=== PATIENT | male | born 1935 | race Caucasian/White ===

== ENCOUNTER 2018-09-30 05:20 | Inpatient (IN) ==
[2018-09-30] MEDS ORDERED: Ipratropium/Albuterol Neb 3 ML IH ONE (05:44)
[2018-09-30] MEDS ORDERED: Levofloxacin 750 MG/150 ML 750 MG/150 ML BAG IVPB ONE (05:44)
[2018-09-30] MEDS ORDERED: Acetaminophen 325 MG TABLET PO ONE (05:50)
--- NOTE | 2018-09-30 05:58 | Emergency Department Note ---
Disposition Clinical Impression: Respiratory distress Community acquired pneumonia Qualifiers: Laterality: right Lung location: unspecified part of lung Qualified Code(s): J18.9 - Pneumonia, unspecified organism Disposition: Admitted As Inpatient Referrals: Mario Early MD [Primary Care Provider] - Forms: ED Satisfaction Letter Time of Disposition: 07:09 SOB HPI - General Chief Complaint: ED Shortness of Breath/Dyspnea Stated Complaint: sob Time Seen by Provider: 09/30/18 05:25 Source: patient, EMS Mode of arrival: EMS Limitations: no limitations Nursing Notes Reviewed: Yes Vital Signs Reviewed: Yes - History of Present Illness pt sts got up to use BR just [employer] and had sudden SOB, could hardly make it marito k to bed. Often, shaking, could not breathe at all. Patient states Thursday he became ill. Decreased appetite. Reports Thursday he started coughing up brown and bright red blood. Did not know he had a fever. Former smoker. Denies chest pain or palpitations. Had some abdominal pain related to the cough. He reports no history of CHF. He is not on home oxygen. He states that he discovered a few days ago that he had "a whole bunch of meds" that he had not been taking. EMS vitals pulse ox 80-89% and tachycardic in a fib w/ freq PVC's Pt Subjective Complaint: shortness of breath, cough Onset (ago): day(s) Context: recent illness, medication noncompliance Severity: severe Consistency/Duration: constant Improves with: oxygen, rest, bronchodilators, upright position Worsens with: exertion, coughing Known history of: diabetes Associated symptoms: Reports: cough, wheezing, sputum production, orthopnea, palpitations, hemoptysis, nausea/vomiting, abdominal pain (from coughing). Denies: chest pain, pain with inspiration, lower extremity pain, polyuria, polydipsia, parasthesias, diaphoresis, syncope Treatment prior to arrival: oxygen, bronchodilator, other (solumedrol) Cough present: Yes Cough Description: Voluntary, Productive, Moist, Weak Cough Frequency: Intermittent Sputum production: Yes Sputum Amount: Moderate Sputum Color: Rust, Brown, Mason Red Blood - Related Data Home Medications Medication Instructions Recorded Confirmed Clopidogrel [Plavix] 75 mg PO DAILY 02/19/18 09/30/18 Furosemide [Lasix] 20 mg PO DAILY 02/19/18 09/30/18 Labetalol [Trandate] 300 mg PO BID 02/19/18 09/30/18 Levothyroxine [Synthroid] [place] [address]/19/18 09/30/18 Lisinopril-HCTZ 20-12.5 [Prinzide 1 each PO DAILY 02/19/18 09/30/18 20-12.5] Metformin HCl [Metformin HCl ER] 500 mg PO BID 02/19/18 09/30/18 Omeprazole 20 mg PO DAILY 02/19/18 09/30/18 Simvastatin [Zocor] 20 mg PO HS 02/19/18 09/30/18 amLODIPine [Norvasc] 5 mg PO DAILY 02/19/18 09/30/18 Allergies Allergy/AdvReac Type Severity Reaction Status Date / Time Sulfa (Sulfonamide Allergy See Verified 09/30/18 05:30 Antibiotics) Comments All systems ED: reviewed and negative except as stated. Review of Systems: As Per HPI Past Medical History - Past Medical History Medical history: Reports: CVA, diabetes, GERD, hyperlipidemia, hypertension, thyroid disease Psychiatric history: Reports: no psych history - Social History Smoking Status: Former smoker Smokeless Tobacco Status: No Alcohol use: Reports: none Drug use: Reports: none Physical Exam Constitutional: Patient is oriented to person, place, and time. Skin color is pale Appears well hydrated, body habitus elderly and frail. Appears ill. Head: Normocephalic and atraumatic. External ear exam normal Nose: Nose normal. Mouth/Throat: Uvula is midline, oropharynx is clear and moist and mucous membranes are normal. Eyes: Conjunctivae nl, extraocular motions and lids are normal. Pupils are equal, round, and reactive to light. Neck: Normal range of motion and phonation normal. Neck supple. Cardiovascular: Normal rate, irregularly irregular rhythm, normal heart sounds. Pulmonary/Chest: Presents in Respiratory distress. Respiratory Effort increased and breath sounds diminished. Coarse rhonchi bilateral bases worse on the right than the left. Wheezing on the right. With minimal exertion of sitting up and lying back down he becomes winded and tachypnea with some intercostal retractions briefly. He is coughing up frankly bloody/rust colored sputum. the effort of cough exhausts him Abdominal: Soft. Normal appearance and bowel sounds are normal. Obese. No tenderness, no masses, no guarding, no rebound Musculoskeletal: Good distal pulses. Soft compartments. Brisk cap refill. Extremities: Normal range of motion.Intact peripheral pulses. Weakness bilaterally. Slightly worse on the left than the right. 3+ bilateral lower extremity Edema. Extremity skin color pale no calf tenderness or palpable cords. Neurological: GCS 15. Patient is alert . Slight left hemiparesis. Generally debilitated with poor muscle tone and difficulty cooperating with any strength testing Skin: Skin is warm, dry and intact. color is pale cap. refill is quick Psychiatric: Patient has normal mood and affect. Patient speech is normal and behavior is normal. Thought content normal. - General Limitations: no limitations General appearance: alert, in distress Course - Reevaluation(s) Reevaluation #1: I discussed the large pneumonia with the patient and his family. They are aware he is at high risk for decompensation w/ this illness. He and his son indicates that he has a DNR. I confirmed with the patient that he does not want resuscitation, mechanical ventilation, CPR. He would prefer to stay here and be admitted at [facility] if possible . 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 His pneumonia is large and he is respiratory distress. I elected to trial a course of BiPAP to assist w/ his breathing and administered a IV fluid bolus due to fever, pneumonia, and possibility of sepsis although he is not tachycardic or hypotensive. he hAS risk for CHf AND significant depen edema, so 30cc/kg bolus is contraindicated. Time: 06:31 Reevaluation #3: disc case w/ dr Early who agrees to accept pt for admission. discussed antibiotic choice Time: 07:07 Vital Signs Temperature 101.8 F H 09/30/18 05:20 Pulse Rate 80 09/30/18 05:20 Respiratory Rate 28 09/30/18 05:20 Blood Pressure 131/113 09/30/18 05:20 O2 Sat by Pulse Oximetry 94 09/30/18 05:20 Temperature 101.8 F H 09/30/18 05:20 Pulse Rate 77 09/30/18 06:24 Respiratory Rate 28 09/30/18 06:24 Blood Pressure 150/77 09/30/18 06:24 O2 Sat by Pulse Oximetry 95 09/30/18 06:24 Oxygen Delivery Oxygen Delivery Nasal Cannula Shortness of Breath/Dyspnea - MDM Narrative Medical decision making narrative: Differential diagnosis includes pneumonia, CHF, exacerbation COPD. - Medical Records Medical records reviewed: Yes I reviewed the patient's medical records. Review of records reveals the patient had a stroke with some mild left hemiparesis in January. His medication list at that time looks very similar to his current medication list. Investigation of all available ECGs reveals non-with atrial fib. However his son states that he has had a history of atrial fibrillation. . - Lab Data Lab results reviewed: Yes I reviewed the patient's lab results. Result diagrams: 09/30/18 06:00 09/30/18 06:00 Lab Results 09/30/18 09/30/18 09/30/18 Range/Units 06:00 06:00 06:00 WBC 13.1 H (4.3-11.1) K/mcL RBC 3.62 L (4.19-5.50) M/mcL Hgb 10.9 L (12.9-16.9) g/dL Hct 32.5 L (37.5-50.1) % MCV 89.8 (83.0-100.0) fL MCH 30.1 (28.0-33.3) pg MCHC 33.5 (31.6-35.5) g/dL RDW 13.6 (11.5-14.5) % Plt Count 295 (140-400) K/mcL MPV 10.2 (9.4-12.4) fL Immature Gran % 0.4 (0-4) % Seg Neutrophils % 82.3 % Lymphocytes % 7.6 % Monocytes % 7.0 % Eosinophils % 2.3 % Basophils % 0.4 % Neutrophils # 10.8 H (1.6-8.9) K/mcL Lymphocytes # 1.0 (0.6-4.6) K/mcL Monocytes # 0.9 (0.0-1.3) K/mcL Eosinophils # 0.3 (0.0-0.6) K/mcL Basophils # 0.1 (0.0-0.2) K/mcL D-Dimer 598 H (0-500) ng/mLFEU VBG pH (7.32-7.42) pH Units VBG pCO2 (41-51) mmHg VBG pO2 (25-50) mmHg VBG HCO3 (21-27) mEq/L Sodium 135 L (136-145) mEq/L Potassium 3.5 (3.5-5.1) mEq/L Chloride 103 (98-107) mEq/L Carbon Dioxide 23 (23-29) mEq/L BUN 24 H (8-23) mg/dL Creatinine 1.41 H (0.70-1.30) mg/dL Est GFR ( Amer) 58 L (> 60) Est GFR (Non-Af Amer) 48 L (> 60) BUN/Creatinine Ratio 17 (6-26) Glucose 200 H (70-105) mg/dL Calculated Osmolality 290 (280-300) Lactic Acid (0.5-2.2) mmol/L Calcium 8.7 (8.6-10.3) mg/dL Total Bilirubin 0.8 (0.3-1.0) mg/dL Direct Bilirubin 0.3 H (0.0-0.2) mg/dL Indirect Bilirubin 0.5 (0.0-1.2) mg/dL AST 21 (13-39) Units/L ALT 44 (7-52) Units/L Alkaline Phosphatase 53 (34-104) Units/L Troponin I < 0.03 (< 0.04) ng/mL Serum Total Protein 6.0 L (6.4-8.9) g/dL Albumin 3.5 (3.5-5.7) g/dL Globulin 2.5 (2.4-3.5) g/dL Albumin/Globulin Ratio 1.4 (1.1-2.2) 09/30/18 09/30/18 Range/Units 06:00 06:12 WBC (4.3-11.1) K/mcL RBC (4.19-5.50) M/mcL Hgb (12.9-16.9) g/dL Hct (37.5-50.1) % MCV (83.0-100.0) fL MCH (28.0-33.3) pg MCHC (31.6-35.5) g/dL RDW (11.5-14.5) % Plt Count (140-400) K/mcL MPV (9.4-12.4) fL Immature Gran % (0-4) % Seg Neutrophils % % Lymphocytes % % Monocytes % % Eosinophils % % Basophils % % Neutrophils # (1.6-8.9) K/mcL Lymphocytes # (0.6-4.6) K/mcL Monocytes # (0.0-1.3) K/mcL Eosinophils # (0.0-0.6) K/mcL Basophils # (0.0-0.2) K/mcL D-Dimer (0-500) ng/mLFEU VBG pH 7.55 H (7.32-7.42) pH Units VBG pCO2 17 L (41-51) mmHg VBG pO2 70 H (25-50) mmHg VBG HCO3 15 L (21-27) mEq/L Sodium (136-145) mEq/L Potassium (3.5-5.1) mEq/L Chloride (98-107) mEq/L Carbon Dioxide (23-29) mEq/L BUN (8-23) mg/dL Creatinine (0.70-1.30) mg/dL Est GFR ( Amer) (> 60) Est GFR (Non-Af Amer) (> 60) BUN/Creatinine Ratio (6-26) Glucose (70-105) mg/dL Calculated Osmolality (280-300) Lactic Acid 1.2 (0.5-2.2) mmol/L Calcium (8.6-10.3) mg/dL Total Bilirubin (0.3-1.0) mg/dL Direct Bilirubin (0.0-0.2) mg/dL Indirect Bilirubin (0.0-1.2) mg/dL AST (13-39) Units/L ALT (7-52) Units/L Alkaline Phosphatase (34-104) Units/L Troponin I (< 0.04) ng/mL Serum Total Protein (6.4-8.9) g/dL Albumin (3.5-5.7) g/dL Globulin (2.4-3.5) g/dL Albumin/Globulin Ratio (1.1-2.2) - Radiology Data Radiology results reviewed: Yes I reviewed the patient's radiology results. my interpretation port CXR: Large right sided pneumonia Rad: XR/XR chest 1V portable IMPRESSION: Multifocal bilateral airspace disease could represent pneumonia, atelectasis, and/or hemorrhage. Pulmonary edema is also suspected. D/ / Nikolay Tinoco MD / Nikolay Tinoco MD - EKG Data EKG attestation: Yes I reviewed and interpreted this EKG. EKG results narrative: ECG from EMS reveals 2 PVCs and atrial fib with controlled rate of 78. No evidence of acute ischemic changes. ECG done in the emergency department reveals atrial fib with rate of 77 and [address] depression laterally. No ST elevation or acute ischemia. [id number] Critical Care Time Critical Care Time: Yes Attestation: Critical care provided for this patient of which 35 minutes were spent on critical care including at patient bedside, record review, evaluation of results, conversation with consultants and decision making and 0 minutes for procedures There was imminent failure of an organ system which required critical intervention to prevent clinically significant progression of life-threatening deterioration of the patient's condition to the point of disability or
[2018-09-30 06:08] LABS: Basophils # 0.1 K/mcL (0.0-0.2); Basophils % 0.4 %; Eosinophils # 0.3 K/mcL (0.0-0.6); Eosinophils % 2.3 %; Hematocrit 32.5 % (37.5-50.1); Hemoglobin 10.9 g/dL (12.9-16.9); Immature Granulocytes % 0.4 % (0-4); Lymphocytes % 7.6 %; Mean Corpuscular HGB Conc 33.5 g/dL (31.6-35.5); Mean Corpuscular Hemoglobin 30.1 pg (28.0-33.3); Mean Corpuscular Volume 89.8 fL (83.0-100.0); Mean Platelet Volume 10.2 fL (9.4-12.4); Monocytes # 0.9 K/mcL (0.0-1.3); Neutrophils # 10.8 K/mcL (1.6-8.9); Platelet Count 295 K/mcL (140-400); Red Blood Count 3.62 M/mcL (4.19-5.50); Red Cell Distribution Width 13.6 % (11.5-14.5); Segmented Neutrophils % 82.3 %
[2018-09-30 06:15] LABS: VBG HCO3 15 mEq/L (21-27); VBG PCO2 17 mmHg (41-51); VBG PH 7.55 pH Units (7.32-7.42); VBG PO2 70 mmHg (25-50)
[2018-09-30] MEDS ORDERED: 0.9 % Sodium Chloride 250 ML IVC ONE ×2 (06:20→12:30)
[2018-09-30 06:23] LABS: Alanine Aminotransferase 44 Units/L (7-52); Albumin 3.5 g/dL (3.5-5.7); Albumin/Globulin Ratio 1.4 (1.1-2.2); Alkaline Phosphatase 53 Units/L (34-104); Aspartate Amino Transferase 21 Units/L (13-39); BUN/Creatinine Ratio 17 (6-26); Bilirubin,Direct 0.3 mg/dL (0.0-0.2); Bilirubin,Indirect 0.5 mg/dL (0.0-1.2); Bilirubin,Total 0.8 mg/dL (0.3-1.0); Blood Urea Nitrogen 24 mg/dL (8-23); Calcium 8.7 mg/dL (8.6-10.3); Carbon Dioxide 23 mEq/L (23-29); Chloride 103 mEq/L (98-107); Globulin 2.5 g/dL (2.4-3.5); Glucose 200 mg/dL (70-105); Osmolality,Calculated 290 (280-300); Potassium 3.5 mEq/L (3.5-5.1); Sodium 135 mEq/L (136-145); eGFR For Non-African Americans 48 (> 60)
[2018-09-30 06:27] LABS: Troponin I < 0.03 ng/mL (< 0.04)
[2018-09-30 06:28] LABS: INR 1.2; Prothrombin Time 13.4 Seconds (9.4-12.1)
[2018-09-30 06:30] LABS: Activated Partial Thrombo Time 34.7 Seconds (26.0-36.0)
[2018-09-30] MEDS ORDERED: 0.9 % Sodium Chloride 500 ML IVC ONE ×2 (06:35→12:30)
[2018-09-30 07:02] LABS: Bilirubin,Urine Negative (Negative); Blood,Urine Negative (Negative); Clarity,Urine Clear (Clear); Color,Urine Yellow (Yellow); Glucose,Urine (UA) Normal (Normal); Ketones,Urine Negative (Negative); Leukocyte Esterase,Urine Negative (Negative); Nitrite,Urine Negative (Negative); PH,Urine 5.5 pH Units (5.0-8.0); Protein,Urine Negative (Neg-Trace); Specific Gravity,Urine 1.025 (1.010-1.025); Urobilinogen,Urine Normal (Normal)
[2018-09-30] MEDS ORDERED: D5% in Water 1,000 ML IVC PRN (12:30)
[2018-09-30] MEDS ORDERED: Dextrose Gel 15 GM/37.5 ML TUBE PO PRN ×2 (12:30)
[2018-09-30] MEDS ORDERED: Naloxone 0.4 MG/ML INJ IVP PRN (12:30)
[2018-09-30] MEDS ORDERED: *HR* Dextrose 50 % in Water (Syg) 50 ML SYRINGE IVP PRN (12:30)
[2018-09-30] MEDS: Furosemide 20 MG TABLET PO SCH (14:06)
[2018-09-30] MEDS: Lisinopril-HCTZ 20-12.5mg TABLET PO SCH (14:06)
[2018-09-30] MEDS: amLODIPine 5 MG TABLET PO SCH (14:06)
[2018-09-30] MEDS: *HR* Metformin 500 MG TABLET PO SCH ×2 (14:06→21:45)
[2018-09-30] MEDS: 0.9 % Sodium Chloride 1,000 ML IVC SCH ×2 (14:06→19:03)
[2018-09-30] MEDS: Ipratropium/Albuterol Neb 3 ML IH SCH ×5 (14:22→22:03)
--- NOTE | 2018-09-30 15:28 | Electrocardiograph Report ---
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
[2018-09-30 20:19] LABS: Estimated Average Glucose 183 mg/dl
--- NOTE | 2018-09-30 23:13 | Internal Med History&Physical ---
Date of Encounter: 10/01/18 Time of Encounter: 19:30 Assessment and Plan (1) Community acquired pneumonia Current visit: Yes Status: Acute 82-year-old gentleman with known history of hypertension, diabetes and previous CVA and chronic kidney disease is admitted with extensive right-sided pneumonia, fever, hemoptysis and leukocytosis consistent with community acquired pneumonia, likely streptococcal. He is placed on Levaquin in the emergency room and will continue the same. He has had hypoxia and improved with oxygen per nasal cannula at 3 L. In the emergency room he was temporarily on BiPAP. The ER physician confirmed with him that he is not to have intubation, CPR or defibrillation. He states he is feeling better having had respiratory treatment and oxygen and rest and antibiotics. We will continue with the Levaquin. Blood cultures have been done. Qualifiers: Laterality: right Lung location: lower lobe of lung Qualified Code(s): J18.1 - Lobar pneumonia, unspecified organism (2) Respiratory distress Current visit: Yes Status: Acute In the squad as well as in the ER he was showing hypoxia and temporally was on BiPAP. He is now on oxygen by nasal cannula at 3 L and is comfortable at rest. He easily desaturates when I sat him forward to listen to his lungs. He is resting comfortably without respiratory distress now. Continue the oxygen. He is not to have intubation. (3) New onset atrial fibrillation Current visit: Yes Status: Acute It appears that he has new onset atrial fibrillation. I have not noted him to have atrial fibrillation in the past. Likely is related to his acute infection. He is having no angina. Initial troponin was negative. Follow-up ordered. Appears to be rate controlled. His morning dose of beta honorio/labetalol was held because his pulse was slow. We will restart labetalol at a lower dose/100 mg twice a day for rate control. At the present time he is hemodynamically stable. Conservative measure with use of beta honorio, oxygen and treat pneumonia. Intervention for the atrial fibrillation will be discussed with patient if it does not resolve spontaneously. We will hold off on anticoagulation at the present time. With his age and fall risk he is not a good candidate for full anticoagulation. We will continue clopidogrel that he uses for history of previous CVA. (4) Hypertension Current visit: Yes Status: Acute Long-term history of hypertension and takes numerous medications. Currently under control. Beta honorio restarted as above. Continue to monitor. Qualifiers: Hypertension type: essential hypertension Qualified Code(s): I10 - Essential (primary) hypertension (5) Diabetes mellitus Current visit: Yes Status: Chronic Chronic history of diabetes. Latest like hemoglobin is 7.9%. Sugar was elevated to 200 earlier today. We will continue with his current metformin dosing and monitor his blood sugars. Qualifiers: Diabetes mellitus type: type 2 Diabetes mellitus [facility] insulin use: without intermission coordinator use Diabetes mellitus complication status: with h yperglycemia Qualified Code(s): E11.65 - Type 2 diabetes mellitus with hy perglycemia (6) Chronic kidney disease (CKD), stage III (moderate) Current visit: Yes Status: Chronic Chronic history of chronic kidney disease generally at stage III. We will continue to monitor. (7) Personal history of cerebrovascular accident with current residual effects Current visit: Yes Status: Chronic History of previous CVA and mild left a plegia. He is able to ambulate at home without any assistance. He will be at risk for fall in the hospital because of his previous CVA and his pneumonia and hypoxia. Will monitor the situation closely. (8) DVT prophylaxis Current visit: Yes Status: Acute He will likely be in bed a lot at this time. We will prophylax for DVT with L ovenox. Internal Medicine - H&P: HPI Chief complaint: I got short of breath and could not do anything Admitted From: Emergency Dept Plans for Post Hospital Care: Home History of present illness: Mr. Christensen is a 82 year old male with known history of diabetes, hypertension, chronic kidney disease and previous CVA with left-sided weakness is admitted via the emergency room with sudden onset of shortness of breath. Patient states that he was doing well until Thursday "I just did not want to do anything" "I sat around the house" and just did not feel well. Last night he went to bed at about 11 PM. At 3:00 in the morning he woke up "could not get my breath". "I could not do anything. I had to call the life squad. They gave him a breathing treatment which was helpful and started him on oxygen. He was then brought to the emergency room. There he was found to be hypoxic with saturations in the 80s, fever of 101.8, tachypnea and dyspneic. His chest x-ray showed right-sided pneumonia in a rather extensive infiltrate. He had leukocytosis as well as alkalosis. At home he said he did not have any fever that he was aware of, he has been coughing the past couple of days and he got to be blood tinged. He denies any cardiac type chest pain, no GI symptoms or urinary problems. He has had no recent travel. He has a previous smoker who quit 25 or 30 years ago after smoking a pack of cigarettes per day for many years. He denies any chronic cough, weight loss, night sweats or unusual exposures. She states that several hours after admission that he is feeling much better. His oxygen has been helpful. He really has not been able to urinate though sinc e he was catheterized for urine sample in the ER. He denies any chest pains or palpitations or irregular heartbeat sensation. He states he feels much better but still quite ill. Past Med Surg Social Fam HX - Past Medical History Medical history: CVA (With minimal left-sided weakness), diabetes, GERD, hyperlipidemia, hypertension, renal disease (Chronic kidney disease stage III), thyroid disease Psychiatric history: no psych history - Past Surgical History Additional surgical history: left shoulder replacement,left ankle fracture/orif, status post TUNA/prostate - Social History Smoking Status: Former smoker (He quit 25-30 years ago) Smokeless Tobacco Status: No Alcohol use: none Drug use: none Occupational status: retired Current living situation: Home - Independent Activity Level: Independent ambulation Recent Out of Country Travel Within the Last 8 Weeks: No Exposure or Possible Exposure to Illness During Travel: No - Family History Mother Living Status: Cause of : Brain tumor Father Living Status: Cause of : Stroke Internal Medicine - H&P: Meds Clopidogrel [Plavix] 75 mg PO DAILY 02/19/18 [History] Furosemide [Lasix] 20 mg PO DAILY 02/19/18 [History] Labetalol [Trandate] 300 mg PO BID 02/19/18 [History] Levothyroxine [Synthroid] 75 mcg PO 0630 02/19/18 [History] Lisinopril-HCTZ 20-12.5 [Prinzide 20-12.5] 1 each PO DAILY 02/19/18 [History] Metformin HCl [Metformin HCl ER] 500 mg PO BID 02/19/18 [History] Omeprazole 20 mg PO DAILY 02/19/18 [History] Simvastatin [Zocor] 20 mg PO HS 02/19/18 [History] amLODIPine [Norvasc] 5 mg PO DAILY 02/19/18 [History] Allergy/AdvReac Type Severity Reaction Status Date / Time Sulfa (Sulfonamide Allergy See Verified 09/30/18 05:30 Antibiotics) Comments - Constitutional Constitutional: as per HPI, fatigue, lethargy, malaise, no chills, no excessive sweating, no fever(s), no falls, no night sweats, no weight loss - EENT Eyes: no change in vision Ears: no ear discharge, no ear pain Nose, mouth and throat: no dry mouth, no neck mass, no sinus pressure, no sore throat - Cardiovascular Cardiovascular ROS IM: dyspnea, dyspnea on exertion, no chest pain, no edema, no irregular heart rhythm, no lightheadedness, no orthopnea, no palpitations, no syncope - Respiratory Respiratory: cough (With blood-tinged sputum.), dyspnea, hemoptysis, dyspnea on exertion (As in history of present illness), wheezing, chest congestion, change in phlegm color, no pain with cough - Gastrointestinal Gastrointestinal: no change in bowel habits, no change in stool character, no constipation, no diarrhea, no melena, no vomiting - Genitourinary Genitourinary ROS male: no dysuria, no flank pain, no urinary incontinence Additional comments: He has not urinated since they did a straight cath in the ER. He feels like he can urinate, but was unable to do so in the urinal. - Musculoskeletal Musculoskeletal ROS IM: back pain (Complained of back pain when I leaned him forward to listen to his lungs.), muscle weakness (He has mild left-sided weakness from his previous CVA without acute changes) - Integumentary Integumentary IM: no new lesions, no rash - Neurological Neurological ROS: focal weakness (Mild weakness on the left side compared to the right since his CVA years ago.), no confusion, no loss of vision, no vertigo - Psychiatric Psychiatric: no depression, no visual hallucinations - Constitutional Vitals: Temp Pulse Resp BP Pulse Ox 98.2 F 88 14 157/66 94 09/30/18 18:39 09/30/18 21:41 09/30/18 21:41 09/30/18 18:39 09/30/18 18:39 General appearance: Present: mild distress, A&O X 3, answers questions appropriately Exam: He is lying in bed at 45 degree angle. He is a bit slower than baseline. When I sat him forward to listen to his lungs he had back pain complaints and his saturations dropped to the 70s. He had quick recovery to the 90s when lying quietly - Head Head exam: Present: atraumatic, normal inspection - ENT ENT exam: Present: normal oropharynx - Neck Neck exam general surgery: Absent: lymphadenopathy, tenderness, thyromegaly - Respiratory Additional comments: Decreased breath sounds in the bases, rhonchi and crackles in the right middle lower lung field and slight crackles in the left base. When I sat him up and became dyspneic and saturation dropped to the 70s. - Cardiovascular Cardiovascular exam: Present: irregular rhythm, +S1, +S2, systolic murmur (1 to 2/6 systolic murmur at the left sternal border) - GI/Abdominal GI/Abdominal exam: Present: soft, no peritoneal signs. Absent: guarding, mass, rebound, rigid, tenderness Additional comments: Firmness and distention over the bladder. Surprisingly not tender though. - Extremities Exam Extremities exam: Absent: calf tenderness, cyanotic, pedal edema, tenderness - Neurological Exam Neurological exam: Present: alert, oriented X3 Additional comments: I did not do full neurological examination. He has a chronic history of mild left weakness from previous CVA - Psychiatric Psychiatric exam: Present: normal affect, normal mood Internal Med - H&P Results - Labs CBC & Chem 7: 10/01/18 04:11 10/01/18 04:11 Labs: Short CBC 09/30/18 Range/Units 06:00 WBC 13.1 H (4.3-11.1) K/mcL Hgb 10.9 L (12.9-16.9) g/dL Hct 32.5 L (37.5-50.1) % Plt Count 295 (140-400) K/mcL Neutrophils # 10.8 H (1.6-8.9) K/mcL BMP 09/30/18 06:00 Sodium 135 L Potassium 3.5 Chloride 103 Carbon Dioxide 23 BUN 24 H Creatinine 1.41 H Glucose 200 H Calcium 8.7 Cardiac Enzymes 09/30/18 Range/Units 06:00 Troponin I < 0.03 (< 0.04) ng/mL Liver Function 09/30/18 Range/Units 06:00 Total Bilirubin 0.8 (0.3-1.0) mg/dL Direct Bilirubin 0.3 H (0.0-0.2) mg/dL AST 21 (13-39) Units/L ALT 44 (7-52) Units/L Alkaline Phosphatase 53 (34-104) Units/L Albumin 3.5 (3.5-5.7) g/dL Urine 09/30/18 Range/Units 06:44 Urine Color Yellow (Yellow) Urine Clarity Clear (Clear) Urine pH 5.5 (5.0-8.0) pH Units Ur Specific [place] 1.025 (1.010-1.025) Urine Protein Negative (Neg-Trace) mg/dL Urine Glucose (UA) Normal (Normal) mg/dL Elevated white blood cell count, mild anemia, mild hyponatremia, creatinine at baseline of chronic kidney disease. Troponin negative. EKG shows atrial fibrillation with controlled rhythm. No obvious acute ischemic changes - ABG Interpretation ABG results: 09/30/18 06:12 VBG pH 7.55 H VBG pCO2 17 L VBG pO2 70 H VBG HCO3 15 L - EKG Data EKG comments: 09/30/18 23:24 EKG was reviewed by me. Atrial fibrillation with rate control. No obvious acute ischemic changes - Impressions ITS Impressions Chest X-Ray 09/30/18 05:44 IMPRESSION: Multifocal bilateral airspace disease could represent pneumonia, atelectasis, and/or hemorrhage. Pulmonary edema is also suspected. D/ / Nikolay Tinoco MD / Nikolay Tinoco MD Interpreting Provider: Nikolay Tinoco MD - Diagnostic Studies Chest x-ray Additional comments: Examination shows extensive right mid to lower lobe infiltrate.
[2018-10-01 04:27] LABS: Basophils % 0.1 %; Eosinophils % 0.1 %; Hemoglobin 10.1 g/dL (12.9-16.9); Immature Granulocytes % 0.5 % (0-4); Lymphocytes # 0.8 K/mcL (0.6-4.6); Mean Corpuscular HGB Conc 33.7 g/dL (31.6-35.5); Mean Corpuscular Hemoglobin 30.1 pg (28.0-33.3); Mean Corpuscular Volume 89.6 fL (83.0-100.0); Mean Platelet Volume 10.2 fL (9.4-12.4); Monocytes # 1.3 K/mcL (0.0-1.3); Monocytes % 8.2 %; Neutrophils # 13.4 K/mcL (1.6-8.9); Platelet Count 310 K/mcL (140-400); Red Blood Count 3.35 M/mcL (4.19-5.50); Red Cell Distribution Width 13.8 % (11.5-14.5); Segmented Neutrophils % 86.1 %
[2018-10-01 04:43] LABS: BUN/Creatinine Ratio 21 (6-26); Blood Urea Nitrogen 34 mg/dL (8-23); Calcium 8.5 mg/dL (8.6-10.3); Carbon Dioxide 23 mEq/L (23-29); Chloride 105 mEq/L (98-107); Glucose 210 mg/dL (70-105); Osmolality,Calculated 300 (280-300); Potassium 3.9 mEq/L (3.5-5.1); Sodium 138 mEq/L (136-145); eGFR For Non-African Americans 41 (> 60)
[2018-10-01 04:45] LABS: Troponin I < 0.03 ng/mL (< 0.04)
[2018-10-01] MEDS: Ipratropium/Albuterol Neb 3 ML IH SCH ×5 (05:09→23:25)
[2018-10-01] MEDS: *HR* Enoxaparin 30 MG/0.3 ML SYRINGE SQ SCH (06:47)
[2018-10-01] MEDS ORDERED: Ipratropium/Albuterol Neb 3 ML IH PRN (07:55)
--- NOTE | 2018-10-01 07:55 | Internal Med Progress Note ---
Date of Encounter: 10/01/18 Time of Encounter: 07:52 - Assessment and plan (1) Community acquired pneumonia Current Visit: Yes Status: Acute Assessment and plan: Patient shows improvement from his pneumonia with less cough, sputum is no longer bloodied, no fever now, he feels improved and breathing better. Saturations are in the 90s with oxygen per nasal cannula. White blood cell count slightly higher today at 15,000. Continue with the Levaquin. Qualifiers: Laterality: right Lung location: lower lobe of lung Qualified Code(s): J18.1 - Lobar pneumonia, unspecified organism (2) Respiratory distress Current Visit: Yes Status: Acute Assessment and plan: Patient respiratory distress when he was in the ER. He was on BiPAP temporarily. Now tolerating nasal cannula at 3 L and good saturations. No dyspnea. His saturations do drop when I sit him forward and he has decreased respirations. Resting comfortably. (3) New onset atrial fibrillation Current Visit: Yes Status: Acute Assessment and plan: New-onset atrial fibrillation which is rate controlled. Serial troponins are negative. No angina. No CHF. Not a great patient for full anticoagulation. Likely agent fibrillation because of his pneumonia compromise. We will continue the monitor. He is DNR CC A to have no intubation, CPR or defibrillation. (4) Hypertension Current Visit: Yes Status: Acute Assessment and plan: Blood pressure is under good control. Continue current medicine. Qualifiers: Hypertension type: essential hypertension Qualified Code(s): I10 - Essential (primary) hypertension (5) Diabetes mellitus Current Visit: Yes Status: Chronic Assessment and plan: Sugars are minimally increased. Overall his glycohemoglobin is under reasonable control at his age at 8% Continue to follow. Qualifiers: Diabetes mellitus type: type 2 Diabetes mellitus [facility] insulin use: without nursing home use Diabetes mellitus complication status: with hyperglycemia Qualified Code(s): E11.65 - Type 2 diabetes mellitus with hyperglycemia (6) Chronic kidney disease (CKD), stage III (moderate) Current Visit: Yes Status: Chronic Assessment and plan: Stage III chronic kidney disease, creatinine a bit worse at 1.6. He is r eceiving IV fluids. We will continue to monitor. (7) Personal history of cerebrovascular accident with current residual effects Current Visit: Yes Status: Chronic (8) DVT prophylaxis Current Visit: Yes Status: Acute - Subjective Interval history: Patient states that he feels better. He is coughing less. No blood in the sputum now. He denies any cardiac type chest pain or palpitations or tachycardia. He states he ate well last night and hungry for breakfast this morning. He has no abdominal pain. He was able to urinate at least a small amount last evening. At home he has a heating pad he uses on his low back and hip area, but otherwise he has no complaints of pain in lower extremities particularly at the calves. - Constitutional Vitals: Temp Pulse Resp BP Pulse Ox 97.9 F 76 16 150/67 95 10/01/18 04:00 10/01/18 04:00 10/01/18 04:00 10/01/18 04:00 10/01/18 06:22 General appearance: Present: mild distress, A&O X 3, answers questions appropriately - Respiratory Additional comments: Diminished breath sounds throughout, and expiratory wheezes heard in all lung [place] today. Crackles in the right mid and lower lung field. No respiratory distress at rest. No orthopnea. - Cardiovascular Cardiovascular exam: Present: irregular rhythm, +S1, +S2. Absent: systolic murmur - GI/Abdominal GI/Abdominal exam: Present: soft. Absent: tenderness - Extremities Exam Extremities exam: Present: mottling. Absent: calf tenderness, pedal edema, tenderness Internal Medicine: Result - Labs CBC & Chem 7: 10/01/18 04:11 10/01/18 04:11 Labs: Short CBC 10/01/18 Range/Units 04:11 WBC 15.5 H (4.3-11.1) K/mcL Hgb 10.1 L (12.9-16.9) g/dL Hct 30.0 L (37.5-50.1) % Plt Count 310 (140-400) K/mcL Neutrophils # 13.4 H (1.6-8.9) K/mcL BMP labs have been reviewed. Whte blood cell count is slightly more elevated. Hemoglobin relatively stable. Renal function slightly worsened but near baseline. Repeat troponin negative. 10/01/18 04:11 Sodium 138 Potassium 3.9 Chloride 105 Carbon Dioxide 23 BUN 34 H Creatinine 1.62 H Glucose 210 H Calcium 8.5 L Cardiac Enzymes 10/01/18 Range/Units 04:11 Troponin I < 0.03 (< 0.04) ng/mL - ABG Interpretation ABG results: PT/INR, D-dimer PT 13.4 Seconds (9.4-12.1) H 09/30/18 06:00 D-Dimer 598 ng/mLFEU (0-500) H 09/30/18 06:00 Consult Discharge Plan - Plan Referrals: Mario Early MD [Primary Care Provider] -
[2018-10-01] MEDS: *HR* Metformin 500 MG TABLET PO SCH (10:08)
[2018-10-01] MEDS: amLODIPine 5 MG TABLET PO SCH (10:08)
[2018-10-01] MEDS: Furosemide 20 MG TABLET PO SCH (10:08)
[2018-10-01] MEDS: Lisinopril-HCTZ 20-12.5mg TABLET PO SCH (10:08)
[2018-10-01] MEDS: 0.9 % Sodium Chloride 1,000 ML IVC SCH (13:40)
[2018-10-01] MEDS ORDERED: Furosemide 40 MG/4 ML VIAL IVP ONE (15:37)
--- NOTE | 2018-10-01 17:41 | Event Note ---
Date of Encounter: 10/01/18 Time of Encounter: 17:41 Today patient had an episode where he became acutely short of breath, mireles colored, obvious respiratory congestion and drop in his saturations. Likely he had flash congestive heart failure. He was placed on BiPAP temporarily, Magdaleno catheter placed, Lasix 40 mg was given. Chest x-ray shows bilateral infiltrates in addition to his right-sided pneumonia. On reevaluation, he is now much improved. He is on 9 L high flow nasal cannula and able to take a few bites of food as he was hungry. He denies a cardiac type chest pain. He states his breathing is much better. Current vitals: blood pressure 147/80, pulse 86-100, saturation 94-95% temperature 97.8. He is much appreciative of the team that worked with him this afternoon and has thanked them individually for doing so. . I again confirmed his CODE STATUS. He is DNR CCA. No intubation, no CPR, no defibrillation. I also spoke with his son who is aware of this and agrees and states his father has signed papers as such. I told both of them that we would do everything up to the point of a code. IV medications, cardiac monitoring, BiPAP etc. will be used if warranted.
[2018-10-01] MEDS ORDERED: Dextrose Gel 15 GM/37.5 ML TUBE PO PRN ×2 (18:26)
[2018-10-01] MEDS ORDERED: D5% in Water 1,000 ML IVC PRN (18:26)
[2018-10-01] MEDS ORDERED: *HR* Dextrose 50 % in Water (Syg) 50 ML SYRINGE IVP PRN (18:26)
[2018-10-01] MEDS ORDERED: Melatonin 3 MG TABLET PO PRN (19:35)
[2018-10-01] MEDS ORDERED: cefTRIAXone 1,000 MG in 0.9 % Sodium Chloride Mini Bag 100 ML IVPB SCH (20:00)
[2018-10-01] MEDS: cefTRIAXone 1,000 MG in 0.9 % Sodium Chloride Mini Bag 100 ML IVPB SCH (20:05)
[2018-10-01 21:03] LABS: Magnesium 1.8 mg/dL (1.6-2.6); Potassium 3.6 mEq/L (3.5-5.1)
[2018-10-01] MEDS: Furosemide 40 MG/4 ML VIAL IVP SCH (23:24)
[2018-10-02] MEDS: Furosemide 40 MG/4 ML VIAL IVP SCH ×3 (05:17→17:03)
[2018-10-02] MEDS: Ipratropium/Albuterol Neb 3 ML IH SCH ×3 (05:17→17:04)
[2018-10-02] MEDS ORDERED: Levofloxacin 500 MG/100 ML 500 MG/100 ML BAG IVPB SCH (06:00)
[2018-10-02 06:07] LABS: Basophils % 0.2 %; Eosinophils # 0.1 K/mcL (0.0-0.6); Eosinophils % 0.6 %; Hematocrit 31.4 % (37.5-50.1); Hemoglobin 10.6 g/dL (12.9-16.9); Immature Granulocytes % 0.5 % (0-4); Lymphocytes # 1.2 K/mcL (0.6-4.6); Lymphocytes % 9.2 %; Mean Corpuscular HGB Conc 33.8 g/dL (31.6-35.5); Mean Corpuscular Hemoglobin 30.5 pg (28.0-33.3); Mean Corpuscular Volume 90.2 fL (83.0-100.0); Mean Platelet Volume 10.3 fL (9.4-12.4); Monocytes # 1.3 K/mcL (0.0-1.3); Monocytes % 9.9 %; Neutrophils # 10.5 K/mcL (1.6-8.9); Platelet Count 332 K/mcL (140-400); Red Blood Count 3.48 M/mcL (4.19-5.50); Segmented Neutrophils % 79.6 %
[2018-10-02] MEDS: *HR* Enoxaparin 30 MG/0.3 ML SYRINGE SQ SCH (06:09)
[2018-10-02 06:12] LABS: Calcium 8.7 mg/dL (8.6-10.3); Potassium 3.3 mEq/L (3.5-5.1)
[2018-10-02] MEDS: amLODIPine 5 MG TABLET PO SCH (09:06)
[2018-10-02] MEDS: Lisinopril-HCTZ 20-12.5mg TABLET PO SCH (09:07)
[2018-10-02] MEDS: Furosemide 20 MG TABLET PO SCH (09:07)
[2018-10-02] MEDS: Insulin LISPRO 300 UNITS/3 ML VIAL SQ SCH ×3 (09:09→16:41)
--- NOTE | 2018-10-02 11:00 | Internal Med Progress Note ---
Date of Encounter: 10/02/18 Time of Encounter: 11:00 - Subjective Interval history: - Assessment and plan (1) Community acquired pneumonia Current Visit: Yes Status: Acute Assessment and plan: Patient remains with cough - states feels somewhat better today, no more hemopysis. no fever now. Tolerated BiPap. Saturations have improved with oxygen per nasal cannula. WBC was 15,000. Tmax was 99. Continue with the Levaquin IV q 48h. Add cephalosporin Qualifiers: Laterality: right Lung location: lower lobe of lung Qualified Code(s): J18.1 - Lobar pneumonia, unspecified organism (2) Respiratory distress Current Visit: Yes Status: Acute Assessment and plan: BiPap. Had some improvment with pneumonia treatment, then had flash volume overload. Placed back on BiPap. His saturations do drop with exertion, not able to eat. Placed on IV lasix will need monitor electolytes and renal function. (3) New onset atrial fibrillation Current Visit: Yes Status: Acute Assessment and plan: New-onset atrial fibrillation which is rate controlled. 70s Had no CP. Serial troponins are negative. pt not candidate for full anticoagulation. added ASA. . We will continue the monitor. He is DNR CC A to have no intubation, CPR or defibrillation. (4) Hypertension Current Visit: Yes Status: Acute Assessment and plan: Blood pressure is under good control. Continue current medicine. Qualifiers: Hypertension type: essential hypertension Qualified Code(s): I10 - Essential (primary) hypertension (5) Diabetes mellitus Current Visit: Yes Status: Chronic Assessment and plan: Sugars are minimally increased. Insulin adjusted. Overall his glycohemoglobin is under reasonable control at his age at 8% Continue to follow. 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 He is receiving IV lasix along with po. Will need close monitoring of renal function and potassium. We will continue to monitor. (7) Personal history of cerebrovascular accident with current residual effects Current Visit: Yes Status: Chronic (8) DVT prophylaxis Current Visit: Yes Status: Acute - Subjective Interval history: Pt is somewhat anxious today over his breathing. He reports he would like to feel better . exam General appearance: Present: thin WM mild distress, A&O X 3 - Respiratory Additional comments: crackles bilateral with scattered ronchi occasional - Cardiovascular Cardiovascular exam: Present: irregular rhythm, +S1, +S2. no murmer but difficult to ausculate - GI/Abdominal GI/Abdominal exam: Present: full BS present slight distended soft. Absent: tenderness - Extremities Exam Extremities exam: Present: mottling. Absent: calf tenderness, pedal edema, tenderness - Constitutional Vitals: Temp Pulse Resp BP Pulse Ox 97.9 F 80 18 152/77 98 10/02/18 08:00 10/02/18 08:00 10/02/18 08:00 10/02/18 08:00 10/02/18 08:00 General appearance: Present: mild distress, A&O X 3, answers questions appropriately Internal Medicine: Result - Labs CBC & Chem 7: 10/03/18 04:35 10/03/18 04:35 Labs: Short CBC 10/02/18 Range/Units 05:45 WBC 13.2 H (4.3-11.1) K/mcL Hgb 10.6 L (12.9-16.9) g/dL Hct 31.4 L (37.5-50.1) % Plt Count 332 (140-400) K/mcL Neutrophils # 10.5 H (1.6-8.9) K/mcL BMP 10/01/18 10/02/18 20:12 05:45 Sodium 137 Potassium 3.6 3.3 L Chloride 98 Carbon Dioxide 27 BUN 38 H Creatinine 1.63 H Glucose 204 H Calcium 8.7 - ABG Interpretation ABG results: PT/INR, D-dimer PT 13.4 Seconds (9.4-12.1) H 09/30/18 06:00 D-Dimer 598 ng/mLFEU (0-500) H 09/30/18 06:00 - Impressions Impressions Chest X-Ray 10/01/18 15:20 IMPRESSION: Significant increased patchy bilateral airspace disease and consolidation. Multifocal pneumonia and pulmonary edema both considered in this case. D/ / Estevan Portillo MD / Estevan Portillo MD Interpreting Provider: Estevan Portillo MD Consult Discharge Plan - Plan Referrals: Mario Early MD [Primary Care Provider] -
[2018-10-02] MEDS: Ascorbic Acid 500 MG TABLET PO SCH ×2 (11:29→20:06)
[2018-10-02] MEDS: Nystatin SUSP 5 ML UD.LIQ PO SCH ×3 (12:00→20:07)
[2018-10-02] MEDS: cefTRIAXone 1,000 MG in 0.9 % Sodium Chloride Mini Bag 100 ML IVPB SCH (20:01)
[2018-10-03] MEDS: Furosemide 40 MG/4 ML VIAL IVP SCH ×3 (00:04→12:05)
[2018-10-03] MEDS: Ipratropium/Albuterol Neb 3 ML IH SCH ×5 (00:04→23:09)
[2018-10-03 04:52] LABS: Hematocrit 31.3 % (37.5-50.1); Hemoglobin 10.6 g/dL (12.9-16.9); Mean Corpuscular HGB Conc 33.9 g/dL (31.6-35.5); Mean Corpuscular Hemoglobin 30.6 pg (28.0-33.3); Mean Corpuscular Volume 90.5 fL (83.0-100.0); Mean Platelet Volume 10.6 fL (9.4-12.4); Platelet Count 293 K/mcL (140-400); Red Blood Count 3.46 M/mcL (4.19-5.50); Red Cell Distribution Width 13.7 % (11.5-14.5)
[2018-10-03 05:08] LABS: Calcium 8.5 mg/dL (8.6-10.3); Potassium 3.1 mEq/L (3.5-5.1)
[2018-10-03] MEDS: *HR* Enoxaparin 40 MG/0.4 ML SYRINGE SQ SCH (05:38)
[2018-10-03] MEDS: Levofloxacin 750 MG/150 ML 750 MG/150 ML BAG IVPB SCH (08:24)
[2018-10-03] MEDS: amLODIPine 5 MG TABLET PO SCH (08:25)
[2018-10-03] MEDS: Nystatin SUSP 5 ML UD.LIQ PO SCH ×4 (08:25→20:21)
[2018-10-03] MEDS: Ascorbic Acid 500 MG TABLET PO SCH ×2 (08:25→20:27)
[2018-10-03] MEDS: Furosemide 20 MG TABLET PO SCH ×2 (08:25→17:30)
[2018-10-03] MEDS: Insulin LISPRO 300 UNITS/3 ML VIAL SQ SCH ×3 (08:26→17:29)
[2018-10-03] MEDS: Lisinopril-HCTZ 20-12.5mg TABLET PO SCH (08:26)
--- NOTE | 2018-10-03 14:16 | Internal Med Progress Note ---
Date of Encounter: 10/03/18 Time of Encounter: 14:30 - Subjective Interval history: - Assessment and plan (1) Community acquired pneumonia Current Visit: Yes Status: Acute Assessment and plan: Patient states feels improved with cough today, no more hemopysis. no fever now. lung exam much improved. Tolerated BiPap. Saturations have improved with oxygen per nasal cannula. WBC was 15,000. will repeat cbc. no chills. Continue with the Levaquin IV q 48h. Added cephalosporin Qualifiers: Laterality: right Lung location: lower lobe of lung Qualified Code(s): J18.1 - Lobar pneumonia, unspecified organism (2) Respiratory distress Current Visit: Yes Status: Acute Assessment and plan: BiPap. Had some improvment with pneumonia treatment, then had flash volume overload two days ago improved now.. Placed back on BiPap. Placed on IV lasix will need monitor electolytes and renal function. K has been low. Replacing 40 tid for now. Will recheck will DC IV lasix and do Po 20 mg bid (3) New onset atrial fibrillation Current Visit: Yes Status: Acute Assessment and plan: New-onset atrial fibrillation which is rate controlled. 70s Had no CP. Serial troponins are negative. pt not candidate for full anticoagulation. added ASA. . We will continue the monitor. He is DNR CC A to have no i ntubation, CPR or defibrillation. (4) Hypertension Current Visit: Yes Status: Acute Assessment and plan: Blood pressure is under good control. Continue current medicine. Qualifiers: Hypertension type: essential hypertension Qualified Code(s): I10 - Essential (primary) hypertension (5) Diabetes mellitus Current Visit: Yes Status: Chronic Assessment and plan: Sugars are minimally increased. Insulin adjusted. Overall his glycohemoglobin is under reasonable control at his age at 8% Continue to follow. Qualifiers: Diabetes mellitus type: type 2 Diabetes mellitus penitentiary insulin use: without penitentiary use Diabetes mellitus complication status: with hyperglycem ia Qualified Code(s): E11.65 - Type 2 diabetes mellitus with hyperglycemia (6) Chronic kidney disease (CKD), stage III (moderate) Current Visit: Yes Status: Chronic Assessment and plan: Stage III chronic kidney disease, creatinine stable bun elevated . He is receiving IV lasix along with po. will change to po tomorrow Will need close monitoring of renal function and potassium. We will continue to monitor. (7) Personal history of cerebrovascular accident with current residual effects Current Visit: Yes Status: Chronic (8) DVT prophylaxis Current Visit: Yes Status: Acute - Subjective Interval history: Pt is improved today and more talkative calm He says he would like to have a big BM he did have small bm exam General appearance: Present: thin WM mild distress, A&O X 3 - Respiratory Additional comments: clear mainly bilateral - Cardiovascular Cardiovascular exam: Present: irregular rhythm, +S1, +S2. no murmer but difficult to ausculate - GI/Abdominal GI/Abdominal exam: Present: full BS present slight distended soft. Absent: tenderness - Extremities Exam Extremities exam: Present: mottling. Absent: calf tenderness, pedal edema, tenderness - Constitutional Vitals: Temp Pulse Resp BP Pulse Ox 98.2 F 77 16 175/60 93 10/03/18 08:00 10/03/18 08:00 10/03/18 08:00 10/03/18 08:00 10/03/18 08:00 General appearance: Present: mild distress, A&O X 3, answers questions appropriately Internal Medicine: Result - Labs CBC & Chem 7: 10/03/18 04:35 10/03/18 04:35 Labs: Short CBC 10/03/18 Range/Units 04:35 WBC 10.7 (4.3-11.1) K/mcL Hgb 10.6 L (12.9-16.9) g/dL Hct 31.3 L (37.5-50.1) % Plt Count 293 (140-400) K/mcL BMP 10/03/18 04:35 Sodium 138 Potassium 3.1 L Chloride 96 L Carbon Dioxide 31 H BUN 40 H Creatinine 1.67 H Glucose 189 H Calcium 8.5 L - ABG Interpretation ABG results: PT/INR, D-dimer PT 13.4 Seconds (9.4-12.1) H 09/30/18 06:00 D-Dimer 598 ng/mLFEU (0-500) H 09/30/18 06:00 Consult Discharge Plan - Plan Referrals: Mario Early MD [Primary Care Provider] -
[2018-10-03] MEDS: cefTRIAXone 1,000 MG in 0.9 % Sodium Chloride Mini Bag 100 ML IVPB SCH (20:21)
[2018-10-04] MEDS: *HR* Enoxaparin 40 MG/0.4 ML SYRINGE SQ SCH (05:45)
[2018-10-04] MEDS: Ipratropium/Albuterol Neb 3 ML IH SCH ×4 (05:46→21:08)
[2018-10-04 06:00] LABS: Basophils % 0.2 %; Eosinophils # 0.5 K/mcL (0.0-0.6); Eosinophils % 4.4 %; Hematocrit 32.3 % (37.5-50.1); Hemoglobin 10.8 g/dL (12.9-16.9); Immature Granulocytes % 0.8 % (0-4); Lymphocytes # 1.3 K/mcL (0.6-4.6); Lymphocytes % 11.6 %; Mean Corpuscular HGB Conc 33.4 g/dL (31.6-35.5); Mean Corpuscular Hemoglobin 30.2 pg (28.0-33.3); Mean Corpuscular Volume 90.2 fL (83.0-100.0); Mean Platelet Volume 10.1 fL (9.4-12.4); Monocytes # 1.1 K/mcL (0.0-1.3); Neutrophils # 7.9 K/mcL (1.6-8.9); Platelet Count 330 K/mcL (140-400); Red Blood Count 3.58 M/mcL (4.19-5.50); Red Cell Distribution Width 13.4 % (11.5-14.5)
[2018-10-04 06:33] LABS: Calcium 8.7 mg/dL (8.6-10.3); Potassium 3.9 mEq/L (3.5-5.1)
--- NOTE | 2018-10-04 07:11 | Internal Med Progress Note ---
Date of Encounter: 10/04/18 Time of Encounter: 07:06 - Assessment and plan (1) Acute congestive heart failure Current Visit: Yes Status: Acute Assessment and plan: His acute congestive heart failure/flash heart failure that occurred on Thursday is now clinically resolved. He has been switched from IV Lasix to oral. His potassium is being replaced. Creatinine bumped up a bit at 1.7, but he does have a history of chronic kidney disease. Follow-up chest x-ray today after he has been upright in a chair for breakfast. Echocardiogram has been ordered to check his EF. He continues with rate controlled atrial fibrillation. Qualifiers: Heart failure type: unspecified Qualified Code(s): I50.9 - Heart failure, unspecified (2) Community acquired pneumonia Current Visit: Yes Status: Acute Assessment and plan: Clinically he is improving from his pneumonia with normal white blood cell count, afebrile since admission, and his respiratory symptoms are cleared. We will get a follow-up chest x-ray today. Continue his Levaquin, Rocephin was added Thursday when he decompensated. Qualifiers: Laterality: right Lung location: lower lobe of lung Qualified Code(s): J18.1 - Lobar pneumonia, unspecified organism (3) Respiratory distress Current Visit: Yes Status: Resolved Assessment and plan: His respiratory status has improved with treatment of his CHF. He continues to need BiPAP at night when his sats dropped to the 80s. He thinks he is breathing well. No dyspnea or tachypnea. Continue with oxygen as well as use of BiPAP when necessary. (4) New onset atrial fibrillation Current Visit: Yes Status: Acute Assessment and plan: He has had atrial fibrillation since admission with his pneumonia. It is rate controlled, asymptomatic with occasional PVCs. Echocardiogram has been ordered to check his anatomy/EF. He is not a great candidate for long-term anticoagulation and he previously had hemoptysis with his pneumonia. Anticipating return to normal sinus rhythm once his acute pneumonia and CHF episode as quieted (5) Hypertension Current Visit: Yes Status: Acute Assessment and plan: Long-standing hypertension. Under good control. Surprisingly did not have any hypotension during his acute CHF and diuresis. Qualifiers: Hypertension type: essential hypertension Qualified Code(s): I10 - Essential (primary) hypertension (6) Diabetes mellitus Current Visit: Yes Status: Chronic Assessment and plan: His metformin was held because of his increased creatinine. He is on sliding scale insulin currently. Continue to follow. 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 He has been switched from IV Lasix to oral Lasix. We will continue to watch the creatinine. (8) Personal history of cerebrovascular accident with current residual effects Current Visit: Yes Status: Chronic (9) DVT prophylaxis Current Visit: Yes Status: Acute - Subjective Interval history: Patient states that he feels much better. He is sleeping well. He denies any respiratory or cardiac symptoms. No palpitations. No GI symptoms except he thinks his bowels are getting loose. No lower extremity pain or edema. He states he is not getting short of breath getting to the bedside commode. He states his appetite is good. - Constitutional Vitals: Temp Pulse Resp BP Pulse Ox 97.5 F L 83 16 124/65 94 10/04/18 05:23 10/04/18 05:23 10/04/18 05:23 10/04/18 05:23 10/04/18 05:23 General appearance: Present: A&O X 3, no acute distress, answers questions appropriately Exam: Overall he looks much better than when I saw him Thursday evening. He is resting comfortably at 30 degrees elevation of the head of his bed. No dyspnea. He is using high flow oxygen per nasal cannula. - Neck Additional comments: No JVD. - Respiratory Additional comments: His lungs are essentially clear except for rare crackles at the bases. No respiratory distress. No orthopnea. Saturations staying in the 90s with oxygen per high flow nasal cannula. - Cardiovascular Cardiovascular exam: Present: irregular rhythm, +S1, +S2. Absent: systolic murmur Additional comments: Monitor shows atrial fibrillation with rate controlled in the 80s. Occasional unifocal PVC. - Extremities Exam Extremities exam: Absent: calf tenderness, pedal edema, tenderness Internal Medicine: Result - Labs CBC & Chem 7: 10/04/18 05:30 10/04/18 05:30 Labs: Short CBC 10/04/18 Range/Units 05:30 WBC 10.9 (4.3-11.1) K/mcL Hgb 10.8 L (12.9-16.9) g/dL Hct 32.3 L (37.5-50.1) % Plt Count 330 (140-400) K/mcL Neutrophils # 7.9 (1.6-8.9) K/mcL BMP 10/04/18 05:30 Sodium 138 Potassium 3.9 Chloride 98 Carbon Dioxide 31 H BUN 40 H Creatinine 1.72 H Glucose 185 H Calcium 8.7 White blood cell count is now normal. Hemoglobin stable at 10.8. Creatinine up slightly at 1.7, but not far from his baseline. Potassium is now normal at 3.9. - ABG Interpretation ABG results: PT/INR, D-dimer PT 13.4 Seconds (9.4-12.1) H 09/30/18 06:00 D-Dimer 598 ng/mLFEU (0-500) H 09/30/18 06:00 Consult Discharge Plan - Plan Referrals: Mario Early MD [Primary Care Provider] -
[2018-10-04] MEDS: Ascorbic Acid 500 MG TABLET PO SCH ×2 (07:56→21:07)
[2018-10-04] MEDS: Furosemide 20 MG TABLET PO SCH ×2 (07:56→18:20)
[2018-10-04] MEDS: Lisinopril-HCTZ 20-12.5mg TABLET PO SCH (07:57)
[2018-10-04] MEDS: amLODIPine 5 MG TABLET PO SCH (07:57)
[2018-10-04] MEDS: Nystatin SUSP 5 ML UD.LIQ PO SCH ×4 (07:58→21:05)
[2018-10-04] MEDS: Insulin LISPRO 300 UNITS/3 ML VIAL SQ SCH ×3 (08:00→18:24)
--- NOTE | 2018-10-04 19:18 | Event Note ---
Date of Encounter: 10/04/18 Time of Encounter: 19:15 I reevaluated patient this evening. He states that he has had a good day. He has been up 2 to 3 hours in a chair. He ate well lunch, was not hungry for supper. Denies any cardiac or respiratory symptoms. He has been off the BiPAP all day. Chest x-ray shows improvement but not clearing obviously. Echocardiogram surprise that showed 70% ejection fraction and good ventricular function. No aortic valvular disease. Continued improvement. Urine output down to about 2000 mL so far today having been switched from IV to by mouth Lasix. We will continue current plan. Plan to remove Magdaleno in the morning if he is strong enough to be up to the bedside commode.
[2018-10-04] MEDS: cefTRIAXone 1,000 MG in 0.9 % Sodium Chloride Mini Bag 100 ML IVPB SCH (21:06)
[2018-10-05] MEDS: *HR* Enoxaparin 40 MG/0.4 ML SYRINGE SQ SCH (05:46)
[2018-10-05] MEDS: Ipratropium/Albuterol Neb 3 ML IH SCH ×4 (05:46→23:35)
[2018-10-05 06:11] LABS: Calcium 8.5 mg/dL (8.6-10.3); Potassium 4.1 mEq/L (3.5-5.1)
[2018-10-05] MEDS: Insulin LISPRO 300 UNITS/3 ML VIAL SQ SCH ×3 (08:52→17:52)
[2018-10-05] MEDS: Lisinopril-HCTZ 20-12.5mg TABLET PO SCH (08:55)
[2018-10-05] MEDS: Ascorbic Acid 500 MG TABLET PO SCH ×2 (08:55→23:35)
[2018-10-05] MEDS: amLODIPine 5 MG TABLET PO SCH (08:55)
[2018-10-05] MEDS: Furosemide 20 MG TABLET PO SCH ×2 (08:55→17:52)
[2018-10-05] MEDS: Nystatin SUSP 5 ML UD.LIQ PO SCH ×4 (08:56→23:34)
[2018-10-05] MEDS ORDERED: levoFLOXacin 750 MG TABLET PO SCH (11:30)
[2018-10-05] MEDS: Levofloxacin 750 MG/150 ML 750 MG/150 ML BAG IVPB SCH (12:40)
--- NOTE | 2018-10-05 12:51 | Internal Med Progress Note ---
Date of Encounter: 10/05/18 Time of Encounter: 12:44 - Assessment and plan (1) Community acquired pneumonia Current Visit: Yes Status: Acute Assessment and plan: continue Levaquin. improving. Qualifiers: Laterality: right Lung location: lower lobe of lung Qualified Code(s): J18.1 - Lobar pneumonia, unspecified organism (2) New onset atrial fibrillation Current Visit: Yes Status: Acute Assessment and plan: rate and rythm controlled. continue telemetry and beta honorio. (3) Hypertension Current Visit: Yes Status: Acute Assessment and plan: controlled with current meds. monitor BP. Qualifiers: Hypertension type: essential hypertension Qualified Code(s): I10 - Essential (primary) hypertension (4) Chronic kidney disease (CKD), stage III (moderate) Current Visit: Yes Status: Chronic Assessment and plan: stable. monitor labs. avoid nephrotoxic agents. - Time Spent With Patient less than 15 minutes - Subjective Interval history: States he is feeling much better today. States he slept well through the night. Maintaining appetite and hydration. Has been up for breakfast and lunch today. Tolerating sitting up and chair without difficulty. Denies shortness of breath, chest pain, fever, chills, nausea vomiting or diarrhea. Maintaining O2 sats greater than 96% at 5 L per nasal cannula. Was on BiPAP through the night. States bowels are moving as normal. - Constitutional Vitals: Temp Pulse Resp BP Pulse Ox 99.2 F 83 18 134/57 96 10/05/18 07:00 10/05/18 07:00 10/05/18 10:53 10/05/18 07:00 10/05/18 10:53 General appearance: Present: cooperative, A&O X 3, pleasant, no acute distress, answers questions appropriately - Head Head exam: Present: atraumatic, normocephalic - Eye Eye exam: Present: PERRL, conjuntiva pink, sclera anicteric Pupils: Present: PERRL - Neck Neck exam general surgery: Present: supple, trachea midline. Absent: lymphadenopathy - Respiratory Respiratory exam: Present: CTAB. Absent: accessory muscle use, rales, rhonchi, wheezes - Cardiovascular Cardiovascular exam: Present: RRR, +S1, +S2. Absent: diastolic murmur, gallop, rubs, systolic murmur - GI/Abdominal GI/Abdominal exam: Present: normal bowel sounds, soft, no peritoneal signs. Absent: distended, tenderness - Extremities Exam Extremities exam: Present: warm, radial pulses palpable and symmetrical. Absent: calf tenderness, cyanotic, pedal edema - Neurological Exam Neurological exam: Present: CN II-XII intact, oriented X3, no focal deficits. Absent: pronater drift, facial droop, speech deficit - Skin Skin exam: Present: dry, intact Internal Medicine: Result - Labs CBC & Chem 7: 10/04/18 05:30 10/05/18 05:25 Labs: BMP 10/05/18 05:25 Sodium 136 Potassium 4.1 Chloride 100 Carbon Dioxide 30 H BUN 40 H Creatinine 1.62 H Glucose 178 H Calcium 8.5 L - ABG Interpretation ABG results: PT/INR, D-dimer PT 13.4 Seconds (9.4-12.1) H 09/30/18 06:00 D-Dimer 598 ng/mLFEU (0-500) H 09/30/18 06:00 - Impressions Impressions Echocardiogram 10/04/18 07:30 Impressions: LVEF 70-75%, hyperdynamic LV. Normal LV chamber size and wall thickness. Indeterminate diastolic function. Mildly dilated left atrium. Normal right ventricular structure and function. Mild to moderate mitral regurgitation. Mild tricuspid regurgitation. No pulmonary hypertension. Left Ventricular Wall Motion: Rest Echo Findings The apex, apical inferior, mid inferior, basal inferior, apical anterior, mid anterior, basal anterior, apical septal, mid inferior septal, basal inferior septal, apical lateral, mid anterior lateral, basal anterior lateral, mid anterior septal, mid inferior lateral, basal anterior septal and basal inferior lateral cruz were hyperkinetic. Findings: Study Quality * Technically sub-optimal due to poor echocardiographic windows. ECG Findings * Atrial fibrillation. Left Ventricle * LVEF 70-75%, hyperdynamic LV. * Normal LV chamber size and wall thickness. * Indeterminate diastolic function. * Definity echo contrast was not used. Right Ventricle * Normal right ventricular structure and function. Left Atrium * Mildly dilated left atrium. Right Atrium * Normal right atrial size. Interatrial Septum * Interatrial septum not well evaluated. * No evidence of PFO by color Doppler. Aortic Valve * Trileaflet aortic valve. * No aortic stenosis. * No aortic regurgitation. Mitral Valve * Normal mitral valve structure. * No mitral stenosis. * Mild to moderate mitral regurgitation. Tricuspid Valve * Normal tricuspid valve structure. * No tricuspid stenosis. * Mild tricuspid regurgitation. * Estimated RVSP is 25 mmHg. * Estimated RA pressure is 8 mmHg. * No pulmonary hypertension. Pulmonic Valve * Pulmonic valve is not well visualized. * No pulmonic stenosis. * No pulmonic regurgitation. Aorta * Normally sized aortic root. Pericardium * The pericardium appears normal. IVC * Normal IVC dimensions and inspiratory collapse. Consult Discharge Plan - Plan Referrals: Mario Early MD [Primary Care Provider] -
--- NOTE | 2018-10-05 17:18 | Electrocardiograph Report ---
[place] [address] Test Date: 2018-10-03 Pat Name: Xavier Christensen Department: 2001 Room: 111 Gender: M Chemistry Intern: : 1935 Requested By: Rupa Ramirez Order Number: [id number] Reading MD: Cyn Carter Measurements Intervals [place] Rate: 86 P: [place]: 0 QRS: 38 QRSD: 96 T: 11 QT: 386 QTc: 429 Interpretive Statements ATRIAL FIBRILLATION WITH ABERRANT CONDUCTION OR VENTRICULAR PREMATURE COMPLEXES MINIMAL ST DEPRESSION [0.025+ mV ST DEPRESSION] Electronically Signed On 10-05-2018 17:16:21 EST by Cyn Carter
[2018-10-05] MEDS: cefTRIAXone 1,000 MG in 0.9 % Sodium Chloride Mini Bag 100 ML IVPB SCH (23:35)
[2018-10-06] MEDS: *HR* Enoxaparin 40 MG/0.4 ML SYRINGE SQ SCH (06:18)
[2018-10-06] MEDS: Ipratropium/Albuterol Neb 3 ML IH SCH ×2 (06:18→11:16)
[2018-10-06 08:02] LABS: Calcium 8.5 mg/dL (8.6-10.3); Potassium 4.5 mEq/L (3.5-5.1)
[2018-10-06] MEDS: Insulin LISPRO 300 UNITS/3 ML VIAL SQ SCH ×2 (08:52→13:20)
[2018-10-06] MEDS: amLODIPine 5 MG TABLET PO SCH (08:53)
[2018-10-06] MEDS: Lisinopril-HCTZ 20-12.5mg TABLET PO SCH (08:53)
[2018-10-06] MEDS: Furosemide 20 MG TABLET PO SCH (08:53)
[2018-10-06] MEDS: Ascorbic Acid 500 MG TABLET PO SCH (08:53)
[2018-10-06] MEDS: Nystatin SUSP 5 ML UD.LIQ PO SCH ×2 (08:54→14:17)
--- NOTE | 2018-10-06 10:40 | Discharge Summary ---
- NOTES TO OUTPATIENT PROVIDER Notes to Outpatient Provider: Patient will be transferred to a swing bed for ongoing medical management but also PT and OT and resume his ADLs. Date of Encounter: 10/06/18 Time of Encounter: 10:37 - Discharge Diagnosis (1) Acute congestive heart failure Priority: Primary Status: Acute Comments: Patient went into flash congestive heart failure while hospitalized being treated for pneumonia. He was treated with diuresis, high flow oxygen and BiPAP. He did not have an acute IN. He did have atrial fibrillation on admission to the hospital. This is of recent onset. Echocardiogram shows 60- 75% ejection fraction and relatively good wall motion. He is having no angina. It fibrillation is rate controlled. He is now on oral Lasix twice a day recuperating well enough to transfer him into a swing bed because of deconditioning and need for PT and OT. Qualifiers: Heart failure type: unspecified Qualified Code(s): I50.9 - Heart failure, unspecified (2) Community acquired pneumonia Priority: Secondary Status: Acute Comments: Patient was admitted with community-acquired pneumonia. Cultures are negative. He did have blood-tinged sputum and impressive infiltrate suggestive of Strep tococcus pneumonia. He has been afebrile since admission. He has required oxygen during this hospital stay. Chest x-ray showing improvement. White blood cell count is normalizing. We will continue current medical regimen as he is being transferred into a swing bed. He was started on Levaquin and Rocephin was added when he was more compromised with his congestive heart failure. Qualifiers: Laterality: right Lung location: lower lobe of lung Qualified Code(s): J18.1 - Lobar pneumonia, unspecified organism (3) Respiratory distress Priority: Secondary Status: Resolved (4) New onset atrial fibrillation Priority: Secondary Status: Acute Comments: New-onset atrial fibrillation, at least first diagnosed on admission with his pneumonia. No angina noted. It is rate controlled. Echocardiogram reviewed as above. He did have an episode of flash congestive heart failure now improved. Not a great candidate for anticoagulation. We will continue to monitor. (5) Hypertension Priority: Secondary Status: Acute Qualifiers: Hypertension type: essential hypertension Qualified Code(s): I10 - Essential (primary) hypertension (6) Diabetes mellitus Priority: Secondary Status: Chronic Comments: Patient sugars have been fairly controlled as an outpatient with metformin. However with his acute kidney injury during this hospitalization the metformin was held. Currently on sliding scale insulin. Qualifiers: Diabetes mellitus type: type 2 Diabetes mellitus mcc insulin use: without mcc use Diabetes mellitus complication status: with hyperglycemia Qualified Code(s): E11.65 - Type 2 diabetes mellitus with hyperglycemia (7) Chronic kidney disease (CKD), stage III (moderate) Priority: Secondary Status: Chronic Comments: Chronic kidney disease with acute kidney injury during this hospitalization with his CHF and diuresis. Renal function now improving. Metformin continued to be held. (8) Personal history of cerebrovascular accident with current residual effects Priority: Secondary Status: Chronic Comments: Previous CVA with minimal left a plegia. He will have PT and OT to regain his ADLs prior to going home. (9) DVT prophylaxis Priority: Secondary Status: Acute Hospital course: Mr. Christensen is a 83 year old malewas admitted with community-acquired pneumonia. He was cultured and they are negative so far. He was started on Levaquin. Subsequent he went into flash congestive heart failure and treated appropriately. He is now improved. Medically he is stabilizing. See the diagnoses above. He will be transferred to a swing bed today for ongoing care home care, continued IV antibiotics and PT and OT to help resume his ADLs for plan for discharge home. - Time Spent with Patient Total time spent providing and/or coordinating discharge services: - Discharge Medications Home Medications: Clopidogrel [Plavix] 75 mg PO DAILY 02/19/18 [History] Levothyroxine [Synthroid] 75 mcg PO 0630 02/19/18 [History] Lisinopril-HCTZ 20-12.5 [Prinzide 20-12.5] 1 each PO DAILY 02/19/18 [History] Omeprazole 20 mg PO DAILY 02/19/18 [History] Simvastatin [Zocor] 20 mg PO HS 02/19/18 [History] amLODIPine [Norvasc] 5 mg PO DAILY 02/19/18 [History] Ascorbic Acid [Vitamin C] 250 mg PO BID tablet 10/06/18 [Rx] Dextrose 50 % in Water (Syg) [Dextrose 50% (Syg)] 25 ml IVP AD PRN syringe 10/06/18 [Rx] Dextrose Gel [Gluctose] 15 gm PO ONCE PRN tube 10/06/18 [Rx] Dextrose Gel [Gluctose] 30 gm PO ONCE PRN tube 10/06/18 [Rx] Enoxaparin [Lovenox] 40 mg SQ 0600 syringe 10/06/18 [Rx] Furosemide [Lasix] 20 mg PO BIDDIURETIC tablet 10/06/18 [Rx] Glucagon, Human Recombinant [Glucagen] 1 mg IM ONCE PRN vial 10/06/18 [Rx] Insulin LISPRO [HumaLOG] 0 units SQ TIDAC vial 10/06/18 [Rx] Ipratropium/Albuterol Neb [Duoneb] 3 ml IH [id number] PRN inhsol 10/06/18 [Rx] Ipratropium/Albuterol Neb [Duoneb] 3 ml IH QIDR inhsol 10/06/18 [Rx] Labetalol [Trandate] 100 mg PO BID tablet 10/06/18 [Rx] Melatonin 3 mg PO HS PRN tablet 10/06/18 [Rx] Polyethylene Glycol 3350 [MiraLAX] 17 gm PO DAILY powd.pack 10/06/18 [Rx] Potassium Chloride 40 meq PO TIDWM tab.er.prt 10/06/18 [Rx] cefTRIAXone [Rocephin] 1,000 mg IVPB Q24H vial 10/06/18 [Rx] levoFLOXacin [Levaquin] 750 mg PO Q48H tablet 10/06/18 [Rx] Allergies/Adverse Reactions: Allergy/AdvReac Type Severity Reaction Status Date / Time Sulfa (Sulfonamide Allergy See Verified 09/30/18 05:30 Antibiotics) Comments Date of admission: 09/30/18 14:09 Primary care physician: Mario Early MD Discharging clinician: Mario Early Anticipated date of discharge: 10/06/18 - Constitutional Vitals: Temp Pulse Resp BP Pulse Ox 97.6 F 85 14 138/58 97 10/06/18 09:50 10/06/18 09:50 10/06/18 09:50 10/06/18 09:50 10/06/18 09:50 General appearance: Present: cooperative, A&O X 3, pleasant, no acute distress, answers questions appropriately - Respiratory Respiratory exam: Present: decreased breath sounds, CTAB - Cardiovascular Cardiovascular exam: Present: irregular rhythm, +S1, +S2 - GI/Abdominal GI/Abdominal exam: Present: soft. Absent: tenderness - Extremities Exam Extremities exam: Absent: calf tenderness, pedal edema, tenderness - Patient Status Disposition: Transfer Hospital Swing Bed - Discharge Instructions Follow Up With: Mario Early MD [Primary Care Provider] - - Diet and Activity Activity: as per physical therapy Diet: diabetic diet, low salt diet
[2018-10-06 13:18] VITALS: BP 121/66
== END 2018-10-06 16:26 | disposition other institution (70) | DRG 291 ==
LOC: EMEROOGRE 05:20 → INPGRE 07:31 → INTOOBSV 07:31 → INPGRE 08:30
PROVIDERS: ADMIT Family Medicine; ATTEND Family Medicine

== ENCOUNTER 2018-10-06 14:42 | Inpatient (IN) ==
[2018-10-06] MEDS ORDERED: Dextrose Gel 15 GM/37.5 ML TUBE PO PRN ×2 (18:55)
[2018-10-06] MEDS ORDERED: Ipratropium/Albuterol Neb 3 ML IH PRN (18:55)
[2018-10-06] MEDS ORDERED: *HR* Dextrose 50 % in Water (Syg) 50 ML SYRINGE IVP PRN (18:55)
[2018-10-06] MEDS ORDERED: CefTRIAXone 1,000 MG VIAL IVPB SCH (19:00)
[2018-10-06] MEDS: Insulin LISPRO 300 UNITS/3 ML VIAL SQ SCH (21:15)
[2018-10-06] MEDS: cefTRIAXone 1,000 MG in Water for inj. (sterile) 20 ML 10 ML IVP SCH (21:15)
[2018-10-06] MEDS: Ascorbic Acid 500 MG TABLET PO SCH (21:15)
[2018-10-06] MEDS: Ipratropium/Albuterol Neb 3 ML IH SCH (23:00)
[2018-10-07 05:53] LABS: Calcium 8.6 mg/dL (8.6-10.3); Potassium 4.6 mEq/L (3.5-5.1)
[2018-10-07] MEDS: Ipratropium/Albuterol Neb 3 ML IH SCH ×4 (06:22→21:43)
[2018-10-07] MEDS: *HR* Enoxaparin 40 MG/0.4 ML SYRINGE SQ SCH (06:22)
[2018-10-07] MEDS: Insulin LISPRO 300 UNITS/3 ML VIAL SQ SCH ×4 (08:01→21:49)
[2018-10-07] MEDS: Furosemide 20 MG TABLET PO SCH ×2 (09:50→17:06)
[2018-10-07] MEDS: Lisinopril-HCTZ 20-12.5mg TABLET PO SCH (09:50)
[2018-10-07] MEDS: Ascorbic Acid 500 MG TABLET PO SCH ×2 (09:51→21:43)
[2018-10-07] MEDS: amLODIPine 5 MG TABLET PO SCH (09:51)
--- NOTE | 2018-10-07 11:24 | Internal Med Progress Note ---
Date of Encounter: 10/07/18 Time of Encounter: 11:24 - Assessment and plan (1) Physical deconditioning Current Visit: Yes Status: Acute Assessment and plan: Patient is now in a swing bed for ongoing skilled medical care as well as PT and OT to resume his ADLs with plans to go home. He is being evaluated today. He is tolerating therapy so far. (2) Community acquired pneumonia Current Visit: Yes Status: Acute Assessment and plan: Patient was admitted initially to acute bed with right sided pneumonia and blood-tinged sputum and hypoxia. He is now much improved. White blood cell count is normalizing. He has had no fever. He still has some sputum which is brown tinged. Less oxygen requirements. Continue with the Levaquin and Rocephin. Advance activity as tolerated. Qualifiers: Laterality: right Lung location: lower lobe of lung Qualified Code(s): J18.1 - Lobar pneumonia, unspecified organism (3) New onset atrial fibrillation Current Visit: No Status: Acute Assessment and plan: New-onset atrial fibrillation with the acute pneumonia. No angina noted. His congestive heart failure signs or resolving. He is rate controlled. Does not have full anticoagulation. (4) Hypertension Current Visit: Yes Status: Acute Assessment and plan: Long-standing history of hypertension. Vitals are stable. Continue current medication. Qualifiers: Hypertension type: essential hypertension Qualified Code(s): I10 - Essential (primary) hypertension (5) Diabetes mellitus Current Visit: Yes Status: Chronic Assessment and plan: Patient has a chronic history of diabetes. He was on metformin until he had acute kidney injury with the diuresis and the pneumonia and metformin was held. Currently he is on sliding scale insulin. We will plan to resume oral medication when things are more stable. Qualifiers: Diabetes mellitus type: type 2 Diabetes mellitus roasterman insulin use: without roasterman use Diabetes mellitus complication status: with hyperglycemia Qualified Code(s): E11.65 - Type 2 diabetes mellitus with hyperglycemia (6) Chronic kidney disease (CKD), stage III (moderate) Current Visit: Yes Status: Chronic Assessment and plan: History chronic kidney disease, recent acute kidney injury with his CHF and diuresis. Now creatinine is much improved and at baseline or better. We will continue to follow. Incidentally, metformin was held due to acute kidney injury. 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 No recurren ce or exacerbation noted at the present time. He will be having PT and OT and be sure he is back on his feet and independent to be discharged to home (8) DVT prophylaxis Current Visit: Yes Status: Acute Assessment and plan: Current receiving Lovenox for DVT prophylaxis. - Subjective Interval history: Patient states that he feels like he is doing better. He just had evaluation from PT and OT for his swing bed status. He feels a bit tired. He denies any respiratory symptoms. He denies any chest pain or palpitations. He did cough a lot last night and apparently had some brown tinged sputum again. He really does not complain of very much. Nursing staff reports that his saturations drop to the mid 80s when he is transferring to the bedside commode but quickly pops back up to the 90s. He has not required BiPAP for the past couple of days. Saturations are in the 90s typically with his nasal cannula at 3 L by high flow. He did not eat well at breakfast. He states he is encouraged that he will be getting physical therapy so he can go home. - Constitutional Vitals: Temp Pulse Resp BP Pulse Ox 98.1 F 84 16 158/63 95 10/07/18 08:00 10/07/18 09:15 10/07/18 09:15 10/07/18 09:15 10/07/18 09:15 General appearance: Present: A&O X 3, pleasant, no acute distress, answers questions appropriately - Respiratory Additional comments: Diminished breath sounds throughout but no localization of crackles or rales. No respiratory distress. No orthopnea. No air hunger. - Cardiovascular Cardiovascular exam: Present: irregular rhythm, +S1, +S2 - GI/Abdominal Additional comments: Abdomen is obese and slightly distended but soft and nontender. No localizing masses. No guarding or rebound rigidity. - Extremities Exam Extremities exam: Absent: calf tenderness, pedal edema, tenderness - Neurological Exam Neurological exam: Present: alert, CN II-XII intact, no focal deficits Internal Medicine: Result - Labs CBC & Chem 7: 10/07/18 05:25 Labs: BMP 10/07/18 05:25 Sodium 134 L Potassium 4.6 Chloride 100 Carbon Dioxide 25 BUN 33 H Creatinine 1.41 H Glucose 157 H Calcium 8.6 Labs are showing improvement. Creatinine is at 1.41 which is at baseline or better. Much improved from over the weekend. Sodium slightly low. - VTE Documentation of Mechanical Device: Graduated compression elastic hosiery Consult Discharge Plan - Plan Referrals: Mario Early MD [Primary Care Provider] -
[2018-10-07] MEDS: levoFLOXacin 750 MG TABLET PO SCH (17:06)
--- NOTE | 2018-10-07 17:47 | Event Note ---
Date of Encounter: 10/07/18 Time of Encounter: 17:45 I reevaluated the patient this evening. He has had a good day. He is sitting up at the edge of the bed eating his supper. He denies a cardiac type chest pain. He denies any dyspnea. He is at 3 L per nasal cannula and saturations are in the mid 90s. He apparently did well with therapy. Lungs sounds but clear. No respiratory distress. Heart shows almost regular rhythm, controlled rate. No murmur. Ankle show no edema. Abdomen is nontender. Tonight we will offer Robitussin as he had a lot of coughing last night. Labs reviewed showed iron deficiency and will start iron supplement. Not a candidate right now for upper and lower endoscopies.
[2018-10-07] MEDS: cefTRIAXone 1,000 MG in Water for inj. (sterile) 20 ML 10 ML IVP SCH (20:26)
[2018-10-07] MEDS: Melatonin 3 MG TABLET PO PRN (21:56)
[2018-10-08 04:48] LABS: Basophils # 0.1 K/mcL (0.0-0.2); Basophils % 0.5 %; Eosinophils # 0.9 K/mcL (0.0-0.6); Eosinophils % 7.5 %; Hematocrit 28.9 % (37.5-50.1); Hemoglobin 9.8 g/dL (12.9-16.9); Immature Granulocytes % 0.9 % (0-4); Lymphocytes # 1.3 K/mcL (0.6-4.6); Lymphocytes % 11.2 %; Mean Corpuscular HGB Conc 33.9 g/dL (31.6-35.5); Mean Corpuscular Hemoglobin 30.2 pg (28.0-33.3); Mean Corpuscular Volume 88.9 fL (83.0-100.0); Mean Platelet Volume 9.5 fL (9.4-12.4); Monocytes % 8.9 %; Neutrophils # 8.1 K/mcL (1.6-8.9); Platelet Count 372 K/mcL (140-400); Red Blood Count 3.25 M/mcL (4.19-5.50); Red Cell Distribution Width 13.3 % (11.5-14.5)
[2018-10-08 05:03] LABS: Calcium 8.2 mg/dL (8.6-10.3); Potassium 4.5 mEq/L (3.5-5.1)
[2018-10-08] MEDS: Ipratropium/Albuterol Neb 3 ML IH SCH ×4 (05:25→22:16)
[2018-10-08] MEDS: *HR* Enoxaparin 40 MG/0.4 ML SYRINGE SQ SCH (05:25)
--- NOTE | 2018-10-08 07:06 | Internal Med Progress Note ---
Date of Encounter: 10/08/18 Time of Encounter: 07:01 - Assessment and plan (1) Physical deconditioning Current Visit: Yes Status: Acute Assessment and plan: He will continue his physical therapy and occupational therapy for decon ditioning as he is recuperating from pneumonia and congestive heart failure. He seems to be doing well and vital stable. Still requiring oxygen. Continue swing bed plan. (2) Acute congestive heart failure Current Visit: Yes Status: Acute Assessment and plan: Patient had acute congestive heart failure / flash pulmonary edema one week ago. That now seems to be resolved. Echocardiogram showed 70-75% ejection fraction. Atrial fibrillation is rate controlled. He is having no new respiratory sympto ms. He still requires oxygen at 3 L per nasal cannula. Seems to be doing well with the oral Lasix twice a day, KEKE inhibitor, beta honorio. Qualifiers: Heart failure type: unspecified Qualified Code(s): I50.9 - Heart failure, unspecified (3) Community acquired pneumonia Current Visit: Yes Status: Acute Assessment and plan: Clinically and symptomatically improving from his pneumonia. He has had 8 days of IV antibiotics. Follow-up chest x-ray planned for today after breakfast. Still requiring oxygen, but tapering downward. Not requiring BiPAP. Qualifiers: Laterality: right Lung location: lower lobe of lung Qualified Code(s): J18.1 - Lobar pneumonia, unspecified organism (4) New onset atrial fibrillation Current Visit: Yes Status: Acute Assessment and plan: Apparent new onset atrial fibrillation noted during this admission with his pneumonia and congestive heart failure. He is rate controlled. No anticoagulation planned. He is having no angina or congestive heart failure symptoms currently. (5) Hypertension Current Visit: Yes Status: Acute Assessment and plan: Blood pressure is under adequate control. Qualifiers: Hypertension type: essential hypertension Qualified Code(s): I10 - Essential (primary) hypertension (6) Diabetes mellitus Current Visit: Yes Status: Chronic Assessment and plan: Her sugars are under reasonable control. His metformin that he used as an outpatient was held as he had acute kidney injury with decreased GFR. Now his renal function has improved, GFR staying over 45 and his low-dose metformin will be restarted. His last 2 glycohemoglobin readings have been 7.9% and 8.0% Qualifiers: Diabetes mellitus type: type 2 Diabetes mellitus long-term insulin use: without long-term use Diabetes mellitus complication status: with hyperglycemia Qualified Code(s): E11.65 - Type 2 diabetes mellitus with hyperglycemia (7) Chronic kidney disease (CKD), stage III (moderate) Current Visit: Yes Status: Chronic Assessment and plan: His current renal function is better than his outpatient baseline. (8) Personal history of cerebrovascular accident with current residual effects Current Visit: Yes Status: Chronic Assessment and plan: History of mild left-sided weakness and slight speech impediment. No acute changes for this. He is doing PT and OT to help resume his ADLs for independence at home. (9) DVT prophylaxis Current Visit: Yes Status: Acute - Subjective Interval history: Patient states that he feels good. He denies any cardiac chest pain, palpi tation, irregular heartbeat sensation. He denies any respiratory problems. He did not require BiPAP the past 2 nights. 2 nights ago he had dark or blood tinged sputum but that is now gone. He said he rested well through the night. He denies any abdominal pain, previously he had groin pain when coughing. He feels like he is advancing with his therapies. He is still requiring oxygen at 3 L per high flow nasal cannula. No new symptoms and he is in good spirits. - Constitutional Vitals: Temp Pulse Resp BP Pulse Ox 97.9 F 80 14 145/66 96 10/08/18 04:00 10/08/18 04:00 10/08/18 04:00 10/08/18 04:00 10/08/18 04:00 General appearance: Present: A&O X 3, pleasant, no acute distress, answers questions appropriately - Respiratory Respiratory exam: Present: decreased breath sounds (Rare crackles in the right base.). Absent: respiratory distress - Cardiovascular Cardiovascular exam: Present: irregular rhythm, +S1, +S2. Absent: +S3, +S4, systolic murmur - GI/Abdominal GI/Abdominal exam: Present: soft. Absent: tenderness - Extremities Exam Extremities exam: Absent: calf tenderness, pedal edema, tenderness (He is wearing his elastic stockings.) Internal Medicine: Result - Labs CBC & Chem 7: 10/08/18 04:35 10/08/18 04:35 Labs: Short CBC 10/08/18 Range/Units 04:35 WBC 11.4 H (4.3-11.1) K/mcL Hgb 9.8 L (12.9-16.9) g/dL Hct 28.9 L (37.5-50.1) % Plt Count 372 (140-400) K/mcL Neutrophils # 8.1 (1.6-8.9) K/mcL BMP 10/08/18 04:35 Sodium 136 Potassium 4.5 Chloride 101 Carbon Dioxide 26 BUN 29 H Creatinine 1.38 H Glucose 156 H Calcium 8.2 L Hemoglobin is slightly down, but within 1 g of his baseline admission. Creatinine is better than his outpatient baseline. - Diagnostic Studies Chest x-ray Additional comments: Chest x-ray is pending for today after breakfast - VTE Documentation of Mechanical Device: Graduated compression elastic hosiery Consult Discharge Plan - Plan Referrals: Mario Early MD [Primary Care Provider] -
[2018-10-08] MEDS: Insulin LISPRO 300 UNITS/3 ML VIAL SQ SCH ×4 (08:15→20:59)
[2018-10-08] MEDS: amLODIPine 5 MG TABLET PO SCH (08:16)
[2018-10-08] MEDS: *HR* Metformin 500 MG TABLET PO SCH ×2 (08:17→16:35)
[2018-10-08] MEDS: Lisinopril-HCTZ 20-12.5mg TABLET PO SCH (08:17)
[2018-10-08] MEDS: Furosemide 20 MG TABLET PO SCH ×2 (08:17→16:35)
[2018-10-08] MEDS: Ascorbic Acid 500 MG TABLET PO SCH ×2 (08:17→20:59)
[2018-10-08] MEDS: cefTRIAXone 1,000 MG in Water for inj. (sterile) 20 ML 10 ML IVP SCH (20:59)
[2018-10-08] MEDS: Melatonin 3 MG TABLET PO PRN (22:16)
[2018-10-09] MEDS: Ipratropium/Albuterol Neb 3 ML IH SCH ×4 (05:23→23:30)
[2018-10-09] MEDS: *HR* Enoxaparin 40 MG/0.4 ML SYRINGE SQ SCH (05:24)
[2018-10-09] MEDS: Insulin LISPRO 300 UNITS/3 ML VIAL SQ SCH ×4 (08:17→21:04)
[2018-10-09] MEDS: Lisinopril-HCTZ 20-12.5mg TABLET PO SCH (08:20)
[2018-10-09] MEDS: *HR* Metformin 500 MG TABLET PO SCH ×2 (08:20→17:53)
[2018-10-09] MEDS: amLODIPine 5 MG TABLET PO SCH (08:20)
[2018-10-09] MEDS: Furosemide 20 MG TABLET PO SCH ×2 (08:20→17:53)
[2018-10-09] MEDS: Ascorbic Acid 500 MG TABLET PO SCH ×2 (08:20→21:04)
--- NOTE | 2018-10-09 11:30 | Internal Med Progress Note ---
Date of Encounter: 10/09/18 Time of Encounter: 11:28 - Assessment and plan (1) Community acquired pneumonia Current Visit: Yes Status: Acute Assessment and plan: He is getting oral Levaquin and Rocephin for this. Blood cultures were negative. He has been afebrile. He was on BiPAP but he has not been on that at night. For the past few nights He did require 6 L of oxygen yesterday. But is back down to 3 L nasal cannula. Qualifiers: Laterality: right Lung location: lower lobe of lung Qualified Code(s): J18.1 - Lobar pneumonia, unspecified organism (2) New onset atrial fibrillation Current Visit: Yes Status: Acute Assessment and plan: He is currently rate controlled he he is on labetalol. He is currently in A. fib on telemetry. He gets Plavix. (3) Hypertension Current Visit: Yes Status: Acute Assessment and plan: Blood pressure has been normal to high and lisinopril Lasix and labetalol. We will continue to watch Qualifiers: Hypertension type: essential hypertension Qualified Code(s): I10 - Essential (primary) hypertension (4) Diabetes mellitus Current Visit: Yes Status: Chronic Assessment and plan: He is getting metformin he gets Accu-Cheks in occasional sliding scale. Qualifiers: Diabetes mellitus type: type 2 Diabetes mellitus fdc insulin use: without termite inspector use Diabetes mellitus complication status: with hyperglycemia Qualified Code(s): E11.65 - Type 2 diabetes mellitus with hyperglycemia (5) Chronic kidney disease (CKD), stage III (moderate) Current Visit: Yes Status: Chronic Assessment and plan: This has improved. The baseline (6) Personal history of cerebrovascular accident with current residual effects Current Visit: Yes Status: Chronic Assessment and plan: He is on Plavix. He is getting PT OT for his deconditioning. (7) DVT prophylaxis Current Visit: Yes Status: Acute (8) Acute congestive heart failure Current Visit: No Status: Acute Assessment and plan: He is currently on KEKE inhibitor labetalol and Lasix. He is stable. Qualifiers: Heart failure type: unspecified Qualified Code(s): I50.9 - Heart failure, unspecified (9) Physical deconditioning Current Visit: Yes Status: Acute Assessment and plan: Will continue PT and OT. We will strengthen him so that he will be safe to go home. - Subjective Interval history: He states he is doing well today but he is tired he does get short of breath but that is a lot better. He does cough. He denies chest pain palpitations he denies dizziness he has no bowel complaints he has no bladder complaints. He does not have any pain. He is doing therapy and participating well. He is very pleasant - Constitutional Vitals: Temp Pulse Resp BP Pulse Ox 97.0 F L 81 18 147/76 94 10/09/18 08:00 10/09/18 08:00 10/09/18 08:00 10/09/18 08:00 10/09/18 04:00 General appearance: Present: A&O X 3, pleasant, no acute distress, answers questions appropriately - Head Head exam: Present: atraumatic, normocephalic - Neck Neck exam general surgery: Present: supple, trachea midline. Absent: lymphadenopathy - Respiratory Respiratory exam: Present: rhonchi (biLateral bases) - Cardiovascular Cardiovascular exam: Present: irregular rhythm - GI/Abdominal GI/Abdominal exam: Present: normal bowel sounds, soft, no peritoneal signs. Absent: distended, guarding, tenderness - Extremities Exam Extremities exam: Present: normal capillary refill. Absent: pedal edema (KAUSHAL hose in place) - Skin Skin exam: Present: dry, warm. Absent: rash Internal Medicine: Result - Labs CBC & Chem 7: 10/08/18 04:35 10/08/18 04:35 - Impressions Impressions Chest X-Ray 10/08/18 17:34 IMPRESSION: Partial clearing of right greater than left airspace disease consistent with mildly improved edema and/or pneumonia. D/ / Mauricio Chin MD / Mauricio Chin MD Interpreting Provider: Mauricio Chin MD - VTE Documentation of Mechanical Device: Graduated compression elastic hosiery Consult Discharge Plan - Plan Referrals: Mario Early MD [Primary Care Provider] -
[2018-10-09] MEDS: levoFLOXacin 750 MG TABLET PO SCH (13:37)
[2018-10-09] MEDS: cefTRIAXone 1,000 MG in Water for inj. (sterile) 20 ML 10 ML IVP SCH (21:05)
[2018-10-09] MEDS: Melatonin 3 MG TABLET PO PRN (21:05)
[2018-10-10] MEDS: *HR* Enoxaparin 40 MG/0.4 ML SYRINGE SQ SCH (05:34)
[2018-10-10] MEDS: Ipratropium/Albuterol Neb 3 ML IH SCH ×3 (05:35→17:47)
[2018-10-10] MEDS: amLODIPine 5 MG TABLET PO SCH (09:23)
[2018-10-10] MEDS: *HR* Metformin 500 MG TABLET PO SCH ×2 (09:23→17:47)
[2018-10-10] MEDS: Furosemide 20 MG TABLET PO SCH ×2 (09:23→17:47)
[2018-10-10] MEDS: Lisinopril-HCTZ 20-12.5mg TABLET PO SCH (09:23)
[2018-10-10] MEDS: Ascorbic Acid 500 MG TABLET PO SCH ×2 (09:23→21:27)
[2018-10-10] MEDS: Insulin LISPRO 300 UNITS/3 ML VIAL SQ SCH ×4 (09:24→21:27)
--- NOTE | 2018-10-10 13:21 | Internal Med Progress Note ---
Date of Encounter: 10/10/18 Time of Encounter: 13:19 - Assessment and plan (1) Community acquired pneumonia Current Visit: Yes Status: Acute Assessment and plan: He is getting oral Levaquin and Rocephin for this. Blood cultures were negative. He has been afebrile. He was on BiPAP in the past but he has not been on that at night. But is back down to 3 L nasal cannula. Qualifiers: Laterality: right Lung location: lower lobe of lung Qualified Code(s): J18.1 - Lobar pneumonia, unspecified organism (2) New onset atrial fibrillation Current Visit: Yes Status: Acute Assessment and plan: He is currently rate controlled he he is on labetalol. He is currently in A. fib on telemetry. He gets Plavix. (3) Hypertension Current Visit: Yes Status: Acute Assessment and plan: Blood pressure has been normal to high and lisinopril Lasix and labetalol. it is getting a little higher. if gets higher will need to increase meds. Qualifiers: Hypertension type: essential hypertension Qualified Code(s): I10 - Essential (primary) hypertension (4) Diabetes mellitus Current Visit: Yes Status: Chronic Assessment and plan: He is getting metformin he gets Accu-Cheks in occasional sliding scale. Qualifiers: Diabetes mellitus type: type 2 Diabetes mellitus group home insulin use: without keno terminal operator use Diabetes mellitus complication status: with hyperglycemia Qualified Code(s): E11.65 - Type 2 diabetes mellitus with hyperglycemia (5) Chronic kidney disease (CKD), stage III (moderate) Current Visit: Yes Status: Chronic Assessment and plan: This has improved. The baseline (6) Personal history of cerebrovascular accident with current residual effects Current Visit: Yes Status: Chronic Assessment and plan: He is on Plavix. He is getting PT OT for his deconditioning. (7) DVT prophylaxis Current Visit: Yes Status: Acute (8) Acute congestive heart failure Current Visit: No Status: Acute Assessment and plan: He is currently on KEKE inhibitor labetalol and Lasix. He is stable.no further symptoms Qualifiers: Heart failure type: unspecified Qualified Code(s): I50.9 - Heart failure, unspecified (9) Physical deconditioning Current Visit: Yes Status: Acute Assessment and plan: Will continue PT and OT. We will strengthen him so that he will be safe to go home. - Subjective Interval history: He did have an episode of nausea this morning no emesis. It was after he took his potassium he thinks it that is responsible for it that afternoon dose of that was held. He denies belly pain. He denies chest pain palpitations dizziness. He is short of breath but it is improved. He does have a cough. The cough was keeping him up at night. Tessalon Perles were added. - Constitutional Vitals: Temp Pulse Resp BP Pulse Ox 97.8 F 78 18 150/79 99 10/10/18 12:00 10/10/18 12:00 10/10/18 12:00 10/10/18 08:00 10/10/18 04:00 General appearance: Present: A&O X 3, pleasant, no acute distress, answers questions appropriately - Head Head exam: Present: atraumatic, normocephalic - Neck Neck exam general surgery: Present: supple, trachea midline. Absent: lymphadenopathy - Respiratory Respiratory exam: Present: CTAB - Cardiovascular Cardiovascular exam: Present: irregular rhythm - GI/Abdominal GI/Abdominal exam: Present: normal bowel sounds, soft, no peritoneal signs. Absent: distended, guarding, tenderness - Extremities Exam Extremities exam: Present: normal capillary refill (KAUSHAL hose in place). Absent: pedal edema - Skin Skin exam: Present: dry, warm Internal Medicine: Result - Labs CBC & Chem 7: 10/08/18 04:35 10/08/18 04:35 - VTE Documentation of Mechanical Device: Graduated compression elastic hosiery Consult Discharge Plan - Plan Referrals: Mario Early MD [Primary Care Provider] -
[2018-10-10] MEDS: Melatonin 3 MG TABLET PO PRN (21:27)
[2018-10-10] MEDS: Benzonatate 100 MG CAPSULE PO PRN (21:28)
[2018-10-10] MEDS: cefTRIAXone 1,000 MG in Water for inj. (sterile) 20 ML 10 ML IVP SCH (21:28)
[2018-10-11] MEDS: Ipratropium/Albuterol Neb 3 ML IH SCH ×5 (00:01→23:57)
[2018-10-11 05:36] LABS: Basophils # 0.1 K/mcL (0.0-0.2); Basophils % 0.7 %; Eosinophils # 0.7 K/mcL (0.0-0.6); Hematocrit 30.2 % (37.5-50.1); Hemoglobin 9.9 g/dL (12.9-16.9); Immature Granulocytes % 0.8 % (0-4); Lymphocytes # 1.2 K/mcL (0.6-4.6); Lymphocytes % 11.1 %; Mean Corpuscular HGB Conc 32.8 g/dL (31.6-35.5); Mean Corpuscular Hemoglobin 29.4 pg (28.0-33.3); Mean Corpuscular Volume 89.6 fL (83.0-100.0); Mean Platelet Volume 9.3 fL (9.4-12.4); Monocytes # 0.9 K/mcL (0.0-1.3); Monocytes % 8.4 %; Neutrophils # 7.6 K/mcL (1.6-8.9); Platelet Count 407 K/mcL (140-400); Red Blood Count 3.37 M/mcL (4.19-5.50); Red Cell Distribution Width 13.5 % (11.5-14.5)
[2018-10-11 05:52] LABS: BUN/Creatinine Ratio 20 (6-26); Blood Urea Nitrogen 28 mg/dL (8-23); Calcium 8.3 mg/dL (8.6-10.3); Carbon Dioxide 28 mEq/L (23-29); Chloride 103 mEq/L (98-107); Glucose 139 mg/dL (70-105); Osmolality,Calculated 292 (280-300); Sodium 137 mEq/L (136-145); eGFR For Non-African Americans 50 (> 60)
[2018-10-11] MEDS: *HR* Enoxaparin 40 MG/0.4 ML SYRINGE SQ SCH (06:28)
[2018-10-11] MEDS: Lisinopril-HCTZ 20-12.5mg TABLET PO SCH (09:27)
[2018-10-11] MEDS: Ascorbic Acid 500 MG TABLET PO SCH ×2 (09:28→20:50)
[2018-10-11] MEDS: Furosemide 20 MG TABLET PO SCH ×2 (09:28→17:43)
[2018-10-11] MEDS: amLODIPine 5 MG TABLET PO SCH (09:30)
[2018-10-11] MEDS: *HR* Metformin 500 MG TABLET PO SCH ×2 (09:30→17:43)
[2018-10-11] MEDS: Insulin LISPRO 300 UNITS/3 ML VIAL SQ SCH ×4 (09:30→20:52)
[2018-10-11] MEDS: levoFLOXacin 750 MG TABLET PO SCH (13:19)
--- NOTE | 2018-10-11 14:13 | Internal Med Progress Note ---
Date of Encounter: 10/11/18 Time of Encounter: 14:12 - Assessment and plan (1) Physical deconditioning Current Visit: Yes Status: Acute Assessment and plan: Patient is getting stronger. In swing bed for PT and OT. He is stable cardiac- freeman without angina recurring CHF. Advancing his activity. (2) Acute congestive heart failure Current Visit: Yes Status: Acute Assessment and plan: No acute congestive heart failure. Still on Lasix twice a day orally. Qualifiers: Heart failure type: unspecified Qualified Code(s): I50.9 - Heart failure, unspecified (3) Community acquired pneumonia Current Visit: Yes Status: Acute Assessment and plan: Pneumonia is clinically and symptomatically improving. Chest x-ray markedly improved on my read. No fever. Stopping antibiotics. Qualifiers: Laterality: right Lung location: lower lobe of lung Qualified Code(s): J18.1 - Lobar pneumonia, unspecified organism (4) New onset atrial fibrillation Current Visit: Yes Status: Acute Assessment and plan: No angina or current CHF. No history of palpitations. Rate controlled. We plan to discontinue the monito r (5) Hypertension Current Visit: Yes Status: Acute Assessment and plan: Under good control. Continue same medication. Qualifiers: Hypertension type: essential hypertension Qualified Code(s): I10 - Essential (primary) hypertension (6) Diabetes mellitus Current Visit: Yes Status: Chronic Assessment and plan: Sugars are under good control with metformin twice a day. Qualifiers: Diabetes mellitus type: type 2 Diabetes mellitus military source operations specialist insulin use: without military source operations specialist use Diabetes mellitus complication status: with hyperglycemia Qualified Code(s): E11.65 - Type 2 diabetes mellitus with hyperglycemia (7) Chronic kidney disease (CKD), stage III (moderate) Current Visit: Yes Status: Chronic Assessment and plan: Renal disease is stable, creatinine actually better than his baseline as outpatient (8) Personal history of cerebrovascular accident with current residual effects Current Visit: Yes Status: Chronic (9) DVT prophylaxis Current Visit: Yes Status: Acute - Subjective Interval history: Patient states that he is feeling much better. He slept better last night and he has slept in a while. Denies any cardiac or respiratory symptoms. Cough is minimal and no sputum production. Advancing with his therapies. - Constitutional Vitals: Temp Pulse Resp BP Pulse Ox 97.3 F L 68 19 126/79 95 10/11/18 11:00 10/11/18 11:00 10/11/18 11:41 10/11/18 11:00 10/11/18 11:41 General appearance: Present: A&O X 3, pleasant, no acute distress, answers questions appropriately - Respiratory Respiratory exam: Present: decreased breath sounds, CTAB - Cardiovascular Cardiovascular exam: Present: irregular rhythm, +S1, +S2. Absent: systolic murmur - GI/Abdominal GI/Abdominal exam: Present: soft. Absent: tenderness - Extremities Exam Extremities exam: Absent: calf tenderness, pedal edema, tenderness Additional comments: Has elastic stockings in place Internal Medicine: Result - Labs CBC & Chem 7: 10/11/18 05:20 10/12/18 05:30 Labs: Short CBC 10/11/18 Range/Units 05:20 WBC 10.6 (4.3-11.1) K/mcL Hgb 9.9 L (12.9-16.9) g/dL Hct 30.2 L (37.5-50.1) % Plt Count 407 H (140-400) K/mcL Neutrophils # 7.6 (1.6-8.9) K/mcL BMP 10/11/18 05:20 Sodium 137 Potassium 4.0 Chloride 103 Carbon Dioxide 28 BUN 28 H Creatinine 1.37 H Glucose 139 H Calcium 8.3 L Labs reviewed - VTE Documentation of Mechanical Device: Graduated compression elastic hosiery Consult Discharge Plan - Plan Referrals: Mario Early MD [Primary Care Provider] -
[2018-10-11] MEDS: Benzonatate 100 MG CAPSULE PO PRN (15:29)
[2018-10-11] MEDS: Melatonin 3 MG TABLET PO PRN (20:50)
[2018-10-12] MEDS: Ipratropium/Albuterol Neb 3 ML IH SCH ×4 (04:59→22:17)
[2018-10-12] MEDS: *HR* Enoxaparin 40 MG/0.4 ML SYRINGE SQ SCH (04:59)
[2018-10-12] MEDS: Insulin LISPRO 300 UNITS/3 ML VIAL SQ SCH ×3 (07:31→17:46)
[2018-10-12] MEDS: Furosemide 20 MG TABLET PO SCH ×2 (08:26→17:51)
[2018-10-12] MEDS: Lisinopril-HCTZ 20-12.5mg TABLET PO SCH (08:26)
[2018-10-12] MEDS: *HR* Metformin 500 MG TABLET PO SCH ×2 (08:26→18:17)
[2018-10-12] MEDS: amLODIPine 5 MG TABLET PO SCH (08:27)
[2018-10-12] MEDS: Ascorbic Acid 500 MG TABLET PO SCH ×2 (08:27→19:28)
[2018-10-12] MEDS ORDERED: Ondansetron ODT 4 MG TAB.RAPDIS SL PRN (15:52)
--- NOTE | 2018-10-12 17:24 | Internal Med Progress Note ---
Date of Encounter: 10/12/18 Time of Encounter: 17:22 - Assessment and plan (1) Physical deconditioning Current Visit: Yes Status: Acute Assessment and plan: He is getting stronger. Has been more with PT and OT. Continue the same. Plan will be to advance back to baseline so he can be home and independent. (2) Acute congestive heart failure Current Visit: Yes Status: Acute Assessment and plan: No acute congestive heart failure noted. We will back down his Lasix to once daily as his weight has dropped several pounds again. Chest x-ray markedly improved. No angina. Qualifiers: Heart failure type: unspecified Qualified Code(s): I50.9 - Heart failure, unspecified (3) Community acquired pneumonia Current Visit: Yes Status: Acute Assessment and plan: Chest x-ray markedly improved. He has had at least 10 days of antibiotics and they were discontinued. No clinical symptoms of pneumonia now. No sputum production. Qualifiers: Laterality: right Lung location: lower lobe of lung Qualified Code(s): J18.1 - Lobar pneumonia, unspecified organism (4) New onset atrial fibrillation Current Visit: Yes Status: Acute Assessment and plan: No angina or acute congestive heart failure. Rate controlled. Tolerating therapies well. Not a great candidate for anticoagulation (5) Hypertension Current Visit: Yes Status: Acute Assessment and plan: Blood pressure under good control. Qualifiers: Hypertension type: essential hypertension Qualified Code(s): I10 - Essential (primary) hypertension (6) Diabetes mellitus Current Visit: Yes Status: Chronic Assessment and plan: Sugars are under good control with metformin. We can discontinue his Accu-C heks. Qualifiers: Diabetes mellitus type: type 2 Diabetes mellitus lobsterman insulin use: without lobsterman use Diabetes mellitus complication status: with hyperglycemia Qualified Code(s): E11.65 - Type 2 diabetes mellitus with hyperglycemia (7) Chronic kidney disease (CKD), stage III (moderate) Current Visit: Yes Status: Chronic Assessment and plan: Chronic kidney disease with acute kidney injury, now improved. Recheck tomorrow. (8) Personal history of cerebrovascular accident with current residual effects Current Visit: Yes Status: Chronic (9) DVT prophylaxis Current Visit: Yes Status: Acute - Subjective Interval history: Patient states that he is doing well. He is doing well in therapy. Getting up and down to his chair and ambulating in his room without difficulty. Ambulating to and from therapy and keeps his oxygenation in the 90s. Oxygen changed from high flow to 2-3 L nasal cannula. Only rare cough. No chest pain or palpitations. - Constitutional Vitals: Temp Pulse Resp BP Pulse Ox 97.8 F 77 19 116/63 94 10/12/18 11:00 10/12/18 11:00 10/12/18 11:16 10/12/18 11:00 10/12/18 14:00 General appearance: Present: A&O X 3, pleasant, no acute distress, answers questions appropriately - Respiratory Respiratory exam: Present: decreased breath sounds Additional comments: Only rare crackles at the bases. No orthopnea. No dyspnea. - Cardiovascular Cardiovascular exam: Present: irregular rhythm, +S1, +S2 - GI/Abdominal GI/Abdominal exam: Present: soft. Absent: tenderness - Extremities Exam Extremities exam: Absent: calf tenderness, tenderness Additional comments: He is wearing his elastic stockings. Internal Medicine: Result - Labs CBC & Chem 7: 10/11/18 05:20 10/12/18 05:30 Labs: BMP 10/12/18 05:30 Potassium 3.9 Potassium 3.9. - Diagnostic Studies Chest x-ray Status: image reviewed by me (I looked at the chest x-ray from Thursday, the report does not sound very impressive, but he has marked improvement in the lung bradford) - VTE Documentation of Mechanical Device: Graduated compression elastic hosiery Consult Discharge Plan - Plan Referrals: Mario Early MD [Primary Care Provider] -
[2018-10-12] MEDS: Melatonin 3 MG TABLET PO PRN (22:17)
[2018-10-13] MEDS: *HR* Enoxaparin 40 MG/0.4 ML SYRINGE SQ SCH (05:35)
[2018-10-13] MEDS: Ipratropium/Albuterol Neb 3 ML IH SCH (05:36)
[2018-10-13 05:59] LABS: Basophils # 0.1 K/mcL (0.0-0.2); Basophils % 0.7 %; Eosinophils # 0.5 K/mcL (0.0-0.6); Eosinophils % 4.9 %; Hematocrit 31.2 % (37.5-50.1); Hemoglobin 10.5 g/dL (12.9-16.9); Immature Granulocytes % 0.8 % (0-4); Lymphocytes # 1.6 K/mcL (0.6-4.6); Lymphocytes % 15.3 %; Mean Corpuscular HGB Conc 33.7 g/dL (31.6-35.5); Mean Corpuscular Hemoglobin 30.1 pg (28.0-33.3); Mean Corpuscular Volume 89.4 fL (83.0-100.0); Mean Platelet Volume 9.4 fL (9.4-12.4); Monocytes # 0.8 K/mcL (0.0-1.3); Neutrophils # 7.2 K/mcL (1.6-8.9); Platelet Count 423 K/mcL (140-400); Red Blood Count 3.49 M/mcL (4.19-5.50); Red Cell Distribution Width 13.4 % (11.5-14.5); Segmented Neutrophils % 70.3 %
[2018-10-13 06:13] LABS: Calcium 8.4 mg/dL (8.6-10.3)
[2018-10-13] MEDS: Lisinopril-HCTZ 20-12.5mg TABLET PO SCH (08:39)
[2018-10-13] MEDS: Ascorbic Acid 500 MG TABLET PO SCH ×2 (08:39→20:35)
[2018-10-13] MEDS: amLODIPine 5 MG TABLET PO SCH (08:39)
[2018-10-13] MEDS: *HR* Metformin 500 MG TABLET PO SCH ×2 (08:39→17:32)
[2018-10-13] MEDS: Furosemide 20 MG TABLET PO SCH (08:40)
--- NOTE | 2018-10-13 09:33 | Internal Med Progress Note ---
Date of Encounter: 10/13/18 Time of Encounter: 09:29 - Assessment and plan (1) Physical deconditioning Current Visit: Yes Status: Acute Assessment and plan: He continues with PT and OT and showing improvement. Tolerating therapies with less oxygen requirement. Standby assistance continued. (2) Acute congestive heart failure Current Visit: Yes Status: Acute Assessment and plan: Clinically his lungs are clear. He is having no signs or symptoms of acute congestive heart failure. We have lowered his Lasix and will follow. Qualifiers: Heart failure type: unspecified Qualified Code(s): I50.9 - Heart failure, unspecified (3) Community acquired pneumonia Current Visit: Yes Status: Acute Assessment and plan: His lungs are clear. No fever. Respiratory status continues to improve and less oxygen supplementation needed. Qualifiers: Laterality: right Lung location: lower lobe of lung Qualified Code(s): J18.1 - Lobar pneumonia, unspecified organism (4) New onset atrial fibrillation Current Visit: Yes Status: Acute Assessment and plan: Rate controlled. No angina or CHF. (5) Hypertension Current Visit: Yes Status: Acute Assessment and plan: Elevated blood pressure intermittently. We will follow. Qualifiers: Hypertension type: essential hypertension Qualified Code(s): I10 - Essential (primary) hypertension (6) Diabetes mellitus Current Visit: Yes Status: Chronic Assessment and plan: Sugars have been under good control with metformin. We can back off on finger sticks unless he is symptomatic. Qualifiers: Diabetes mellitus type: type 2 Diabetes mellitus manager long term care insulin use: without manager long term care use Diabetes mellitus complication status: with hyper glycemia Qualified Code(s): E11.65 - Type 2 diabetes mellitus with hyperg lycemia (7) Chronic kidney disease (CKD), stage III (moderate) Current Visit: Yes Status: Chronic Assessment and plan: Creatinine 1.43, this is at his baseline. We will continue to follow. (8) Personal history of cerebrovascular accident with current residual effects Current Visit: Yes Status: Chronic (9) DVT prophylaxis Current Visit: Yes Status: Acute - Subjective Interval history: Patient thinks that he continues to improve. He denies any cardiac chest pain or palpitations. No shortness of breath. He does not think he needs to continue the respiratory treatments as often. He ate well today. His nausea is gone. He is participating in therapies and saturations are staying in the 90s with only 1 L per nasal cannula. He still requires only standby assistance with activities. Nurses report that he had stool sample sent for C. difficile testing he currently in isolation precautions until that has returned - Constitutional Vitals: Temp Pulse Resp BP Pulse Ox 97.9 F 84 14 177/71 94 10/13/18 06:00 10/13/18 06:00 10/13/18 06:00 10/13/18 06:00 10/13/18 06:00 General appearance: Present: A&O X 3, pleasant, no acute distress, answers questions appropriately Exam: He is sitting up in a chair as he has been at the sink brushing his teeth - Respiratory Respiratory exam: Present: decreased breath sounds, CTAB - Cardiovascular Cardiovascular exam: Present: irregular rhythm, +S1, +S2 (Still slightly irregular rhythm but controlled rate) - GI/Abdominal GI/Abdominal exam: Present: soft. Absent: tenderness - Extremities Exam Extremities exam: Absent: calf tenderness, pedal edema Internal Medicine: Result - Labs CBC & Chem 7: 10/13/18 05:30 10/13/18 05:30 Labs: Short CBC 10/13/18 Range/Units 05:30 WBC 10.3 (4.3-11.1) K/mcL Hgb 10.5 L (12.9-16.9) g/dL Hct 31.2 L (37.5-50.1) % Plt Count 423 H (140-400) K/mcL Neutrophils # 7.2 (1.6-8.9) K/mcL BMP 10/13/18 05:30 Sodium 135 L Potassium 4.0 Chloride 100 Carbon Dioxide 28 BUN 26 H Creatinine 1.43 H Glucose 118 H Calcium 8.4 L Labs have been reviewed. Hemoglobin better. Potassium normal 4.0. Creatinine at his chronic baseline - VTE Documentation of Mechanical Device: Graduated compression elastic hosiery Consult Discharge Plan - Plan Referrals: Mario Early MD [Primary Care Provider] -
[2018-10-13] MEDS: Melatonin 3 MG TABLET PO PRN (20:35)
[2018-10-14] MEDS: *HR* Enoxaparin 40 MG/0.4 ML SYRINGE SQ SCH (05:36)
[2018-10-14] MEDS: Ascorbic Acid 500 MG TABLET PO SCH ×2 (09:14→21:05)
[2018-10-14] MEDS: Furosemide 20 MG TABLET PO SCH (09:15)
[2018-10-14] MEDS: amLODIPine 5 MG TABLET PO SCH (09:15)
[2018-10-14] MEDS: *HR* Metformin 500 MG TABLET PO SCH ×2 (09:15→17:21)
[2018-10-14] MEDS: Lisinopril-HCTZ 20-12.5mg TABLET PO SCH (09:15)
--- NOTE | 2018-10-14 13:35 | Internal Med Progress Note ---
Date of Encounter: 10/14/18 Time of Encounter: 13:35 - Assessment and plan (1) Physical deconditioning Current Visit: Yes Status: Acute Assessment and plan: He progresses with his therapies except for the setback today of vomiting once. Continue with PT and OT. Still planning for discharge to home tomorrow if he is medically stable. He will have home oxygen and a walker. (2) Acute congestive heart failure Current Visit: Yes Status: Acute Assessment and plan: Currently not having signs of congestive heart failure or angina. Still has rate controlled atrial fibrillation. No new respiratory symptoms. Qualifiers: Heart failure type: unspecified Qualified Code(s): I50.9 - Heart failure, unspecified (3) Community acquired pneumonia Current Visit: Yes Status: Acute Assessment and plan: He appears to be recuperate from his pneumonia. Lung bradford are clear. No respiratory distress. He has finished his antibiotics and doing well. Qualifiers: Laterality: right Lung location: lower lobe of lung Qualified Code(s): J18.1 - Lobar pneumonia, unspecified organism (4) New onset atrial fibrillation Current Visit: Yes Status: Acute Assessment and plan: No angina or CHF. He is rate controlled. No current symptomatology with this. Not a great candidate for full anticoagulation (5) Hypertension Current Visit: Yes Status: Acute Assessment and plan: Blood pressure is under good control. Qualifiers: Hypertension type: essential hypertension Qualified Code(s): I10 - Essential (primary) hypertension (6) Diabetes mellitus Current Visit: Yes Status: Chronic Assessment and plan: Sugars are under adequate control. Qualifiers: Diabetes mellitus type: type 2 Diabetes mellitus residential insulin use: without social services manager use Diabetes mellitus complication status: with hyperglycemia Qualified Code(s): E11.65 - Type 2 diabetes mellitus with hyperglycemia (7) Chronic kidney disease (CKD), stage III (moderate) Current Visit: Yes Status: Chronic Assessment and plan: Chronic kidney disease and his last creatinine is at baseline. (8) Personal history of cerebrovascular accident with current residual effects Current Visit: Yes Status: Chronic (9) Vomiting Current Visit: Yes Status: Acute Assessment and plan: Patient had one episode of vomiting late this morning. He appears to have had full recovery. He required Zofran once. Examination now is normal. No other red flags or related symptoms. We will resume his usual activities and see how he does. Qualifiers: Vomiting type: unspecified Vomiting Intractability: non-intractable Nausea presence: with nausea Qualified Code(s): R11.2 - Nausea with vomiting, unspecified (10) Hypoxia Current Visit: Yes Status: Acute Assessment and plan: During this hospitalization patient is developed hypoxia. Likely was due to his pneumonia as well as congestive heart failure. We have now tapered his oxygen down to 1 or 2 L per nasal cannula. Despite diuresis with Lasix, treating his pneumonia, and having had breathing treatments he still requires oxygen and will plan for concentrator and portable oxygen in the home as he is now qualified for that. (11) DVT prophylaxis Current Visit: Yes Status: Acute - Subjective Interval history: Patient states that he is feeling okay now. Late this morning he had an episode while in therapy where he suddenly became nauseated and vomited. He did not feel well afterwards and skipped his lunch. He was given Zofran. He denies any dyspnea, chest pain, abdominal pain. He states he feels fine now. He thinks it is one of his medications that he took this morning that made him ill. Currently he denies any dyspnea, chest pain, abdominal pain or further vomiting. He still looks forward to going home tomorrow. Nurses report that he still oxygen dependent. Therapy reports that he still should use his walker, he reports he has one at home from his previous CVA as well. - Constitutional Vitals: Temp Pulse Resp BP Pulse Ox 97.7 F 73 16 126/63 96 10/14/18 09:01 10/14/18 09:01 10/14/18 09:01 10/14/18 09:01 10/14/18 09:01 General appearance: Present: A&O X 3, pleasant, no acute distress, answers questions appropriately - Respiratory Respiratory exam: Present: decreased breath sounds, CTAB. Absent: respiratory distress - Cardiovascular Cardiovascular exam: Present: irregular rhythm, +S1, +S2. Absent: systolic murmur - GI/Abdominal GI/Abdominal exam: Present: normal bowel sounds, soft, no peritoneal signs. Absent: distended, firm, guarding, hepatomegaly, tenderness - Extremities Exam Extremities exam: Absent: calf tenderness, pedal edema, tenderness Internal Medicine: Result - Labs CBC & Chem 7: 10/13/18 05:30 10/13/18 05:30 - VTE Documentation of Mechanical Device: Graduated compression elastic hosiery Consult Discharge Plan - Plan Referrals: Mario Early MD [Primary Care Provider] -
[2018-10-14] MEDS: Melatonin 3 MG TABLET PO PRN (21:05)
--- NOTE | 2018-10-14 22:37 | Discharge Summary ---
- NOTES TO OUTPATIENT PROVIDER Notes to Outpatient Provider: #1. Home health to be arranged. #2. Dr. Early will make a house call in a few days Date of Encounter: 10/15/18 Time of Encounter: 07:56 - Discharge Diagnosis (1) Physical deconditioning Priority: Primary Status: Acute Comments: Patient was initially admitted to the hospital with pneumonia. In the first 48 hours he developed acute flash congestive heart failure. He has finished intravenous Levaquin and Rocephin. He was transferred to a swing bed because of deconditioning, hypoxia and need to regain his ADLs prior to going home. Therapies feel that it is safe for him to go home with oxygen, his walker and home health. He is able to maintain ADLs appropriately. I will make a house call to see how he is doing in a few days. (2) Acute congestive heart failure Priority: Secondary Status: Acute Comments: During his acute hospitalization for pneumonia he developed acute congestive heart failure. He was treated with diuretics and oxygen. Echocardiogram showed normal ejection fraction. His Lasix was tapered. His atrial fibrillation has been rate controlled. Currently he has no signs of congestive heart failure, angina, dyspnea. His discharge medications include a diuretic, KEKE inhibitor, Plavix and a beta honorio Qualifiers: Heart failure type: unspecified Qualified Code(s): I50.9 - Heart failure, unspecified (3) Community acquired pneumonia Priority: Secondary Status: Acute Comments: His initial admission was 2 in acute bed with acute community-acquired pneumonia. After finishing a course of intravenous Levaquin he was in a Bed for deconditioning. His latest chest x-ray showed marked improvement and his lung bradford are clear Qualifiers: Laterality: right Lung location: lower lobe of lung Qualified Code(s): J18.1 - Lobar pneumonia, unspecified organism (4) New onset atrial fibrillation Priority: Secondary Status: Acute Comments: During his hospitalization upon admission it was noted that he was in atrial fibrillation. It is rate controlled. Echocardiogram showed preserved ejection fraction. He has had no angina. He did have congestive heart failure. His beta honorio was decreased to 100 mg twice a day. He did well on the monitor. He has not a great candidate for full anticoagulation (5) Hypertension Priority: Secondary Status: Acute Comments: Long-standing history of hypertension. He did well during hospitalization. No further adjustment of medications needed. Qualifiers: Hypertension type: essential hypertension Qualified Code(s): I10 - Essential (primary) hypertension (6) Diabetes mellitus Priority: Secondary Status: Chronic Comments: Sugars have been under good control with metformin. When he had acute kidney injury and congestive heart failure we held his metformin and he was on sliding scale insulin. Since then he is back on metformin at 500 mg twice a day and sugars are well controlled hospital despite having a glycohemoglobin of 8.0% We will continue following as an outpatient.. Qualifiers: Diabetes mellitus type: type 2 Diabetes mellitus long term care social worker insulin use: without long term care social worker use Diabetes mellitus complication status: with hyperglycemia Qualified Code(s): E11.65 - Type 2 diabetes mellitus with hyperglycemia (7) Chronic kidney disease (CKD), stage III (moderate) Priority: Secondary Status: Chronic Comments: Long-standing history of chronic kidney disease. During his hospital stay he had acute kidney injury particular with the use of diuretics for his acute congestive heart failure. Now his creatinine is back to baseline. (8) Personal history of cerebrovascular accident with current residual effects Priority: Secondary Status: Chronic Comments: He has a history of a previous CVA and left-sided weakness which is minimal. No recurrence of symptoms. He continues with Plavix. (9) Vomiting Priority: Secondary Status: Acute Comments: He had an episode of vomiting today prior to discharge. No obvious etiology. He made full recovery. Resumed therapies. Resumed his ADLs and eating. Did not require further intervention unless this recurs. Qualifiers: Vomiting type: unspecified Vomiting Intractability: non-intractable Nausea presence: with nausea Qualified Code(s): R11.2 - Nausea with vomiting, unspecified (10) Hypoxia Priority: Secondary Status: Acute Comments: Patient developed hypoxia during this hospital stay. Likely it was due to his pneumonia and then Acute congestive heart failure. At one time he was actually on BiPAP during the acute stay. In rehabilitation he has been tapered down to 1-3 L per nasal cannula and not requiring any BiPAP. We will continue at home as he still has mild hypoxia despite his treatment of congestive heart failure and pneumonia Hospital course: Mr. Christensen is a 83 year old male was first admitted to an acute bed with pneumonia and then had acute congestive heart failure. He then made partial recovery but he needed to stay in a rehabilitation bed for deconditioning. He received PT and OT and recreational therapy. He is now safe to return to home with home oxygen, his walker and home health. On day of discharge he had no chest pain, palpitations, respiratory symptoms, cough, GI or problems. Please see the diagnoses above Discharge discussed with: patient, family - Time Spent with Patient Total time spent providing and/or coordinating discharge services: - Discharge Medications Prescriptions: Atorvastatin Calcium [Lipitor] 80 mg PO HS #30 tab Ferrous Sulfate 325 mg PO DAILY@0800 #30 tablet Labetalol [Trandate] 100 mg PO BID #60 tablet Potassium Chloride 10 meq PO DAILY #30 tab.er.prt Home Medications: Clopidogrel [Plavix] 75 mg PO DAILY 02/19/18 [History] Lisinopril-HCTZ 20-12.5 [Prinzide 20-12.5] 1 each PO DAILY 02/19/18 [History] Omeprazole 20 mg PO DAILY 02/19/18 [History] amLODIPine [Norvasc] 5 mg PO DAILY 02/19/18 [History] Atorvastatin Calcium [Lipitor] 80 mg PO HS #30 tab 10/14/18 [Rx] Ferrous Sulfate 325 mg PO DAILY@0800 #30 tablet 10/14/18 [Rx] Furosemide [Lasix] 20 mg PO DAILY tablet 10/14/18 [Rx] Labetalol [Trandate] 100 mg PO BID #60 tablet 10/14/18 [Rx] Potassium Chloride 10 meq PO DAILY #30 tab.er.prt 10/14/18 [Rx] metFORMIN [Glucophage] 500 mg PO BIDWM tablet 10/14/18 [Rx] Allergies/Adverse Reactions: Allergy/AdvReac Type Severity Reaction Status Date / Time Sulfa (Sulfonamide Allergy See Verified 09/30/18 05:30 Antibiotics) Comments Date of admission: 10/06/18 16:34 Primary care physician: Mario Early MD Consults: 10/06/18 18:48 Consult to Occupational Therapy [CONS] Routine Comment: Evaluate, develop and implement POC Reason for Consult: deconditioning Does patient have active BEDREST order?: No Is patient medically & hemodynamically stable?: Yes Patient assessed for mobility or mobilized this visit?: No Consult to Physical Therapy [CONS] Routine Comment: Evaluate, develop and implement POC Reason for Consult: deconditioning Does patient have active BEDREST order?: No Is patient medically & hemodynamically stable?: Yes Patient assessed for mobility or mobilized this visit?: No Consult to Recreational Therapy [CONS] Routine Comment: Evaluate, develop and implement POC Consult to Personal Injury Law Specialist [CONS] Routine Reason for SW Consult: deconditioning Discharging clinician: Mario Early Anticipated date of discharge: 10/15/18 - Constitutional Vitals: Temp Pulse Resp BP Pulse Ox 97.6 F 79 17 108/45 97 10/14/18 18:46 10/14/18 18:46 10/14/18 18:46 10/14/18 18:46 10/14/18 18:46 General appearance: Present: A&O X 3, pleasant, no acute distress, answers questions appropriately - Respiratory Respiratory exam: Present: CTAB - Cardiovascular Cardiovascular exam: Present: irregular rhythm, +S1, +S2, systolic murmur (1/6 systolic murmur at the outlet) - GI/Abdominal GI/Abdominal exam: Present: normal bowel sounds, soft. Absent: tenderness - Extremities Exam Extremities exam: Absent: calf tenderness, mottling, tenderness - Patient Status Disposition: Home Health Service Condition: Good Functional capacity at discharge: uses cane/walker Overall status at discharge: patient is progressing back to baseline - Discharge Instructions Follow Up With: Mario Early MD [Primary Care Provider] - - Diet and Activity Activity: ambulate only with your walker, as per physical therapy Diet: diabetic diet, low salt diet - VTE Documentation of Mechanical Device: Graduated compression elastic hosiery
--- NOTE | 2018-10-14 23:05 | Physician Discharge Referral ---
Home Health/Hosp Referral Info Transfer to: Home Health Provider in Charge Post Discharge: PCP () - Diagnosis (1) Physical deconditioning Priority: Primary Status: Acute (2) Acute congestive heart failure Priority: Secondary Status: Acute (3) Community acquired pneumonia Priority: Secondary Status: Acute (4) New onset atrial fibrillation Priority: Secondary Status: Acute (5) Hypertension Priority: Secondary Status: Acute (6) Diabetes mellitus Priority: Secondary Status: Chronic (7) Chronic kidney disease (CKD), stage III (moderate) Priority: Secondary Status: Chronic (8) Personal history of cerebrovascular accident with current residual effects Status: Chronic (9) Vomiting Priority: Secondary Status: Acute (10) Hypoxia Priority: Secondary Status: Acute - Respiratory Orders Oxygen / L per min (1 to 3 L per nasal cannula when necessary) Smoking Cessation: Smoking cessation has been advised. For more information, call the [employer] Quit Line at 2-573-RPVX-NOW. - Diet/Nutrition Diet/Nutrition Orders: No Concentrated Sweets - Activity Activity Orders: Walker - Services Needed Following services are medically necessary services: Nursing, Physical Therapy - Transfer Medications Prescriptions: Atorvastatin Calcium [Lipitor] 80 mg PO HS #30 tab Ferrous Sulfate 325 mg PO DAILY@0800 #30 tablet Labetalol [Trandate] 100 mg PO BID #60 tablet Potassium Chloride 10 meq PO DAILY #30 tab.er.prt Home Medications: Clopidogrel [Plavix] 75 mg PO DAILY 02/19/18 [History] Lisinopril-HCTZ 20-12.5 [Prinzide 20-12.5] 1 each PO DAILY 02/19/18 [History] Omeprazole 20 mg PO DAILY 02/19/18 [History] amLODIPine [Norvasc] 5 mg PO DAILY 02/19/18 [History] Atorvastatin Calcium [Lipitor] 80 mg PO HS #30 tab 10/14/18 [Rx] Ferrous Sulfate 325 mg PO DAILY@0800 #30 tablet 10/14/18 [Rx] Furosemide [Lasix] 20 mg PO DAILY tablet 10/14/18 [Rx] Labetalol [Trandate] 100 mg PO BID #60 tablet 10/14/18 [Rx] Potassium Chloride 10 meq PO DAILY #30 tab.er.prt 10/14/18 [Rx] metFORMIN [Glucophage] 500 mg PO BIDWM tablet 12/20/18 [Rx] Allergies/Adverse Reactions: Allergy/AdvReac Type Severity Reaction Status Date / Time Sulfa (Sulfonamide Allergy See Verified 09/30/18 05:30 Antibiotics) Comments Certification: Further, I certify that my clinical findings support that this patient is homebound (i.e. absences from home require considerable and taxing effort and are for medical reasons or spiritism services or infrequently or short duration when for other reasons) because: Homebound Reason: Patient requires assistance of a person or device to safely leave home, Leaving home requires considerable and taxing effort due to condition, Severity of cardiac or pulmonary status limits activity tolerance Attestation: My signature below is to certify that this patient is under my care and that I, or nurse practitioner, or a physician's seed laboratory assistant working with me, has a [id number] encounter with this patient.
[2018-10-15] MEDS: *HR* Enoxaparin 40 MG/0.4 ML SYRINGE SQ SCH (05:04)
[2018-10-15 05:15] LABS: Calcium 8.1 mg/dL (8.6-10.3); Potassium 3.8 mEq/L (3.5-5.1)
[2018-10-15 07:23] VITALS: BP 115/57
[2018-10-15] MEDS: *HR* Metformin 500 MG TABLET PO SCH (08:50)
[2018-10-15] MEDS: amLODIPine 5 MG TABLET PO SCH (10:25)
[2018-10-15] MEDS: Lisinopril-HCTZ 20-12.5mg TABLET PO SCH (10:25)
[2018-10-15] MEDS: Furosemide 20 MG TABLET PO SCH (10:26)
[2018-10-15] MEDS: Ascorbic Acid 500 MG TABLET PO SCH (10:26)
== END 2018-10-15 14:10 | disposition home health service (06) | DRG 56 ==
LOC: INPGRE 16:34
PROVIDERS: ADMIT Family Medicine; ATTEND Family Medicine

== ENCOUNTER 2018-11-12 15:37 | Inpatient (IN) ==
[2018-11-12] MEDS ORDERED: Ipratropium/Albuterol Neb 3 ML IH ONE (15:54)
--- NOTE | 2018-11-12 15:56 | Emergency Department Note ---
Disposition Clinical Impression: Hypoxia Pneumonia Qualifiers: Pneumonia type: due to unspecified organism Laterality: bilateral Lung location: unspecified part of lung Qualified Code(s): J18.9 - Pneumonia, unspecified organism Disposition: Admitted As Inpatient Condition: Fair Referrals: Mario Early MD [Primary Care Provider] - Forms: ED Satisfaction Letter Time of Disposition: 16:56 SOB HPI - General Chief Complaint: ED Shortness of Breath/Dyspnea Stated Complaint: QASIM Time Seen by Provider: 11/12/18 15:42 Source: patient, EMS Limitations: no limitations Nursing Notes Reviewed: Yes Vital Signs Reviewed: Yes - History of Present Illness States recent pneumonia. Treated here with nebulizers. Not discharged home on them. Was being seen by visiting nurse and initiial Sat 87% at rest today when she got him up and oxygen saturation dropped to 81% and pt was dyspneic. denies CP or fever Patient states that when he was released from the hospital 2 weeks ago he was supposed to be on nebulizers but was never sent home with any Pt Subjective Complaint: shortness of breath, cough Onset (ago): day(s) (3) Context: recent illness (Hospitalized for pneumonia and discharged 12 days ago) Severity: moderate Consistency/Duration: gradually worsening Improves with: oxygen, rest, bronchodilators, upright position Worsens with: lying flat, exertion Known history of: COPD, asthma, congestive heart failure Associated symptoms: Reports: cough, wheezing, sputum production (Clear to yellow), orthopnea. Denies: chest pain, pain with inspiration, fever, lower extremity pain, polyuria, polydipsia, parasthesias, palpitations, hemoptysis, diaphoresis, nausea/vomiting, syncope, abdominal pain, sense of impending doom Treatment prior to arrival: oxygen, bronchodilator, other (Patient received 1 DuoNeb site a Medrol and oxygen via EMS) Cough present: Yes Cough Description: Voluntary, Non-Productive, Moist, Hacking, Strong, Rattling Cough Frequency: Intermittent Sputum production: Yes Sputum Amount: Scant Sputum Color: White - Related Data Home oxygen amount: 2 liters Home Medications Medication Instructions Recorded Confirmed Clopidogrel [Plavix] 75 mg PO DAILY 02/19/18 10/06/18 Lisinopril-HCTZ 20-12.5 [Prinzide 1 each PO DAILY 02/19/18 10/06/18 20-12.5] Omeprazole 20 mg PO DAILY 02/19/18 10/06/18 amLODIPine [Norvasc] 5 mg PO DAILY 02/19/18 10/06/18 Previous Rx's Medication Instructions Recorded Atorvastatin Calcium [Lipitor] 80 mg PO HS #30 tab 10/14/18 Ferrous Sulfate 325 mg PO DAILY@0800 #30 tablet 10/14/18 Furosemide [Lasix] 20 mg PO DAILY tablet 10/14/18 Labetalol [Trandate] 100 mg PO BID #60 tablet 10/14/18 Potassium Chloride 10 meq PO DAILY #30 tab.er.prt 10/14/18 metFORMIN [Glucophage] 500 mg PO BIDWM tablet 10/14/18 Allergies Allergy/AdvReac Type Severity Reaction Status Date / Time Sulfa (Sulfonamide Allergy See Verified 09/30/18 05:30 Antibiotics) Comments All systems ED: reviewed and negative except as stated. Review of Systems: As Per HPI Past Medical History - Past Medical History Medical history: Reports: CVA, diabetes, GERD, hyperlipidemia, hypertension, renal disease, thyroid disease Psychiatric history: Reports: no psych history - Social History Smoking Status: Former smoker Smokeless Tobacco Status: No Alcohol use: Reports: none Drug use: Reports: none Physical Exam Constitutional: Patient is oriented to person, place, and time. Skin color is pink. Appears well hydrated, body habitus normal . Patient is slightly tachypnea at rest but Non toxic appearing. Head: Normocephalic and atraumatic. External ear exam normal Nose: Nose normal. Mouth/Throat: Uvula is midline, oropharynx is clear and moist and mucous membranes are normal. Eyes: Conjunctivae nl, extraocular motions and lids are normal. Pupils are equal, round, and reactive to light. Neck: Normal range of motion and phonation normal. Neck supple. Cardiovascular: Normal rate, regular rhythm, normal heart sounds. Pulmonary/Chest: No Respiratory distress. Respiratory Effort increased, tachypnea, diminished breath sounds at the bases, rhonchi at the right base, end expiratory wheezing bilateral. No intercostal retraction. Abdominal: Soft. Normal appearance and bowel sounds are normal. no tenderness, no masses, no guarding, no rebound Musculoskeletal: Good distal pulses. Soft compartments. Brisk cap refill. Extremities: Normal range of motion.Intact peripheral pulses. 1+ Edema. Extremity skin color nl, no calf tenderness or palpable cords. Neurological: GCS 15 Patient is alert and oriented without evidence of obvious motor deficits Skin: Skin is warm, dry and intact. color is normal, cap refill is quick Psychiatric: Patient has normal mood and affect. Patient speech is normal and behavior is normal. Thought content normal. - General Limitations: no limitations General appearance: alert, in no apparent distress Course - Reevaluation(s) Reevaluation #1: Patient increasing with respiratory changes on chest x-ray. Appears to be CHF but BMP does not consistent with that. Cannot rule out significant pneumonia with this degree of infiltrate. But the patient does not appear septic or acutely toxic. Restful and actually is eating dinner at this point. His family reiterated DNR status. I discussed the case with Dr. Early his primary physician. We discussed the patient's presentation, testing results, recent hospitalization and antibiotic choice. He agrees with hospitalization and requests that I write initial orders and will see the patient later this evening but would like him inpatient. Patient and family agree with plan Time: 16:53 Vital Signs Temperature 98.5 F 11/12/18 15:38 Pulse Rate 71 11/12/18 15:38 Respiratory Rate 18 11/12/18 15:38 Blood Pressure 167/95 11/12/18 15:38 O2 Sat by Pulse Oximetry 95 11/12/18 15:38 Temperature 98.5 F 11/12/18 15:38 Pulse Rate 77 11/12/18 16:42 Respiratory Rate 20 11/12/18 16:42 Blood Pressure 168/92 11/12/18 16:42 O2 Sat by Pulse Oximetry 94 11/12/18 16:42 Oxygen Delivery Oxygen Delivery Nasal Cannula Shortness of Breath/Dyspnea - [facility] Narrative Medical decision making narrative: Patient is not pale or diaphoretic, however he did become quite tachypnea even w ith exertion of sitting in the bed to do the physical examination he dropped his saturation to 89% on 2 L. FiO2 was increased and patient was given breathing treatment as well as lab work accomplished. Guarding recurrent pneumonia or exacerbation COPD - Differential Diagnosis Likely: acute exacerbation of chronic obstructive airways disease, congestive heart failure - Medical Records Medical records reviewed: Yes I reviewed the patient's medical records. - Lab Data Lab results reviewed: Yes I reviewed the patient's lab results. Result diagrams: 11/12/18 16:08 11/12/18 16:08 Lab Results 11/12/18 11/12/18 11/12/18 Range/Units 16:08 16:08 16:08 WBC 8.2 (4.3-11.1) K/mcL RBC 4.04 L (4.19-5.50) M/mcL Hgb 11.7 L (12.9-16.9) g/dL Hct 36.4 L (37.5-50.1) % MCV 90.1 (83.0-100.0) fL MCH 29.0 (28.0-33.3) pg MCHC 32.1 (31.6-35.5) g/dL RDW 14.3 (11.5-14.5) % Plt Count 320 (140-400) K/mcL MPV 9.9 (9.4-12.4) fL Immature Gran % 0.2 (0-4) % Seg Neutrophils % 65.4 % Lymphocytes % 22.5 % Monocytes % 7.9 % Eosinophils % 3.3 % Basophils % 0.7 % Neutrophils # 5.3 (1.6-8.9) K/mcL Lymphocytes # 1.8 (0.6-4.6) K/mcL Monocytes # 0.7 (0.0-1.3) K/mcL Eosinophils # 0.3 (0.0-0.6) K/mcL Basophils # 0.1 (0.0-0.2) K/mcL PT 12.8 H (9.4-12.1) Seconds INR 1.1 APTT 37.0 H (26.0-36.0) Seconds VBG pH (7.32-7.42) pH Units VBG pCO2 (41-51) mmHg VBG pO2 (25-50) mmHg VBG HCO3 (21-27) mEq/L Sodium 139 (136-145) mEq/L Potassium 4.1 (3.5-5.1) mEq/L Chloride 101 (98-107) mEq/L Carbon Dioxide 30 H (23-29) mEq/L BUN 16 (8-23) mg/dL Creatinine 1.17 (0.70-1.30) mg/dL Est GFR ( Amer) > 60 (> 60) Est GFR (Non-Af Amer) 59 L (> 60) BUN/Creatinine Ratio 14 (6-26) Glucose 134 H (70-105) mg/dL Calculated Osmolality 291 (280-300) Lactic Acid (0.5-2.2) mmol/L Calcium 9.2 (8.6-10.3) mg/dL Total Bilirubin 0.6 (0.3-1.0) mg/dL Direct Bilirubin 0.2 (0.0-0.2) mg/dL Indirect Bilirubin 0.4 (0.0-1.2) mg/dL AST 14 (13-39) Units/L ALT 14 (7-52) Units/L Alkaline Phosphatase 53 (34-104) Units/L Troponin I 0.03 (< 0.04) ng/mL B-Natriuretic Peptide (Less than 100) pg/mL Serum Total Protein 6.3 L (6.4-8.9) g/dL Albumin 3.8 (3.5-5.7) g/dL Globulin 2.5 (2.4-3.5) g/dL Albumin/Globulin Ratio 1.5 (1.1-2.2) 11/12/18 11/12/18 11/12/18 Range/Units 16:08 16:08 16:17 WBC (4.3-11.1) K/mcL RBC (4.19-5.50) M/mcL Hgb (12.9-16.9) g/dL Hct (37.5-50.1) % MCV (83.0-100.0) fL MCH (28.0-33.3) pg MCHC (31.6-35.5) g/dL RDW (11.5-14.5) % Plt Count (140-400) K/mcL MPV (9.4-12.4) fL Immature Gran % (0-4) % Seg Neutrophils % % Lymphocytes % % Monocytes % % Eosinophils % % Basophils % % Neutrophils # (1.6-8.9) K/mcL Lymphocytes # (0.6-4.6) K/mcL Monocytes # (0.0-1.3) K/mcL Eosinophils # (0.0-0.6) K/mcL Basophils # (0.0-0.2) K/mcL PT (9.4-12.1) Seconds INR APTT (26.0-36.0) Seconds VBG pH 7.43 H (7.32-7.42) pH Units VBG pCO2 46 (41-51) mmHg VBG pO2 32 (25-50) mmHg VBG HCO3 31 H (21-27) mEq/L Sodium (136-145) mEq/L Potassium (3.5-5.1) mEq/L Chloride (98-107) mEq/L Carbon Dioxide (23-29) mEq/L BUN (8-23) mg/dL Creatinine (0.70-1.30) mg/dL Est GFR ( Amer) (> 60) Est GFR (Non-Af Amer) (> 60) BUN/Creatinine Ratio (6-26) Glucose (70-105) mg/dL Calculated Osmolality (280-300) Lactic Acid 1.1 (0.5-2.2) mmol/L Calcium (8.6-10.3) mg/dL Total Bilirubin (0.3-1.0) mg/dL Direct Bilirubin (0.0-0.2) mg/dL Indirect Bilirubin (0.0-1.2) mg/dL AST (13-39) Units/L ALT (7-52) Units/L Alkaline Phosphatase (34-104) Units/L Troponin I (< 0.04) ng/mL B-Natriuretic Peptide 375 H (Less than 100) pg/mL Serum Total Protein (6.4-8.9) g/dL Albumin (3.5-5.7) g/dL Globulin (2.4-3.5) g/dL Albumin/Globulin Ratio (1.1-2.2) - Radiology Data Radiology results reviewed: Yes I reviewed the patient's radiology results. Chest x-ray shows persistent versus recall pulmonary findings typical of congestive heart failure. Diffuse infection is a consideration. Calcific atherosclerotic aorta. Cardiomegaly Review by me. This appearance seems to be significantly worse than previous - EKG Data EKG attestation: Yes I reviewed and interpreted this EKG. EKG results narrative: ECG shows atrial fibrillation which is baseline for the patient, controlled rate 78, slightly wide QRS but same as previous and no evidence of acute ST-T wave changes. Slight right axis deviation.
[2018-11-12] MEDS ORDERED: Ipratropium/Albuterol Neb 3 ML ONE ×2 (15:57→18:23)
[2018-11-12 16:14] LABS: Basophils # 0.1 K/mcL (0.0-0.2); Basophils % 0.7 %; Eosinophils # 0.3 K/mcL (0.0-0.6); Eosinophils % 3.3 %; Hematocrit 36.4 % (37.5-50.1); Hemoglobin 11.7 g/dL (12.9-16.9); Immature Granulocytes % 0.2 % (0-4); Lymphocytes # 1.8 K/mcL (0.6-4.6); Lymphocytes % 22.5 %; Mean Corpuscular HGB Conc 32.1 g/dL (31.6-35.5); Mean Corpuscular Volume 90.1 fL (83.0-100.0); Mean Platelet Volume 9.9 fL (9.4-12.4); Monocytes # 0.7 K/mcL (0.0-1.3); Monocytes % 7.9 %; Neutrophils # 5.3 K/mcL (1.6-8.9); Platelet Count 320 K/mcL (140-400); Red Blood Count 4.04 M/mcL (4.19-5.50); Red Cell Distribution Width 14.3 % (11.5-14.5); Segmented Neutrophils % 65.4 %
[2018-11-12 16:20] LABS: VBG HCO3 31 mEq/L (21-27); VBG PCO2 46 mmHg (41-51); VBG PH 7.43 pH Units (7.32-7.42); VBG PO2 32 mmHg (25-50)
[2018-11-12 16:20] LABS: INR 1.1; Prothrombin Time 12.8 Seconds (9.4-12.1)
[2018-11-12 16:28] LABS: Alanine Aminotransferase 14 Units/L (7-52); Albumin 3.8 g/dL (3.5-5.7); Albumin/Globulin Ratio 1.5 (1.1-2.2); Alkaline Phosphatase 53 Units/L (34-104); Aspartate Amino Transferase 14 Units/L (13-39); BUN/Creatinine Ratio 14 (6-26); Bilirubin,Direct 0.2 mg/dL (0.0-0.2); Bilirubin,Indirect 0.4 mg/dL (0.0-1.2); Bilirubin,Total 0.6 mg/dL (0.3-1.0); Blood Urea Nitrogen 16 mg/dL (8-23); Calcium 9.2 mg/dL (8.6-10.3); Carbon Dioxide 30 mEq/L (23-29); Chloride 101 mEq/L (98-107); Globulin 2.5 g/dL (2.4-3.5); Glucose 134 mg/dL (70-105); Osmolality,Calculated 291 (280-300); Potassium 4.1 mEq/L (3.5-5.1); Sodium 139 mEq/L (136-145); Total Protein 6.3 g/dL (6.4-8.9); eGFR For Non-African Americans 59 (> 60)
[2018-11-12 16:31] LABS: Troponin I 0.03 ng/mL (< 0.04)
[2018-11-12] MEDS ORDERED: Levofloxacin 750 MG/150 ML 750 MG/150 ML BAG IVPB ONE (16:34)
[2018-11-12] MEDS ORDERED: Furosemide 40 MG/4 ML VIAL IVP ONE (16:34)
[2018-11-12] MEDS ORDERED: Naloxone 0.4 MG/ML INJ IVP PRN (18:23)
--- NOTE | 2018-11-12 20:33 | Internal Med History&Physical ---
Date of Encounter: 11/12/18 Time of Encounter: 19:57 Assessment and Plan (1) Pneumonia Current visit: Yes Status: Acute Patient is being readmitted for what appears to be pneumonia with cough, hypoxia, weakness, sputum production. Differential diagnosis would also include acute congestive heart failure. His BNP is only minimally elevated and he appea rs to be fairly euvolemic. ER physician started Levaquin. Since he was recently hospitalized and is at risk for pseudomonas infection I will add Zosyn. He is feeling better. He does not appear to be toxic. He is not hypotensive. Lactate was normal. He will continue with his oxygen as he is worn this since his previous hospitalization. I reconfirm his CODE STATUS is DNR CC arrest. No intubation CPR and no defibrillation Qualifiers: Pneumonia type: due to unspecified organism Laterality: bilateral Lung location: unspecified part of lung Qualified Code(s): J18.9 - Pneumonia, uns pecified organism (2) Hypoxia Current visit: Yes Status: Acute Patient was admitted with worsening hypoxia. Since his hospitalization he has used oxygen at 2 L but had good saturations. Today he had a drop in the saturations to the low 80s. Currently he is comfortable. He thinks aerosol treatments helpful and that will be given routinely. 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 He ambulate well with his walker at home. No new neurological changes noted. (4) Hypertension Current visit: No Status: Acute Long-standing history of essential hypertension. Currently blood pressure is controlled. At the house call in the past week his lisinopril hydrochlor othiazide was held because of cough thinking this may be a reaction to the KEKE inhibitor. We will monitor the blood pressure. Qualifiers: Hypertension type: essential hypertension Qualified Code(s): I10 - Essential (primary) hypertension (5) Diabetes mellitus Current visit: No Status: Chronic We will continue with his metformin for his diabetes. His renal function justin ears to be adequate at the present time. We will monitor his blood sugars. His last glycohemoglobin was 8.0%. Qualifiers: Diabetes mellitus type: type 2 Diabetes mellitus mcc insulin use: without termite control servicer use Diabetes mellitus complication status: with hyperglycemia Qualified Code(s): E11.65 - Type 2 diabetes mellitus with hyperglycemia (6) Chronic kidney disease (CKD), stage III (moderate) Current visit: Yes Status: Chronic He has chronically had mild renal insufficiency/chronic kidney disease. His cre atinine is staying fairly normal now and just minor abnormality of GFR. We will continue to watch. (7) DVT prophylaxis Current visit: Yes Status: Acute Since he will likely be at bedrest a lot of the time we will initiate Lovenox for DVT prophylaxis. Internal Medicine - H&P: HPI Chief complaint: I got so short of breath and was struggling to breathe Admitted From: Emergency Dept Plans for Post Hospital Care: Home History of present illness: Mr. Christensen is a 83 year old male with known history of recent pneumonia and hospitalization, history of acute congestive heart failure during that hospital stay, new onset atrial fibrillation during treatment for pneumonia, previous right hemispheric CVA with left hemiplegia was admitted from the emergency room with a history of sudden onset of shortness of breath and cough. Patient was hospitalized fairly recently at [facility] with pneumonia and new onset atrial fibrillation, he had flash congestive heart failure during that stay and then had physical therapy and occupational therapy prior to being discharged to home. He has been home about 3 weeks with continued cough but improving ADLs and independence. I made a house call 11/06/18 and he seemed to be doing well except for continued cough. His saturations are staying in the 90s at rest, on room air he would drop to 88% when ambulating but back to over 90 at rest. He continued on his oxygen at 2 L. He states that Thursday night he had sudden onset of shortness of breath and "was struggling to breathe". He has had thick but clear phlegm production.. He was evaluated by home health was found to have his oxygen saturations dropped to the low 80s. He denies any fevers or chills. He said his appetite has been good. His biggest complaint is that he has had coughing with associated trouble breathing. He was evaluated in the emergency room and was found to be hypoxic. His chest x-ray shows marked worsening from his last baseline chest x-ray prior to discharge from the hospital. Given the history in this findings he was admitted with pneumonia. Past Med Surg Social Fam HX - Past Medical History Medical history: atrial fibrillation (New-onset when hospitalized for pneumonia last month), CVA, diabetes, GERD, hyperlipidemia, hypertension, renal disease, thyroid disease Psychiatric history: no psych history - Past Surgical History Additional surgical history: left shoulder replacement,left ankle fracture/orif, status post TUNA/prostate - Social History Smoking Status: Former smoker Smokeless Tobacco Status: No Alcohol use: none Drug use: none Recent Out of Country Travel Within the Last 8 Weeks: No Exposure or Possible Exposure to Illness During Travel: No Additional social history: He lives alone in his home. He has been having home health visits. I made a house call last week. He has friends and neighbors to assist with delivering food and running errands for him as he has not been out of the house since his last hospitalization. - Family History Mother Living Status: Father Living Status: Internal Medicine - H&P: Meds Clopidogrel [Plavix] 75 mg PO DAILY 02/19/18 [History] Omeprazole 20 mg PO DAILY 02/19/18 [History] amLODIPine [Norvasc] 5 mg PO DAILY 02/19/18 [History] Atorvastatin Calcium [Lipitor] 80 mg PO HS #30 tab 10/14/18 [Rx] Ferrous Sulfate 325 mg PO DAILY@0800 #30 tablet 10/14/18 [Rx] Furosemide [Lasix] 20 mg PO DAILY tablet 10/14/18 [Rx] Labetalol [Trandate] 100 mg PO BID #60 tablet 10/14/18 [Rx] Potassium Chloride 10 meq PO DAILY #30 tab.er.prt 10/14/18 [Rx] metFORMIN [Glucophage] 500 mg PO BIDWM tablet 10/14/18 [Rx] Levothyroxine Sodium 100 mcg PO DAILY 11/12/18 [History] Allergy/AdvReac Type Severity Reaction Status Date / Time Sulfa (Sulfonamide Allergy See Verified 09/30/18 05:30 Antibiotics) Comments - Constitutional Constitutional: malaise, no anorexia, no chills, no fever(s), no falls - EENT Eyes: no change in vision, no loss of vision Ears: no ear discharge, no ear pain Nose, mouth and throat: no dry mouth, no sinus pressure, no sore throat - Cardiovascular Cardiovascular ROS IM: no chest pain, no edema, no irregular heart rhythm, no lightheadedness, no palpitations - Respiratory Respiratory: as per HPI, dyspnea, dyspnea on exertion, chest congestion, excessive phlegm production, no hemoptysis - Gastrointestinal Gastrointestinal: no abdominal pain, no constipation, no diarrhea, no nausea, no vomiting - Genitourinary Genitourinary ROS male: no difficulty urinating, no dysuria, no hematuria - Musculoskeletal Additional comments: Chronically has left sided weakness from previous CVA. He states this has been stable without acute change - Neurological Neurological ROS: no abnormal speech, no confusion, no loss of vision, no vertigo Additional comments: He has a history of left-sided weakness from previous CVA but it is mild and without acute change - Psychiatric Psychiatric: no confusion, no hallucinations, no suicidal ideation, no visual hallucinations - Constitutional Vitals: Temp Pulse Resp BP Pulse Ox 97.4 F L 87 18 173/81 96 11/12/18 18:30 11/12/18 18:30 11/12/18 18:30 11/12/18 18:30 11/12/18 18:30 General appearance: Present: cooperative, A&O X 3, no acute distress, answers questions appropriately - Head Head exam: Present: atraumatic - Eye Eye exam: Present: EOMI - ENT ENT exam: Present: mucous membranes moist, normal oropharynx, TM's normal bilaterally - Neck Neck exam general surgery: Absent: tenderness, nuchal rigidity, thyromegaly - Respiratory Additional comments: Decreased breath sounds posteriorly. Scattered crackles. Anteriorly almost fibrotic type crackles heard bilaterally. Left is worse than the right. No respiratory distress. No orthopnea - Cardiovascular Cardiovascular exam: Present: irregular rhythm, +S1, +S2. Absent: systolic murmur - GI/Abdominal GI/Abdominal exam: Present: soft, no peritoneal signs. Absent: mass, tenderness - Extremities Exam Additional comments: Trace ankle edema, nonpitting. Good peripheral pulses. Feet are warm and dry. No lesions present. - Neurological Exam Neurological exam: Present: alert, oriented X3 Additional comments: Slight weakness in the left upper lower extremity on muscle testing in bed. This is chronic for him from previous CVA. Internal Med - H&P Results - Labs CBC & Chem 7: 11/12/18 16:08 11/12/18 16:08 Labs: Short CBC 11/12/18 Range/Units 16:08 WBC 8.2 (4.3-11.1) K/mcL Hgb 11.7 L (12.9-16.9) g/dL Hct 36.4 L (37.5-50.1) % Plt Count 320 (140-400) K/mcL Neutrophils # 5.3 (1.6-8.9) K/mcL BMP 11/12/18 16:08 Sodium 139 Potassium 4.1 Chloride 101 Carbon Dioxide 30 H BUN 16 Creatinine 1.17 Glucose 134 H Calcium 9.2 Cardiac Enzymes 11/12/18 Range/Units 16:08 Troponin I 0.03 (< 0.04) ng/mL Liver Function 11/12/18 Range/Units 16:08 Total Bilirubin 0.6 (0.3-1.0) mg/dL Direct Bilirubin 0.2 (0.0-0.2) mg/dL AST 14 (13-39) Units/L ALT 14 (7-52) Units/L Alkaline Phosphatase 53 (34-104) Units/L Albumin 3.8 (3.5-5.7) g/dL Labs have been reviewed. White blood cell count surprisingly normal. Renal function is adequate. BNP only minimally elevated at 375. - ABG Interpretation ABG results: 11/12/18 16:17 VBG pH 7.43 H VBG pCO2 46 VBG pO2 32 VBG HCO3 31 H - EKG Data When compared to previous EKG: there is no significant change EKG comments: 11/12/18 20:49 Atrial fibrillation with controlled rate. No ischemic changes noted. Almost identical to his previous EKG from last hospitalization. - Impressions ITS Impressions Chest X-Ray 11/12/18 15:54 IMPRESSION: 1. Persistent versus recurrent pulmonary findings typical of congestive heart failure. Diffuse infection is a consideration. 2. Calcific atherosclerosis aorta. 3. Cardiomegaly. D/ / Santy Hector / Santy Hector Interpreting Provider: Santy Hector - Diagnostic Studies Chest x-ray Status: image reviewed by me (Chest x-ray shows cephalization of pulmonary vasculature. Infiltrate in the right upper lobe. Obliteration of the costophrenic angles and heart border. Chest film markedly worsened from previous hospital baseline film.)
[2018-11-12] MEDS ORDERED: D5% in Water 1,000 ML IVC PRN (21:32)
[2018-11-12] MEDS ORDERED: Dextrose Gel 15 GM/37.5 ML TUBE PO PRN ×2 (21:32)
[2018-11-12] MEDS ORDERED: *HR* Dextrose 50 % in Water (Syg) 50 ML SYRINGE IVP PRN (21:32)
[2018-11-12] MEDS: Insulin LISPRO 300 UNITS/3 ML VIAL SQ SCH ×2 (21:46→23:04)
[2018-11-12] MEDS: Piperacillin/Tazobactam 3.375 GM in 0.9 % Sodium Chloride Mini Bag 100 ML IVPB SCH (23:05)
[2018-11-12] MEDS: Ipratropium/Albuterol Neb 3 ML IH PRN (23:05)
[2018-11-13 05:26] LABS: Hematocrit 31.6 % (37.5-50.1); Hemoglobin 10.4 g/dL (12.9-16.9); Immature Granulocytes % 0.6 % (0-4); Lymphocytes # 0.5 K/mcL (0.6-4.6); Lymphocytes % 9.4 %; Mean Corpuscular HGB Conc 32.9 g/dL (31.6-35.5); Mean Corpuscular Hemoglobin 29.1 pg (28.0-33.3); Mean Corpuscular Volume 88.5 fL (83.0-100.0); Mean Platelet Volume 10.2 fL (9.4-12.4); Monocytes # 0.1 K/mcL (0.0-1.3); Monocytes % 1.9 %; Neutrophils # 4.7 K/mcL (1.6-8.9); Platelet Count 291 K/mcL (140-400); Red Blood Count 3.57 M/mcL (4.19-5.50); Red Cell Distribution Width 14.2 % (11.5-14.5); Segmented Neutrophils % 88.1 %
[2018-11-13 05:44] LABS: Calcium 8.8 mg/dL (8.6-10.3); Potassium 4.1 mEq/L (3.5-5.1)
[2018-11-13] MEDS: *HR* Enoxaparin 30 MG/0.3 ML SYRINGE SQ SCH (05:49)
[2018-11-13] MEDS: Insulin LISPRO 300 UNITS/3 ML VIAL SQ SCH ×4 (08:22→21:59)
[2018-11-13] MEDS: Piperacillin/Tazobactam 3.375 GM in 0.9 % Sodium Chloride Mini Bag 100 ML IVPB SCH ×2 (08:24→16:07)
[2018-11-13] MEDS: amLODIPine 5 MG TABLET PO SCH (08:32)
[2018-11-13] MEDS: Furosemide 20 MG TABLET PO SCH (08:32)
[2018-11-13] MEDS: *HR* Metformin 500 MG TABLET PO SCH ×2 (08:32→16:44)
[2018-11-13] MEDS ORDERED: Furosemide 20 MG/2 ML VIAL IVP ONE (09:00)
[2018-11-13] MEDS ORDERED: Levofloxacin 750 MG/150 ML 750 MG/150 ML BAG IVPB ONE (12:00)
--- NOTE | 2018-11-13 16:51 | Internal Med Progress Note ---
Date of Encounter: 11/14/18 Time of Encounter: 14:30 - Subjective Interval history: Assessment and Plan (1) Pneumonia Current visit: Yes Status: Acute Patient is being readmitted for what appears to be pneumonia with cough, hypoxia, weakness, sputum production. Differential diagnosis would also include acute congestive heart failure. Doing well on Zosyn. He is feeling better. . CODE STATUS is DNR CC arrest. No intubation CPR and no defibrillation He would like all medical management. Qualifiers: Pneumonia type: due to unspecified organism Laterality: bilateral Lung location: unspecified part of lung Qualified Code(s): J18.9 - Pneumonia, unspecified organism (2) Hypoxia COPD Current visit: Yes Status: Acute Patient was admitted with worsening hypoxia. Since his hospitalization he has used oxygen at 2 L but had good saturations. saturations to the low 80s. He Duoneb aerosol treatments helpful and he would like to get a nebulizer machine to use duonebs at home. 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 He ambulate well with his walker at home. No new neurological changes noted. No headache, continue Plavix (4) Hypertension Current visit: No Status: Acute Long-standing history of essential hypertension. Currently blood pressure is controlled. At the house call in the past week his lisinopril hydrochlorothiazide was held because of cough thinking this may be a reaction to the KEKE inhibitor. We will monitor the blood pressure. Qualifiers: Hypertension type: essential hypertension Qualified Code(s): I10 - Essential (primary) hypertension (5) Diabetes mellitus Current visit: No Status: Chronic will DC metformin for DM blood sugars have been stable but CRE slightly higher - this plus advanced age make metformin not ideal will add low dose (2.5) mg glipizide We will monitor his blood sugars. His last glycohemoglobin was 8.0%. Qualifiers: Diabetes mellitus type: type 2 Diabetes mellitus usp insulin use: without usp use Diabetes mellitus complication status: with hyperglycemia Qualified Code(s): E11.65 - Type 2 diabetes mellitus with hyperglycemia (6) Chronic kidney disease (CKD), stage III (moderate) Current visit: Yes Status: Chronic He has chronically had mild renal insufficiency/chronic kidney disease. His creatinine is staying fairly normal now and just minor abnormality of GFR. We will continue to watch. (7) Iron Deficiency Iron sat 4% in Sep 2018 Hb stable B2 mild low at 397 MCV 88 PT has been taking iron once daily since Pt reports not eating well some days at home - reports at times his neighbor brings him meals, other times says " I may just make a pot of beans and Ill eat on that for several days". Pt reports fatigue and reduced appetite, motivation. Discussed. Discussed looking into meals on wheels. Discussed balanced nutrition. He does not chew well. He is ok with taking ensure daily. Will start ensure here, encouraged pt to use at home. His prealbumen was low. will occult stools will add Multi Vit will recheck iron profile (8) Mild depression - apathy lack of interest, poor sleep, some sadness denies suicidal ideation Reports he feels down that he is ill over last few months says he remembers when his sister was ill and 'got the dwindles' and sat in bed did not eat he says he does not want to get to that point discussed R and B of medications pt would like to treat - will start low dose will start zoloft 50 mg day and trazodone 50 mg at hs Current visit: Yes Status: Acute Lovenox for DVT prophylaxis. INTERVAL HISTORY Mr. Christensen is a 83 year old male day #2 of hospital admission. He was evaluated in the emergency room and was found to be hypoxic. His chest x-ray shows marked worsening from his last baseline chest x-ray prior to d ischarge from the hospital. He states he has been fighting this off and on since August. Reports duoneb treatments very helpful. Not eating balanced diet at home. Mood is sad. EXAM General appearance: Present: elderly WM cooperative, A&O X 3, no acute distress, answers questions appropriately [facility] ENT exam: Present: missing many teeth mouth is dry mucous membranes moist, normal oropharynx, TM's normal bilaterally - Neck Neck exam general surgery: Absent: tenderness, nuchal rigidity, thyromegaly - Respiratory Additional comments: Decreased breath sounds posteriorly. Velcro crackles bilateral No respiratory distress. - Cardiovascular Cardiovascular exam: Present: irregular rhythm, +S1, +S2. Absent: systolic murmur - GI/Abdominal GI/Abdominal exam: Present: soft, no peritoneal signs. Absent: mass, tenderness - Extremities Exam Additional comments: 2 plus peripheral pulses. Feet are warm and dry. No lesions present. - Neurological Exam Neurological exam: Present: alert, oriented X3 Additional comments: Slight weakness in the left upper lower extremity on muscle testing in bed. - Constitutional Vitals: Temp Pulse Resp BP Pulse Ox 98.0 F 71 18 137/70 98 11/13/18 16:36 11/13/18 16:36 11/13/18 16:36 11/13/18 16:36 11/13/18 16:36 General appearance: Present: cooperative, A&O X 3, no acute distress, answers questions appropriately Internal Medicine: Result - Labs CBC & Chem 7: 11/13/18 05:10 11/13/18 05:10 Labs: Short CBC 11/13/18 Range/Units 05:10 WBC 5.3 (4.3-11.1) K/mcL Hgb 10.4 L (12.9-16.9) g/dL Hct 31.6 L (37.5-50.1) % Plt Count 291 (140-400) K/mcL Neutrophils # 4.7 (1.6-8.9) K/mcL BMP 11/13/18 05:10 Sodium 138 Potassium 4.1 Chloride 101 Carbon Dioxide 29 BUN 21 Creatinine 1.38 H Glucose 249 H Calcium 8.8 - ABG Interpretation ABG results: PT/INR, D-dimer PT 12.8 Seconds (9.4-12.1) H 11/12/18 16:08 - Impressions Impressions Chest X-Ray 11/13/18 10:00 IMPRESSION: Congestive heart failure. D/ / 11/13/2018 09:43:30 Zaid Lux MD / [facility] Interpreting Provider: Zaid Lux MD Consult Discharge Plan - Plan Referrals: Mario Early MD [Primary Care Provider] -
[2018-11-13] MEDS: traZODone 50 MG TABLET PO SCH (21:58)
[2018-11-13] MEDS: Ipratropium/Albuterol Neb 3 ML IH PRN (22:01)
[2018-11-14] MEDS: Piperacillin/Tazobactam 3.375 GM in 0.9 % Sodium Chloride Mini Bag 100 ML IVPB SCH ×4 (00:20→23:27)
[2018-11-14] MEDS: *HR* Enoxaparin 30 MG/0.3 ML SYRINGE SQ SCH (04:39)
[2018-11-14] MEDS: *HR* Metformin 500 MG TABLET PO SCH (08:34)
[2018-11-14] MEDS: amLODIPine 5 MG TABLET PO SCH (08:34)
[2018-11-14] MEDS: Furosemide 20 MG TABLET PO SCH (08:34)
[2018-11-14] MEDS: Levofloxacin 750 MG/150 ML 750 MG/150 ML BAG IVPB SCH (08:35)
[2018-11-14] MEDS: Insulin LISPRO 300 UNITS/3 ML VIAL SQ SCH ×4 (08:43→21:35)
[2018-11-14] MEDS: Multivit/Ca/Min/Fe/FA 1 TAB TABLET PO SCH (14:36)
--- NOTE | 2018-11-14 14:36 | Internal Med Progress Note ---
Date of Encounter: 11/14/18 Time of Encounter: 14:20 - Subjective Interval history: Assessment and Plan (1) Pneumonia Current visit: Yes Status: Acute Patient is being readmitted for what appears to be pneumonia with cough, hypoxia, weakness, sputum production. Differential diagnosis would also include acute congestive heart failure. continue on Zosyn. He is feeling better. . CODE STATUS is DNR CC arrest. No intubation CPR and no defibrillation He would like all medical management. Qualifiers: Pneumonia type: due to unspecified organism Laterality: bilateral Lung location: unspecified part of lung Qualified Code(s): J18.9 - Pneumonia, unspecified organism (2) Hypoxia COPD Current visit: Yes Status: Acute Patient was admitted with worsening hypoxia. Since his hospitalization he has used oxygen at 2 L but had good saturations. saturations to the low 80s. He Duoneb aerosol treatments helpful and he would like to get a nebulizer machine to use duonebs at home. 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 He ambulate well with his walker at home. No new neurological changes noted. No headache, continue Plavix (4) Hypertension Current visit: No Status: Acute Long-standing history of essential hypertension. Currently blood pressure is controlled. At the house call in the past week his lisinopril hydrochlorothiazide was held because of cough thinking this may be a reaction to the KEKE inhibitor. We will monitor the blood pressure. Will check chemistry Qualifiers: Hypertension type: essential hypertension Qualified Code(s): I10 - Essential (primary) hypertension (5) Diabetes mellitus Current visit: No Status: Chronic will DC metformin for DM blood sugars have been stable but CRE slightly higher - this plus advanced age make metformin not ideal will add low dose (2.5) mg glipizide We will monitor his blood sugars. His last glycohemoglobin was 8.0%. Qualifiers: Diabetes mellitus type: type 2 Diabetes mellitus parts counterman insulin use: without chcf use Diabetes mellitus complication status: with hyperglycemia Qualified Code(s): E11.65 - Type 2 diabetes mellitus with hyperglycemia (6) Chronic kidney disease (CKD), stage III (moderate) Current visit: Yes Status: Chronic He has chronically had mild renal insufficiency/chronic kidney disease. His creatinine is staying fairly normal now and just minor abnormality of GFR. We will continue to watch. (7) Iron Deficiency Iron sat 4% in Sep 2018 Hb stable B2 mild low at 397 MCV 88 PT has been taking iron once daily since Pt reports not eating well some days at home - reports at times his neighbor brings him meals, other times says " I may just make a pot of beans and Ill eat on that for several days". Pt reports fatigue and reduced appetite, motivation. Discussed. Discussed looking into meals on wheels. Discussed balanced nutrition. He does not chew well. He is ok with taking ensure daily. Will start ensure here, encouraged pt to use ensure at home. His prealbumen was low. will occult stools will add Multi Vit will recheck iron profile (8) Mild depression - apathy lack of interest, poor sleep, some sadness denies suicidal ideation Reports he feels down that he is ill over last few months says he remembers when his sister was ill and 'got the dwindles' and sat in bed did not eat he says he does not want to get to that point discussed R and B of medications pt would like to treat - will start low dose will start zoloft 50 mg day and trazodone 50 mg at hs Current visit: Yes Status: Acute Lovenox for DVT prophylaxis. INTERVAL HISTORY Mr. Christensen is a 83 year old male day #2 of hospital admission. He was evaluated in the emergency room and was found to be hypoxic. His chest x-ray shows marked worsening from his last baseline chest x-ray prior to discharge from the hospital. He states he has been fighting this off and on since August. Reports duoneb treatments very helpful. Wants to get nebulizer machine for home use. Not eating balanced diet at home. Mood is some better today no problems with medication EXAM General appearance: Present: elderly WM cooperative, A&O X 3, no acute distress, answers questions appropriately [facility] ENT exam: Present: missing many teeth mouth is dry mucous membranes moist, normal oropharynx, TM's normal bilaterally - Neck Neck exam general surgery: Absent: tenderness, nuchal rigidity, thyromegaly - Respiratory Additional comments: Decreased breath sounds posteriorly. Velcro crackles bilateral No respiratory distress. - Cardiovascular Cardiovascular exam: Present: irregular rhythm, +S1, +S2. Absent: systolic murmur - GI/Abdominal GI/Abdominal exam: Present: soft, no peritoneal signs. Absent: mass, tenderness - Extremities Exam Additional comments: 2 plus peripheral pulses. Feet are warm and dry. No lesions present. - Neurological Exam Neurological exam: Present: alert, oriented X3 Additional comments: Slight weakness in the left upper lower extremity on muscle testing in bed. - Constitutional Vitals: Temp Pulse Resp BP Pulse Ox 97.7 F 71 14 128/67 95 11/14/18 12:00 11/14/18 12:00 11/14/18 12:00 11/14/18 12:00 11/14/18 12:00 General appearance: Present: cooperative, A&O X 3, no acute distress, answers questions appropriately Internal Medicine: Result - Labs CBC & Chem 7: 11/13/18 05:10 11/13/18 05:10 - ABG Interpretation ABG results: PT/INR, D-dimer PT 12.8 Seconds (9.4-12.1) H 11/12/18 16:08 Consult Discharge Plan - Plan Referrals: Mario Early MD [Primary Care Provider] -
[2018-11-14] MEDS ORDERED: *HR* GlipiZIDE 5 MG TABLET PO ONE (15:00)
[2018-11-14] MEDS: traZODone 50 MG TABLET PO SCH (21:37)
[2018-11-15] MEDS: *HR* Enoxaparin 30 MG/0.3 ML SYRINGE SQ SCH (06:10)
[2018-11-15 06:33] LABS: Calcium 8.5 mg/dL (8.6-10.3); Potassium 3.8 mEq/L (3.5-5.1)
--- NOTE | 2018-11-15 07:12 | Internal Med Progress Note ---
Date of Encounter: 11/15/18 Time of Encounter: 07:32 - Assessment and plan (1) Pneumonia Current Visit: Yes Status: Acute Assessment and plan: Clinically and symptomatically improving from pneumonia. He feels better. Not needing respiratory treatments as well. No fever. We will try to increase his activity level. I would recommend continuing IV antibiotics because this is his second bout in a month and higher risk for pseudomonas now. Consideration for swing bed for extending the IV antibiotics and increase activity with PT and OT Qualifiers: Pneumonia type: due to unspecified organism Laterality: bilateral Lung location: unspecified part of lung Qualified Code(s): J18.9 - Pneumonia, unspecified organism (2) Hypoxia Current Visit: Yes Status: Acute Assessment and plan: Hypoxia apparently is resolved as long as he is wearing his oxygen at 2 L. 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 His metformin was held because of increasing creatinine. Dr. Ramirez has started him on low-dose glipizide. 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 I will encouraged increased by mouth fluids. His metformin has been held. Trying to avoid IV fluids because of his previous flash congestive heart failure when he was ill the last time (7) Iron deficiency anemia Current Visit: Yes Status: Chronic Assessment and plan: His stool was for occult blood and it was negative. Qualifiers: Iron deficiency anemia type: unspecified iron deficiency Qualified Code(s): D50.9 - Iron deficiency anemia, unspecified (8) Depression Current Visit: Yes Status: Acute Assessment and plan: As evaluated by Dr. Ramirez, she felt that he was depressed and antidepressant was started. We will continue to monitor. Qualifiers: Depression Type: dysthymia Qualified Code(s): F34.1 - Dysthymic disorder (9) DVT prophylaxis Current Visit: Yes Status: Acute - Subjective Interval history: Patient states that he feels much better. He is happy with the results. He states he is not needing breathing treatments as often. He denies any cardiac type chest pain or palpitations. His bowels and bladder are working well. He thinks his appetite is good. He has slept well the past 2 nights. Nurses report that patient is getting up to bedside commode and occasionally to the toilet. He has been sitting up at the bedside. - Constitutional Vitals: Temp Pulse Resp BP Pulse Ox 98.3 F 72 17 113/71 94 11/15/18 04:00 11/15/18 04:00 11/15/18 04:00 11/15/18 04:00 11/15/18 04:00 General appearance: Present: cooperative, A&O X 3, no acute distress, answers questions appropriately - Respiratory Additional comments: Velcro-type crackles in left upper lobe anteriorly. Slight crackles at bases posteriorly. No respiratory distress. No wheezing. - Cardiovascular Cardiovascular exam: Present: irregular rhythm, +S1, +S2 - GI/Abdominal GI/Abdominal exam: Present: soft. Absent: tenderness - Extremities Exam Extremities exam: Absent: calf tenderness, pedal edema, tenderness Internal Medicine: Result - Labs CBC & Chem 7: 11/13/18 05:10 11/15/18 05:35 Labs: BMP 11/15/18 05:35 Sodium 138 Potassium 3.8 Chloride 101 Carbon Dioxide 32 H BUN 25 H Creatinine 1.61 H Glucose 113 H Calcium 8.5 L Creatinine is now up to 1.6. Hemoccult stool was negative - ABG Interpretation ABG results: PT/INR, D-dimer PT 12.8 Seconds (9.4-12.1) H 11/12/18 16:08 Consult Discharge Plan - Plan Referrals: Mario Early MD [Primary Care Provider] -
[2018-11-15] MEDS: Piperacillin/Tazobactam 3.375 GM in 0.9 % Sodium Chloride Mini Bag 100 ML IVPB SCH ×2 (08:06→17:13)
[2018-11-15] MEDS: *HR* GlipiZIDE XL (24 HR) 2.5 MG TABLET PO SCH (08:20)
[2018-11-15] MEDS: Insulin LISPRO 300 UNITS/3 ML VIAL SQ SCH ×4 (08:21→21:58)
[2018-11-15] MEDS: amLODIPine 5 MG TABLET PO SCH (08:21)
[2018-11-15] MEDS: Furosemide 20 MG TABLET PO SCH (08:21)
[2018-11-15] MEDS: Multivit/Ca/Min/Fe/FA 1 TAB TABLET PO SCH (08:21)
--- NOTE | 2018-11-15 16:28 | Electrocardiograph Report ---
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
[2018-11-15] MEDS: Ipratropium/Albuterol Neb 3 ML IH PRN (17:13)
[2018-11-15] MEDS: traZODone 50 MG TABLET PO SCH (21:59)
[2018-11-16] MEDS: Piperacillin/Tazobactam 3.375 GM in 0.9 % Sodium Chloride Mini Bag 100 ML IVPB SCH ×3 (00:42→17:56)
[2018-11-16] MEDS: *HR* Enoxaparin 30 MG/0.3 ML SYRINGE SQ SCH (05:34)
[2018-11-16 05:53] LABS: Basophils # 0.1 K/mcL (0.0-0.2); Basophils % 0.6 %; Eosinophils # 0.5 K/mcL (0.0-0.6); Eosinophils % 5.8 %; Hematocrit 30.9 % (37.5-50.1); Immature Granulocytes % 0.4 % (0-4); Lymphocytes # 1.6 K/mcL (0.6-4.6); Lymphocytes % 20.2 %; Mean Corpuscular HGB Conc 32.4 g/dL (31.6-35.5); Mean Corpuscular Hemoglobin 29.3 pg (28.0-33.3); Mean Corpuscular Volume 90.6 fL (83.0-100.0); Mean Platelet Volume 9.7 fL (9.4-12.4); Monocytes # 0.7 K/mcL (0.0-1.3); Monocytes % 8.4 %; Platelet Count 261 K/mcL (140-400); Red Blood Count 3.41 M/mcL (4.19-5.50); Red Cell Distribution Width 14.5 % (11.5-14.5); Segmented Neutrophils % 64.6 %
[2018-11-16 06:08] LABS: Calcium 8.4 mg/dL (8.6-10.3); Potassium 3.7 mEq/L (3.5-5.1)
[2018-11-16] MEDS: *HR* GlipiZIDE XL (24 HR) 2.5 MG TABLET PO SCH (09:25)
[2018-11-16] MEDS: amLODIPine 5 MG TABLET PO SCH (09:25)
[2018-11-16] MEDS: Multivit/Ca/Min/Fe/FA 1 TAB TABLET PO SCH (09:26)
[2018-11-16] MEDS: Furosemide 20 MG TABLET PO SCH (09:26)
[2018-11-16] MEDS: Levofloxacin 750 MG/150 ML 750 MG/150 ML BAG IVPB SCH (09:27)
[2018-11-16] MEDS: Insulin LISPRO 300 UNITS/3 ML VIAL SQ SCH ×3 (09:44→17:56)
--- NOTE | 2018-11-16 10:07 | Internal Med Progress Note ---
Date of Encounter: 11/16/18 Time of Encounter: 10:07 - Assessment and plan (1) Pneumonia Status: Acute Assessment and plan: Pneumonia seems to be showing improvement clinically as well as subjectively. Because this is his second pneumonia and was recently hospitalized he is on Levaquin and Zosyn. Continue with double antibiotics. We will increase his activity level and see if he qualifies for swing or rehabilitation bed for therapies. Qualifiers: Pneumonia type: due to unspecified organism Laterality: bilateral Lung location: unspecified part of lung Qualified Code(s): J18.9 - Pneumonia, unspecified organism (2) Hypoxia Status: Acute Assessment and plan: Chronically using oxygen now. 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 (7) Iron deficiency anemia Status: Chronic Qualifiers: Iron deficiency anemia type: unspecified iron deficiency Qualified Code(s): D50.9 - Iron deficiency anemia, unspecified (8) Depression Status: Acute Assessment and plan: Seems to be doing well and adjusting. Qualifiers: Depression Type: dysthymia Qualified Code(s): F34.1 - Dysthymic disorder (9) DVT prophylaxis Status: Acute - Subjective Interval history: Feels that he continues to improve. He thinks he is markedly better. He is eating well. He denies a cardiac type chest pain or palpitations. Denies any significant sputum production. He has been using bedside commode and also sat up in a chair yesterday for about 3 hours. - Constitutional Vitals: Temp Pulse Resp BP Pulse Ox 98.3 F 68 14 142/67 95 11/16/18 07:24 11/16/18 08:07 11/16/18 08:07 11/16/18 08:07 11/16/18 08:07 General appearance: Present: cooperative, A&O X 3, no acute distress, answers questions appropriately - Respiratory Additional comments: Faint crackles heard in both bases. Overall lungs sound improved. No respiratory distress. - Cardiovascular Cardiovascular exam: Present: irregular rhythm, +S1, +S2 - GI/Abdominal GI/Abdominal exam: Present: soft. Absent: tenderness - Extremities Exam Extremities exam: Absent: calf tenderness, pedal edema, tenderness Internal Medicine: Result - Labs CBC & Chem 7: 11/16/18 05:30 11/16/18 05:30 Labs: Short CBC 11/16/18 Range/Units 05:30 WBC 7.7 (4.3-11.1) K/mcL Hgb 10.0 L (12.9-16.9) g/dL Hct 30.9 L (37.5-50.1) % Plt Count 261 (140-400) K/mcL Neutrophils # 5.0 (1.6-8.9) K/mcL BMP 11/16/18 05:30 Sodium 139 Potassium 3.7 Chloride 103 Carbon Dioxide 31 H BUN 20 Creatinine 1.49 H Glucose 117 H Calcium 8.4 L His creatinine is a bit better, down to 1.49 down from 1.6 to. White blood cell count is normal. - ABG Interpretation ABG results: PT/INR, D-dimer PT 12.8 Seconds (9.4-12.1) H 11/12/18 16:08 Consult Discharge Plan - Plan Referrals: Mario Early MD [Primary Care Provider] -
[2018-11-16 15:22] VITALS: BP 131/64
--- NOTE | 2018-11-18 22:01 | Discharge Summary ---
- NOTES TO OUTPATIENT PROVIDER Notes to Outpatient Provider: Patient was transferred from the acute bed with diagnosis of pneumonia to a swing bed with deconditioning to have therapies and ongoing IV Zosyn. Date of Encounter: 11/16/18 Time of Encounter: 22:06 - Discharge Diagnosis (1) Pneumonia Priority: Primary Status: Acute Comments: She was admitted to hospital as an onset of dyspnea severe weakness and cough and was found to have signs and symptoms of pneumonia. Since he was recently in hospital with pneumonia and he was placed not only on Levaquin but I also added Zosyn. He showed improvement clinically and symptomatically. However, he was quite deconditioned and needed ongoing IV Zosyn as well. He was then transferred into a swing bed. 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 Priority: Secondary Status: Acute (4) Hypertension Priority: Secondary Status: Chronic Qualifiers: Hypertension type: essential hypertension Qualified Code(s): I10 - Essential (primary) hypertension (5) Diabetes mellitus Priority: Secondary Status: Chronic Qualifiers: Diabetes mellitus type: type 2 Diabetes mellitus senior care insulin use: without senior care use Diabetes mellitus complication status: with hyperglycemia Qualified Code(s): E11.65 - Type 2 diabetes mellitus with hyperglycemia (6) Chronic kidney disease (CKD), stage III (moderate) Priority: Secondary Status: Chronic Comments: During this admission he had acute kidney injury in addition to his chronic kidney disease. Creatinine improved. (7) Iron deficiency anemia Priority: Secondary Status: Chronic Qualifiers: Iron deficiency anemia type: unspecified iron deficiency Qualified Code(s): D50.9 - Iron deficiency anemia, unspecified (8) Depression Priority: Secondary Status: Acute Comments: On weekend coverage Dr. Ramirez was rounding and felt the patient was depressed and also not sleeping well. She started him on Zoloft and trazodone. He thinks he is feeling better. Qualifiers: Depression Type: dysthymia Qualified Code(s): F34.1 - Dysthymic disorder (9) DVT prophylaxis Priority: Secondary Status: Inactive Hospital course: Mr. Christensen is a 83 year old male with recent history of hospitalization with pneumonia was readmitted with pneumonia, improved with Levaquin and Zosyn and was then transferred to a swing bed for ongoing IV antibiotics and to initiate therapies for deconditioning. Please see that record Discharge discussed with: other (Transferred to a swing bed in the same facility.) - Time Spent with Patient Total time spent providing and/or coordinating discharge services: - Discharge Medications Home Medications: Clopidogrel [Plavix] 75 mg PO DAILY 02/19/18 [History] Omeprazole 20 mg PO DAILY 02/19/18 [History] amLODIPine [Norvasc] 5 mg PO DAILY 02/19/18 [History] Atorvastatin Calcium [Lipitor] 80 mg PO HS #30 tab 10/14/18 [Rx] Ferrous Sulfate 325 mg PO DAILY@0800 #30 tablet 10/14/18 [Rx] Furosemide [Lasix] 20 mg PO DAILY tablet 10/14/18 [Rx] Labetalol [Trandate] 100 mg PO BID #60 tablet 10/14/18 [Rx] Potassium Chloride 10 meq PO DAILY #30 tab.er.prt 10/14/18 [Rx] metFORMIN [Glucophage] 500 mg PO BIDWM tablet 10/14/18 [Rx] Levothyroxine Sodium 100 mcg PO DAILY 11/12/18 [History] Allergies/Adverse Reactions: Allergy/AdvReac Type Severity Reaction Status Date / Time Sulfa (Sulfonamide Allergy See Verified 09/30/18 05:30 Antibiotics) Comments Date of admission: 11/12/18 18:23 Primary care physician: Mario Early MD Consults: 11/15/18 07:28 Consult to Able Bodied Seaman [CONS] Routine Reason for SW Consult: Please evaluate for swing bed for medical diagnoses/IV antibiotics continuation as well as PT and OT evaluation 11/16/18 07:26 OT [Consult to Occupational Therapy] [CONS] Routine Comment: Evaluate, develop and implement POC Reason for Consult: eval for Medical Swing Does patient have active BEDREST order?: No Is patient medically & hemodynamically stable?: Yes Patient assessed for mobility or mobilized this visit?: Yes 11/16/18 07:27 Consult to Physical Therapy [CONS] Routine Comment: Evaluate, develop and implement POC Reason for Consult: eval for Medical Swing bed Does patient have active BEDREST order?: No Is patient medically & hemodynamically stable?: Yes Patient assessed for mobility or mobilized this visit?: Yes Discharging clinician: Mario Early Anticipated date of discharge: 11/16/18 - Constitutional Vitals: Temp Pulse Resp BP Pulse Ox 97.2 F L 75 14 131/64 97 11/16/18 15:18 11/16/18 15:18 11/16/18 15:18 11/16/18 15:18 11/16/18 15:18 General appearance: Present: cooperative, A&O X 3, no acute distress, answers questions appropriately Exam: See the progress note for the same day for the physical examination - Patient Status Disposition: Transfer Inpatient Rehab Fac Condition: Fair - Discharge Instructions Follow Up With: Mario Early MD [Primary Care Provider] - - Diet and Activity Activity: ambulate only with your walker, as per physical therapy
== END 2018-11-16 18:59 | DRG 194 ==
LOC: EMEROOGRE 15:37 → INTOOBSV 17:21 → INPGRE 17:21
PROVIDERS: ADMIT Family Medicine; ATTEND Family Medicine

== ENCOUNTER 2018-11-16 17:21 | Inpatient (IN) ==
[2018-11-16] MEDS ORDERED: *HR* Dextrose 50 % in Water (Syg) 50 ML SYRINGE IVP PRN (18:51)
[2018-11-16] MEDS ORDERED: Dextrose Gel 15 GM/37.5 ML TUBE PO PRN ×2 (18:51)
[2018-11-16] MEDS ORDERED: D5% in Water 1,000 ML IVC PRN (18:51)
[2018-11-16] MEDS: Insulin LISPRO 300 UNITS/3 ML VIAL SQ SCH (21:38)
[2018-11-16] MEDS: traZODone 50 MG TABLET PO SCH (21:41)
[2018-11-16] MEDS: Ipratropium/Albuterol Neb 3 ML IH PRN (21:42)
[2018-11-16] MEDS: Piperacillin/Tazobactam 3.375 GM in 0.9 % Sodium Chloride Mini Bag 100 ML IVPB SCH (23:56)
[2018-11-17] MEDS: Ipratropium/Albuterol Neb 3 ML IH PRN (06:19)
[2018-11-17] MEDS: *HR* Enoxaparin 40 MG/0.4 ML SYRINGE SQ SCH (06:19)
[2018-11-17] MEDS: Insulin LISPRO 300 UNITS/3 ML VIAL SQ SCH ×4 (07:56→22:01)
[2018-11-17] MEDS: Multivit/Ca/Min/Fe/FA 1 TAB TABLET PO SCH (08:13)
[2018-11-17] MEDS: *HR* GlipiZIDE 5 MG TABLET PO SCH ×2 (08:14→17:00)
[2018-11-17] MEDS: amLODIPine 5 MG TABLET PO SCH (08:14)
[2018-11-17] MEDS: Furosemide 20 MG TABLET PO SCH (08:14)
[2018-11-17] MEDS: Piperacillin/Tazobactam 3.375 GM in 0.9 % Sodium Chloride Mini Bag 100 ML IVPB SCH ×3 (08:15→23:53)
--- NOTE | 2018-11-17 09:56 | Internal Med Progress Note ---
Date of Encounter: 11/17/18 Time of Encounter: 09:56 - Assessment and plan (1) Physical deconditioning Current Visit: Yes Status: Acute Assessment and plan: Patient is now in a swing bed for PT and OT to increase his ADLs so he can be return to home after his pneumonia has cleared. (2) Pneumonia Current Visit: Yes Status: Acute Assessment and plan: Continues with Zosyn intravenously and Levaquin orally for his pneumonia that may be hospital associated. No fever. He feels better. No dyspnea. Saturations are better. We will plan to increase his activity level. Follow-up x-ray to be done. Qualifiers: Pneumonia type: due to unspecified organism Laterality: bilateral Lung location: unspecified part of lung Qualified Code(s): J18.9 - Pneumonia, unspecified organism (3) Chronic kidney disease (CKD), stage III (moderate) Current Visit: Yes Status: Chronic Assessment and plan: Chronic kidney disease with acute injury. Follow-up lab work ordered. (4) Hypertension Current Visit: Yes Status: Chronic Assessment and plan: Blood pressure minimally elevated today. We will continue to follow. No change of medication for now. Qualifiers: Hypertension type: essential hypertension Qualified Code(s): I10 - Essential (primary) hypertension (5) Diabetes mellitus Current Visit: Yes Status: Chronic Assessment and plan: Continue following his blood sugars. They are under relatively good control. He is now using glipizide as his renal function had declined in metformin was held. Qualifiers: Diabetes mellitus type: type 2 Diabetes mellitus senior care insulin use: without senior care use Diabetes mellitus complication status: with hyperglycemia Qualified Code(s): E11.65 - Type 2 diabetes mellitus with hyperglycemia (6) Iron deficiency anemia Current Visit: Yes Status: Chronic Qualifiers: Iron deficiency anemia type: unspecified iron deficiency Qualified Code(s): D50.9 - Iron deficiency anemia, unspecified (7) Personal history of cerebrovascular accident with current residual effects Current Visit: Yes Status: Chronic (8) Depression Current Visit: Yes Status: Acute Assessment and plan: Dr. Ramirez added Zoloft and trazodone for depression as well as decreased sleep. Seems to be doing well with these. No side effects of been noted. We will continue for now. Qualifiers: Depression Type: dysthymia Qualified Code(s): F34.1 - Dysthymic disorder (9) DVT prophylaxis Current Visit: Yes Status: Acute Assessment and plan: Continue with Lovenox for DVT prophylaxis also has elastic stockings. - Subjective Interval history: Patient is now in a swing bed for ongoing IV antibiotics as well as evaluation for PT and OT to help regain his ADLs prior to going home. He denies any cardiac type chest pain or palpitations. He states his breathing is better. He states his cough is better. He is eating well. He has no abdominal pain. Denies any GI or symptoms. No extremity pain. He very much wants to start physical therapy to be stronger to go home. - Constitutional Vitals: Temp Pulse Resp BP Pulse Ox 97.5 F L 68 17 155/75 97 11/17/18 06:34 11/17/18 06:34 11/17/18 06:34 11/17/18 06:34 11/17/18 06:34 General appearance: Present: A&O X 3, no acute distress, answers questions appropriately - Respiratory Additional comments: Diminished breath sounds throughout. Few fine crackles in the bases. No respiratory distress. No cough. - Cardiovascular Cardiovascular exam: Present: irregular rhythm, +S1, +S2 - GI/Abdominal GI/Abdominal exam: Present: soft. Absent: tenderness - Extremities Exam Extremities exam: Absent: calf tenderness, pedal edema, tenderness Consult Discharge Plan - Plan Referrals: Mario Early MD [Primary Care Provider] -
[2018-11-17] MEDS: traZODone 50 MG TABLET PO SCH (22:01)
[2018-11-18] MEDS: *HR* Enoxaparin 40 MG/0.4 ML SYRINGE SQ SCH (05:53)
[2018-11-18 05:59] LABS: Basophils % 0.5 %; Eosinophils # 0.5 K/mcL (0.0-0.6); Eosinophils % 6.2 %; Hemoglobin 9.4 g/dL (12.9-16.9); Immature Granulocytes % 0.4 % (0-4); Lymphocytes # 1.4 K/mcL (0.6-4.6); Lymphocytes % 17.3 %; Mean Corpuscular HGB Conc 32.4 g/dL (31.6-35.5); Mean Corpuscular Hemoglobin 29.1 pg (28.0-33.3); Mean Corpuscular Volume 89.8 fL (83.0-100.0); Mean Platelet Volume 9.8 fL (9.4-12.4); Monocytes # 0.7 K/mcL (0.0-1.3); Monocytes % 8.6 %; Neutrophils # 5.4 K/mcL (1.6-8.9); Platelet Count 242 K/mcL (140-400); Red Blood Count 3.23 M/mcL (4.19-5.50); Red Cell Distribution Width 14.5 % (11.5-14.5)
[2018-11-18 06:24] LABS: BUN/Creatinine Ratio 13 (6-26); Blood Urea Nitrogen 17 mg/dL (8-23); Calcium 8.1 mg/dL (8.6-10.3); Carbon Dioxide 32 mEq/L (23-29); Chloride 103 mEq/L (98-107); Glucose 99 mg/dL (70-105); Osmolality,Calculated 290 (280-300); Potassium 3.5 mEq/L (3.5-5.1); Sodium 139 mEq/L (136-145); eGFR For Non-African Americans 51 (> 60)
[2018-11-18] MEDS: Insulin LISPRO 300 UNITS/3 ML VIAL SQ SCH ×3 (08:05→17:12)
[2018-11-18] MEDS: Ipratropium/Albuterol Neb 3 ML IH PRN ×2 (08:06→20:07)
[2018-11-18] MEDS: Piperacillin/Tazobactam 3.375 GM in 0.9 % Sodium Chloride Mini Bag 100 ML IVPB SCH ×2 (08:06→17:13)
[2018-11-18] MEDS: Furosemide 20 MG TABLET PO SCH (08:09)
[2018-11-18] MEDS: *HR* GlipiZIDE 5 MG TABLET PO SCH ×2 (08:10→17:13)
[2018-11-18] MEDS: Multivit/Ca/Min/Fe/FA 1 TAB TABLET PO SCH (08:10)
[2018-11-18] MEDS: amLODIPine 5 MG TABLET PO SCH (08:10)
[2018-11-18] MEDS ORDERED: levoFLOXacin 750 MG TABLET PO SCH (09:00)
--- NOTE | 2018-11-18 11:25 | Internal Med Progress Note ---
Date of Encounter: 11/18/18 Time of Encounter: 11:25 - Assessment and plan (1) Physical deconditioning Current Visit: Yes Status: Acute Assessment and plan: He still has physical conditioning, but he is showing improvement. Ambulating much better with his walker and oxygen assistance. Therapy states he is improving and plan discharge next Thursday. (2) Pneumonia Current Visit: Yes Status: Acute Assessment and plan: His pneumonia is clinically and symptomatically improving. Chest x-ray showed improvement. Oxygen requirements improved. He feels much better. Continuing intravenous Zosyn because of his hospital associated pneumonia. Qualifiers: Pneumonia type: due to unspecified organism Laterality: bilateral Lung location: unspecified part of lung Qualified Code(s): J18.9 - Pneumonia, unspecified organism (3) Chronic kidney disease (CKD), stage III (moderate) Current Visit: Yes Status: Chronic Assessment and plan: Acute kidney injury in face of chronic kidney disease shows improvement. (4) Hypertension Current Visit: Yes Status: Chronic Qualifiers: Hypertension type: essential hypertension Qualified Code(s): I10 - Essential (primary) hypertension (5) Diabetes mellitus Current Visit: Yes Status: Chronic Assessment and plan: Blood sugars are under reasonable control. 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 Continues with his antidepressant started by Dr. Ramirez. Qualifiers: Depression Type: dysthymia Qualified Code(s): F34.1 - Dysthymic disorder (9) DVT prophylaxis Current Visit: Yes Status: Acute - Subjective Interval history: Patient continues to feel better and stronger. His breathing he states has been much better. No fevers or chills. He seems to be enjoying his physical therapy. He walked from the physical therapy room back to his bedroom at the far end of the hospital without having to stop while using oxygen at 3 L and his walker. He is eating well. He denies any cardiac or respiratory symptoms now. - Constitutional Vitals: Temp Pulse Resp BP Pulse Ox 98.4 F 72 16 149/71 98 11/18/18 07:41 11/18/18 07:41 11/18/18 07:41 11/18/18 07:41 11/18/18 07:41 General appearance: Present: A&O X 3, no acute distress, answers questions appropriately Exam: I saw him ambulating with his walker and wearing oxygen from the physical thera py room all the way to the end of the hallway without stopping. He was not dyspneic or tachycardic. - Respiratory Additional comments: Crackles heard in both bases. No respiratory distress. No wheezing. - Cardiovascular Cardiovascular exam: Present: irregular rhythm, +S1, +S2, systolic murmur (1 to 2/6 systolic murmur) - Extremities Exam Extremities exam: Absent: calf tenderness, pedal edema, tenderness Internal Medicine: Result - Labs CBC & Chem 7: 11/18/18 05:50 11/18/18 05:50 Labs: Short CBC 11/18/18 Range/Units 05:50 WBC 8.1 (4.3-11.1) K/mcL Hgb 9.4 L (12.9-16.9) g/dL Hct 29.0 L (37.5-50.1) % Plt Count 242 (140-400) K/mcL Neutrophils # 5.4 (1.6-8.9) K/mcL BMP 11/18/18 05:50 Sodium 139 Potassium 3.5 Chloride 103 Carbon Dioxide 32 H BUN 17 Creatinine 1.34 H Glucose 99 Calcium 8.1 L Labs have been reviewed. Chronic anemia and stable. Creatinine is improving. - Impressions Impressions Chest X-Ray 11/17/18 10:24 IMPRESSION: 1. Slight improvement in the bilateral infiltrates likely representing edema and congestive failure. D/ / Grant Obregon MD / Grant Obregon MD Interpreting Provider: Grant Obregon MD Consult Discharge Plan - Plan Referrals: Mario Early MD [Primary Care Provider] -
[2018-11-18] MEDS: traZODone 50 MG TABLET PO SCH (19:55)
[2018-11-19] MEDS: Insulin LISPRO 300 UNITS/3 ML VIAL SQ SCH ×5 (00:46→23:44)
[2018-11-19] MEDS: Piperacillin/Tazobactam 3.375 GM in 0.9 % Sodium Chloride Mini Bag 100 ML IVPB SCH ×3 (00:51→16:57)
[2018-11-19] MEDS: *HR* Enoxaparin 40 MG/0.4 ML SYRINGE SQ SCH (05:03)
--- NOTE | 2018-11-19 08:00 | Internal Med Progress Note ---
Date of Encounter: 11/19/18 Time of Encounter: 07:59 - Assessment and plan (1) Physical deconditioning Current Visit: Yes Status: Acute Assessment and plan: He continues to improve from his stamina point of view. Tolerating his therapies well. He still has difficulties dressing himself. (2) Pneumonia Current Visit: Yes Status: Acute Assessment and plan: Improving from his pneumonia. I believe he will finish 7 days of Zosyn today and we will discontinue that antibiotic. Qualifiers: Pneumonia type: due to unspecified organism Laterality: bilateral Lung lo cation: unspecified part of lung Qualified Code(s): J18.9 - Pneumonia, unspecified organism (3) Chronic kidney disease (CKD), stage III (moderate) Current Visit: Yes Status: Chronic Assessment and plan: Renal function continues to improve. (4) Hypertension Current Visit: Yes Status: Chronic Assessment and plan: Blood pressure is under good control Qualifiers: Hypertension type: essential hypertension Qualified Code(s): I10 - Essential (primary) hypertension (5) Diabetes mellitus Current Visit: Yes Status: Chronic Assessment and plan: Sugars are under reasonable control. Qualifiers: Diabetes mellitus type: type 2 Diabetes mellitus mcfp insulin use: without mcfp use Diabetes mellitus complication status: with hyp erglycemia Qualified Code(s): E11.65 - Type 2 diabetes mellitus with hype rglycemia (6) Iron deficiency anemia Current Visit: Yes Status: Chronic Qualifiers: Iron deficiency anemia type: unspecified iron deficiency Qualified Code(s): D50.9 - Iron deficiency anemia, unspecified (7) Personal history of cerebrovascular accident with current residual effects Current Visit: Yes Status: Chronic (8) Depression Current Visit: Yes Status: Acute Qualifiers: Depression Type: dysthymia Qualified Code(s): F34.1 - Dysthymic disorder - Subjective Interval history: Patient states he continues to improve. Therapy is going well. He denies any cardiac or respiratory symptoms. - Constitutional Vitals: Temp Pulse Resp BP Pulse Ox 97.8 F 69 16 119/65 99 11/19/18 07:36 11/19/18 07:36 11/19/18 07:36 11/19/18 07:36 11/19/18 07:36 General appearance: Present: A&O X 3, no acute distress, answers questions appropriately - Respiratory Additional comments: Crackles or localizing to the left lower lobe area posteriorly. No respiratory distress. No orthopnea. - Cardiovascular Cardiovascular exam: Present: irregular rhythm, +S1, +S2, systolic murmur (1 to 2/6 systolic murmur) - GI/Abdominal GI/Abdominal exam: Present: soft. Absent: tenderness - Extremities Exam Extremities exam: Absent: calf tenderness, pedal edema, tenderness Internal Medicine: Result - Labs CBC & Chem 7: 11/18/18 05:50 11/18/18 05:50 Consult Discharge Plan - Plan Referrals: Mario Early MD [Primary Care Provider] -
[2018-11-19] MEDS: amLODIPine 5 MG TABLET PO SCH (08:21)
[2018-11-19] MEDS: Furosemide 20 MG TABLET PO SCH (08:21)
[2018-11-19] MEDS: Multivit/Ca/Min/Fe/FA 1 TAB TABLET PO SCH (08:21)
[2018-11-19] MEDS: *HR* GlipiZIDE 5 MG TABLET PO SCH ×2 (08:21→16:57)
[2018-11-19] MEDS: traZODone 50 MG TABLET PO SCH (19:58)
[2018-11-20] MEDS: *HR* Enoxaparin 40 MG/0.4 ML SYRINGE SQ SCH (05:09)
[2018-11-20] MEDS: Multivit/Ca/Min/Fe/FA 1 TAB TABLET PO SCH (11:22)
[2018-11-20] MEDS: Furosemide 20 MG TABLET PO SCH (11:22)
[2018-11-20] MEDS: *HR* GlipiZIDE 5 MG TABLET PO SCH ×2 (11:22→19:02)
[2018-11-20] MEDS: Insulin LISPRO 300 UNITS/3 ML VIAL SQ SCH ×4 (11:22→21:27)
[2018-11-20] MEDS: amLODIPine 5 MG TABLET PO SCH (11:23)
[2018-11-20] MEDS: Ipratropium/Albuterol Neb 3 ML IH PRN ×2 (13:10→21:26)
--- NOTE | 2018-11-20 13:29 | Internal Med Progress Note ---
Date of Encounter: 11/20/18 Time of Encounter: 13:29 - Assessment and plan (1) Physical deconditioning Current Visit: Yes Status: Acute Assessment and plan: He is here for PT OT and RT. He is very deconditioned from his community- acquired pneumonia. (2) Community acquired pneumonia Current Visit: No Status: Acute Assessment and plan: He has completed his course of IV antibiotics. He is improve from a respiratory standpoint but is very deconditioned. He is here for PT OT to be able to get him back to his safe home environment. 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 Qualifiers: Diabetes mellitus type: type 2 Diabetes mellitus longterm insulin use: without longterm use Diabetes mellitus complication status: with hyperglycemia Qualified Code(s): E11.65 - Type 2 diabetes mellitus with hyperglycemia (7) Chronic kidney disease (CKD), stage III (moderate) Current Visit: Yes Status: Chronic Assessment and plan: This is been stable. No changes have been made he did not have any new labs this morning (8) History of ischemic cerebrovascular accident (CVA) with residual deficit Current Visit: No Status: Acute Assessment and plan: These are chronic issues he will be getting PT OT and RT for the deconditioning due to his community-acquired pneumonia. (9) DVT prophylaxis Current Visit: Yes Status: Inactive Assessment and plan: Lovenox - Subjective Interval history: He has no complaints today he denies any pain he denies any chest pain he denies any palpitations she denies any shortness of breath. He is feeling better he does have a little bit of a mild cough. He does still feel tired. He is getting physical and occupational therapy. He denies any stomach issues nausea vomiting diarrhea or any urinary complaints. - Constitutional Vitals: Temp Pulse Resp BP Pulse Ox 98.2 F 62 14 136/75 100 11/20/18 07:09 11/20/18 07:09 11/20/18 07:09 11/20/18 07:09 11/20/18 07:09 General appearance: Present: A&O X 3, no acute distress, answers questions appropriately - Head Head exam: Present: atraumatic, normocephalic - Neck Neck exam general surgery: Present: supple, trachea midline - Respiratory Respiratory exam: Present: rhonchi (Left lower lobe) - Cardiovascular Cardiovascular exam: Present: RRR - GI/Abdominal GI/Abdominal exam: Present: normal bowel sounds, no peritoneal signs. Absent: guarding, tenderness - Extremities Exam Extremities exam: Present: warm (KAUSHAL hose on bilaterally). Absent: pedal edema - Skin Skin exam: Present: dry, warm Internal Medicine: Result - Labs CBC & Chem 7: 11/18/18 05:50 11/18/18 05:50 Consult Discharge Plan - Plan Referrals: Mario Early MD [Primary Care Provider] -
[2018-11-20] MEDS: traZODone 50 MG TABLET PO SCH (21:23)
[2018-11-21] MEDS: *HR* Enoxaparin 40 MG/0.4 ML SYRINGE SQ SCH (05:15)
[2018-11-21] MEDS: *HR* GlipiZIDE 5 MG TABLET PO SCH ×2 (08:33→18:53)
[2018-11-21] MEDS: Multivit/Ca/Min/Fe/FA 1 TAB TABLET PO SCH (08:34)
[2018-11-21] MEDS: Insulin LISPRO 300 UNITS/3 ML VIAL SQ SCH ×4 (08:34→20:49)
[2018-11-21] MEDS: amLODIPine 5 MG TABLET PO SCH (08:34)
[2018-11-21] MEDS: Furosemide 20 MG TABLET PO SCH (08:34)
--- NOTE | 2018-11-21 10:07 | Internal Med Progress Note ---
Date of Encounter: 11/21/18 Time of Encounter: 10:06 - Assessment and plan (1) Physical deconditioning Current Visit: Yes Status: Acute Assessment and plan: He is here for PT OT and RT. He is very deconditioned from his community- acquired pneumonia. (2) Community acquired pneumonia Current Visit: No Status: Acute Assessment and plan: He has completed his course of IV antibiotics. He is improve from a respiratory standpoint but is very deconditioned. He is here for PT OT to be able to get him back to his safe home environment. 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 (4) Iron deficiency anemia Current Visit: Yes Status: Chronic Assessment and plan: This is stable there was no new blood work today Qualifiers: Iron deficiency anemia type: unspecified iron deficiency Qualified Code(s): D50.9 - Iron deficiency anemia, unspecified (5) Hypertension Current Visit: Yes Status: Chronic Assessment and plan: stable on current medication Qualifiers: Hypertension type: essential hypertension Qualified Code(s): I10 - Essential (primary) hypertension (6) Diabetes mellitus Current Visit: Yes Status: Chronic Assessment and plan: He is getting Accu-Cheks and continue his home medication. Qualifiers: Diabetes mellitus type: type 2 Diabetes mellitus fci insulin use: without fci use Diabetes mellitus complication status: with hyperglycemia Qualified Code(s): E11.65 - Type 2 diabetes mellitus with hyperglycemia (7) Chronic kidney disease (CKD), stage III (moderate) Current Visit: Yes Status: Chronic Assessment and plan: This is been stable. No changes have been made he did not have any new labs this morning (8) History of ischemic cerebrovascular accident (CVA) with residual deficit Current Visit: No Status: Acute (9) DVT prophylaxis Current Visit: Yes Status: Inactive - Subjective Interval history: He has no complaints today he denies any pain he denies any chest pain he denies any palpitations she denies any shortness of breath. He is feeling better he does have a little bit of a mild cough. He does still feel tired. He is getting physical and occupational therapy. He denies any stomach issues nausea vomiting diarrhea or any urinary complaints. - Constitutional Vitals: Temp Pulse Resp BP Pulse Ox 98.5 F 70 18 125/69 96 11/21/18 06:56 11/21/18 06:56 11/21/18 06:56 11/21/18 06:56 11/21/18 06:56 General appearance: Present: A&O X 3, no acute distress, answers questions appropriately - Head Head exam: Present: atraumatic, normocephalic - Neck Neck exam general surgery: Present: supple, trachea midline - Respiratory Respiratory exam: Present: rhonchi - Cardiovascular Cardiovascular exam: Present: RRR, systolic murmur - GI/Abdominal GI/Abdominal exam: Present: normal bowel sounds, soft, no peritoneal signs. Absent: guarding, mass - Extremities Exam Extremities exam: Absent: pedal edema (presley hose) - Skin Skin exam: Present: dry, warm. Absent: mottled Internal Medicine: Result - Labs CBC & Chem 7: 11/18/18 05:50 11/18/18 05:50 Consult Discharge Plan - Plan Referrals: Mario Early MD [Primary Care Provider] -
[2018-11-21] MEDS: traZODone 50 MG TABLET PO SCH (21:01)
[2018-11-21] MEDS: Ipratropium/Albuterol Neb 3 ML IH PRN (21:02)
[2018-11-21] MEDS: Benzonatate 100 MG CAPSULE PO PRN (21:15)
[2018-11-22] MEDS: *HR* Enoxaparin 40 MG/0.4 ML SYRINGE SQ SCH (05:08)
[2018-11-22] MEDS: Benzonatate 100 MG CAPSULE PO PRN ×3 (05:08→20:41)
[2018-11-22] MEDS: Ipratropium/Albuterol Neb 3 ML IH PRN ×4 (05:16→19:27)
--- NOTE | 2018-11-22 07:02 | Internal Med Progress Note ---
Date of Encounter: 11/22/18 Time of Encounter: 07:02 - Assessment and plan (1) Physical deconditioning Current Visit: Yes Status: Acute Assessment and plan: He will continue with his therapies if tolerated today. We are having to restart his antibiotics and do CT scan because of his increased dyspnea and cough. We will see how he tolerates increased activity today (2) Pneumonia Current Visit: Yes Status: Acute Assessment and plan: We stopped his IV antibiotics Thursday night as he finished at least 7-8 days worth of Zosyn. However, now he has increased cough, increased sputum production, dyspnea and increased crackles. I am going to arrange a CT scan as well as restart his Zosyn. Qualifiers: Pneumonia type: due to unspecified organism Laterality: bilateral Lung location: unspecified part of lung Qualified Code(s): J18.9 - Pneumonia, unspecified organism (3) Chronic kidney disease (CKD), stage III (moderate) Current Visit: Yes Status: Chronic Assessment and plan: His renal status was improving. We will recheck again today. (4) Hypertension Current Visit: Yes Status: Chronic Assessment and plan: Blood pressure mildly elevated today. We will need to monitor. Qualifiers: Hypertension type: essential hypertension Qualified Code(s): I10 - Essential (primary) hypertension (5) Diabetes mellitus Current Visit: Yes Status: Chronic Assessment and plan: Sugars are under reasonable control. Qualifiers: Diabetes mellitus type: type 2 Diabetes mellitus penitentiary insulin use: without computer terminal operator use Diabetes mellitus complication status: with hyperglycemia Qualified Code(s): E11.65 - Type 2 diabetes mellitus with hyperglycemia (6) Iron deficiency anemia Current Visit: Yes Status: Chronic Qualifiers: Iron deficiency anemia type: unspecified iron deficiency Qualified Code(s): D50.9 - Iron deficiency anemia, unspecified (7) Personal history of cerebrovascular accident with current residual effects Current Visit: Yes Status: Chronic (8) Depression Current Visit: Yes Status: Acute Qualifiers: Depression Type: dysthymia Qualified Code(s): 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 He said that he could not lie down flat this morning when he wanted to shift him upward in bed. He is having coughing with small modest sputum production. He is now sitting up in a chair. He denies a cardiac type chest pain. Denies fevers or chills. Cough and shortness of breath is his new complaint. This has occurred since stopping the antibiotic on Thursday night. No GI or symptoms. No ankle edema. - Constitutional Vitals: Temp Pulse Resp BP Pulse Ox 98.3 F 90 16 162/70 95 11/21/18 19:26 11/21/18 19:26 11/21/18 19:26 11/21/18 19:26 11/22/18 05:20 General appearance: Present: A&O X 3, no acute distress, answers questions appropriately Exam: Patient is sitting upright in a chair. Looks comfortable except he does have a harsh cough. - Respiratory Additional comments: Patient has scattered crackles as well as increased expiratory phase and intermittent scattered wheezes. Slightly diminished breath sounds throughout. Harsh cough. - Cardiovascular Cardiovascular exam: Present: irregular rhythm, +S1, +S2, systolic murmur (1/6 systolic murmur) - Extremities Exam Extremities exam: Absent: calf tenderness, pedal edema, tenderness Internal Medicine: Result - Labs CBC & Chem 7: 11/18/18 05:50 11/18/18 05:50 Consult Discharge Plan - Plan Referrals: Mario Early MD [Primary Care Provider] -
[2018-11-22 09:29] LABS: Basophils # 0.1 K/mcL (0.0-0.2); Basophils % 0.5 %; Eosinophils # 0.2 K/mcL (0.0-0.6); Eosinophils % 2.3 %; Hematocrit 34.1 % (37.5-50.1); Hemoglobin 11.4 g/dL (12.9-16.9); Immature Granulocytes % 0.4 % (0-4); Lymphocytes % 10.6 %; Mean Corpuscular HGB Conc 33.4 g/dL (31.6-35.5); Mean Corpuscular Hemoglobin 30.1 pg (28.0-33.3); Mean Platelet Volume 10.1 fL (9.4-12.4); Monocytes # 0.7 K/mcL (0.0-1.3); Monocytes % 7.9 %; Neutrophils # 7.2 K/mcL (1.6-8.9); Platelet Count 251 K/mcL (140-400); Red Blood Count 3.79 M/mcL (4.19-5.50); Red Cell Distribution Width 14.7 % (11.5-14.5); Segmented Neutrophils % 78.3 %
[2018-11-22 09:42] LABS: BUN/Creatinine Ratio 15 (6-26); Blood Urea Nitrogen 17 mg/dL (8-23); Calcium 8.7 mg/dL (8.6-10.3); Carbon Dioxide 31 mEq/L (23-29); Chloride 101 mEq/L (98-107); Glucose 172 mg/dL (70-105); Osmolality,Calculated 290 (280-300); Potassium 3.9 mEq/L (3.5-5.1); Sodium 137 mEq/L (136-145); eGFR For Non-African Americans > 60 (> 60)
[2018-11-22] MEDS: Insulin LISPRO 300 UNITS/3 ML VIAL SQ SCH ×4 (09:44→20:42)
[2018-11-22] MEDS: amLODIPine 5 MG TABLET PO SCH (09:45)
[2018-11-22] MEDS: Multivit/Ca/Min/Fe/FA 1 TAB TABLET PO SCH (09:45)
[2018-11-22] MEDS: Furosemide 20 MG TABLET PO SCH (09:45)
[2018-11-22] MEDS: *HR* GlipiZIDE 5 MG TABLET PO SCH ×2 (09:45→16:02)
[2018-11-22] MEDS: Piperacillin/Tazobactam 3.375 GM in 0.9 % Sodium Chloride Mini Bag 100 ML IVPB SCH ×2 (09:45→16:06)
[2018-11-22] MEDS ORDERED: Furosemide 20 MG/2 ML VIAL IVP ONE (11:04)
--- NOTE | 2018-11-22 19:11 | Event Note ---
Date of Encounter: 11/22/18 Time of Encounter: 19:09 Patient states that he is breathing much better tonight. He is able to lie in bed. He did urinate a lot with IV Lasix. Denies a cardiac type chest pain. Nurse reports that he is improved as well. His IV antibiotics are infusing tonight. He still requires oxygen as he has for the past few weeks. His lungs showed crackles in the mid to lower lung [place]. He looks better, less anxious and no orthopnea. CT scan showed considerable amount of bilateral pleural effusion. This did not show up as well on chest x-ray for comparison. BNP mildly elevated in the 300s. I think part of this is infectious and part of it is pulmonary vascular congestion/CHF. We will be using IV antibiotics as well as IV fluids. Reassess tomorrow. Backed off on therapy today. Vitals are stable.
[2018-11-22] MEDS: traZODone 50 MG TABLET PO SCH (20:42)
[2018-11-23] MEDS: Piperacillin/Tazobactam 3.375 GM in 0.9 % Sodium Chloride Mini Bag 100 ML IVPB SCH ×4 (00:27→23:11)
[2018-11-23] MEDS: Benzonatate 100 MG CAPSULE PO PRN (05:26)
[2018-11-23] MEDS: *HR* Enoxaparin 40 MG/0.4 ML SYRINGE SQ SCH (05:27)
[2018-11-23 05:37] LABS: Basophils % 0.5 %; Eosinophils # 0.5 K/mcL (0.0-0.6); Eosinophils % 5.5 %; Hematocrit 29.6 % (37.5-50.1); Immature Granulocytes % 0.3 % (0-4); Lymphocytes # 1.1 K/mcL (0.6-4.6); Lymphocytes % 12.9 %; Mean Corpuscular HGB Conc 32.8 g/dL (31.6-35.5); Mean Corpuscular Hemoglobin 29.5 pg (28.0-33.3); Mean Platelet Volume 10.1 fL (9.4-12.4); Monocytes # 0.8 K/mcL (0.0-1.3); Monocytes % 9.6 %; Neutrophils # 6.1 K/mcL (1.6-8.9); Platelet Count 220 K/mcL (140-400); Red Blood Count 3.29 M/mcL (4.19-5.50); Red Cell Distribution Width 14.8 % (11.5-14.5); Segmented Neutrophils % 71.2 %
[2018-11-23] MEDS: Ipratropium/Albuterol Neb 3 ML IH PRN ×2 (05:37→13:03)
[2018-11-23 05:40] LABS: Hemoglobin 9.7 g/dL (12.9-16.9)
[2018-11-23 05:51] LABS: BUN/Creatinine Ratio 13 (6-26); Blood Urea Nitrogen 17 mg/dL (8-23); Calcium 8.1 mg/dL (8.6-10.3); Carbon Dioxide 32 mEq/L (23-29); Chloride 103 mEq/L (98-107); Glucose 121 mg/dL (70-105); Osmolality,Calculated 289 (280-300); Potassium 3.4 mEq/L (3.5-5.1); Sodium 138 mEq/L (136-145); eGFR For Non-African Americans 54 (> 60)
--- NOTE | 2018-11-23 09:03 | Internal Med Progress Note ---
Date of Encounter: 11/23/18 Time of Encounter: 08:58 - Assessment and plan (1) Physical deconditioning Current Visit: Yes Status: Acute Assessment and plan: He is in a swing bed for deconditioning following history for pneumonia. He has setback yesterday and we have resumed his antibiotics, started IV Lasix, and increase his respiratory treatments. We will see whether he tolerates some physical therapy today. He is eager to do so though. (2) Pneumonia Current Visit: Yes Status: Acute Assessment and plan: He finished a week's treatment with Zosyn and Levaquin for bilateral pneumonia, he was doing well until yesterday. CT scan showed pleural effusions. Chest x- ray did not look that impressive. Lung findings show scattered crackles, rhonchi, wheezing. We will step up the respiratory treatments. The Zosyn was restarted yesterday. IV Lasix given yesterday with what appears to be good results. Need to be careful of the creatinine going up the potassium going down. Qualifiers: Pneumonia type: due to unspecified organism Laterality: bilateral Lung location: unspecified part of lung Qualified Code(s): J18.9 - Pneumonia, unspecified organism (3) Bilateral pleural effusion Current Visit: Yes Status: Acute Assessment and plan: The bilateral pleural effusions may be residual from his pneumonia, concern [facility] it may be from CHF. He is at risk because of his atrial fibrillation though he had a good ejection fraction and function on his echocardiogram done recently. He feels better after diuresis yesterday. We will do another dose of IV Lasix today. We will monitor his creatinine and potassium. Consultation request placed to see traffic worker Dr. Mcmillan (4) Chronic kidney disease (CKD), stage III (moderate) Current Visit: Yes Status: Chronic Assessment and plan: His creatinine bumped up a bit after IV Lasix yesterday. We will need to watch this closely. 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: [facility] use Diabetes mellitus complication status: with hyperglycemia Qualified Code(s): E11.65 - Type 2 diabetes mellitus with hyperglycemia (7) Iron deficiency anemia Current Visit: Yes Status: Chronic Qualifiers: Iron deficiency anemia type: unspecified iron deficiency Qualified Code(s): D50.9 - Iron deficiency anemia, unspecified (8) Personal history of cerebrovascular accident with current residual effects Current Visit: Yes Status: Chronic (9) Depression Current Visit: Yes Status: Acute Qualifiers: Depression Type: dysthymia Qualified Code(s): 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 He slept well. He ate well this morning . Denies any cardiac type chest pain. He still has a cough, worse than last weekend, but better than yesterday. No GI or symptoms. No pain in his legs. - Constitutional Vitals: Temp Pulse Resp BP Pulse Ox 98.3 F 80 18 151/75 97 11/22/18 19:21 11/22/18 19:21 11/22/18 19:27 11/22/18 19:21 11/22/18 20:30 General appearance: Present: A&O X 3, no acute distress, answers questions appropriately Exam: Overall he looks better today. No orthopnea. No respiratory distress. He does have an intermittent cough but looks better. - Respiratory Additional comments: Diminished breath sounds in the bases and end expiratory wheezes. Few scattered large airway sonorous/snoring lung sounds. No respiratory distress. Loose cough. - Cardiovascular Cardiovascular exam: Present: irregular rhythm, +S1, +S2, systolic murmur (1 to 2/6 systolic murmur left sternal border) - GI/Abdominal GI/Abdominal exam: Present: soft. Absent: tenderness - Extremities Exam Extremities exam: Absent: calf tenderness, pedal edema, tenderness Internal Medicine: Result - Labs CBC & Chem 7: 11/23/18 05:20 11/23/18 05:20 Labs: Short CBC 11/22/18 11/23/18 Range/Units 09:13 05:20 WBC 9.2 8.6 (4.3-11.1) K/mcL Hgb 11.4 L D 9.7 L D (12.9-16.9) g/dL Hct 34.1 L 29.6 L (37.5-50.1) % Plt Count 251 220 (140-400) K/mcL Neutrophils # 7.2 6.1 (1.6-8.9) K/mcL BMP 11/22/18 11/23/18 09:13 05:20 Sodium 137 138 Potassium 3.9 3.4 L Chloride 101 103 Carbon Dioxide 31 H 32 H BUN 17 17 Creatinine 1.13 1.27 Glucose 172 H 121 H Calcium 8.7 8.1 L Labs have been reviewed. Hemoglobin backed down to where it was 2 days ago. Potassium slightly low and creatinine bumped up a bit after IV Lasix yesterday - Impressions Impressions Chest CT 11/22/18 07:38 IMPRESSION: Moderate-sized right pleural effusion and small left pleural effusion. Mild diffuse ground-glass densities within both lungs with associated bilateral interstitial opacities. These changes most likely represent CHF. Atypical pneumonia is considered less likely. Mild COPD. Mild cardiomegaly. Small hiatal hernia. D/ / 11/22/2018 09:03:19 Yandel Rodriguez MD / Barbi Mcmillan Interpreting Provider: Yandel Rodriguez MD Chest X-Ray 11/22/18 11:04 IMPRESSION: Bilateral vascular congestion and pleural effusions. D/ / Marin Jensen MD / Marin Jensen MD Interpreting Provider: Marin Jensen MD Consult Discharge Plan - Plan Referrals: Mario Early MD [Primary Care Provider] -
[2018-11-23] MEDS: Insulin LISPRO 300 UNITS/3 ML VIAL SQ SCH ×4 (09:10→21:15)
[2018-11-23] MEDS ORDERED: Furosemide 20 MG/2 ML VIAL IVP ONE (09:12)
[2018-11-23] MEDS: Multivit/Ca/Min/Fe/FA 1 TAB TABLET PO SCH (09:59)
[2018-11-23] MEDS: Furosemide 20 MG TABLET PO SCH (09:59)
[2018-11-23] MEDS: *HR* GlipiZIDE 5 MG TABLET PO SCH ×2 (09:59→17:25)
[2018-11-23] MEDS: amLODIPine 5 MG TABLET PO SCH (09:59)
[2018-11-23] MEDS: Ipratropium/Albuterol Neb 3 ML IH SCH ×3 (10:00→21:56)
[2018-11-23] MEDS: traZODone 50 MG TABLET PO SCH (19:36)
[2018-11-24] MEDS: *HR* Enoxaparin 40 MG/0.4 ML SYRINGE SQ SCH (05:10)
[2018-11-24] MEDS: Ipratropium/Albuterol Neb 3 ML IH SCH ×4 (05:10→20:28)
[2018-11-24 05:32] LABS: Basophils # 0.1 K/mcL (0.0-0.2); Basophils % 0.8 %; Eosinophils # 0.6 K/mcL (0.0-0.6); Eosinophils % 6.6 %; Hemoglobin 10.2 g/dL (12.9-16.9); Immature Granulocytes % 0.1 % (0-4); Lymphocytes # 1.4 K/mcL (0.6-4.6); Lymphocytes % 16.3 %; Mean Corpuscular HGB Conc 32.9 g/dL (31.6-35.5); Mean Corpuscular Hemoglobin 29.6 pg (28.0-33.3); Mean Corpuscular Volume 89.9 fL (83.0-100.0); Mean Platelet Volume 9.8 fL (9.4-12.4); Monocytes # 0.8 K/mcL (0.0-1.3); Monocytes % 8.7 %; Neutrophils # 5.8 K/mcL (1.6-8.9); Platelet Count 240 K/mcL (140-400); Red Blood Count 3.45 M/mcL (4.19-5.50); Segmented Neutrophils % 67.5 %
[2018-11-24 05:47] LABS: BUN/Creatinine Ratio 12 (6-26); Blood Urea Nitrogen 15 mg/dL (8-23); Calcium 8.5 mg/dL (8.6-10.3); Carbon Dioxide 31 mEq/L (23-29); Chloride 102 mEq/L (98-107); Glucose 103 mg/dL (70-105); Osmolality,Calculated 287 (280-300); Potassium 3.5 mEq/L (3.5-5.1); Sodium 138 mEq/L (136-145); eGFR For Non-African Americans 54 (> 60)
[2018-11-24] MEDS: Insulin LISPRO 300 UNITS/3 ML VIAL SQ SCH ×4 (07:31→22:49)
[2018-11-24] MEDS: Piperacillin/Tazobactam 3.375 GM in 0.9 % Sodium Chloride Mini Bag 100 ML IVPB SCH ×3 (07:59→23:06)
[2018-11-24] MEDS: Furosemide 20 MG TABLET PO SCH (08:00)
[2018-11-24] MEDS: Multivit/Ca/Min/Fe/FA 1 TAB TABLET PO SCH (08:00)
[2018-11-24] MEDS: amLODIPine 5 MG TABLET PO SCH (08:00)
[2018-11-24] MEDS: *HR* GlipiZIDE 5 MG TABLET PO SCH ×2 (08:00→16:58)
--- NOTE | 2018-11-24 09:22 | Internal Med Progress Note ---
Date of Encounter: 11/24/18 Time of Encounter: 09:13 - Assessment and plan (1) Physical deconditioning Current Visit: Yes Status: Acute Assessment and plan: He has had a setback the past 3 days, now starting to reinitiate his physical therapy as tolerated. Continue with PT and OT as tolerated. (2) Pneumonia Current Visit: Yes Status: Acute Assessment and plan: Clinically and symptomatically he is showing improvement from the past 2 days since restarting the Zosyn. No fever. White blood cell count is normal. He has more bronchospasm/wheezing and getting nebulizer treatments 4 times a day and every 4 hours when necessary. He states he does feel better in the past 24- 48 hours. Qualifiers: Pneumonia type: due to unspecified organism Laterality: bilateral Lung location: unspecified part of lung Qualified Code(s): J18.9 - Pneumonia, unspecified organism (3) Bilateral pleural effusion Current Visit: Yes Status: Acute Assessment and plan: History of pleural effusion on CT scan. We have been using a dose of Lasix intravenously each of the past 2 days to gently diurese him. Today's weight is pending. His weight is down 2 pounds total. No edema in lower extremities. We will repeat Lasix again today. Cardiology consultation has been placed. (4) Chronic kidney disease (CKD), stage III (moderate) Current Visit: Yes Status: Chronic (5) Hypertension Current Visit: Yes Status: Chronic Assessment and plan: Blood pressure minimally elevated. No changes for now as we are using IV Lasix daily. Need to avoid hypotension. 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: without filler leaf cutter long use Diabetes mellitus complication status: with hyperglycemia Qualified Code(s): E11.65 - Type 2 diabetes mellitus with hyperglycemia (7) Iron deficiency anemia Current Visit: Yes Status: Chronic Qualifiers: Iron deficiency anemia type: unspecified iron deficiency Qualified Code(s): D50.9 - Iron deficiency anemia, unspecified (8) Personal history of cerebrovascular accident with current residual effects Current Visit: Yes Status: Chronic (9) Depression Current Visit: Yes Status: Acute Qualifiers: Depression Type: dysthymia Qualified Code(s): 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 He said he needs to try to move his bowels this morning. He denies any cardiac type chest pain. Still has some sputum production but less and it is green. The report of having orthopnea. His coughing is a lot less compared to the past 24-48 hours. He did participate in therapy in the room yesterday. - Constitutional Vitals: Temp Pulse Resp BP Pulse Ox 98.6 F 70 16 150/79 96 11/24/18 07:21 11/24/18 07:21 11/24/18 07:21 11/24/18 07:21 11/24/18 07:21 General appearance: Present: mild distress (During coughing episode he gets somewhat short of breath. Audible wheezing noted.), A&O X 3, answers questions appropriately - Respiratory Additional comments: Scattered inspiratory and expiratory wheezes, particularly when he is coughing. Scattered crackles. No air hunger. No respiratory distress between coughing episodes. - Cardiovascular Cardiovascular exam: Present: irregular rhythm, +S1, +S2 - GI/Abdominal GI/Abdominal exam: Present: soft. Absent: tenderness - Extremities Exam Extremities exam: Absent: calf tenderness, pedal edema, tenderness Internal Medicine: Result - Labs CBC & Chem 7: 11/24/18 05:15 11/24/18 05:15 Labs: Short CBC 11/24/18 Range/Units 05:15 WBC 8.6 (4.3-11.1) K/mcL Hgb 10.2 L (12.9-16.9) g/dL Hct 31.0 L (37.5-50.1) % Plt Count 240 (140-400) K/mcL Neutrophils # 5.8 (1.6-8.9) K/mcL BMP 11/24/18 05:15 Sodium 138 Potassium 3.5 Chloride 102 Carbon Dioxide 31 H BUN 15 Creatinine 1.28 Glucose 103 Calcium 8.5 L Labs are stable. Potassium now normal. Consult Discharge Plan - Plan Referrals: Mario Early MD [Primary Care Provider] -
[2018-11-24] MEDS ORDERED: Furosemide 20 MG/2 ML VIAL IVP ONE (09:41)
[2018-11-24] MEDS: traZODone 50 MG TABLET PO SCH (20:25)
[2018-11-24] MEDS: Benzonatate 100 MG CAPSULE PO PRN (22:53)
[2018-11-25] MEDS: *HR* Enoxaparin 40 MG/0.4 ML SYRINGE SQ SCH (05:41)
[2018-11-25] MEDS: Ipratropium/Albuterol Neb 3 ML IH SCH ×4 (07:17→18:38)
[2018-11-25] MEDS: Insulin LISPRO 300 UNITS/3 ML VIAL SQ SCH ×4 (07:30→19:55)
[2018-11-25] MEDS: Piperacillin/Tazobactam 3.375 GM in 0.9 % Sodium Chloride Mini Bag 100 ML IVPB SCH ×2 (08:28→16:08)
[2018-11-25] MEDS: Multivit/Ca/Min/Fe/FA 1 TAB TABLET PO SCH (08:30)
[2018-11-25] MEDS: *HR* GlipiZIDE 5 MG TABLET PO SCH ×2 (08:30→16:09)
[2018-11-25] MEDS: Furosemide 20 MG TABLET PO SCH (08:30)
[2018-11-25] MEDS: amLODIPine 5 MG TABLET PO SCH (08:30)
--- NOTE | 2018-11-25 10:51 | Internal Med Progress Note ---
Date of Encounter: 11/25/18 Time of Encounter: 10:51 - Assessment and plan (1) Physical deconditioning Current Visit: Yes Status: Acute Assessment and plan: He is showing physical improvement and able to participate with therapy today. Continue the same for now. (2) Pneumonia Current Visit: Yes Status: Acute Assessment and plan: He does not have any wheezing today. He is breathing better. He feels better and more energy. Still has crackles in the bases. Qualifiers: Pneumonia type: due to unspecified organism Laterality: bilateral Lung location: unspecified part of lung Qualified Code(s): J18.9 - Pneumonia, unspe cified organism (3) Bilateral pleural effusion Current Visit: Yes Status: Acute Assessment and plan: Bilateral pleural effusions on CT scan. Crackles in the bases on auscultation. I will give him another dose of IV Lasix today. He does not appear to have fulminant congestive heart failure. He was weighed twice today, one showed weight to go down on what showed weight going up. (4) Chronic kidney disease (CKD), stage III (moderate) Current Visit: Yes Status: Chronic (5) Hypertension Current Visit: Yes Status: Chronic Assessment and plan: Blood pressure has improved today. Qualifiers: Hypertension type: essential hypertension Qualified Code(s): I10 - Essential (primary) hypertension (6) Diabetes mellitus Current Visit: Yes Status: Chronic Qualifiers: Diabetes mellitus type: type 2 Diabetes mellitus intermediate project manager insulin use: without intermediate project manager use Diabetes mellitus complication status: with hyperglycemia Qualified Code(s): E11.65 - Type 2 diabetes mellitus with hyperglycemia (7) Iron deficiency anemia Current Visit: Yes Status: Chronic Qualifiers: Iron deficiency anemia type: unspecified iron deficiency Qualified Code(s): D50.9 - Iron deficiency anemia, unspecified (8) Personal history of cerebrovascular accident with current residual effects Current Visit: Yes Status: Chronic (9) Depression Current Visit: Yes Status: Acute Qualifiers: Depression Type: dysthymia Qualified Code(s): F34.1 - Dysthymic disorder - Subjective Interval history: Patient states that he feels so much better today. He slept well last night. He ate well for breakfast. He has had physical therapy working with him already this morning. He has walked in the hallway. He denies any dyspnea with that. He has occasional cough but markedly improved from the past 2-3 days. No cardiac type chest pain or palpitations. - Constitutional Vitals: Temp Pulse Resp BP Pulse Ox 97.5 F L 76 22 138/71 95 11/25/18 07:30 11/25/18 07:30 11/25/18 07:30 11/25/18 07:30 11/25/18 07:18 General appearance: Present: A&O X 3, no acute distress, answers questions appropriately Exam: He is sitting up in a chair and looks comfortable. No coughing. - Respiratory Additional comments: A few crackles in the bases. No wheezing heard today. No rhonchi. No respiratory distress. - Cardiovascular Cardiovascular exam: Present: irregular rhythm, +S1, +S2 - Extremities Exam Additional comments: His feet and ankles are a bit puffy but not pitting edema. No calf tenderness. Internal Medicine: Result - Labs CBC & Chem 7: 11/24/18 05:15 11/24/18 05:15 Consult Discharge Plan - Plan Referrals: Mario Early MD [Primary Care Provider] -
[2018-11-25] MEDS ORDERED: Furosemide 20 MG/2 ML VIAL IVP ONE (11:07)
[2018-11-25] MEDS: traZODone 50 MG TABLET PO SCH (19:55)
[2018-11-26] MEDS: Piperacillin/Tazobactam 3.375 GM in 0.9 % Sodium Chloride Mini Bag 100 ML IVPB SCH ×3 (00:38→16:29)
[2018-11-26] MEDS: *HR* Enoxaparin 40 MG/0.4 ML SYRINGE SQ SCH (04:50)
[2018-11-26 04:58] LABS: Basophils # 0.1 K/mcL (0.0-0.2); Basophils % 0.6 %; Eosinophils # 0.5 K/mcL (0.0-0.6); Eosinophils % 6.1 %; Hematocrit 29.8 % (37.5-50.1); Hemoglobin 9.6 g/dL (12.9-16.9); Immature Granulocytes % 0.3 % (0-4); Lymphocytes # 1.3 K/mcL (0.6-4.6); Lymphocytes % 14.9 %; Mean Corpuscular HGB Conc 32.2 g/dL (31.6-35.5); Mean Corpuscular Hemoglobin 28.9 pg (28.0-33.3); Mean Corpuscular Volume 89.8 fL (83.0-100.0); Mean Platelet Volume 9.8 fL (9.4-12.4); Monocytes # 0.7 K/mcL (0.0-1.3); Monocytes % 7.7 %; Neutrophils # 6.2 K/mcL (1.6-8.9); Platelet Count 261 K/mcL (140-400); Red Blood Count 3.32 M/mcL (4.19-5.50); Red Cell Distribution Width 15.2 % (11.5-14.5); Segmented Neutrophils % 70.4 %
[2018-11-26 05:12] LABS: BUN/Creatinine Ratio 13 (6-26); Blood Urea Nitrogen 16 mg/dL (8-23); Calcium 8.2 mg/dL (8.6-10.3); Carbon Dioxide 31 mEq/L (23-29); Chloride 102 mEq/L (98-107); Glucose 137 mg/dL (70-105); Osmolality,Calculated 289 (280-300); Potassium 3.7 mEq/L (3.5-5.1); Sodium 138 mEq/L (136-145); eGFR For Non-African Americans 54 (> 60)
[2018-11-26] MEDS: Ipratropium/Albuterol Neb 3 ML IH SCH ×4 (07:06→19:09)
--- NOTE | 2018-11-26 07:18 | Internal Med Progress Note ---
Date of Encounter: 11/26/18 Time of Encounter: 07:13 - Assessment and plan (1) Physical deconditioning Current Visit: Yes Status: Acute Assessment and plan: He seems to be showing improvement with his therapy and stamina. No cardiac or respiratory symptoms during therapies. Continue advancing as tolerated. (2) Pneumonia Current Visit: Yes Status: Acute Assessment and plan: His pulmonary status seems to be improving. Less symptoms of cough and weakness. Still has crackles throughout. No hypoxia. Tolerating therapy better. Continue the IV antibiotics. Qualifiers: Pneumonia type: due to unspecified organism Laterality: bilateral Lung location: unspecified part of lung Qualified Code(s): J18.9 - Pneumonia, unsp ecified organism (3) Bilateral pleural effusion Current Visit: Yes Status: Acute Assessment and plan: We will repeat IV Lasix today. Follow-up film for tomorrow. (4) Chronic kidney disease (CKD), stage III (moderate) Current Visit: Yes Status: Chronic (5) Hypertension Current Visit: Yes Status: Chronic Assessment and plan: Hypertension has worsened a bit recently. Will need medications adjusted. Qualifiers: Hypertension type: essential hypertension Qualified Code(s): I10 - E ssential (primary) hypertension (6) Diabetes mellitus Current Visit: Yes Status: Chronic Assessment and plan: Sugars have been under good control. Qualifiers: Diabetes mellitus type: type 2 Diabetes mellitus intermediate designer insulin use: without intermediate use Diabetes mellitus complication status: with hyperglycemia Qualified Code(s): E11.65 - Type 2 diabetes mellitus with hyperglycemia (7) Iron deficiency anemia Current Visit: Yes Status: Chronic Qualifiers: Iron deficiency anemia type: unspecified iron deficiency Qualified Code(s): D50.9 - Iron deficiency anemia, unspecified (8) Personal history of cerebrovascular accident with current residual effects Current Visit: Yes Status: Chronic (9) Depression Current Visit: Yes Status: Acute Qualifiers: Depression Type: dysthymia Qualified Code(s): F34.1 - Dysthymic disorder - Subjective Interval history: Patient thinks that he is getting better each day. He denies a cardiac chest pain. He said with therapy he worked well yesterday but was tiresome. He walked down the entire length of the hallway twice without getting short of breath. He is enthusiastic about continuing therapy. His cough is less often, generally in the morning. Less sputum but it is still thick. He slept well last night appetite is good. Bowels and bladder working well. - Constitutional Vitals: Temp Pulse Resp BP Pulse Ox 98.0 F 73 19 163/77 95 11/25/18 18:55 11/25/18 18:55 11/26/18 07:07 11/25/18 20:25 11/26/18 07:07 General appearance: Present: A&O X 3, no acute distress, answers questions ap propriately - Respiratory Additional comments: Scattered crackles throughout, particularly the bases. No wheezing heard today. Only partially cleared with cough. No respiratory distress. No orthopnea. - Cardiovascular Cardiovascular exam: Present: irregular rhythm, +S1, +S2 - Extremities Exam Extremities exam: Absent: calf tenderness, pedal edema, tenderness Internal Medicine: Result - Labs CBC & Chem 7: 11/26/18 04:21 11/26/18 04:21 Labs: Short CBC 11/26/18 Range/Units 04:21 WBC 8.8 (4.3-11.1) K/mcL Hgb 9.6 L (12.9-16.9) g/dL Hct 29.8 L (37.5-50.1) % Plt Count 261 (140-400) K/mcL Neutrophils # 6.2 (1.6-8.9) K/mcL BMP 11/26/18 04:21 Sodium 138 Potassium 3.7 Chloride 102 Carbon Dioxide 31 H BUN 16 Creatinine 1.28 Glucose 137 H Calcium 8.2 L Labs are generally stable. Chronic anemia. Renal function is good. White blood cell count is normal. Consult Discharge Plan - Plan Referrals: Mario Early MD [Primary Care Provider] -
[2018-11-26] MEDS: Insulin LISPRO 300 UNITS/3 ML VIAL SQ SCH ×4 (07:21→21:10)
[2018-11-26] MEDS ORDERED: Furosemide 20 MG/2 ML VIAL IVP ONE (07:23)
[2018-11-26] MEDS: *HR* GlipiZIDE 5 MG TABLET PO SCH ×2 (08:08→16:30)
[2018-11-26] MEDS: Furosemide 20 MG TABLET PO SCH (08:08)
[2018-11-26] MEDS: amLODIPine 5 MG TABLET PO SCH (08:09)
[2018-11-26] MEDS: Lisinopril 20 MG TABLET PO SCH (08:09)
[2018-11-26] MEDS: Multivit/Ca/Min/Fe/FA 1 TAB TABLET PO SCH (08:09)
[2018-11-26] MEDS: traZODone 50 MG TABLET PO SCH (21:07)
[2018-11-27] MEDS: Piperacillin/Tazobactam 3.375 GM in 0.9 % Sodium Chloride Mini Bag 100 ML IVPB SCH ×3 (01:05→16:08)
[2018-11-27] MEDS: *HR* Enoxaparin 40 MG/0.4 ML SYRINGE SQ SCH (04:54)
[2018-11-27] MEDS: Insulin LISPRO 300 UNITS/3 ML VIAL SQ SCH ×4 (08:36→20:15)
[2018-11-27] MEDS: Ipratropium/Albuterol Neb 3 ML IH SCH ×4 (08:36→20:09)
[2018-11-27] MEDS: amLODIPine 5 MG TABLET PO SCH (08:38)
[2018-11-27] MEDS: Furosemide 20 MG TABLET PO SCH (08:38)
[2018-11-27] MEDS: *HR* GlipiZIDE 5 MG TABLET PO SCH ×2 (08:38→17:21)
[2018-11-27] MEDS: Lisinopril 20 MG TABLET PO SCH (08:39)
[2018-11-27] MEDS: Multivit/Ca/Min/Fe/FA 1 TAB TABLET PO SCH (08:39)
--- NOTE | 2018-11-27 14:50 | Internal Med Progress Note ---
Date of Encounter: 11/27/18 Time of Encounter: 14:45 - Assessment and plan (1) Physical deconditioning Current Visit: Yes Status: Acute Assessment and plan: He is getting stronger. Physical therapy thinks he is coming along well. Increasing stamina. Not able to be independent at home yet. Pulmonary status improved. (2) Pneumonia Current Visit: Yes Status: Acute Assessment and plan: His pulmonary status is improving. Very little cough now. A lot less pulmonary findings. Consideration for repeat x-ray of chest or repeat CT scan to check pleural effusion. Qualifiers: Pneumonia type: due to unspecified organism Laterality: bilateral Lung location: unspecified part of lung Qualified Code(s): J18.9 - Pneumonia, u nspecified organism (3) Bilateral pleural effusion Current Visit: Yes Status: Acute Assessment and plan: Consideration for chest x-ray or CT scan to recheck amount of pleural effusion. Clinically improved though. (4) Chronic kidney disease (CKD), stage III (moderate) Current Visit: Yes Status: Chronic Assessment and plan: Renal function is now normal. (5) Hypertension Current Visit: Yes Status: Chronic Assessment and plan: Blood pressure is under good control. Qualifiers: Hypertension type: essential hypertension Qualified Code(s): I10 - Essential (primary) hypertension (6) Diabetes mellitus Current Visit: Yes Status: Chronic Assessment and plan: Sugars are under relatively good control. Qualifiers: Diabetes mellitus type: type 2 Diabetes mellitus local company intermodal truck driver insulin use: without local company intermodal truck driver use Diabetes mellitus complication status: with hyperglycemia Qualified Code(s): E11.65 - Type 2 diabetes mellitus with hyperglycemia (7) Iron deficiency anemia Current Visit: Yes Status: Chronic Qualifiers: Iron deficiency anemia type: unspecified iron deficiency Qualified Code(s): D50.9 - Iron deficiency anemia, unspecified (8) Personal history of cerebrovascular accident with current residual effects Current Visit: Yes Status: Chronic (9) Depression Current Visit: Yes Status: Acute Assessment and plan: Seems to be doing well. 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 He is having almost no cough now. He states he does not have to hold therapy because of dyspnea or weakness. He is eating well. He feels much stronger. Therapy reports that he is doing well also. He denies a cardiac type chest pain. Sputum is almost nil now. - Constitutional Vitals: Temp Pulse Resp BP Pulse Ox 97.7 F 73 19 138/76 98 11/27/18 07:53 11/27/18 07:53 11/26/18 21:00 11/27/18 07:53 11/27/18 07:53 General appearance: Present: A&O X 3, no acute distress, answers questions appropriately Exam: He is sitting up in a chair in his room and very comfortable. - Respiratory Additional comments: Rare crackles in the bases. No wheezing or rhonchi heard. No respiratory distress. - Cardiovascular Cardiovascular exam: Present: irregular rhythm, +S1, +S2 - Extremities Exam Extremities exam: Absent: calf tenderness, pedal edema, tenderness Internal Medicine: Result - Labs CBC & Chem 7: 11/26/18 04:21 11/26/18 04:21 Consult Discharge Plan - Plan Referrals: Mario Early MD [Primary Care Provider] -
[2018-11-27] MEDS: traZODone 50 MG TABLET PO SCH (20:09)
[2018-11-28] MEDS: Piperacillin/Tazobactam 3.375 GM in 0.9 % Sodium Chloride Mini Bag 100 ML IVPB SCH ×3 (00:13→16:24)
[2018-11-28] MEDS: *HR* Enoxaparin 40 MG/0.4 ML SYRINGE SQ SCH (05:25)
[2018-11-28] MEDS: Ipratropium/Albuterol Neb 3 ML IH PRN (06:36)
[2018-11-28] MEDS: Insulin LISPRO 300 UNITS/3 ML VIAL SQ SCH ×4 (08:49→22:45)
[2018-11-28] MEDS: Ipratropium/Albuterol Neb 3 ML IH SCH ×4 (08:51→20:44)
[2018-11-28] MEDS: Multivit/Ca/Min/Fe/FA 1 TAB TABLET PO SCH (08:51)
[2018-11-28] MEDS: amLODIPine 5 MG TABLET PO SCH (08:52)
[2018-11-28] MEDS: *HR* GlipiZIDE 5 MG TABLET PO SCH ×2 (08:52→16:25)
[2018-11-28] MEDS: Furosemide 20 MG TABLET PO SCH (08:52)
[2018-11-28] MEDS: Lisinopril 20 MG TABLET PO SCH (08:52)
--- NOTE | 2018-11-28 12:36 | Internal Med Progress Note ---
Date of Encounter: 11/28/18 Time of Encounter: 12:34 - Assessment and plan (1) Physical deconditioning Current Visit: Yes Status: Acute Assessment and plan: He is improved with his overall functional capacity with the physical therapy. Less dyspnea and increased stamina. He will resume PT and OT tomorrow. Plan to walk today. (2) Pneumonia Current Visit: Yes Status: Acute Assessment and plan: Continue pulmonary symptoms. Was doing well until early this morning. Crackles the left anterior lobe. Follow-up chest x-ray ordered. May need additional Lasix intravenously today for his pleural effusion. Qualifiers: Pneumonia type: due to unspecified organism Laterality: bilateral Lung location: unspecified part of lung Qualified Code(s): J18.9 - Pneumonia, unspecified organism (3) Bilateral pleural effusion Current Visit: Yes Status: Acute Assessment and plan: History of bilateral pleural effusion, likely from his pneumonia. No orthopnea. He appeared to improve when he had IV Lasix daily until the day. Resume that. (4) Chronic kidney disease (CKD), stage III (moderate) Current Visit: Yes Status: Chronic (5) Hypertension Current Visit: Yes Status: Chronic Assessment and plan: Blood pressure has been under good control. Qualifiers: Hypertension type: essential hypertension Qualified Code(s): I10 - Essential (primary) hypertension (6) Diabetes mellitus Current Visit: Yes Status: Chronic Assessment and plan: Intermittently sugars are elevated. Qualifiers: Diabetes mellitus type: type 2 Diabetes mellitus superintendent container terminal insulin use: [facility] superintendent container terminal use Diabetes mellitus complication status: with hyperglycemia Qualified Code(s): E11.65 - Type 2 diabetes mellitus with hyperglycemia (7) Iron deficiency anemia Current Visit: Yes Status: Chronic Qualifiers: Iron deficiency anemia type: unspecified iron deficiency Qualified Code(s): D50.9 - Iron deficiency anemia, unspecified (8) Personal history of cerebrovascular accident with current residual effects Current Visit: Yes Status: Chronic (9) Depression Current Visit: Yes Status: Acute Qualifiers: Depression Type: dysthymia Qualified Code(s): 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 He has had coughing jags on and off all morning. He says some clear phlegm production. Denies any fevers or chills. Denies any cardiac chest pain. Denies any orthopnea. He continues to eat well. He is eager to get a shower take a walk today - Constitutional Vitals: Temp Pulse Resp BP Pulse Ox 97.8 F 87 16 146/67 95 11/28/18 08:40 11/28/18 08:40 11/28/18 08:40 11/28/18 08:40 11/28/18 08:40 General appearance: Present: A&O X 3, no acute distress, answers questions appropriately - Respiratory Additional comments: Patient had a harsh cough. No respiratory distress with that though. Diminished breath sounds. Crackles are not heard posteriorly, but left anterior lung field shows crackles. - Cardiovascular Cardiovascular exam: Present: diastolic murmur, irregular rhythm, +S1, +S2 - Extremities Exam Extremities exam: Absent: calf tenderness, pedal edema, tenderness Internal Medicine: Result - Labs CBC & Chem 7: 11/26/18 04:21 11/26/18 04:21 Labs: Blood sugars intermittently are elevated. He has coverage if needed. Consult Discharge Plan - Plan Referrals: Mario Early MD [Primary Care Provider] -
[2018-11-28] MEDS ORDERED: Furosemide 20 MG/2 ML VIAL IVP ONE (12:38)
[2018-11-28] MEDS: traZODone 50 MG TABLET PO SCH (20:21)
[2018-11-29] MEDS: Piperacillin/Tazobactam 3.375 GM in 0.9 % Sodium Chloride Mini Bag 100 ML IVPB SCH ×4 (00:25→23:45)
[2018-11-29] MEDS: *HR* Enoxaparin 40 MG/0.4 ML SYRINGE SQ SCH (05:11)
[2018-11-29 06:19] LABS: Basophils % 0.6 %; Eosinophils # 0.4 K/mcL (0.0-0.6); Eosinophils % 5.5 %; Hematocrit 31.7 % (37.5-50.1); Hemoglobin 10.2 g/dL (12.9-16.9); Immature Granulocytes % 0.3 % (0-4); Lymphocytes # 0.7 K/mcL (0.6-4.6); Lymphocytes % 11.1 %; Mean Corpuscular HGB Conc 32.2 g/dL (31.6-35.5); Mean Corpuscular Hemoglobin 28.9 pg (28.0-33.3); Mean Corpuscular Volume 89.8 fL (83.0-100.0); Mean Platelet Volume 10.1 fL (9.4-12.4); Monocytes # 0.8 K/mcL (0.0-1.3); Neutrophils # 4.6 K/mcL (1.6-8.9); Platelet Count 254 K/mcL (140-400); Red Blood Count 3.53 M/mcL (4.19-5.50); Segmented Neutrophils % 70.5 %
[2018-11-29 06:23] LABS: BUN/Creatinine Ratio 13 (6-26); Blood Urea Nitrogen 17 mg/dL (8-23); Calcium 8.4 mg/dL (8.6-10.3); Carbon Dioxide 29 mEq/L (23-29); Chloride 102 mEq/L (98-107); Glucose 120 mg/dL (70-105); Osmolality,Calculated 289 (280-300); Potassium 4.1 mEq/L (3.5-5.1); Sodium 138 mEq/L (136-145); eGFR For Non-African Americans 52 (> 60)
[2018-11-29] MEDS: Ipratropium/Albuterol Neb 3 ML IH SCH ×4 (07:09→18:24)
--- NOTE | 2018-11-29 07:27 | Internal Med Progress Note ---
Date of Encounter: 11/29/18 Time of Encounter: 07:22 - Assessment and plan (1) Physical deconditioning Current Visit: Yes Status: Acute Assessment and plan: He will resume his physical therapy today. We will see how he does. Function capacity-freeman he may be close to going home if his respiratory status would remain stable. (2) Pneumonia Current Visit: Yes Status: Acute Assessment and plan: Day #8 of his second course of IV antibiotics. Still has cough and pulmonary congestion. Chest x-ray basically unchanged. Does not show the pleural effusion as well as the CT scan did. Qualifiers: Pneumonia type: due to unspecified organism Laterality: bilateral Lung location: unspecified part of lung Qualified Code(s): J18.9 - Pneumonia, unspecified organism (3) Bilateral pleural effusion Current Visit: Yes Status: Acute Assessment and plan: Chest x-ray does not show the pleural effusion as clearly as the CT scan did. H owever his functional capacity for his ADLs has improved. (4) Chronic kidney disease (CKD), stage III (moderate) Current Visit: Yes Status: Chronic Assessment and plan: Creatinine popped back up to 1.32 after he received a few IV Lasix doses in a row. We will just follow at this point. Continue oral Lasix but no IV Lasix. (5) Hypertension Current Visit: Yes Status: Chronic Assessment and plan: Blood pressure is under good control. Qualifiers: Hypertension type: essential hypertension Qualified Code(s): I10 - Essential (primary) hypertension (6) Diabetes mellitus Current Visit: Yes Status: Chronic Qualifiers: Diabetes mellitus type: type 2 Diabetes mellitus chcf insulin use: without local intermodal truck driver use Diabetes mellitus complication status: with hyperglycemia Qualified Code(s): E11.65 - Type 2 diabetes mellitus with hyperglycemia (7) Iron deficiency anemia Current Visit: Yes Status: Chronic Qualifiers: Iron deficiency anemia type: unspecified iron deficiency Qualified Code(s): D50.9 - Iron deficiency anemia, unspecified (8) Personal history of cerebrovascular accident with current residual effects Current Visit: Yes Status: Chronic (9) Depression Current Visit: Yes Status: Acute Qualifiers: Depression Type: dysthymia Qualified Code(s): 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 The past couple of days he struggled a bit more. His cough has gotten worse at times. Last night he needed cough syrup. He thinks the respiratory treatments are helpful. No fevers or chills. Some clear phlegm sputum noted. He denies a cardiac type chest pain or palpitations. Strength freeman feels like he is doing much better. He was able to ambulate down the hallway and back and have a shower yesterday since he did not have physical therapy. - Constitutional Vitals: Temp Pulse Resp BP Pulse Ox 98.2 F 80 19 132/75 95 11/28/18 19:32 11/28/18 19:32 11/29/18 07:12 11/28/18 19:32 11/29/18 07:12 General appearance: Present: A&O X 3, no acute distress, answers questions appropriately Exam: Intermittent harsh cough. No respiratory distress. - Respiratory Additional comments: Diminished breath sounds throughout. Rare crackles. Increased expiratory phase and scattered wheezes. - Cardiovascular Cardiovascular exam: Present: irregular rhythm, +S1, +S2 Additional comments: Heart rate is almost regular, controlled rate. - Extremities Exam Extremities exam: Absent: calf tenderness, pedal edema, tenderness Internal Medicine: Result - Labs CBC & Chem 7: 11/29/18 05:40 11/29/18 05:40 Labs: Short CBC 11/29/18 Range/Units 05:40 WBC 6.5 (4.3-11.1) K/mcL Hgb 10.2 L (12.9-16.9) g/dL Hct 31.7 L (37.5-50.1) % Plt Count 254 (140-400) K/mcL Neutrophils # 4.6 (1.6-8.9) K/mcL BMP 11/29/18 05:40 Sodium 138 Potassium 4.1 Chloride 102 Carbon Dioxide 29 BUN 17 Creatinine 1.32 H Glucose 120 H Calcium 8.4 L Hemoglobin is stable at 10.2. His creatinine bumped up a bit to 1.32 after his IV Lasix doses. Electrolytes are unremarkable. - Impressions Impressions Chest X-Ray 11/28/18 12:38 IMPRESSION: No significant change in chronic interstitial changes as well as small bilateral pleural effusions. Small nodular region in the right lung base is also unchanged. Findings may represent more prominent region of fibrosis or infection. D/ / Susu Almaguer MD / Susu Almaguer MD Interpreting Provider: Susu Almaguer MD Consult Discharge Plan - Plan Referrals: Mario Early MD [Primary Care Provider] -
[2018-11-29] MEDS: Insulin LISPRO 300 UNITS/3 ML VIAL SQ SCH ×4 (07:53→20:33)
[2018-11-29] MEDS: Lisinopril 20 MG TABLET PO SCH (09:08)
[2018-11-29] MEDS: *HR* GlipiZIDE 5 MG TABLET PO SCH ×2 (09:08→16:25)
[2018-11-29] MEDS: Multivit/Ca/Min/Fe/FA 1 TAB TABLET PO SCH (09:09)
[2018-11-29] MEDS: amLODIPine 5 MG TABLET PO SCH (09:10)
[2018-11-29] MEDS: Furosemide 20 MG TABLET PO SCH (09:10)
[2018-11-29] MEDS: Ipratropium/Albuterol Neb 3 ML IH PRN ×2 (09:34→23:53)
[2018-11-29] MEDS: Benzonatate 100 MG CAPSULE PO PRN ×3 (12:02→23:53)
[2018-11-29] MEDS: traZODone 50 MG TABLET PO SCH (20:34)
[2018-11-30] MEDS: *HR* Enoxaparin 40 MG/0.4 ML SYRINGE SQ SCH (06:46)
--- NOTE | 2018-11-30 07:18 | Internal Med Progress Note ---
Date of Encounter: 12/01/18 Time of Encounter: 07:14 - Assessment and plan (1) Physical deconditioning Current Visit: Yes Status: Acute Assessment and plan: Is still benefiting from PT and OT. He is getting stronger. Still needs standby assistance when he is getting out of bed and getting dressed. Ambulating with a walker. Still is oxygen dependent, saturations drop at times and needs higher flow or rest breaks. Therapies are recommending planning for 24-hour care after discharge. I confirmed that his family is planning to move in with him for a while (2) Pneumonia Current Visit: Yes Status: Acute Assessment and plan: Today he will finish 8 days of second course of Zosyn. He has shown improvement. We will get a follow-up CT scan to check his pleural effusion status. Qualifiers: Pneumonia type: due to unspecified organism Laterality: bilateral Lung location: unspecified part of lung Qualified Code(s): J18.9 - Pneumonia, unspecified organism (3) Bilateral pleural effusion Current Visit: Yes Status: Acute Assessment and plan: Chest x-ray really does not reveal his pleural effusions. We will get a follow- up CT scan to reassess. (4) Chronic kidney disease (CKD), stage III (moderate) Current Visit: Yes Status: Chronic Assessment and plan: His creatinine bumped up to 1.3 with increased Lasix use. We will resort to just oral Lasix and follow (5) Hypertension Current Visit: Yes Status: Chronic Assessment and plan: Blood pressure has been under fair control. However, with his coughing spells I would like to see how he does without the lisinopril in case the KEKE inhibitor is causing the cough. Qualifiers: Hypertension type: essential hypertension Qualified Code(s): I10 - Essential (primary) hypertension (6) Diabetes mellitus Current Visit: Yes Status: Chronic Assessment and plan: Sugars have generally been under good control. Qualifiers: Diabetes mellitus type: type 2 Diabetes mellitus alf insulin use: without alf use Diabetes mellitus complication status: with hyperglycemia Qualified Code(s): E11.65 - Type 2 diabetes mellitus with hyperglycemia (7) Iron deficiency anemia Current Visit: Yes Status: Chronic Qualifiers: Iron deficiency anemia type: unspecified iron deficiency Qualified Code(s): D50.9 - Iron deficiency anemia, unspecified (8) Personal history of cerebrovascular accident with current residual effects Current Visit: Yes Status: Chronic (9) Depression Current Visit: Yes Status: Acute Qualifiers: Depression Type: dysthymia Qualified Code(s): F34.1 - Dysthymic disorder - Subjective Interval history: Patient states that he feels better today. He denies any cardiac or respiratory symptoms. The breathing treatments have been helpful and he would like to have them available at home. Denies any palpitations. He has been eating well. It is reported that he still needs standby when he is getting up to get dressed. - Constitutional Vitals: Temp Pulse Resp BP Pulse Ox 98.2 F 97 16 150/76 94 11/29/18 19:15 11/29/18 19:15 11/29/18 19:15 11/29/18 19:15 11/29/18 19:15 General appearance: Present: A&O X 3, no acute distress, answers questions appropriately - Respiratory Additional comments: Diminished breath sounds throughout, when he coughs he has tight wheezing particularly in the bases. Crackles heard in the left upper anterior chest. No respiratory distress at rest, he does have frequent coughing jags. - Cardiovascular Cardiovascular exam: Present: irregular rhythm, +S1, +S2 - Extremities Exam Additional comments: Trace ankle puffiness but not pitting. No tenderness. Internal Medicine: Result - Labs CBC & Chem 7: 11/29/18 05:40 11/29/18 05:40 Consult Discharge Plan - Plan Referrals: Mario Early MD [Primary Care Provider] -
[2018-11-30] MEDS: Insulin LISPRO 300 UNITS/3 ML VIAL SQ SCH ×4 (08:23→21:08)
[2018-11-30] MEDS: *HR* GlipiZIDE 5 MG TABLET PO SCH ×2 (09:01→17:45)
[2018-11-30] MEDS: Multivit/Ca/Min/Fe/FA 1 TAB TABLET PO SCH (09:01)
[2018-11-30] MEDS: Furosemide 20 MG TABLET PO SCH (09:01)
[2018-11-30] MEDS: amLODIPine 5 MG TABLET PO SCH (09:01)
[2018-11-30] MEDS: Piperacillin/Tazobactam 3.375 GM in 0.9 % Sodium Chloride Mini Bag 100 ML IVPB SCH ×2 (09:01→17:09)
[2018-11-30] MEDS: Ipratropium/Albuterol Neb 3 ML IH SCH ×4 (09:30→19:23)
[2018-11-30] MEDS ORDERED: Ondansetron ODT 4 MG TAB.RAPDIS SL PRN (18:53)
[2018-11-30] MEDS: traZODone 50 MG TABLET PO SCH (21:07)
[2018-12-01] MEDS: *HR* Enoxaparin 40 MG/0.4 ML SYRINGE SQ SCH (05:13)
[2018-12-01] MEDS: Ipratropium/Albuterol Neb 3 ML IH SCH ×4 (07:30→18:23)
[2018-12-01] MEDS: Insulin LISPRO 300 UNITS/3 ML VIAL SQ SCH ×4 (08:49→20:46)
[2018-12-01] MEDS: *HR* GlipiZIDE 5 MG TABLET PO SCH ×2 (09:23→17:25)
[2018-12-01] MEDS: Multivit/Ca/Min/Fe/FA 1 TAB TABLET PO SCH (09:25)
[2018-12-01] MEDS: amLODIPine 5 MG TABLET PO SCH (09:25)
[2018-12-01] MEDS: Furosemide 20 MG TABLET PO SCH (09:25)
--- NOTE | 2018-12-01 09:40 | Internal Med Progress Note ---
Date of Encounter: 12/01/18 Time of Encounter: 09:38 - Assessment and plan (1) Physical deconditioning Current Visit: Yes Status: Acute Assessment and plan: He has been progressing with his therapies, but seemed to have a setback every day or 2. Yesterday he vomited and had weakness and could not do therapies in the afternoon. He feels good this morning and we will see how therapy goes today. Therapist will meet today to get feedback on his stamina and strength. I know they have recommendations for 24-hour care at home and family can be available as they plan to move in when he is discharged. Ideally I would like to see one or 2 good days of therapy and ADLs prior to going home. (2) Pneumonia Current Visit: Yes Status: Acute Assessment and plan: He has finished a second course of IV antibiotics, his IV went bad yesterday after his eighth day of treatment. His CT scan shows improvement of the bilateral pleural effusions. No obvious infiltrate or signs of obstruction or complications noted in addition to his chronic scarring and COPD. I think it is a matter of waiting to see how he does off the antibiotics, continue the nebulizer treatments, continue the oxygen. He is still having coughing spells, he thinks improved. It may be improving his condition or from stopping the JAN inhibitor. He still has bronchospasm when he coughs and he thinks respiratory treatments are still helpful. Qualifiers: Pneumonia type: due to unspecified organism Laterality: bilateral Lung location: unspecified part of lung Qualified Code(s): J18.9 - Pneumonia, unspecified organism (3) Bilateral pleural effusion Current Visit: Yes Status: Acute Assessment and plan: The bilateral pleural effusion, which really does not show up well on chest x- ray, showed improvement on CT scan yesterday. He does have a history of one episode of acute congestive heart failure during his previous hospitalization. He has had no obvious congestive heart failure issue since that time. Likely the pleural effusion is primarily the result of his pneumonia. It is showing improvement. He does continue with a cough though. No orthopnea issues. (4) Chronic kidney disease (CKD), stage III (moderate) Current Visit: Yes Status: Chronic Assessment and plan: History chronic kidney disease. His creatinine improved, then worsened to 1.3 after a series of IV Lasix doses. That was discontinued. We will recheck prior to discharge. (5) Hypertension Current Visit: Yes Status: Chronic Assessment and plan: His blood pressure elevated and JAN inhibitor was added. As his cough increased, not sure if from pneumonia or an JAN inhibitor, the JAN inhibitor was discontinued yesterday. He thinks he is better but it will take time. We will monitor the blood pressure and avoid Jan inhibitors. Qualifiers: Hypertension type: essential hypertension Qualified Code(s): I10 - Essential (primary) hypertension (6) Diabetes mellitus Current Visit: Yes Status: Chronic Assessment and plan: Diabetes has been under fairly good control. Avoiding metformin because of his renal function. Continues with glipizide. No hypoglycemia. Qualifiers: Diabetes mellitus type: type 2 Diabetes mellitus technician terminal and repeater insulin use: without half-way use Diabetes mellitus complication status: with hyperglycemia Qualified Code(s): E11.65 - Type 2 diabetes mellitus with hyperglycemia (7) Iron deficiency anemia Current Visit: Yes Status: Chronic Qualifiers: Iron deficiency anemia type: unspecified iron deficiency Qualified Code(s): D50.9 - Iron deficiency anemia, unspecified (8) Personal history of cerebrovascular accident with current residual effects Current Visit: Yes Status: Chronic (9) Depression Current Visit: Yes Status: Acute Assessment and plan: Dr. Ramirez while covering started him on antidepressants. He seems to be tolerating them. It seems to be helpful. 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 He has had no angina. His BNP has been mildly elevated in the 200s to 300s since his previous hospital admission when the atrial fibrillation was first discovered. Qualifiers: Atrial fibrillation type: persistent Qualified Code(s): I48.1 - Persistent atrial fibrillation - Subjective Interval history: Yesterday after I saw the patient on rounds, he had therapy and then he vomited once. He did not feel well the rest of the day. He also had a headache. He was not able to participate with therapy after that. Today he states he feels much better. He has had breakfast and no further nausea or vomiting. Denies any cardiac type chest pain. Denies any new dyspnea and he thinks his cough is better but obviously still present. The breathing treatments have been helpful. Nurses report that he still needs standby assistance to get dressed and be up in the room. He does walk with his walker and is still requiring oxygen. His saturations will drop on occasion and needs to rest or increase his flow. He thinks he is able to get dressed by himself with the use of his extended grabber and devices. - Constitutional Vitals: Temp Pulse Resp BP Pulse Ox 98.5 F 75 19 142/55 95 11/30/18 19:32 11/30/18 19:32 12/01/18 07:31 11/30/18 19:32 12/01/18 07:31 General appearance: Present: A&O X 3, no acute distress, answers questions appropriately - Respiratory Additional comments: Diminished breath sounds throughout. Intermittent crackles in the bases. When taking deep respirations he starts to cough and then has spastic-type wheezes heard throughout. Crackles are heard in left upper anterior chest. No respiratory distress at rest. No difficulties with breathing when he speaks. No air hunger. - Cardiovascular Cardiovascular exam: Present: irregular rhythm, +S1, +S2 - GI/Abdominal GI/Abdominal exam: Present: soft. Absent: tenderness - Extremities Exam Additional comments: He has puffiness in his ankles but not true pitting edema. No calf tenderness. Internal Medicine: Result - Labs CBC & Chem 7: 11/29/18 05:40 11/29/18 05:40 - Impressions Impressions Chest CT 11/30/18 07:23 IMPRESSION: 1. Small to moderate right and small left pleural effusions, decreased in size compared to prior study. Adjacent compressive atelectasis. 2. Mild interstitial pulmonary edema. 3. COPD and chronic interstitial lung changes. 4. Small hiatal hernia. D/ / 11/30/2018 09:26:20 Madhavi Sneed MD / [email or web address] Interpreting Provider: Madhavi Sneed MD - Diagnostic Studies CT scan - chest Additional comments: CT scan of the chest yesterday shows improvement in the pleural effusions. Has chronic scarring and COPD changes. No obvious infiltrate or obstruction noted. Consult Discharge Plan - Plan Referrals: Mario Early MD [Primary Care Provider] -
[2018-12-01] MEDS: Benzonatate 100 MG CAPSULE PO PRN ×2 (17:24→20:46)
[2018-12-01] MEDS: traZODone 50 MG TABLET PO SCH (20:46)
[2018-12-02] MEDS: *HR* Enoxaparin 40 MG/0.4 ML SYRINGE SQ SCH (06:09)
[2018-12-02] MEDS: Ipratropium/Albuterol Neb 3 ML IH SCH ×4 (07:16→18:33)
--- NOTE | 2018-12-02 08:27 | Internal Med Progress Note ---
Date of Encounter: 12/02/18 Time of Encounter: 08:26 - Assessment and plan (1) Physical deconditioning Current Visit: Yes Status: Acute Assessment and plan: He is here for PT OT and RT. He is very deconditioned from his community- acquired pneumonia. He had to hold his therapies yesterday due to nausea and vomiting but today he is doing better with those he was not short of breath with doing his therapies today (2) Community acquired pneumonia Current Visit: No Status: Acute Assessment and plan: He has completed his course of IV antibiotics. But they had to be restarted when he had a relapse. 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 (4) Iron deficiency anemia Current Visit: Yes Status: Chronic Assessment and plan: This is stable there was no new blood work today Qualifiers: Iron deficiency anemia type: unspecified iron deficiency Qualified Code(s): D50.9 - Iron deficiency anemia, unspecified (5) Hypertension Current Visit: Yes Status: Chronic Assessment and plan: stable on current medication Qualifiers: Hypertension type: essential hypertension Qualified Code(s): I10 - Essential (primary) hypertension (6) Diabetes mellitus Current Visit: Yes Status: Chronic Assessment and plan: He is getting Accu-Cheks and continue his home medication. Qualifiers: Diabetes mellitus type: type 2 Diabetes mellitus long-term insulin use: without retail merchandising manager use Diabetes mellitus complication status: with hyperglycemia Qualified Code(s): E11.65 - Type 2 diabetes mellitus with hyperglycemia (7) Chronic kidney disease (CKD), stage III (moderate) Current Visit: Yes Status: Chronic Assessment and plan: This is been stable. No changes have been made he did not have any new labs this morning (8) History of ischemic cerebrovascular accident (CVA) with residual deficit Current Visit: No Status: Acute Assessment and plan: These are chronic issues he will be getting PT OT and RT for the deconditioning due to his community-acquired pneumonia. (9) DVT prophylaxis Current Visit: Yes Status: Inactive Assessment and plan: Lovenox - Subjective Interval history: He has no complaints today he denies any pain he denies any chest pain he denies any palpitations he denies any shortness of breath. Did have some coughing last night that made him sleep in the chair. He does have some edema today after that. He denies current shortness of breath.. He does still feel tired. He is getting physical and occupational therapy. He denies any stomach issues nausea vomiting diarrhea or any urinary complaints. - Constitutional Vitals: Temp Pulse Resp BP Pulse Ox 98.0 F 73 19 147/65 95 12/01/18 20:00 12/01/18 20:00 12/02/18 07:17 12/01/18 20:00 12/02/18 07:17 General appearance: Present: A&O X 3, no acute distress, answers questions appropriately - Head Head exam: Present: atraumatic, normocephalic - Neck Neck exam general surgery: Present: supple, trachea midline - Respiratory Respiratory exam: Present: rhonchi (Basis). Absent: accessory muscle use, wheezes - Cardiovascular Cardiovascular exam: Present: RRR - GI/Abdominal GI/Abdominal exam: Present: normal bowel sounds, soft, no peritoneal signs. Absent: distended, guarding, tenderness - Extremities Exam Extremities exam: Present: pedal edema - Skin Skin exam: Present: dry, warm. Absent: rash Internal Medicine: Result - Labs CBC & Chem 7: 11/29/18 05:40 11/29/18 05:40 Consult Discharge Plan - Plan Referrals: Mario Early MD [Primary Care Provider] -
[2018-12-02] MEDS: Insulin LISPRO 300 UNITS/3 ML VIAL SQ SCH ×4 (09:41→20:31)
[2018-12-02] MEDS: *HR* GlipiZIDE 5 MG TABLET PO SCH ×2 (09:53→16:43)
[2018-12-02] MEDS: amLODIPine 5 MG TABLET PO SCH (10:04)
[2018-12-02] MEDS: Furosemide 20 MG TABLET PO SCH (10:05)
[2018-12-02] MEDS: Multivit/Ca/Min/Fe/FA 1 TAB TABLET PO SCH (10:05)
[2018-12-02] MEDS: Benzonatate 100 MG CAPSULE PO PRN ×2 (14:49→20:32)
[2018-12-02] MEDS: traZODone 50 MG TABLET PO SCH (20:32)
[2018-12-03] MEDS: *HR* Enoxaparin 40 MG/0.4 ML SYRINGE SQ SCH (05:00)
[2018-12-03] MEDS: Benzonatate 100 MG CAPSULE PO PRN ×3 (05:00→20:59)
[2018-12-03] MEDS: Insulin LISPRO 300 UNITS/3 ML VIAL SQ SCH ×4 (07:39→20:59)
[2018-12-03] MEDS: *HR* GlipiZIDE 5 MG TABLET PO SCH ×2 (08:30→17:00)
[2018-12-03] MEDS: amLODIPine 5 MG TABLET PO SCH (08:31)
[2018-12-03] MEDS: Furosemide 20 MG TABLET PO SCH (08:31)
[2018-12-03] MEDS: Multivit/Ca/Min/Fe/FA 1 TAB TABLET PO SCH (08:33)
--- NOTE | 2018-12-03 12:51 | Internal Med Progress Note ---
Date of Encounter: 12/03/18 Time of Encounter: 12:48 - Assessment and plan (1) Physical deconditioning Current Visit: Yes Status: Acute Assessment and plan: He is here for PT OT and RT. He is very deconditioned from his community- acquired pneumonia. he has been participating in the therapy. (2) Community acquired pneumonia Current Visit: No Status: Acute Assessment and plan: He has completed his course of IV antibiotics. But they had to be restarted when he had a relapse. 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 (4) Iron deficiency anemia Current Visit: Yes Status: Chronic Assessment and plan: This is stable there was no new blood work today, will check tomorrow Qualifiers: Iron deficiency anemia type: unspecified iron deficiency Qualified Code(s): D50.9 - Iron deficiency anemia, unspecified (5) Hypertension Current Visit: Yes Status: Chronic Assessment and plan: stable on current medication Qualifiers: Hypertension type: essential hypertension Qualified Code(s): I10 - Essential (primary) hypertension (6) Diabetes mellitus Current Visit: Yes Status: Chronic Assessment and plan: He is getting Accu-Cheks and continue his home medication. 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 No changes have been made he did not have any new labs this morning, will check tomorrow (8) History of ischemic cerebrovascular accident (CVA) with residual deficit Current Visit: No Status: Acute Assessment and plan: These are chronic issues he will be getting PT OT and RT for the deconditioning due to his community-acquired pneumonia. (9) DVT prophylaxis Current Visit: Yes Status: Inactive Assessment and plan: Lovenox (10) Bilateral pleural effusion Current Visit: Yes Status: Acute Assessment and plan: he sounds more fluid overloaded today. will increase his po lasix. check bnp with am labs. - Subjective Interval history: he is having more edema. he has more problems with breathing and coughing when lays in bed at night. He denies current shortness of breath.. he is sitting up eating. he denies chest pain. He does still feel tired. He is getting physical and occupational therapy. He denies any stomach issues nausea vomiting diarrhea or any urinary complaints. - Constitutional Vitals: Temp Pulse Resp BP Pulse Ox 97.9 F 16 74 142/69 96 12/03/18 08:30 12/03/18 08:30 12/03/18 08:30 12/03/18 08:30 12/03/18 08:30 General appearance: Present: A&O X 3, no acute distress, answers questions appr opriately - Head Head exam: Present: atraumatic, normocephalic - Neck Neck exam general surgery: Present: supple, trachea midline - Respiratory Respiratory exam: Present: decreased breath sounds, rales (bibasilar). Absent: accessory muscle use, wheezes - Cardiovascular Cardiovascular exam: Present: RRR - GI/Abdominal GI/Abdominal exam: Present: normal bowel sounds, soft, no peritoneal signs. Absent: distended, guarding, mass, tenderness - Extremities Exam Extremities exam: Present: normal capillary refill, pedal edema (bilateral) - Skin Skin exam: Present: dry, warm Internal Medicine: Result - Labs CBC & Chem 7: 11/29/18 05:40 11/29/18 05:40 Consult Discharge Plan - Plan Referrals: Mario Early MD [Primary Care Provider] -
[2018-12-03] MEDS: Furosemide 40 MG TABLET PO SCH ×2 (14:18→17:00)
[2018-12-03] MEDS: Ipratropium/Albuterol Neb 3 ML IH PRN (14:41)
[2018-12-03] MEDS: Ipratropium/Albuterol Neb 3 ML IH SCH ×3 (16:17→21:00)
[2018-12-03] MEDS: traZODone 50 MG TABLET PO SCH (20:59)
[2018-12-04] MEDS: *HR* Enoxaparin 40 MG/0.4 ML SYRINGE SQ SCH (06:05)
[2018-12-04 06:22] LABS: Basophils % 0.3 %; Eosinophils # 0.1 K/mcL (0.0-0.6); Eosinophils % 2.4 %; Hematocrit 29.1 % (37.5-50.1); Hemoglobin 9.6 g/dL (12.9-16.9); Immature Granulocytes % 0.6 % (0-4); Lymphocytes # 0.9 K/mcL (0.6-4.6); Lymphocytes % 26.9 %; Mean Corpuscular Hemoglobin 28.9 pg (28.0-33.3); Mean Corpuscular Volume 87.7 fL (83.0-100.0); Mean Platelet Volume 9.7 fL (9.4-12.4); Monocytes # 0.3 K/mcL (0.0-1.3); Monocytes % 9.8 %; Platelet Count 185 K/mcL (140-400); Red Blood Count 3.32 M/mcL (4.19-5.50); Red Cell Distribution Width 14.9 % (11.5-14.5)
[2018-12-04 06:32] LABS: BUN/Creatinine Ratio 17 (6-26); Blood Urea Nitrogen 18 mg/dL (8-23); Calcium 8.3 mg/dL (8.6-10.3); Carbon Dioxide 29 mEq/L (23-29); Chloride 99 mEq/L (98-107); Glucose 110 mg/dL (70-105); Osmolality,Calculated 277 (280-300); Potassium 3.9 mEq/L (3.5-5.1); Sodium 132 mEq/L (136-145); eGFR For Non-African Americans > 60 (> 60)
[2018-12-04] MEDS: *HR* GlipiZIDE 5 MG TABLET PO SCH ×2 (08:19→16:51)
[2018-12-04] MEDS: amLODIPine 5 MG TABLET PO SCH (08:19)
[2018-12-04] MEDS: Benzonatate 100 MG CAPSULE PO PRN ×2 (08:20→20:21)
[2018-12-04] MEDS: Insulin LISPRO 300 UNITS/3 ML VIAL SQ SCH ×4 (08:20→20:22)
[2018-12-04] MEDS: Furosemide 40 MG TABLET PO SCH ×2 (08:20→16:52)
[2018-12-04] MEDS: Multivit/Ca/Min/Fe/FA 1 TAB TABLET PO SCH (08:20)
[2018-12-04] MEDS: Ipratropium/Albuterol Neb 3 ML IH SCH ×4 (10:00→20:21)
--- NOTE | 2018-12-04 11:36 | Internal Med Progress Note ---
Date of Encounter: 12/04/18 Time of Encounter: 11:34 - Assessment and plan (1) Physical deconditioning Current Visit: Yes Status: Acute Assessment and plan: He is here for PT OT and RT. He is very deconditioned from his community- acquired pneumonia. he has been participating in the therapy. (2) Community acquired pneumonia Current Visit: No Status: Acute Assessment and plan: He has completed his course of IV antibiotics. But they had to be restarted when he had a relapse. 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 Qualifiers: Diabetes mellitus type: type 2 Diabetes mellitus correction insulin use: without long term care phlebotomist use Diabetes mellitus complication status: with hyp erglycemia Qualified Code(s): E11.65 - Type 2 diabetes mellitus with hype rglycemia (7) Chronic kidney disease (CKD), stage III (moderate) Current Visit: Yes Status: Chronic Assessment and plan: This is been stable. On Repeat BMP today (8) History of ischemic cerebrovascular accident (CVA) with residual deficit Current Visit: No Status: Acute Assessment and plan: These are chronic issues he will be getting PT OT and RT for the deconditioning due to his community-acquired pneumonia. (9) DVT prophylaxis Current Visit: Yes Status: Inactive (10) Bilateral pleural effusion Current Visit: Yes Status: Acute Assessment and plan: Increased his Lasix yesterday to help him improve his breathing. He still has a cough. His BMP was mildly elevated. He is feeling much better today he has decreased pedal edema as well. We will continue with the higher dose of Lasix - Subjective Interval history: He slept well last night. He was able to sleep in the bed. He has decreased pedal edema. He is feeling much better today. He still has a cough but not much is coming out. He is less short of breath. He denies nausea vomiting bowel or bladder issues.. - Constitutional Vitals: Temp Pulse Resp BP Pulse Ox 97.6 F 77 14 149/70 93 12/04/18 07:34 12/04/18 07:34 12/04/18 07:34 12/04/18 07:34 12/04/18 07:34 General appearance: Present: A&O X 3, no acute distress, answers questions appropriately - Head Head exam: Present: atraumatic, normocephalic - Neck Neck exam general surgery: Present: supple, trachea midline - Respiratory Respiratory exam: Present: rales (Decreased at bases) - Cardiovascular Cardiovascular exam: Present: RRR - GI/Abdominal GI/Abdominal exam: Present: distended, normal bowel sounds, soft, no peritoneal signs. Absent: guarding, tenderness - Extremities Exam Extremities exam: Present: pedal edema (But improved) - Skin Skin exam: Present: dry, warm. Absent: rash Internal Medicine: Result - Labs CBC & Chem 7: 12/04/18 05:55 12/04/18 05:55 Labs: Short CBC 12/04/18 Range/Units 05:55 WBC 3.3 L (4.3-11.1) K/mcL Hgb 9.6 L (12.9-16.9) g/dL Hct 29.1 L (37.5-50.1) % Plt Count 185 (140-400) K/mcL Neutrophils # 2.0 (1.6-8.9) K/mcL BMP 12/04/18 05:55 Sodium 132 L Potassium 3.9 Chloride 99 Carbon Dioxide 29 BUN 18 Creatinine 1.09 Glucose 110 H Calcium 8.3 L Consult Discharge Plan - Plan Referrals: Mario Early MD [Primary Care Provider] -
[2018-12-04] MEDS: traZODone 50 MG TABLET PO SCH (20:22)
[2018-12-05] MEDS: *HR* Enoxaparin 40 MG/0.4 ML SYRINGE SQ SCH (04:57)
[2018-12-05] MEDS: Furosemide 40 MG TABLET PO SCH ×2 (08:08→16:57)
[2018-12-05] MEDS: Multivit/Ca/Min/Fe/FA 1 TAB TABLET PO SCH (08:08)
[2018-12-05] MEDS: *HR* GlipiZIDE 5 MG TABLET PO SCH ×2 (08:08→16:57)
[2018-12-05] MEDS: amLODIPine 5 MG TABLET PO SCH (08:08)
[2018-12-05] MEDS: Insulin LISPRO 300 UNITS/3 ML VIAL SQ SCH ×4 (08:11→20:01)
[2018-12-05] MEDS: Ipratropium/Albuterol Neb 3 ML IH SCH ×4 (08:56→19:59)
--- NOTE | 2018-12-05 10:23 | Internal Med Progress Note ---
Date of Encounter: 12/05/18 Time of Encounter: 10:21 - Assessment and plan (1) Physical deconditioning Current Visit: Yes Status: Acute Assessment and plan: He is here for PT OT and RT. He is very deconditioned from his community- acquired pneumonia. he has been participating in the therapy. (2) Community acquired pneumonia Current Visit: No Status: Acute Assessment and plan: He has completed his course of IV antibiotics. But they had to be restarted when he had a relapse. 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 Qualifiers: Diabetes mellitus type: type 2 Diabetes mellitus termite technician insulin use: without longterm use Diabetes mellitus complication status: with hyperglycemia Qualified Code(s): E11.65 - Type 2 diabetes mellitus with hyperglycemia (7) Chronic kidney disease (CKD), stage III (moderate) Current Visit: Yes Status: Chronic Assessment and plan: This is been stable. repeat bmp tomorrow (8) History of ischemic cerebrovascular accident (CVA) with residual deficit Current Visit: No Status: Acute Assessment and plan: These are chronic issues he will be getting PT OT and RT for the deconditioning due to his community-acquired pneumonia. (9) DVT prophylaxis Current Visit: Yes Status: Inactive Assessment and plan: Lovenox (10) Bilateral pleural effusion Current Visit: Yes Status: Acute Assessment and plan: Increased his Lasix 2 days to help him improve his breathing. He still has a cough. His BnP was mildly elevated. He is feeling much better today he has decreased pedal edema as well. We will continue with the higher dose of Lasix - Subjective Interval history: He slept well last night. He was able to sleep in the bed. He has decreased pedal edema. he is improving. He still has a cough but not much is coming out. He is less short of breath. He denies nausea vomiting bowel or bladder issues.. - Constitutional Vitals: Temp Pulse Resp BP Pulse Ox 98.2 F 61 14 137/74 100 12/05/18 07:46 12/05/18 07:46 12/05/18 07:46 12/05/18 07:46 12/05/18 07:46 General appearance: Present: A&O X 3, no acute distress, answers questions appropriately - Head Head exam: Present: atraumatic, normocephalic - Neck Neck exam general surgery: Present: supple, trachea midline - Respiratory Respiratory exam: Present: CTAB - Cardiovascular Cardiovascular exam: Present: RRR, +S1, +S2 - GI/Abdominal GI/Abdominal exam: Present: normal bowel sounds, soft, no peritoneal signs. Absent: distended, guarding, tenderness - Extremities Exam Extremities exam: Present: pedal edema (but decreased, presley hose on) - Skin Skin exam: Present: dry, warm. Absent: rash Internal Medicine: Result - Labs CBC & Chem 7: 12/04/18 05:55 12/04/18 05:55 Consult Discharge Plan - Plan Referrals: Mario Early MD [Primary Care Provider] -
[2018-12-05] MEDS: traZODone 50 MG TABLET PO SCH (20:01)
[2018-12-06] MEDS: *HR* Enoxaparin 40 MG/0.4 ML SYRINGE SQ SCH (05:33)
[2018-12-06 05:54] LABS: Basophils % 0.5 %; Eosinophils # 0.2 K/mcL (0.0-0.6); Eosinophils % 3.9 %; Hematocrit 29.6 % (37.5-50.1); Hemoglobin 9.8 g/dL (12.9-16.9); Immature Granulocytes % 0.5 % (0-4); Lymphocytes # 1.6 K/mcL (0.6-4.6); Lymphocytes % 39.9 %; Mean Corpuscular HGB Conc 33.1 g/dL (31.6-35.5); Mean Corpuscular Hemoglobin 29.1 pg (28.0-33.3); Mean Corpuscular Volume 87.8 fL (83.0-100.0); Mean Platelet Volume 10.2 fL (9.4-12.4); Monocytes # 0.5 K/mcL (0.0-1.3); Monocytes % 11.6 %; Neutrophils # 1.7 K/mcL (1.6-8.9); Platelet Count 227 K/mcL (140-400); Red Blood Count 3.37 M/mcL (4.19-5.50); Segmented Neutrophils % 43.6 %
[2018-12-06 06:04] LABS: BUN/Creatinine Ratio 13 (6-26); Blood Urea Nitrogen 15 mg/dL (8-23); Calcium 8.1 mg/dL (8.6-10.3); Carbon Dioxide 32 mEq/L (23-29); Chloride 100 mEq/L (98-107); Glucose 99 mg/dL (70-105); Osmolality,Calculated 283 (280-300); Potassium 3.7 mEq/L (3.5-5.1); Sodium 136 mEq/L (136-145); eGFR For Non-African Americans > 60 (> 60)
[2018-12-06 06:39] LABS: Platelet Estimate Normal (Normal); Reactive Lymphocytes Present (Not Present)
--- NOTE | 2018-12-06 07:12 | Internal Med Progress Note ---
Date of Encounter: 12/06/18 Time of Encounter: 07:07 - Assessment and plan (1) Physical deconditioning Current Visit: Yes Status: Acute Assessment and plan: He will resume PT and OT today. (2) Pneumonia Current Visit: Yes Status: Acute Assessment and plan: He has scattered crackles in all lung bradford. No respiratory distress. He thinks his cough is much improved. Good oxygenation. He has finished course of antibiotics. Qualifiers: Pneumonia type: due to unspecified organism Laterality: bilateral Lung location: unspecified part of lung Qualified Code(s): J18.9 - Pneumonia, unspecified organism (3) Bilateral pleural effusion Current Visit: Yes Status: Acute Assessment and plan: Oral Lasix was increased to twice a day. Still has scattered crackles throughout. His weight is down 5 pounds since yesterday. Creatinine is normal. (4) Chronic kidney disease (CKD), stage III (moderate) Current Visit: Yes Status: Chronic Assessment and plan: Creatinine is normal despite increasing his Lasix to twice a day. (5) Hypertension Current Visit: Yes Status: Chronic Assessment and plan: Blood pressure is under good control. Qualifiers: Hypertension type: essential hypertension Qualified Code(s): I10 - Essential (primary) hypertension (6) Diabetes mellitus Current Visit: Yes Status: Chronic Qualifiers: Diabetes mellitus type: type 2 Diabetes mellitus termite treater insulin use: without termite treater use Diabetes mellitus complication status: with hyperglycemia Qualified Code(s): E11.65 - Type 2 diabetes mellitus with hyperglycemia (7) Iron deficiency anemia Current Visit: Yes Status: Chronic Qualifiers: Iron deficiency anemia type: unspecified iron deficiency Qualified Code(s): D50.9 - Iron deficiency anemia, unspecified (8) Personal history of cerebrovascular accident with current residual effects Current Visit: Yes Status: Chronic (9) Depression Current Visit: Yes Status: Acute Qualifiers: Depression Type: dysthymia Qualified Code(s): 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 BNP remained stable in the 200s to 300s. Qualifiers: Atrial fibrillation type: persistent Qualified Code(s): I48.1 - Persistent atrial fibrillation - Subjective Interval history: Patient thinks that he is doing well. He slept well last night. Eating well. He denies any cardiac chest pain or palpitations. He thinks his breathing is doing better. His cough is markedly improved. Denies any abdominal pain or swelling in lower extremities. He is wearing his stockings. - Constitutional Vitals: Temp Pulse Resp BP Pulse Ox 97.8 F 67 17 137/67 97 12/05/18 19:00 12/05/18 19:00 12/05/18 19:00 12/05/18 19:00 12/05/18 19:00 General appearance: Present: A&O X 3, no acute distress, answers questions appropriately - Respiratory Additional comments: Scattered crackles in all lung bradford. Mild bronchospastic wheeze when coughing. No orthopnea. No respiratory distress. Good oxygen saturation with his oxygen per nasal cannula - Cardiovascular Cardiovascular exam: Present: irregular rhythm, +S1, +S2 - GI/Abdominal GI/Abdominal exam: Present: soft. Absent: tenderness - Extremities Exam Extremities exam: Absent: calf tenderness, pedal edema, tenderness Additional comments: Elastic stockings in place Internal Medicine: Result - Labs CBC & Chem 7: 12/06/18 05:20 12/06/18 05:20 Labs: Short CBC 12/06/18 Range/Units 05:20 WBC 3.9 L (4.3-11.1) K/mcL Hgb 9.8 L (12.9-16.9) g/dL Hct 29.6 L (37.5-50.1) % Plt Count 227 (140-400) K/mcL Neutrophils # 1.7 (1.6-8.9) K/mcL BMP 12/06/18 05:20 Sodium 136 Potassium 3.7 Chloride 100 Carbon Dioxide 32 H BUN 15 Creatinine 1.14 Glucose 99 Calcium 8.1 L Hemoglobin is stable. Renal function is now normal. Electrolytes normal. Consult Discharge Plan - Plan Referrals: Mario Early MD [Primary Care Provider] -
[2018-12-06] MEDS: Ipratropium/Albuterol Neb 3 ML IH SCH ×4 (07:16→19:23)
[2018-12-06] MEDS: amLODIPine 5 MG TABLET PO SCH (08:15)
[2018-12-06] MEDS: Insulin LISPRO 300 UNITS/3 ML VIAL SQ SCH ×4 (08:16→21:02)
[2018-12-06] MEDS: Multivit/Ca/Min/Fe/FA 1 TAB TABLET PO SCH (08:16)
[2018-12-06] MEDS: *HR* GlipiZIDE 5 MG TABLET PO SCH ×2 (08:16→17:49)
[2018-12-06] MEDS: Furosemide 40 MG TABLET PO SCH ×2 (08:16→17:50)
[2018-12-06] MEDS: traZODone 50 MG TABLET PO SCH (21:02)
[2018-12-07] MEDS: *HR* Enoxaparin 40 MG/0.4 ML SYRINGE SQ SCH (05:20)
[2018-12-07] MEDS: Ipratropium/Albuterol Neb 3 ML IH SCH ×4 (07:19→18:48)
[2018-12-07] MEDS: Insulin LISPRO 300 UNITS/3 ML VIAL SQ SCH ×4 (07:43→21:32)
[2018-12-07] MEDS: Multivit/Ca/Min/Fe/FA 1 TAB TABLET PO SCH (07:44)
[2018-12-07] MEDS: Benzonatate 100 MG CAPSULE PO PRN (07:44)
[2018-12-07] MEDS: amLODIPine 5 MG TABLET PO SCH (07:44)
[2018-12-07] MEDS: Furosemide 40 MG TABLET PO SCH ×2 (07:44→18:26)
[2018-12-07] MEDS: *HR* GlipiZIDE 5 MG TABLET PO SCH ×2 (07:44→18:26)
--- NOTE | 2018-12-07 12:19 | Internal Med Progress Note ---
Date of Encounter: 12/07/18 Time of Encounter: 12:17 - Assessment and plan (1) General weakness Current Visit: Yes Status: Acute Assessment and plan: Continue PT and OT. Will follow progress. Ambulating with Walker (2) Bilateral pleural effusion Current Visit: Yes Status: Acute Assessment and plan: Continues to have fine crackles bilateral lower lobes. Denies shortness of breath. (3) Atrial fibrillation Current Visit: Yes Status: Chronic Assessment and plan: Rate and rhythm stable. Continue current medication. Qualifiers: Atrial fibrillation type: persistent Qualified Code(s): I48.1 - Persistent atrial fibrillation (4) Hypertension Current Visit: Yes Status: Chronic Assessment and plan: Controlled with current medication. Monitor blood pressure. Qualifiers: Hypertension type: essential hypertension Qualified Code(s): I10 - Essential (primary) hypertension (5) Diabetes mellitus Current Visit: Yes Status: Chronic Assessment and plan: Controlled with current medication. Monitor fingerstick blood sugar. Qualifiers: Diabetes mellitus type: type 2 Diabetes mellitus care home insulin use: without care home use Diabetes mellitus complication status: with hyperglycemia Qualified Code(s): E11.65 - Type 2 diabetes mellitus with hyperglycemia (6) Chronic kidney disease (CKD), stage III (moderate) Current Visit: Yes Status: Chronic Assessment and plan: Labs stable. Avoid nephrotoxic agents. - Time Spent With Patient less than 15 minutes - Subjective Interval history: Participating well with therapy. Ambulated to dining room with walker. Maintaining appetite and hydration. Patient states he feels ready to go home in the next couple days. Denies fever, chills, nausea vomiting or diarrhea. Denies shortness of breath or chest pain. - Constitutional Vitals: Temp Pulse Resp BP Pulse Ox 97.6 F 65 18 123/84 95 12/07/18 09:06 12/07/18 09:06 12/07/18 11:13 12/07/18 09:06 12/07/18 11:13 General appearance: Present: A&O X 3, pleasant, no acute distress, answers questions appropriately - Head Head exam: Present: atraumatic, normocephalic - Eye Eye exam: Present: PERRL, conjuntiva pink, sclera anicteric Pupils: Present: PERRL - Neck Neck exam general surgery: Present: supple, trachea midline. Absent: lymphadenopathy - Respiratory Respiratory exam: Absent: accessory muscle use, rales, rhonchi, wheezes Additional comments: Find crackles to bilateral bases. Clear throughout the rest of lung bradford. - Cardiovascular Cardiovascular exam: Present: irregular rhythm, +S1, +S2. Absent: diastolic murmur, gallop, rubs, systolic murmur - GI/Abdominal GI/Abdominal exam: Present: normal bowel sounds, soft, no peritoneal signs. Absent: distended, tenderness - Extremities Exam Extremities exam: Present: pedal edema, warm, radial pulses palpable and symmetrical. Absent: calf tenderness, cyanotic Additional comments: Bilateral lower extremity pedal edema. Non-pitting. Ayden hose on. - Neurological Exam Neurological exam: Present: CN II-XII intact, oriented X3, no focal deficits. Absent: pronater drift, facial droop, speech deficit - Skin Skin exam: Present: dry, intact Internal Medicine: Result - Labs CBC & Chem 7: 12/06/18 05:20 12/06/18 05:20 - VTE Documentation of Mechanical Device: Graduated compression elastic hosiery Consult Discharge Plan - Plan Referrals: Alejandro Mcmillan MD [Partnered Physician] - 12/29/18 9:30 am Mario Early MD [Primary Care Provider] -
[2018-12-07] MEDS: traZODone 50 MG TABLET PO SCH (21:33)
[2018-12-08] MEDS: *HR* Enoxaparin 40 MG/0.4 ML SYRINGE SQ SCH (06:16)
[2018-12-08] MEDS: Furosemide 40 MG TABLET PO SCH ×2 (06:16→16:51)
[2018-12-08] MEDS: Insulin LISPRO 300 UNITS/3 ML VIAL SQ SCH ×4 (08:19→20:47)
[2018-12-08] MEDS: Multivit/Ca/Min/Fe/FA 1 TAB TABLET PO SCH (09:09)
[2018-12-08] MEDS: *HR* GlipiZIDE 5 MG TABLET PO SCH ×2 (09:09→16:51)
[2018-12-08] MEDS: amLODIPine 5 MG TABLET PO SCH (09:09)
[2018-12-08] MEDS: Ipratropium/Albuterol Neb 3 ML IH SCH ×4 (09:16→19:24)
--- NOTE | 2018-12-08 10:32 | Internal Med Progress Note ---
Date of Encounter: 12/08/18 Time of Encounter: 10:30 - Assessment and plan (1) Physical deconditioning Current Visit: Yes Status: Acute Assessment and plan: He is showing improvement and being independent now. We will plan on discharge for tomorrow if he is stable over the next 24 hours. Planning for family to be living with him at home. (2) Pneumonia Current Visit: Yes Status: Acute Assessment and plan: Today his lungs are clear. No dyspnea. Saturations good with exercise. Continue with oxygen therapy. Plan home tomorrow. Qualifiers: Pneumonia type: due to unspecified organism Laterality: bilateral Lung location: unspecified part of lung Qualified Code(s): J18.9 - Pneumonia, unspecified organism (3) Bilateral pleural effusion Current Visit: Yes Status: Acute Assessment and plan: No dyspnea. Lungs are clear. Continue with Lasix twice a day. Follow-up lab work tomorrow. (4) Chronic kidney disease (CKD), stage III (moderate) Current Visit: Yes Status: Chronic Assessment and plan: Follow-up lab work ordered for tomorrow. Last renal function was normal. (5) Hypertension Current Visit: Yes Status: Chronic Assessment and plan: Blood pressure under good control. Qualifiers: Hypertension type: essential hypertension Qualified Code(s): I10 - Essential (primary) hypertension (6) Diabetes mellitus Current Visit: Yes Status: Chronic Assessment and plan: We will check his glycohemoglobin. If renal function is normal we may try to resume his metformin. Qualifiers: Diabetes mellitus type: type 2 Diabetes mellitus fdc insulin use: without fdc use Diabetes mellitus complication status: with hyperglycemia Qualified Code(s): E11.65 - Type 2 diabetes mellitus with hyperglycemia (7) Iron deficiency anemia Current Visit: Yes Status: Chronic Qualifiers: Iron deficiency anemia type: unspecified iron deficiency Qualified Code(s): D50.9 - Iron deficiency anemia, unspecified (8) Personal history of cerebrovascular accident with current residual effects Current Visit: Yes Status: Chronic (9) Depression Current Visit: Yes Status: Acute Qualifiers: Depression Type: dysthymia Qualified Code(s): 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 No chest pain or dyspnea. He had a shower today and was able to do so independently. Dressing himself except for his socks. Currently he is participating in therapy and did 4-1/2 minutes on the bicycle and saturation was 95% and pulse in the 80s. He did not appear to be dyspneic. He will continue with that and typically does 10 minutes. Nurses report that he is doing well and only occasional cough. - Constitutional Vitals: Temp Pulse Resp BP Pulse Ox 97.6 F 62 15 145/72 97 12/08/18 07:29 12/08/18 07:29 12/08/18 07:29 12/08/18 07:29 12/08/18 07:29 General appearance: Present: A&O X 3, pleasant, no acute distress, answers questions appropriately - Respiratory Respiratory exam: Present: decreased breath sounds, CTAB - Cardiovascular Cardiovascular exam: Present: irregular rhythm, +S1, +S2. Absent: systolic murmur - Extremities Exam Extremities exam: Absent: calf tenderness, pedal edema, tenderness Internal Medicine: Result - Labs CBC & Chem 7: 12/06/18 05:20 12/06/18 05:20 - VTE Documentation of Mechanical Device: Graduated compression elastic hosiery Consult Discharge Plan - Plan Referrals: Alejandro Mcmillan MD [Partnered Physician] - 12/29/18 9:30 am Mario Early MD [Primary Care Provider] -
[2018-12-08 20:17] LABS: Estimated Average Glucose 160 mg/dl; Hemoglobin A1C 7.2 %
[2018-12-08] MEDS: traZODone 50 MG TABLET PO SCH (20:45)
[2018-12-09] MEDS: *HR* Enoxaparin 40 MG/0.4 ML SYRINGE SQ SCH (04:55)
[2018-12-09 05:02] LABS: Basophils % 0.3 %; Eosinophils # 0.3 K/mcL (0.0-0.6); Eosinophils % 4.5 %; Hematocrit 29.1 % (37.5-50.1); Hemoglobin 9.5 g/dL (12.9-16.9); Immature Granulocytes % 0.2 % (0-4); Lymphocytes # 1.4 K/mcL (0.6-4.6); Lymphocytes % 21.9 %; Mean Corpuscular HGB Conc 32.6 g/dL (31.6-35.5); Mean Corpuscular Hemoglobin 28.9 pg (28.0-33.3); Mean Corpuscular Volume 88.4 fL (83.0-100.0); Mean Platelet Volume 9.7 fL (9.4-12.4); Monocytes # 0.7 K/mcL (0.0-1.3); Monocytes % 10.1 %; Platelet Count 267 K/mcL (140-400); Red Blood Count 3.29 M/mcL (4.19-5.50); Red Cell Distribution Width 14.8 % (11.5-14.5)
[2018-12-09 05:17] LABS: BUN/Creatinine Ratio 12 (6-26); Blood Urea Nitrogen 15 mg/dL (8-23); Calcium 8.2 mg/dL (8.6-10.3); Carbon Dioxide 33 mEq/L (23-29); Chloride 101 mEq/L (98-107); Glucose 113 mg/dL (70-105); Osmolality,Calculated 290 (280-300); Potassium 3.9 mEq/L (3.5-5.1); Sodium 139 mEq/L (136-145); eGFR For Non-African Americans 55 (> 60)
[2018-12-09] MEDS: Ipratropium/Albuterol Neb 3 ML IH SCH (07:20)
[2018-12-09 08:03] VITALS: BP 138/72
--- NOTE | 2018-12-09 08:44 | Discharge Summary ---
- NOTES TO OUTPATIENT PROVIDER Notes to Outpatient Provider: #1 Home health, home maker, home PT and OT being arranged. #2 Dr. Early will make a house call Date of Encounter: 12/09/18 Time of Encounter: 08:42 - Discharge Diagnosis (1) Physical deconditioning Priority: Primary Status: Acute Comments: Patient was initially admitted to [facility] with pneumonia. Once that was stabilized he was transferred to a swing bed for deconditioning and ongoing IV antibiotics for the pneumonia. He had a ather prolonged course and over 3 weeks' time has now increased his ADLs to the point where he is able to walk from the physical therapy department to his room with his walker and oxygen without stopping, his endurance has improved and his saturations only temporarily drop to 89% range. Baseline oxygen levels are ranging in the low to mid 90s at 2 L per nasal cannula. He is not having any angina or congestive heart failure signs. His pleural effusions have improved. It is felt that he is stable enough to go home with the help of home health, OT and PT and an aide in addition to 24-hour supervision with his family moving in to his home. (2) Pneumonia Priority: Secondary Status: Acute Comments: Patient was initially admitted with recurrence of pneumonia. This time he was placed on the addition of Zosyn. He had a full course of treatment and showed improvement, then as he was ready to be discharged from a swing bed but had recurrence of his symptoms with respiratory distress hypoxia dyspnea and pulmonary findings of exacerbation. CT scan showed bilateral pleural effusions likely from a combination of congestive heart failure and pneumonia. His Zosyn was restarted and he had at least 8 or 9 doses. He is now been off antibiotics for a week, his pulmonary status is stable. Oxygen saturations are good with supplement at 2 L, sometimes up to 3 L during exercise. He has a few crackles at the bases intermittently. Still receives nebulizer treatments which she thinks is helpful. His endurance has improved dramatically and we feel it is time to discharge to home with home health services available. Qualifiers: Pneumonia type: due to unspecified organism Laterality: bilateral Lung location: unspecified part of lung Qualified Code(s): J18.9 - Pneumonia, unspecified organism (3) Bilateral pleural effusion Priority: Secondary Status: Acute Comments: Though his x-rays really do not show it, CT scan revealed bilateral pleural effusions which are repeat has improved. Clinically and symptomatically markedly improved. His Lasix was increased to 20 mg daily to 40 mg twice a day. It was felt that the pleural effusions are likely from his pneumonia but also has a history of previous congestive heart failure. He has a few dry crackles at the bases currently. No orthopnea. Increased ADLs and ambulating well. He will be discharged to home today. (4) Chronic kidney disease (CKD), stage III (moderate) Priority: Secondary Status: Chronic Comments: Patient had acute kidney injury when he is initially admitted to the hospital. By time of discharge his renal functions actually in the normal range. Creatinine is 1.25 and GFR greater than 60. (5) Hypertension Priority: Secondary Status: Chronic Comments: Blood pressure is under good control. We stopped his KEKE inhibitor as I thought might be contributing to his cough. His blood pressure is stabilized on amlodipine 5 mg daily in addition to his Lasix twice a day. We will hold off on lisinopril at this time. Qualifiers: Hypertension type: essential hypertension Qualified Code(s): I10 - Essential (primary) hypertension (6) Diabetes mellitus Priority: Secondary Status: Chronic Comments: His diabetes has been under fairly good control. Initially because of acute kidney injury his metformin was held. He was placed on glipizide 2.5 mg twice a day. Occasionally he had to have supplemental insulin. His glycohemoglobin has dropped from 8.0 down to 7.2%. No hypoglycemic reactions. We will resume metformin 500 mg twice a day in addition to glipizide 2.5 twice a day and monitor for hypoglycemia. Qualifiers: Diabetes mellitus type: type 2 Diabetes mellitus alcohol rubber insulin use: without fci use Diabetes mellitus complication status: with hyp erglycemia Qualified Code(s): E11.65 - Type 2 diabetes mellitus with hyperglycemia (7) Iron deficiency anemia Priority: Secondary Status: Chronic Comments: He has a chronic history of iron deficiency anemia. He takes iron supplement as well as taking omeprazole to cover for possible occult GI etiology. He has not been strong enough candidate at this time nor warranting aggressive upper and lower endoscopy. No history of brisk bleed. We will continue to monitor. Qualifiers: Iron deficiency anemia type: unspecified iron deficiency Qualified Code(s): D50.9 - Iron deficiency anemia, unspecified (8) Personal history of cerebrovascular accident with current residual effects Priority: Secondary Status: Chronic Comments: Previous history of CVA with mild left hemiplegia. No recurrence of the symptoms. He has done well with therapy. He continues with his Plavix as initiated at [facility] for that. (9) Depression Priority: Secondary Status: Acute Comments: During this hospital stay Dr. Ramirez while covering one week and felt that he may benefit from antidepressant use. He is placed on sertraline and trazodone. I discussed that with him at time of discharge he feels that he would like to continue with it. Because of the risks of the trazodone I will continue the sertraline and prescription has been sent to the pharmacy. Qualifiers: Depression Type: dysthymia Qualified Code(s): F34.1 - Dysthymic disorder (10) Atrial fibrillation Priority: Secondary Status: Chronic Comments: Patient has known history of atrial fibrillation for the past 2 or 3 months, it was first discovered when he was admitted to the hospital in September with pneumonia. During his hospital stay he has had rate control of the atrial fibrillation, no angina. He does have bilateral pleural effusions likely from the pneumonia and not overt congestive heart failure. He continues with rate control with labetalol, Lasix at 40 mg twice a day. He has follow-up appointment with Dr. Mcmillan planned. Qualifiers: Atrial fibrillation type: persistent Qualified Code(s): I48.1 - Persistent atrial fibrillation Hospital course: Mr. Christensen is a 83 year old male with known history of atrial fibrillation was readmitted to an acute bed with recurrence of pneumonia and subsequently was in a swing bed for extended time of over 3 weeks for recuperation, recurrence of his pneumonia symptoms and difficulty with his ADLs. He is now ready for discharge. See the diagnoses above. Discharge discussed with: patient - Time Spent with Patient Total time spent providing and/or coordinating discharge services: - Discharge Medications Prescriptions: Ipratropium/Albuterol Neb [Duoneb] 3 ml IH [id number] PRN #120 inhsol PRN Reason: Wheezing Furosemide [Lasix] 40 mg PO BIDDIURETIC #60 tablet glipiZIDE [Glucotrol] 2.5 mg PO BIDWM #60 tablet Potassium Chloride 20 meq PO BID #60 tab.er.prt Sertraline [Zoloft] 50 mg PO DAILY #30 tablet Home Medications: Clopidogrel [Plavix] 75 mg PO DAILY 02/19/18 [History] Omeprazole 20 mg PO DAILY 02/19/18 [History] amLODIPine [Norvasc] 5 mg PO DAILY 02/19/18 [History] Atorvastatin Calcium [Lipitor] 80 mg PO HS #30 tab 10/14/18 [Rx] Ferrous Sulfate 325 mg PO DAILY@0800 #30 tablet 10/14/18 [Rx] Labetalol [Trandate] 100 mg PO BID #60 tablet 10/14/18 [Rx] metFORMIN [Glucophage] 500 mg PO BIDWM tablet 10/14/18 [Rx] Levothyroxine Sodium 100 mcg PO DAILY 11/12/18 [History] Acetaminophen [Tylenol] 500 mg PO Q4HR PRN tablet 12/09/18 [Rx] Benzonatate [Tessalon] 200 mg PO TID PRN capsule 12/09/18 [Rx] Furosemide [Lasix] 40 mg PO BIDDIURETIC #60 tablet 12/09/18 [Rx] GuaiFENesin/Dextromethorphan [Robitussin/Dm] 10 ml PO Q4HR PRN udc 12/09/18 [Rx] Ipratropium/Albuterol Neb [Duoneb] 3 ml IH [id number] PRN #120 inhsol 12/09/18 [Rx] Multivit/Ca/Min/Fe/FA [Thera M Plus] 1 tab PO DAILY tablet 12/09/18 [Rx] Potassium Chloride 20 meq PO BID #60 tab.er.prt 12/09/18 [Rx] Sertraline [Zoloft] 50 mg PO DAILY #30 tablet 12/09/18 [Rx] glipiZIDE [Glucotrol] 2.5 mg PO BIDWM #60 tablet 12/09/18 [Rx] Allergies/Adverse Reactions: Allergy/AdvReac Type Severity Reaction Status Date / Time Sulfa (Sulfonamide Allergy See Verified 09/30/18 05:30 Antibiotics) Comments Date of admission: 11/16/18 19:05 Primary care physician: Mario Early MD Consults: 11/16/18 18:12 Consult to Occupational Therapy [CONS] Routine Comment: Evaluate, develop and implement POC Reason for Consult: eval completed on previous inpatient account [id number] Does patient have active BEDREST order?: No Is patient medically & hemodynamically stable?: Yes Patient assessed for mobility or mobilized this visit?: No Consult to Physical Therapy [CONS] Routine Comment: Evaluate, develop and implement POC Reason for Consult: eval completed on previous inpatient account [id number] Does patient have active BEDREST order?: No Is patient medically & hemodynamically stable?: Yes Patient assessed for mobility or mobilized this visit?: No Consult to Waste Treatment Operator [CONS] Routine Reason for SW Consult: d/c planning 11/22/18 11:09 Consult to Cardiology [CONS] Routine Comment: Consulting Provider: Card[facility] [place] Reason for Consult: Dr.David Mcmillan re pleural effusion, afib (ok to go to the clinic) Call Completed: No Discharging clinician: Mario Early Anticipated date of discharge: 12/09/18 - Constitutional Vitals: Temp Pulse Resp BP Pulse Ox 98.1 F 62 18 138/72 92 12/09/18 07:00 12/09/18 07:00 12/09/18 07:21 12/09/18 07:00 12/09/18 07:21 General appearance: Present: A&O X 3, pleasant, no acute distress, answers questions appropriately - Respiratory Additional comments: Few dry crackles at the bases. No respiratory distress. No orthopnea. No wheezing. Occasional cough. - Cardiovascular Cardiovascular exam: Present: irregular rhythm, +S1, +S2, systolic murmur (1 to 2/6 systolic murmur) - GI/Abdominal GI/Abdominal exam: Present: soft. Absent: hepatomegaly, mass, tenderness - Extremities Exam Additional comments: Trace amount of edema on the left foot and ankle. Nontender. No calf tenderness. No redness. - Patient Status Disposition: Home Health Service Condition: Good Functional capacity at discharge: uses cane/walker Overall status at discharge: patient is progressing back to baseline - Discharge Instructions Follow Up With: Alejandro Mcmillan MD [Partnered Physician] - 12/29/18 9:30 am Mario Early MD [Primary Care Provider] - (Dr. Early will make a house call.) - Diet and Activity Activity: ambulate only with your walker, increase activity as tolerated, wear oxygen at all times Diet: diabetic diet, low salt diet - VTE Documentation of Mechanical Device: Graduated compression elastic hosiery
--- NOTE | 2018-12-09 09:00 | Physician Discharge Referral ---
Home Health/Hosp Referral Info Transfer to: Home Health Attending Provider: Dr. Early Provider in Charge Post Discharge: PCP - Diagnosis (1) Physical deconditioning Priority: Primary Status: Acute (2) Pneumonia Priority: Secondary Status: Acute (3) Bilateral pleural effusion Priority: Secondary Status: Acute (4) Chronic kidney disease (CKD), stage III (moderate) Priority: Secondary Status: Chronic (5) Hypertension Priority: Secondary Status: Chronic (6) Diabetes mellitus Priority: Secondary Status: Chronic (7) Iron deficiency anemia Priority: Secondary Status: Chronic (8) Personal history of cerebrovascular accident with current residual effects Priority: Secondary Status: Chronic (9) Depression Priority: Secondary Status: Acute (10) Atrial fibrillation Priority: Secondary Status: Chronic - Respiratory Orders Oxygen / L per min (2-3 L per nasal cannula) Smoking Cessation: Smoking cessation has been advised. For more information, call the [place] Tobacco Quit Line at 7-120-NXYT-NOW. - Diet/Nutrition Diet/Nutrition Orders: No Added Salt (DAVON), No Concentrated Sweets - Activity Activity Orders: Ambulate, Walker - Services Needed Following services are medically necessary services: Nursing, Home Health Aide, Physical Therapy, Occupational Therapy - Transfer Medications Prescriptions: Ipratropium/Albuterol Neb [Duoneb] 3 ml IH [id number] PRN #120 inhsol PRN Reason: Wheezing Furosemide [Lasix] 40 mg PO BIDDIURETIC #60 tablet glipiZIDE [Glucotrol] 2.5 mg PO BIDWM #60 tablet Potassium Chloride 20 meq PO BID #60 tab.er.prt Sertraline [Zoloft] 50 mg PO DAILY #30 tablet Home Medications: Clopidogrel [Plavix] 75 mg PO DAILY 02/19/18 [History] Omeprazole 20 mg PO DAILY 02/19/18 [History] amLODIPine [Norvasc] 5 mg PO DAILY 02/19/18 [History] Atorvastatin Calcium [Lipitor] 80 mg PO HS #30 tab 10/14/18 [Rx] Ferrous Sulfate 325 mg PO DAILY@0800 #30 tablet 10/14/18 [Rx] Labetalol [Trandate] 100 mg PO BID #60 tablet 10/14/18 [Rx] metFORMIN [Glucophage] 500 mg PO BIDWM tablet 10/14/18 [Rx] Levothyroxine Sodium 100 mcg PO DAILY 11/12/18 [History] Acetaminophen [Tylenol] 500 mg PO Q4HR PRN tablet 12/09/18 [Rx] Benzonatate [Tessalon] 200 mg PO TID PRN capsule 12/09/18 [Rx] Furosemide [Lasix] 40 mg PO BIDDIURETIC #60 tablet 12/09/18 [Rx] GuaiFENesin/Dextromethorphan [Robitussin/Dm] 10 ml PO Q4HR PRN udc 12/09/18 [Rx] Ipratropium/Albuterol Neb [Duoneb] 3 ml IH [id number] PRN #120 inhsol 12/09/18 [Rx] Multivit/Ca/Min/Fe/FA [Thera M Plus] 1 tab PO DAILY tablet 12/09/18 [Rx] Potassium Chloride 20 meq PO BID #60 tab.er.prt 12/09/18 [Rx] Sertraline [Zoloft] 50 mg PO DAILY #30 tablet 12/09/18 [Rx] glipiZIDE [Glucotrol] 2.5 mg PO BIDWM #60 tablet 12/09/18 [Rx] Allergies/Adverse Reactions: Allergy/AdvReac Type Severity Reaction Status Date / Time Sulfa (Sulfonamide Allergy See Verified 09/30/18 05:30 Antibiotics) Comments Certification: Further, I certify that my clinical findings support that this patient is homebound (i.e. absences from home require considerable and taxing effort and are for medical reasons or moravian services or infrequently or short duration when for other reasons) because: Homebound Reason: Patient requires assistance of a person or device to safely leave home, Leaving home requires considerable and taxing effort due to condition, Severity of cardiac or pulmonary status limits activity tolerance Attestation: My signature below is to certify that this patient is under my care and that I, or nurse practitioner, or a physician's assignment desk assistant working with me, has a [id number] encounter with this patient.
[2018-12-09] MEDS: amLODIPine 5 MG TABLET PO SCH (09:16)
[2018-12-09] MEDS: *HR* GlipiZIDE 5 MG TABLET PO SCH (09:16)
[2018-12-09] MEDS: Multivit/Ca/Min/Fe/FA 1 TAB TABLET PO SCH (09:16)
[2018-12-09] MEDS: Furosemide 40 MG TABLET PO SCH (09:16)
[2018-12-09] MEDS: Insulin LISPRO 300 UNITS/3 ML VIAL SQ SCH (09:17)
== END 2018-12-09 11:15 | disposition home health service (06) | DRG 945 ==
LOC: INPGRE 19:05
PROVIDERS: ADMIT Family Medicine; ATTEND Family Medicine

== ENCOUNTER 2019-01-12 10:27 | Inpatient (IN) ==
[2019-01-12] MEDS ORDERED: Ipratropium/Albuterol Neb 3 ML IH ONE (11:12)
[2019-01-12] MEDS ORDERED: Furosemide 40 MG/4 ML VIAL IVP ONE (11:12)
--- NOTE | 2019-01-12 11:12 | Emergency Department Note ---
Disposition Clinical Impression: Acute congestive heart failure Qualifiers: Heart failure type: unspecified Qualified Code(s): I50.9 - Heart failure, unspecified Disposition: Admitted As Inpatient Condition: Fair SOB HPI - General Chief Complaint: ED Shortness of Breath/Dyspnea Stated Complaint: trouble breathing Time Seen by Provider: 01/12/19 10:43 Source: patient, family Mode of arrival: wheelchair Limitations: no limitations Nursing Notes Reviewed: Yes Vital Signs Reviewed: Yes - History of Present Illness Patient presents to the ED complaining of dyspnea on exertion, lower extremity swelling and weight gain. Symptoms have been going on for a few days. He reports a cough that has been productive of thick yellow sputum along with some nasal congestion and rhinorrhea. He reports subjective fever and chills but has not taken his temperature at home. He has home health who comes out 3 days a week and when he was seen on Thursday it was noted that he was out of his Lasix. They found some old medication and the nurse gave him a dose that day and was supposed to contact the patient's PCP about getting more Lasix. Patient states home health came back today and informed patient he had gained 3-4 pounds since he was there on Thursday. Home health recommended he come in to the ER for evaluation given his symptoms. Patient has not had any additional Lasix since the one dose given to him by home health on Thursday. He is unsure of his Lasix dose and thinks it may have been changed the last time he was hospitalized in October. He is on 2 L of oxygen at home all the time and does report compliance with this. He wears oxygen due to his history of CHF. He also has a history of A. fib, high blood pressure and diabetes. He denies any history of COPD. - Related Data Home Medications Medication Instructions Recorded Confirmed Clopidogrel [Plavix] 75 mg PO DAILY 02/19/18 01/12/19 Omeprazole 20 mg PO DAILY 02/19/18 01/12/19 amLODIPine [Norvasc] 5 mg PO DAILY 02/19/18 01/12/19 Levothyroxine Sodium 100 mcg PO 0600 11/12/18 01/12/19 Furosemide [Lasix] 20 mg PO BIDDIURETIC 01/12/19 01/12/19 Lisinopril-HCTZ 20-12.5 [Prinzide 1 each PO DAILY 01/12/19 01/12/19 20-12.5] Potassium Chloride 10 meq PO DAILY 01/12/19 01/12/19 metFORMIN [Glucophage] 100 mg PO HS 01/12/19 01/12/19 Previous Rx's Medication Instructions Recorded Atorvastatin Calcium [Lipitor] 80 mg PO HS #30 tab 10/14/18 Ferrous Sulfate 325 mg PO DAILY@0800 #30 tablet 10/14/18 Labetalol [Trandate] 100 mg PO BID #60 tablet 10/14/18 Acetaminophen [Tylenol] 500 mg PO Q4HR PRN tablet 12/09/18 Benzonatate [Tessalon] 200 mg PO TID PRN capsule 12/09/18 Ipratropium/Albuterol Neb [Duoneb] 3 ml IH [id number] PRN #120 inhsol 12/09/18 Multivit/Ca/Min/Fe/FA [Thera M 1 tab PO DAILY tablet 12/09/18 Plus] Allergies Allergy/AdvReac Type Severity Reaction Status Date / Time Sulfa (Sulfonamide Allergy See Verified 09/30/18 05:30 Antibiotics) Comments Constitutional: Reports: as per HPI, fever (subjective), chills, weight change Eyes: Denies: eye pain, eye discharge, vision change ENT ED: Denies: ear pain, throat pain, dental pain, hearing loss, epistaxis, congestion, dysphagia Cardiovascular: Reports: as per HPI, dyspnea on exertion, edema. Denies: chest pain, palpitations, syncope Respiratory: Reports: as per HPI, cough, dyspnea, sputum production. Denies: wheezes, hemoptysis, stridor Gastrointestinal: Denies: abdominal pain, nausea, vomiting, diarrhea, constipation, hematemesis, melena, hematochezia Genitourinary: Denies: urgency, dysuria, frequency, hematuria Musculoskeletal: Denies: back pain, neck pain, arthralgia, myalgia Integumentary: Denies: rash, abrasion, lesions Neurological: Denies: headache, weakness, numbness, paresthesias, confusion, abnormal gait, vertigo Psychiatric: Denies: anxiety, depression, suicidal thoughts, homicidal thoughts, auditory hallucinations, visual hallucinations Endocrine: Denies: fatigue Hematological/Lymphatic: Denies: easy bleeding, easy bruising Allergic/Immunologic: Denies: facial swelling, urticaria Past Medical History - Past Medical History Medical history: Reports: atrial fibrillation, CVA, diabetes, GERD, hyperlipidemia, hypertension, renal disease, thyroid disease Psychiatric history: Reports: no psych history - Social History Smoking Status: Former smoker Smokeless Tobacco Status: No Alcohol use: Reports: none Drug use: Reports: none Physical Exam - General Limitations: no limitations General appearance: alert - Head Head exam: atraumatic, normocephalic, normal inspection - Eye Eye exam: Present: normal appearance, PERRL, EOMI - ENT ENT exam: normal exam, normal oropharynx, mucous membranes moist - Neck Neck exam: Present: normal inspection, full ROM, trachea midline - Chest Chest inspection: Present: normal inspection, symmetric chest wall rise - Respiratory Respiratory exam: Present: wheezes (scattered). Absent: respiratory distress - Expanded Respiratory Exam Location: rales: Left, Right, Lower - Cardiovascular Cardiovascular exam: Present: regular rate, normal rhythm, normal heart sounds - Abdominal Exam Abdominal exam: Present: soft, Non-Tender. Absent: tenderness, distention, guarding, rebound, rigidity - Extremities Exam Extremities exam: Present: normal inspection, full ROM, pedal edema (2+ bilaterally). Absent: tenderness - Back Exam Back exam: Present: normal inspection, full ROM. Absent: tenderness - Neurological Exam Neurological exam: Present: alert, oriented X3 - Psychiatric Psychiatric exam: Present: normal affect, normal mood - Skin Skin exam: Present: warm, dry, intact, normal color Course Course Narrative: Patient presents to the ED with progressively worsening shortness of breath, dyspnea on exertion, weight gain alert for me swelling with recent noncompliance with his Lasix. He also has some additional URI symptoms but arrives afebrile, hemodynamically stable and nontoxic in appearance. He does have wet lung sounds and visible lower extremity edema. I suspect primarily CHF exacerbation due to Lasix noncompliance although there is possibility of undiagnosed COPD or pneumonia. Will give Lasix and a neb treatment while labs and imaging are obtained. - Reevaluation(s) Reevaluation #1: Chest x-ray shows pulmonary edema from CHF as well as some chronic interstitial lung disease. Laboratory studies are notable for elevated BNP and slightly anam vated troponin but normal lactic acid. EKG shows rate-controlled A. fib with no ischemic changes. Patient has no chest pain. I suspect troponin leak due to CHF exacerbation. Given these findings patient would benefit from admission for IV diuresis and further management. I spoke to the patient's PCP, Dr. Dennis. He states his office was contacted about the Lasix which is normally given throu mail order. They did call in a refill for the patient if needed and he is not sure why the patient is out of her has not picked up his refill. He agrees however the patient would benefit from admission and has accepted the patient. Patient family been updated on plan. Patient's grandson is here who is power of securities attorney and has expressed some concern about patient's medication management. They are encouraged to discuss these concerns with patient's PCP during admission to assure appropriate outpatient management and follow-up at time of discharge. Reevaluation #2: I spoke to patient's PCP, Dr. Early who has agreed to accept the patient. Patient family updated on plan. Time: 12:45 Vital Signs Temperature 98.0 F 01/12/19 10:35 Pulse Rate 85 01/12/19 10:35 Respiratory Rate 20 01/12/19 10:35 Blood Pressure 141/82 01/12/19 10:35 O2 Sat by Pulse Oximetry 92 01/12/19 10:35 Temperature 97.7 F 01/12/19 13:33 Pulse Rate 74 01/12/19 13:33 Respiratory Rate 18 01/12/19 15:30 Blood Pressure 163/80 01/12/19 13:33 O2 Sat by Pulse Oximetry 93 01/12/19 15:30 Oxygen Delivery Oxygen Delivery Nasal Cannula Shortness of Breath/Dyspnea - Differential Diagnosis Likely: acute exacerbation of chronic obstructive airways disease, congestive heart failure, pneumonia - Medical Records Medical records reviewed: Yes I reviewed the patient's medical records. - Lab Data Lab results reviewed: Yes I reviewed the patient's lab results. Result diagrams: 01/12/19 11:22 01/12/19 11:22 Lab Results 01/12/19 01/12/19 01/12/19 Range/Units 11:22 11:22 11:22 WBC 10.3 (4.3-11.1) K/mcL RBC 3.86 L (4.19-5.50) M/mcL Hgb 11.1 L (12.9-16.9) g/dL Hct 34.0 L (37.5-50.1) % MCV 88.1 (83.0-100.0) fL MCH 28.8 (28.0-33.3) pg MCHC 32.6 (31.6-35.5) g/dL RDW 15.6 H (11.5-14.5) % Plt Count 343 (140-400) K/mcL MPV 9.3 L (9.4-12.4) fL Immature Gran % 0.3 (0-4) % Seg Neutrophils % 77.6 % Lymphocytes % 11.3 % Monocytes % 6.5 % Eosinophils % 3.8 % Basophils % 0.5 % Neutrophils # 8.0 (1.6-8.9) K/mcL Lymphocytes # 1.2 (0.6-4.6) K/mcL Monocytes # 0.7 (0.0-1.3) K/mcL Eosinophils # 0.4 (0.0-0.6) K/mcL Basophils # 0.1 (0.0-0.2) K/mcL PT 13.6 H (9.4-12.1) Seconds INR 1.2 APTT 35.5 (26.0-36.0) Seconds Sodium 137 (136-145) mEq/L Potassium 4.1 (3.5-5.1) mEq/L Chloride 101 (98-107) mEq/L Carbon Dioxide 28 (23-29) mEq/L BUN 19 (8-23) mg/dL Creatinine 1.23 (0.70-1.30) mg/dL Est GFR ( Amer) > 60 (> 60) Est GFR (Non-Af Amer) 56 L (> 60) BUN/Creatinine Ratio 15 (6-26) Glucose 150 H (70-105) mg/dL Calculated Osmolality 289 (280-300) Lactic Acid (0.5-2.2) mmol/L Calcium 9.1 (8.6-10.3) mg/dL Troponin I 0.07 H* (< 0.04) ng/mL B-Natriuretic Peptide (Less than 100) pg/mL 01/12/19 01/12/19 Range/Units 11:22 11:22 WBC (4.3-11.1) K/mcL RBC (4.19-5.50) M/mcL Hgb (12.9-16.9) g/dL Hct (37.5-50.1) % MCV (83.0-100.0) fL MCH (28.0-33.3) pg MCHC (31.6-35.5) g/dL RDW (11.5-14.5) % Plt Count (140-400) K/mcL MPV (9.4-12.4) fL Immature Gran % (0-4) % Seg Neutrophils % % Lymphocytes % % Monocytes % % Eosinophils % % Basophils % % Neutrophils # (1.6-8.9) K/mcL Lymphocytes # (0.6-4.6) K/mcL Monocytes # (0.0-1.3) K/mcL Eosinophils # (0.0-0.6) K/mcL Basophils # (0.0-0.2) K/mcL PT (9.4-12.1) Seconds INR APTT (26.0-36.0) Seconds Sodium (136-145) mEq/L Potassium (3.5-5.1) mEq/L Chloride (98-107) mEq/L Carbon Dioxide (23-29) mEq/L BUN (8-23) mg/dL Creatinine (0.70-1.30) mg/dL Est GFR ( Amer) (> 60) Est GFR (Non-Af Amer) (> 60) BUN/Creatinine Ratio (6-26) Glucose (70-105) mg/dL Calculated Osmolality (280-300) Lactic Acid 1.7 (0.5-2.2) mmol/L Calcium (8.6-10.3) mg/dL Troponin I (< 0.04) ng/mL B-Natriuretic Peptide 284 H (Less than 100) pg/mL - Radiology Data Radiology results reviewed: Yes I reviewed the patient's radiology results. ITS Impressions Chest X-Ray 01/12/19 11:12 IMPRESSION: Pulmonary edema secondary to CHF, which is superimposed upon chronic interstitial lung disease. Small pleural effusions. D/ / Candelario Dozier MD / Candelario Dozier MD Interpreting Provider: Candelario Dozier MD - EKG Data EKG attestation: Yes I reviewed and interpreted this EKG. Rate: Reports: normal Rhythm: Reports: A.Fib Interpretation: Reports: no acute changes
[2019-01-12 11:28] LABS: Basophils # 0.1 K/mcL (0.0-0.2); Basophils % 0.5 %; Eosinophils # 0.4 K/mcL (0.0-0.6); Eosinophils % 3.8 %; Hemoglobin 11.1 g/dL (12.9-16.9); Immature Granulocytes % 0.3 % (0-4); Lymphocytes # 1.2 K/mcL (0.6-4.6); Lymphocytes % 11.3 %; Mean Corpuscular HGB Conc 32.6 g/dL (31.6-35.5); Mean Corpuscular Hemoglobin 28.8 pg (28.0-33.3); Mean Corpuscular Volume 88.1 fL (83.0-100.0); Mean Platelet Volume 9.3 fL (9.4-12.4); Monocytes # 0.7 K/mcL (0.0-1.3); Monocytes % 6.5 %; Platelet Count 343 K/mcL (140-400); Red Blood Count 3.86 M/mcL (4.19-5.50); Red Cell Distribution Width 15.6 % (11.5-14.5); Segmented Neutrophils % 77.6 %
[2019-01-12 11:33] LABS: INR 1.2; Prothrombin Time 13.6 Seconds (9.4-12.1)
[2019-01-12 11:36] LABS: Activated Partial Thrombo Time 35.5 Seconds (26.0-36.0)
[2019-01-12 11:49] LABS: BUN/Creatinine Ratio 15 (6-26); Blood Urea Nitrogen 19 mg/dL (8-23); Calcium 9.1 mg/dL (8.6-10.3); Carbon Dioxide 28 mEq/L (23-29); Chloride 101 mEq/L (98-107); Glucose 150 mg/dL (70-105); Osmolality,Calculated 289 (280-300); Potassium 4.1 mEq/L (3.5-5.1); Sodium 137 mEq/L (136-145); Troponin I 0.07 ng/mL (< 0.04); eGFR For Non-African Americans 56 (> 60)
[2019-01-12] MEDS ORDERED: Naloxone 0.4 MG/ML INJ IVP PRN ×2 (13:01→14:10)
[2019-01-12] MEDS ORDERED: Ipratropium/Albuterol Neb 3 ML ONE (15:27)
[2019-01-12] MEDS: Ipratropium/Albuterol Neb 3 ML IH PRN ×3 (15:30→20:00)
[2019-01-12] MEDS: *HR* Metformin 500 MG TABLET PO SCH (20:35)
[2019-01-12] MEDS ORDERED: *HR* Metformin 500 MG TABLET PO SCH (21:00)
--- NOTE | 2019-01-12 23:46 | Internal Med History&Physical ---
Date of Encounter: 01/13/19 Time of Encounter: 23:46 Assessment and Plan (1) Acute congestive heart failure Current visit: Yes Status: Acute Patient is admitted with acute congestive heart failure. It sounds like he was slowly decompensating at home. He missed a couple of days of Lasix somehow possibly because he is mail order prescription apparently ran out. He is improved after IV Lasix in the ER. We will continue 40 mg IV twice a day. Doubt that he has had an acute NM. He is showing improvement. Oxygenating better. Skin is warm and dry and he is fairly comfortable lying at 45 degree angle. We will order an echocardiogram to reevaluate his LV function. Qualifiers: Heart failure type: unspecified Qualified Code(s): I50.9 - Heart failure, unspecified (2) Hypoxia Current visit: Yes Status: Acute He had hypoxia at home with saturations in the 70s despite being on 2 L per nasal cannula. Now on 3 L and saturation is 96%. Likely worsened because of CHF. Continue to monitor. (3) Atrial fibrillation Current visit: Yes Status: Chronic Qualifiers: Atrial fibrillation type: persistent Qualified Code(s): I48.1 - Persistent atrial fibrillation (4) Chronic kidney disease (CKD), stage III (moderate) Current visit: Yes Status: Chronic History chronic kidney disease. Trying to avoid nephrotoxic medications. F ollow-up ordered. He is pretty much at his baseline. (5) Diabetes mellitus Current visit: Yes Status: Chronic Chronic diabetes and takes metformin once a day. We have been watching his kidney function with this. Continue to monitor. Glycohemoglobin 7.2% last month Qualifiers: Diabetes mellitus type: type 2 Diabetes mellitus half-way insulin use: without half-way use Diabetes mellitus complication status: with hyperglycemia Qualified Code(s): E11.65 - Type 2 diabetes mellitus with hyperglycemia (6) Hypertension Current visit: Yes Status: Chronic long-standing history of hypertension. Blood pressure under good control. Qualifiers: Hypertension type: essential hypertension Qualified Code(s): I10 - Essential (primary) hypertension (7) Iron deficiency anemia Current visit: Yes Status: Chronic Chronic history of anemia and takes iron. Blood count today is actually pretty good. We have been hesitant to fully anticoagulate him with his known history of atrial fibrillation because of his anemia and concern about GI blood loss fall risk. Qualifiers: Iron deficiency anemia type: unspecified iron deficiency Qualified Code(s): D50.9 - Iron deficiency anemia, unspecified (8) Respiratory distress Current visit: Yes Status: Resolved He said saturations were in the 70s at home. Requiring 3 L per nasal cannula saturations are in the 90s now. Congestive heart failure improving. 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 Internal Medicine - H&P: HPI Chief complaint: I could not breathe and had to come to the hospital Admitted From: Emergency Dept Plans for Post Hospital Care: Home History of present illness: Mr. Christensen is a 83 year old male with known history of atrial fibrillation, mild renal failure, previous congestive heart failure, anemia, previous CVA and oxygen dependent at home has had increased edema, increased shortness of breath and he ran out of his Lasix 2 days ago. Typically he is homebound with oxygen 24 hours per day. He is independent in the home. He said that his Lasix ran out on Thursday, or they could not find any. He took a half a Lasix that day. Yesterday he became more short of breath, "I had a bad night". He sat up in a chair tonight. He did not eat as he felt that he was not hungry. He tried to go to bed but could not sleep and had to get up in the middle the night. When he laid back down he had to get back up a half an hour later because he could not breathe. He was brought to the emergency room. In the ER he was found to have pulmonary congestive heart failure on chest x-ray and mildly elevated BNP in the 200s and mildly elevated troponin 0.07, on repeat was 0.06. He denies any cardiac type chest pain, palpitations. No GI or symptoms other than decreased urinary output. He has had lower extremity swelling and weight gain for the past few days. Past Med Surg Social Fam HX - Past Medical History Medical history: atrial fibrillation, CVA, diabetes, GERD, hyperlipidemia, hypertension, renal disease, thyroid disease Psychiatric history: no psych history - Past Surgical History Additional surgical history: left shoulder replacement,left ankle fracture/orif, status post TUNA/prostate - Social History Smoking Status: Former smoker Smokeless Tobacco Status: No Alcohol use: none Drug use: none Occupational status: retired Current living situation: Home - Independent Activity Level: Uses cane/walker Recent Out of Country Travel Within the Last 8 Weeks: No Exposure or Possible Exposure to Illness During Travel: No - Family History Mother Living Status: Father Living Status: Internal Medicine - H&P: Meds Clopidogrel [Plavix] 75 mg PO DAILY 02/19/18 [History] Omeprazole 20 mg PO DAILY 02/19/18 [History] amLODIPine [Norvasc] 5 mg PO DAILY 02/19/18 [History] Atorvastatin Calcium [Lipitor] 80 mg PO HS #30 tab 10/14/18 [Rx] Ferrous Sulfate 325 mg PO DAILY@0800 #30 tablet 10/14/18 [Rx] Labetalol [Trandate] 100 mg PO BID #60 tablet 10/14/18 [Rx] Levothyroxine Sodium 100 mcg PO 0600 11/12/18 [History] Acetaminophen [Tylenol] 500 mg PO Q4HR PRN tablet 12/09/18 [Rx] Benzonatate [Tessalon] 200 mg PO TID PRN capsule 12/09/18 [Rx] Ipratropium/Albuterol Neb [Duoneb] 3 ml IH [id number] PRN #120 inhsol 12/09/18 [Rx] Multivit/Ca/Min/Fe/FA [Thera M Plus] 1 tab PO DAILY tablet 12/09/18 [Rx] Furosemide [Lasix] 20 mg PO BIDDIURETIC 01/12/19 [History] Lisinopril-HCTZ 20-12.5 [Prinzide 20-12.5] 1 each PO DAILY 01/12/19 [History] Potassium Chloride 10 meq PO DAILY 01/12/19 [History] metFORMIN [Glucophage] 1,000 mg PO HS 01/12/19 [History] Allergy/AdvReac Type Severity Reaction Status Date / Time Sulfa (Sulfonamide Allergy See Verified 09/30/18 05:30 Antibiotics) Comments - Constitutional Constitutional: anorexia, weight gain, no chills, no fever(s), no falls - EENT Eyes: no loss of vision Nose, mouth and throat: no sinus pain, no sore throat - Cardiovascular Cardiovascular ROS IM: dyspnea, dyspnea on exertion, no chest pain, no c laudication, no irregular heart rhythm, no palpitations, no syncope - Respiratory Respiratory: dyspnea, dyspnea on exertion, wheezing, chest congestion, no pain with cough - Gastrointestinal Gastrointestinal: no abdominal pain, no constipation, no diarrhea, no nausea, no vomiting - Genitourinary Genitourinary ROS male: other (He has noticed decreased urinary output lately), no difficulty urinating - Musculoskeletal Musculoskeletal ROS IM: no neck pain - Integumentary Integumentary IM: no rash - Neurological Neurological ROS: no focal weakness - Constitutional Vitals: Temp Pulse Resp BP Pulse Ox 97.7 F 78 19 124/78 91 01/12/19 19:29 01/12/19 19:29 01/12/19 20:00 01/12/19 19:29 01/12/19 20:00 General appearance: Present: mild distress, A&O X 3 - ENT ENT exam: Present: mucous membranes moist, TM's normal bilaterally. Absent: normal oropharynx (He is edentulous. No lesions are present. He does not use his dentures) - Neck Neck exam general surgery: Absent: lymphadenopathy, tenderness - Respiratory Additional comments: Crackles are heard bilateral lung bradford, the right is worse than left. Expiratory wheezes. He is sitting propped up 45 degree angles in bed because of dyspnea. No air hunger. Able to speak in full sentences without dyspnea. - Cardiovascular Cardiovascular exam: Present: irregular rhythm, +S1, +S2. Absent: systolic murmur - GI/Abdominal GI/Abdominal exam: Present: soft. Absent: guarding, mass, tenderness - Extremities Exam Additional comments: Patient has edema on both feet and also pitting edema nearly to his knees bilaterally. The right heel area has tried skin partially cracking and flaking and is tender for him - Neurological Exam Neurological exam: Present: CN II-XII intact, oriented X3, strengths equal and symetr throughout Internal Med - H&P Results - Labs CBC & Chem 7: 01/13/19 05:50 01/13/19 05:50 Labs: Short CBC 01/12/19 Range/Units 11:22 WBC 10.3 (4.3-11.1) K/mcL Hgb 11.1 L (12.9-16.9) g/dL Hct 34.0 L (37.5-50.1) % Plt Count 343 (140-400) K/mcL Neutrophils # 8.0 (1.6-8.9) K/mcL BMP 01/12/19 11:22 Sodium 137 Potassium 4.1 Chloride 101 Carbon Dioxide 28 BUN 19 Creatinine 1.23 Glucose 150 H Calcium 9.1 Cardiac Enzymes 01/12/19 01/12/19 Range/Units 11:22 16:02 Troponin I 0.07 H* 0.06 H* (< 0.04) ng/mL Hemoglobin mildly diminished. Creatinine mildly elevated. Elevated troponin and repeat is improved. Likely secondary to CHF without acute NM. - EKG Data EKG comments: 01/13/19 00:25 EKG shows atrial fibrillation similar to his previous EKGs with poor R-wave progression. No obvious acute ischemic changes noted. - Impressions ITS Impressions Chest X-Ray 01/12/19 11:12 IMPRESSION: Pulmonary edema secondary to CHF, which is superimposed upon chronic interstitial lung disease. Small pleural effusions. D/ / Candelario Dozier MD / Candelario Dozier MD Interpreting Provider: Candelario Dozier MD - Diagnostic Studies Chest x-ray Additional comments: Chest x-ray shows pulmonary congestive heart failure pattern with increased vasculature, cephalization and nearly white out. - VTE Reasons for not Prescribing Prophylaxis: Treatment not Indicated - Low risk for VTE
[2019-01-13] MEDS: Ipratropium/Albuterol Neb 3 ML IH PRN ×5 (00:14→22:08)
[2019-01-13] MEDS: Furosemide 40 MG/4 ML VIAL IVP SCH ×3 (00:51→17:07)
[2019-01-13] MEDS: *HR* Enoxaparin 40 MG/0.4 ML SYRINGE SQ SCH (04:16)
[2019-01-13 06:02] LABS: Basophils % 0.6 %; Eosinophils % 5.1 %; Hematocrit 28.4 % (37.5-50.1); Hemoglobin 9.4 g/dL (12.9-16.9); Immature Granulocytes % 0.3 % (0-4); Lymphocytes % 13.5 %; Mean Corpuscular HGB Conc 33.1 g/dL (31.6-35.5); Mean Corpuscular Hemoglobin 28.7 pg (28.0-33.3); Mean Corpuscular Volume 86.6 fL (83.0-100.0); Mean Platelet Volume 9.9 fL (9.4-12.4); Platelet Count 325 K/mcL (140-400); Red Blood Count 3.28 M/mcL (4.19-5.50); Red Cell Distribution Width 15.6 % (11.5-14.5); Segmented Neutrophils % 72.5 %
[2019-01-13 06:03] LABS: Basophils # 0.1 K/mcL (0.0-0.2); Eosinophils # 0.5 K/mcL (0.0-0.6); Lymphocytes # 1.4 K/mcL (0.6-4.6); Monocytes # 0.9 K/mcL (0.0-1.3); Neutrophils # 7.8 K/mcL (1.6-8.9)
[2019-01-13 06:17] LABS: BUN/Creatinine Ratio 15 (6-26); Blood Urea Nitrogen 20 mg/dL (8-23); Calcium 8.4 mg/dL (8.6-10.3); Carbon Dioxide 28 mEq/L (23-29); Chloride 102 mEq/L (98-107); Potassium 3.3 mEq/L (3.5-5.1); Sodium 137 mEq/L (136-145); eGFR For Non-African Americans 52 (> 60)
[2019-01-13 07:21] LABS: Glucose 140 mg/dL (70-105); Osmolality,Calculated 289 (280-300)
[2019-01-13] MEDS: amLODIPine 5 MG TABLET PO SCH (08:16)
[2019-01-13] MEDS: Multivit/Ca/Min/Fe/FA 1 TAB TABLET PO SCH (08:16)
[2019-01-13] MEDS: Lisinopril-HCTZ 20-12.5mg TABLET PO SCH (08:16)
--- NOTE | 2019-01-13 09:08 | Internal Med Progress Note ---
Date of Encounter: 01/13/19 Time of Encounter: 09:03 - Assessment and plan (1) Acute congestive heart failure Current Visit: Yes Status: Acute Assessment and plan: Clinically and symptomatically he is markedly improved. No angina. Controlled rate atrial fibrillation. He feels much improved, less edema and has increased urinary output left (despite his weight measurements actually going up, I think these are erroneous). Continue with IV Lasix twice a day, oxygen as he takes chronically, increase activity as tolerated. Echocardiogram has been ordered. Qualifiers: Heart failure type: unspecified Qualified Code(s): I50.9 - Heart failure, unspecified (2) Hypoxia Current Visit: Yes Status: Acute Assessment and plan: His saturations are staying in the 90s now. Much improved after diuresis. (3) Atrial fibrillation Current Visit: Yes Status: Chronic Assessment and plan: Chronic atrial fibrillation. Rate controlled. He is not fully anticoagulated because of his history of anemia likely from chronic GI source. He has not been stable enough to give upper and lower endoscopies at this point. Qualifiers: Atrial fibrillation type: persistent Qualified Code(s): I48.1 - Persistent atrial fibrillation (4) Chronic kidney disease (CKD), stage III (moderate) Current Visit: Yes Status: Chronic Assessment and plan: Creatinine bumped up a bit after initiating IV Lasix. At this time we will follow. (5) Diabetes mellitus Current Visit: Yes Status: Chronic Qualifiers: Diabetes mellitus type: type 2 Diabetes mellitus residential insulin use: without residential use Diabetes mellitus complication status: with hyperglycemia Qualified Code(s): E11.65 - Type 2 diabetes mellitus with hyperglycemia (6) Hypertension Current Visit: Yes Status: Chronic Qualifiers: Hypertension type: essential hypertension Qualified Code(s): I10 - Essential (primary) hypertension (7) Iron deficiency anemia Current Visit: Yes Status: Chronic Qualifiers: Iron deficiency anemia type: unspecified iron deficiency Qualified Code(s): D50.9 - Iron deficiency anemia, unspecified (8) Respiratory distress Current Visit: Yes Status: Resolved Assessment and plan: Respiratory distress has been resolved overnight with diuresis. 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 He is sitting up in a chair and finished all of his breakfast. He denies a cardiac type chest pain or palpitations. His breathing is much better. No orthopnea now. He states swelling is better in his legs. He denies any acute symptoms now. - Constitutional Vitals: Temp Pulse Resp BP Pulse Ox 98.4 F 82 14 145/70 93 01/13/19 07:51 01/13/19 07:51 01/13/19 07:51 01/13/19 07:51 01/13/19 07:51 General appearance: Present: A&O X 3, no acute distress Exam: Patient is sitting up in a chair having just finished his breakfast. No distress. - Respiratory Additional comments: Patient has diminished breath sounds in the lower two thirds of his lung bradford. End-expiratory wheeze heard in the left base. Anteriorly shows diminished breath sounds and few large airway crackles. - Cardiovascular Cardiovascular exam: Present: distant heart sounds, irregular rhythm, +S1, +S2. Absent: systolic murmur - Extremities Exam Additional comments: He still has puffiness and edema on the dorsum of both feet, minimal to 1+ pitting edema on the anterior shins, markedly improved from last night. Internal Medicine: Result - Labs CBC & Chem 7: 01/13/19 05:50 01/13/19 05:50 Labs: Short CBC 01/12/19 01/13/19 Range/Units 11:22 05:50 WBC 10.3 10.7 (4.3-11.1) K/mcL Hgb 11.1 L 9.4 L D (12.9-16.9) g/dL Hct 34.0 L 28.4 L (37.5-50.1) % Plt Count 343 325 (140-400) K/mcL Neutrophils # 8.0 7.8 (1.6-8.9) K/mcL BMP 01/12/19 01/13/19 11:22 05:50 Sodium 137 137 Potassium 4.1 3.3 L Chloride 101 102 Carbon Dioxide 28 28 BUN 19 20 Creatinine 1.23 1.32 H Glucose 150 H 140 H Calcium 9.1 8.4 L Cardiac Enzymes 01/12/19 01/12/19 Range/Units 11:22 16:02 Troponin I 0.07 H* 0.06 H* (< 0.04) ng/mL Hemoglobin has dropped from 11.1-9.4. This is more like his chronic hemoglobin level. His creatinine has bumped up to 1.32 after initiating IV Lasix. 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 Small pleural effusions. D/ / Candelario Dozier MD / Candelario Dozier MD Interpreting Provider: Candelario Dozier MD - VTE Reasons for not Prescribing Prophylaxis: Treatment not Indicated - Low risk for VTE Consult Discharge Plan - Plan Referrals: Mario Early MD [Primary Care Provider] -
[2019-01-13] MEDS: *HR* Metformin 500 MG TABLET PO SCH (17:07)
--- NOTE | 2019-01-13 20:32 | Electrocardiograph Report ---
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
[2019-01-13] MEDS: Benzonatate 100 MG CAPSULE PO PRN (22:07)
[2019-01-14 05:24] LABS: Basophils # 0.1 K/mcL (0.0-0.2); Basophils % 0.6 %; Hematocrit 27.5 % (37.5-50.1); Immature Granulocytes % 0.2 % (0-4); Lymphocytes # 1.5 K/mcL (0.6-4.6); Mean Corpuscular HGB Conc 32.7 g/dL (31.6-35.5); Mean Corpuscular Hemoglobin 28.5 pg (28.0-33.3); Mean Platelet Volume 10.1 fL (9.4-12.4); Monocytes # 0.7 K/mcL (0.0-1.3); Monocytes % 8.5 %; Neutrophils # 5.5 K/mcL (1.6-8.9); Platelet Count 308 K/mcL (140-400); Red Blood Count 3.16 M/mcL (4.19-5.50); Red Cell Distribution Width 15.7 % (11.5-14.5); Segmented Neutrophils % 62.7 %
[2019-01-14] MEDS: *HR* Enoxaparin 40 MG/0.4 ML SYRINGE SQ SCH (05:39)
[2019-01-14 05:42] LABS: Calcium 8.2 mg/dL (8.6-10.3); Potassium 3.4 mEq/L (3.5-5.1)
[2019-01-14] MEDS: Ipratropium/Albuterol Neb 3 ML IH PRN ×2 (07:28→18:47)
--- NOTE | 2019-01-14 07:50 | Internal Med Progress Note ---
Date of Encounter: 01/14/19 Time of Encounter: 07:43 - Assessment and plan (1) Acute congestive heart failure Current Visit: Yes Status: Acute Assessment and plan: His acute congestive heart failure is clinically and symptomatically much improved. He is oxygenating better, no orthopnea, no dyspnea now. Has occasional cough. Follow-up chest x-ray ordered. His BNP has never been very high and in the 250 range. Echocardiogram showed preserved EF at 65%. We will start to back down the IV Lasix as his creatinine is going up and his urine output was 2 L yesterday. Qualifiers: Heart failure type: unspecified Qualified Code(s): I50.9 - Heart failure, unspecified (2) Hypoxia Current Visit: Yes Status: Acute Assessment and plan: Saturations are under good control at his baseline of 2 L per nasal cannula (3) Atrial fibrillation Current Visit: Yes Status: Chronic Assessment and plan: Chronic atrial fibrillation, controlled rate. We have not initiated full anticoagulation because of his chronic anemia and likely GI blood loss source. He has not been stable long enough in the past few months to do upper and lower endoscopy. Qualifiers: Atrial fibrillation type: persistent Qualified Code(s): I48.1 - Persistent atrial fibrillation (4) Chronic kidney disease (CKD), stage III (moderate) Current Visit: Yes Status: Chronic Assessment and plan: His creatinine is bumped up to 1.4, but this is not unusual for him. I will start to back down his IV Lasix at this point. (5) Diabetes mellitus Current Visit: Yes Status: Chronic Qualifiers: Diabetes mellitus type: type 2 Diabetes mellitus long-term insulin use: without terminal gauger use Diabetes mellitus complication status: with hyperglycemia Qualified Code(s): E11.65 - Type 2 diabetes mellitus with hyperglycemia (6) Hypertension Current Visit: Yes Status: Chronic Assessment and plan: Blood pressure is under good control. 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 No major residual issues in no acute changes (10) DVT prophylaxis Current Visit: Yes Status: Acute - Subjective Interval history: Patient feels that he is getting better. He denies a cardiac type chest pain or palpitations. He sat up in a chair couple of times yesterday. He denies any GI or symptoms. Swelling is less in his legs now. His cough has decreased. No orthopnea. - Constitutional Vitals: Temp Pulse Resp BP Pulse Ox 98.0 F 67 18 121/65 96 01/14/19 05:40 01/14/19 05:40 01/14/19 07:29 01/14/19 05:40 01/14/19 07:29 General appearance: Present: A&O X 3, no acute distress, answers questions appropriately - Respiratory Additional comments: Posteriorly he has decreased breath sounds and end-expiratory wheezes. Anteriorly he has crackles and wheezes in the left upper lobe area and diminished on the right side. No orthopnea. - Cardiovascular Cardiovascular exam: Present: irregular rhythm, +S1, +S2 - GI/Abdominal GI/Abdominal exam: Present: soft. Absent: tenderness - Extremities Exam Additional comments: Only trace ankle edema. Certainly much improved from baseline. Dorsum of his f eet show no edema now. Feet are warm and dry. Internal Medicine: Result - Labs CBC & Chem 7: 01/14/19 04:23 01/14/19 04:23 Labs: Short CBC 01/14/19 Range/Units 04:23 WBC 8.7 (4.3-11.1) K/mcL Hgb 9.0 L (12.9-16.9) g/dL Hct 27.5 L (37.5-50.1) % Plt Count 308 (140-400) K/mcL Neutrophils # 5.5 (1.6-8.9) K/mcL BMP 01/14/19 04:23 Sodium 141 Potassium 3.4 L Chloride 105 Carbon Dioxide 28 BUN 24 H Creatinine 1.40 H Glucose 131 H Calcium 8.2 L Hemoglobin is back down to his baseline as he has chronic anemia. Creatinine is inching upward at 1.4, but this is basically at his chronic baseline - ABG Interpretation ABG results: PT/INR, D-dimer PT 13.6 Seconds (9.4-12.1) H 01/12/19 11:22 - EKG Interpretation EKG Interpreted by Myself: Yes (Monitor shows atrial fibrillation with controlled rate in the 80s) - Impressions Impressions Echocardiogram Limited Views 01/13/19 00:32 Impressions: LVEF 65%. Normal LV chamber size and function. Mild concentric left ventricular hypertrophy. Left Ventricular Wall Motion: Rest Echo Findings All wall segments showed normal motion. Findings: Study Quality * Technically adequate exam. ECG Findings * Atrial fibrillation. Left Ventricle * LVEF 65%. * Normal LV chamber size and function. * Mild concentric left ventricular hypertrophy. Right Ventricle * Normal right ventricular structure and function. - VTE Reasons for not Prescribing Prophylaxis: Treatment not Indicated - Low risk for VTE Consult Discharge Plan - Plan Referrals: Mario Early MD [Primary Care Provider] -
[2019-01-14] MEDS: Lisinopril-HCTZ 20-12.5mg TABLET PO SCH (08:56)
[2019-01-14] MEDS: Multivit/Ca/Min/Fe/FA 1 TAB TABLET PO SCH (08:56)
[2019-01-14] MEDS: amLODIPine 5 MG TABLET PO SCH (08:56)
[2019-01-14] MEDS: Furosemide 20 MG/2 ML VIAL IVP SCH ×2 (09:26→18:24)
[2019-01-14] MEDS: *HR* Metformin 500 MG TABLET PO SCH (18:24)
--- NOTE | 2019-01-14 19:14 | Event Note ---
Date of Encounter: 01/14/19 Time of Encounter: 19:12 I reevaluated patient this evening: Patient states that he had a good day today. His breathing is much improved. Denies any cardiac type chest pain or palpitations. He thinks the swelling his lower extremities are better. He sat up in the chair for long periods of time. His vitals have been stable. Lungs show slight expiratory wheezing and crackles heard in the posterior lower lobes. No respiratory distress. No orthopnea. Heart showed irregularly irregular rate and rhythm with 2/6 systolic murmur. Monitor shows atrial fibrillation which is rate controlled. His follow-up chest x-ray shows marked improvement from his flash congestive heart failure findings. We backed off on his Lasix this morning to avoid overdiuresis since he was doing so well and his creatinine is going up. Tonight he does have slight pedal and ankle edema compared to this morning but he has been sitting with his legs dependent most of the day. He had 2000 mL of urine out yesterday, this is slow down considerably today with just over 500 mL out. May need to give extra Lasix if it has to backed down too much.
[2019-01-14] MEDS: Benzonatate 100 MG CAPSULE PO PRN (21:16)
[2019-01-15] MEDS: Ipratropium/Albuterol Neb 3 ML IH PRN ×5 (02:14→19:59)
[2019-01-15] MEDS: *HR* Enoxaparin 40 MG/0.4 ML SYRINGE SQ SCH (05:32)
[2019-01-15] MEDS: Benzonatate 100 MG CAPSULE PO PRN ×2 (05:39→14:34)
[2019-01-15 05:58] LABS: Basophils # 0.1 K/mcL (0.0-0.2); Basophils % 0.6 %; Eosinophils # 1.1 K/mcL (0.0-0.6); Eosinophils % 11.1 %; Hemoglobin 9.2 g/dL (12.9-16.9); Immature Granulocytes % 0.2 % (0-4); Lymphocytes # 1.3 K/mcL (0.6-4.6); Lymphocytes % 12.9 %; Mean Corpuscular HGB Conc 31.7 g/dL (31.6-35.5); Mean Corpuscular Hemoglobin 27.9 pg (28.0-33.3); Mean Corpuscular Volume 87.9 fL (83.0-100.0); Mean Platelet Volume 9.1 fL (9.4-12.4); Monocytes # 0.8 K/mcL (0.0-1.3); Monocytes % 7.6 %; Neutrophils # 6.8 K/mcL (1.6-8.9); Platelet Count 309 K/mcL (140-400); Red Cell Distribution Width 15.6 % (11.5-14.5); Segmented Neutrophils % 67.6 %
[2019-01-15 06:12] LABS: BUN/Creatinine Ratio 18 (6-26); Blood Urea Nitrogen 24 mg/dL (8-23); Calcium 8.4 mg/dL (8.6-10.3); Carbon Dioxide 30 mEq/L (23-29); Chloride 100 mEq/L (98-107); Glucose 142 mg/dL (70-105); Osmolality,Calculated 290 (280-300); Potassium 3.4 mEq/L (3.5-5.1); Sodium 137 mEq/L (136-145); eGFR For Non-African Americans 53 (> 60)
[2019-01-15] MEDS: Multivit/Ca/Min/Fe/FA 1 TAB TABLET PO SCH (09:28)
[2019-01-15] MEDS: Lisinopril-HCTZ 20-12.5mg TABLET PO SCH (09:28)
[2019-01-15] MEDS: amLODIPine 5 MG TABLET PO SCH (09:29)
[2019-01-15] MEDS: Furosemide 20 MG/2 ML VIAL IVP SCH ×2 (09:29→17:06)
[2019-01-15] MEDS: *HR* Metformin 500 MG TABLET PO SCH (17:06)
--- NOTE | 2019-01-15 18:25 | Internal Med Progress Note ---
Date of Encounter: 01/15/19 Time of Encounter: 17:40 - Assessment and plan (1) Atrial fibrillation Current Visit: Yes Status: Chronic Assessment and plan: Chronic atrial fibrillation, controlled rate. We have not initiated full anticoagulation because of his chronic anemia and likely GI blood loss source. He has not been stable long enough in the past few months to do upper and lower endoscopy. Qualifiers: Atrial fibrillation type: persistent Qualified Code(s): I48.1 - Persistent atrial fibrillation (2) Hypertension Current Visit: Yes Status: Chronic Assessment and plan: Continue current regimen. Qualifiers: Hypertension type: essential hypertension Qualified Code(s): I10 - Essential (primary) hypertension (3) Chronic kidney disease (CKD), stage III (moderate) Current Visit: Yes Status: Chronic Assessment and plan: Cr 1.3 today. CTM, especially with active diuresis. (4) Acute congestive heart failure Current Visit: No Status: Acute Assessment and plan: His acute congestive heart failure is clinically and symptomatically much improved. Echocardiogram showed preserved EF at 65%. Continue IV Lasix at 20mg BID for now. Will monitor renal function and electrolytes closely while actively getting diuresed. 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 No major residual issues in no acute changes - Time Spent With Patient less than 15 minutes - Subjective Interval history: Feeling better overall, with slight cough now. Otherwise no concern. - Constitutional Vitals: Temp Pulse Resp BP Pulse Ox 98.1 F 78 16 158/74 93 01/15/19 15:00 01/15/19 15:00 01/15/19 15:00 01/15/19 15:00 01/15/19 15:00 General appearance: Present: A&O X 3, no acute distress, answers questions appropriately Exam: Gen: A&Ox3, NAD. HEENT: NCAT. Neck: No palpable lymphadenopathy or thyromegaly. CV: Irregularly irregular, rate-controlled. 2/6, systolic murmur. Capillary refill < 2 seconds. Pulm: Adequate air exchange with mild, bibasilar crackles. Abd: (+)BS. NDNT. Neuro: Non-focal. Skin: No rash. Ext: Trace to 1(+) pitting edema in bilateral LE. Internal Medicine: Result - Labs CBC & Chem 7: 01/15/19 05:55 01/15/19 05:55 Labs: Short CBC 01/15/19 Range/Units 05:55 WBC 10.0 (4.3-11.1) K/mcL Hgb 9.2 L (12.9-16.9) g/dL Hct 29.0 L (37.5-50.1) % Plt Count 309 (140-400) K/mcL Neutrophils # 6.8 (1.6-8.9) K/mcL BMP 01/15/19 05:55 Sodium 137 Potassium 3.4 L Chloride 100 Carbon Dioxide 30 H BUN 24 H Creatinine 1.30 Glucose 142 H Calcium 8.4 L - ABG Interpretation ABG results: PT/INR, D-dimer PT 13.6 Seconds (9.4-12.1) H 01/12/19 11:22 - VTE Reasons for not Prescribing Prophylaxis: Treatment not Indicated - Low risk for VTE Consult Discharge Plan - Plan Referrals: Mario Early MD [Primary Care Provider] -
[2019-01-16] MEDS: Benzonatate 100 MG CAPSULE PO PRN ×2 (01:08→13:05)
[2019-01-16] MEDS: Melatonin 3 MG TABLET PO PRN (01:08)
[2019-01-16] MEDS: *HR* Enoxaparin 40 MG/0.4 ML SYRINGE SQ SCH (05:02)
[2019-01-16 05:39] LABS: BUN/Creatinine Ratio 20 (6-26); Blood Urea Nitrogen 25 mg/dL (8-23); Calcium 8.6 mg/dL (8.6-10.3); Carbon Dioxide 29 mEq/L (23-29); Chloride 101 mEq/L (98-107); Glucose 140 mg/dL (70-105); Magnesium 1.5 mg/dL (1.6-2.6); Osmolality,Calculated 291 (280-300); Potassium 3.5 mEq/L (3.5-5.1); Sodium 137 mEq/L (136-145); eGFR For Non-African Americans 55 (> 60)
[2019-01-16] MEDS: Multivit/Ca/Min/Fe/FA 1 TAB TABLET PO SCH (08:56)
[2019-01-16] MEDS: Lisinopril-HCTZ 20-12.5mg TABLET PO SCH (08:56)
[2019-01-16] MEDS: amLODIPine 5 MG TABLET PO SCH (08:56)
[2019-01-16] MEDS: Furosemide 20 MG/2 ML VIAL IVP SCH (08:56)
--- NOTE | 2019-01-16 12:41 | Internal Med Progress Note ---
Date of Encounter: 01/16/19 Time of Encounter: 11:30 - Assessment and plan (1) Atrial fibrillation Current Visit: Yes Status: Chronic Assessment and plan: Chronic atrial fibrillation, controlled rate. We have not initiated full anticoagulation because of his chronic anemia and likely GI blood loss source. He has not been stable long enough in the past few months to do upper and lower endoscopy. Qualifiers: Atrial fibrillation type: persistent Qualified Code(s): I48.1 - Persistent atrial fibrillation (2) Hypertension Current Visit: Yes Status: Chronic Assessment and plan: Continue current regimen. Qualifiers: Hypertension type: essential hypertension Qualified Code(s): I10 - Essential (primary) hypertension (3) Chronic kidney disease (CKD), stage III (moderate) Current Visit: Yes Status: Chronic Assessment and plan: Cr 1.26 today. CTM, especially with active diuresis. (4) Acute congestive heart failure Current Visit: No Status: Acute Assessment and plan: His acute congestive heart failure is clinically and symptomatically much improved. Echocardiogram showed preserved EF at 65%. Will switch to oral Lasix. Will monitor renal function and electrolytes closely while actively getting diuresed. 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 No major residual issues in no acute changes (7) Hypomagnesemia Current Visit: Yes Status: Acute Assessment and plan: Replete as appropriatte. Will recheck. - Time Spent With Patient less than 15 minutes - Subjective Interval history: Had some nausea this morning, but is tolerating lunch okay now. Otherwise no concern. - Constitutional Vitals: Temp Pulse Resp BP Pulse Ox 98.2 F 66 18 122/61 96 01/16/19 11:00 01/16/19 11:00 01/16/19 11:00 01/16/19 11:00 01/16/19 11:00 General appearance: Present: A&O X 3, no acute distress, answers questions appropriately Exam: Gen: A&Ox3, NAD. HEENT: NCAT. Neck: No palpable lymphadenopathy or thyromegaly. CV: Irregularly irregular, rate-controlled. 2/6, systolic murmur. Capillary refill < 2 seconds. Pulm: Adequate air exchange with mild, bibasilar crackles. Abd: (+)BS. NDNT. Neuro: Non-focal. Skin: No rash. Ext: No pitting edema in bilateral LE. Internal Medicine: Result - Labs CBC & Chem 7: 01/15/19 05:55 01/16/19 04:44 Labs: BMP 01/16/19 04:44 Sodium 137 Potassium 3.5 Chloride 101 Carbon Dioxide 29 BUN 25 H Creatinine 1.26 Glucose 140 H Calcium 8.6 - ABG Interpretation ABG results: PT/INR, D-dimer PT 13.6 Seconds (9.4-12.1) H 01/12/19 11:22 - Impressions Impressions Chest X-Ray 01/14/19 07:56 IMPRESSION: Decreased moderate pleural effusions. Pulmonary edema and cardiomegaly. D/ / 01/14/2019 09:26:30 Ramirez Stallings MD / Barbi Mcmillan Interpreting Provider: Ramirez Stallings MD - VTE Reasons for not Prescribing Prophylaxis: Treatment not Indicated - Low risk for VTE Consult Discharge Plan - Plan Referrals: Mario Early MD [Primary Care Provider] -
[2019-01-16] MEDS: *HR* Metformin 500 MG TABLET PO SCH (17:05)
[2019-01-17] MEDS: Ipratropium/Albuterol Neb 3 ML IH PRN (00:57)
[2019-01-17] MEDS: *HR* Enoxaparin 40 MG/0.4 ML SYRINGE SQ SCH (05:09)
[2019-01-17 06:55] LABS: BUN/Creatinine Ratio 20 (6-26); Blood Urea Nitrogen 24 mg/dL (8-23); Calcium 8.3 mg/dL (8.6-10.3); Carbon Dioxide 32 mEq/L (23-29); Chloride 100 mEq/L (98-107); Glucose 119 mg/dL (70-105); Osmolality,Calculated 291 (280-300); Potassium 3.6 mEq/L (3.5-5.1); Sodium 138 mEq/L (136-145); eGFR For Non-African Americans 56 (> 60)
[2019-01-17] MEDS ORDERED: Albuterol 2.5 MG/3 ML NEBULIZER IH PRN (07:29)
--- NOTE | 2019-01-17 07:34 | Internal Med Progress Note ---
Date of Encounter: 01/17/19 Time of Encounter: 07:31 - Assessment and plan (1) Acute congestive heart failure Current Visit: Yes Status: Acute Assessment and plan: He has now been switched to oral Lasix 40 mg daily. Urine output was diminished yesterday compared to the previous day with IV Lasix. He has crackles in his lungs but no peripheral edema. We will see how he does with increased activity out of bed the day and continue 40 mg of Lasix each morning. He needs a daily weight. He needs ambulation to see how he does. Qualifiers: Heart failure type: unspecified Qualified Code(s): I50.9 - Heart failure, unspecified (2) Hypoxia Current Visit: Yes Status: Acute Assessment and plan: Still requiring oxygen as he does at baseline at home. I would like to have him take his breathing treatments 4 times a day as he does not home. He has not been getting them as frequently here. (3) Atrial fibrillation Current Visit: Yes Status: Chronic Assessment and plan: Continued atrial fibrillation, some bradycardia in the 40s and 50s. I like to see how he does when he is up and ambulating and monitor him. Qualifiers: Atrial fibrillation type: persistent Qualified Code(s): I48.1 - Persistent atrial fibrillation (4) Chronic kidney disease (CKD), stage III (moderate) Current Visit: Yes Status: Chronic Assessment and plan: Renal function is normalized (5) Diabetes mellitus Current Visit: Yes Status: Chronic Assessment and plan: Sugars are under reasonable control. Qualifiers: Diabetes mellitus type: type 2 Diabetes mellitus skilled nursing insulin use: without skilled nursing use Diabetes mellitus complication status: with hyperglycemia Qualified Code(s): E11.65 - Type 2 diabetes mellitus with hyperglycemia (6) Hypertension Current Visit: Yes Status: Chronic Qualifiers: Hypertension type: essential hypertension Qualified Code(s): I10 - Essential (primary) hypertension (7) Iron deficiency anemia Current Visit: Yes Status: Chronic Qualifiers: Iron deficiency anemia type: unspecified iron deficiency Qualified Code(s): D50.9 - Iron deficiency anemia, unspecified (8) Respiratory distress Current Visit: Yes Status: Resolved (9) History of ischemic cerebrovascular accident (CVA) with residual deficit Current Visit: No Status: Acute (10) DVT prophylaxis Current Visit: Yes Status: Acute - Subjective Interval history: Patient thinks that he is doing better. He required nebulizer treatment after midnight last night. He says he has continued cough, not as bad as 2 days earlier. He denies any cardiac type chest pain or palpitations. However, he is really not been out of bed much except to sit up in a chair. He said he is not been ambulated yet. Denies any cardiac, GI or symptoms. - Constitutional Vitals: Temp Pulse Resp BP Pulse Ox 98.1 F 64 16 135/65 98 01/17/19 03:14 01/17/19 03:14 01/17/19 03:14 01/17/19 03:14 01/17/19 03:14 General appearance: Present: A&O X 3, no acute distress, answers questions appropriately - Respiratory Additional comments: Crackles are heard in the right mid to lower lung field and left lower lobe. Also heard anteriorly in the left anterior chest. No respiratory distress or dyspnea or orthopnea. - Cardiovascular Cardiovascular exam: Present: irregular rhythm, +S1, +S2 - GI/Abdominal GI/Abdominal exam: Present: soft. Absent: tenderness - Extremities Exam Additional comments: Slight puffiness in his pretibial areas and sock indentation. No significant pedal edema. Internal Medicine: Result - Labs CBC & Chem 7: 01/15/19 05:55 01/17/19 06:17 Labs: BMP 01/17/19 06:17 Sodium 138 Potassium 3.6 Chloride 100 Carbon Dioxide 32 H BUN 24 H Creatinine 1.23 Glucose 119 H Calcium 8.3 L Labs reviewed and magnesium back to see 1.7. Electrolytes and renal function normal. - ABG Interpretation ABG results: PT/INR, D-dimer PT 13.6 Seconds (9.4-12.1) H 01/12/19 11:22 - Prior EKG Data EKG comments: 01/17/19 07:34 Monitor is showing atrial fibrillation, sometimes bradycardic in the high 40s and low 50s when asleep. - Impressions Impressions Chest X-Ray 01/14/19 07:56 IMPRESSION: Decreased moderate pleural effusions. Pulmonary edema and cardiomegaly. D/ / 01/14/2019 09:26:30 Ramirez Stallings MD / Barbi Mcmillan Interpreting Provider: Ramirez Stallings MD - VTE Reasons for not Prescribing Prophylaxis: Treatment not Indicated - Low risk for VTE Consult Discharge Plan - Plan Referrals: Mario Early MD [Primary Care Provider] -
[2019-01-17] MEDS: Lisinopril-HCTZ 20-12.5mg TABLET PO SCH (08:21)
[2019-01-17] MEDS: amLODIPine 5 MG TABLET PO SCH (08:21)
[2019-01-17] MEDS: Multivit/Ca/Min/Fe/FA 1 TAB TABLET PO SCH (08:22)
[2019-01-17] MEDS ORDERED: Furosemide 40 MG TABLET PO SCH (09:00)
[2019-01-17] MEDS: Ipratropium/Albuterol Neb 3 ML IH SCH ×2 (11:12→15:58)
[2019-01-17] MEDS: *HR* Metformin 500 MG TABLET PO SCH (17:11)
[2019-01-17] MEDS: Furosemide 40 MG TABLET PO SCH (21:09)
[2019-01-17] MEDS: Melatonin 3 MG TABLET PO PRN (21:11)
[2019-01-18] MEDS: Ipratropium/Albuterol Neb 3 ML IH SCH ×5 (01:02→20:10)
[2019-01-18] MEDS: *HR* Enoxaparin 40 MG/0.4 ML SYRINGE SQ SCH (06:46)
[2019-01-18] MEDS: Lisinopril-HCTZ 20-12.5mg TABLET PO SCH (08:57)
[2019-01-18] MEDS: Furosemide 40 MG TABLET PO SCH ×2 (08:58→17:09)
[2019-01-18] MEDS: amLODIPine 5 MG TABLET PO SCH (08:58)
[2019-01-18] MEDS: Multivit/Ca/Min/Fe/FA 1 TAB TABLET PO SCH (08:58)
--- NOTE | 2019-01-18 10:30 | Internal Med Progress Note ---
Date of Encounter: 01/18/19 Time of Encounter: 10:30 - Assessment and plan (1) Acute congestive heart failure Current Visit: Yes Status: Acute Assessment and plan: Marked improvement today. His urine output today of about 600 mL's almost what he put out on yesterday of 775 mL. We will continue the twice a day Lasix dosing. No angina. I feel that in the next 24 hours he will be able to be discharged to home if he stays euvolemic today and able to maintain ADLs. Qualifiers: Heart failure type: unspecified Qualified Code(s): I50.9 - Heart failure, unspecified (2) Hypoxia Current Visit: Yes Status: Acute Assessment and plan: Saturations are maintaining recently well with his chronic O2 by nasal cannula (3) Atrial fibrillation Current Visit: Yes Status: Chronic Assessment and plan: Continued atrial fibrillation but bradycardic. Asymptomatic. Continue to monitor. Qualifiers: Atrial fibrillation type: persistent Qualified Code(s): I48.1 - Persistent atrial fibrillation (4) Chronic kidney disease (CKD), stage III (moderate) Current Visit: Yes Status: Chronic Assessment and plan: Renal function has normalized. (5) Diabetes mellitus Current Visit: Yes Status: Chronic Qualifiers: Diabetes mellitus type: type 2 Diabetes mellitus correction insulin use: without computer terminal operator use Diabetes mellitus complication status: with hyperglycemia Qualified Code(s): E11.65 - Type 2 diabetes mellitus with hyperglycemia (6) Hypertension Current Visit: Yes Status: Chronic Qualifiers: Hypertension type: essential hypertension Qualified Code(s): I10 - Essential (primary) hypertension (7) Iron deficiency anemia Current Visit: Yes Status: Chronic Qualifiers: Iron deficiency anemia type: unspecified iron deficiency Qualified Code(s): D50.9 - Iron deficiency anemia, unspecified (8) Respiratory distress Current Visit: Yes Status: Resolved (9) 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 Denies any cardiac type chest pain or palpitations. His breathing is better today. He has just not been out of bed yet which is a bit unusual for him. The swelling is decreasing in his legs. - Constitutional Vitals: Temp Pulse Resp BP Pulse Ox 97.5 F L 56 16 113/65 96 01/18/19 07:20 01/18/19 07:20 01/18/19 07:20 01/18/19 07:20 01/18/19 07:20 General appearance: Present: A&O X 3, no acute distress, answers questions appropriately - Respiratory Additional comments: Rare scattered crackles throughout. No respiratory distress. No orthopnea. No wheeze. - Cardiovascular Cardiovascular exam: Present: irregular rhythm, +S1, +S2 - Extremities Exam Additional comments: No pedal edema. Left medial ankle has swelling and generalized enlargement compared to the right from previous fracture and surgery. No ankle or pretibial edema otherwise Internal Medicine: Result - Labs CBC & Chem 7: 01/15/19 05:55 01/17/19 06:17 - ABG Interpretation ABG results: PT/INR, D-dimer PT 13.6 Seconds (9.4-12.1) H 01/12/19 11:22 - VTE Reasons for not Prescribing Prophylaxis: Treatment not Indicated - Low risk for VTE Consult Discharge Plan - Plan Referrals: Mario Early MD [Primary Care Provider] -
[2019-01-18] MEDS: *HR* Metformin 500 MG TABLET PO SCH (17:09)
--- NOTE | 2019-01-18 18:23 | Event Note ---
Date of Encounter: 01/18/19 Time of Encounter: 18:22 Patient was able to ambulate in the hallway today. His lungs are much more clear tonight then this morning. His feet show mild pitting edema the dorsum of both feet. No significant pedal edema. Sock line indentation noted. Urine output has already exceeded yesterday's total body 100 mL or so. Weight is down 3 pounds yesterday. For plan on discharge tomorrow if he remains this stable or better. He will have [id number]'s friend staying with him.
[2019-01-18] MEDS: Melatonin 3 MG TABLET PO PRN (20:42)
--- NOTE | 2019-01-18 22:13 | Discharge Summary ---
- NOTES TO OUTPATIENT PROVIDER Notes to Outpatient Provider: 1. Home health, PT, aide to be restarted via [facility]. 2. Discharge weight is 184 pounds. 3. Discharge Lasix dose is 40 mg twice a day, prescription sent to [facility] Date of Encounter: 01/19/19 Time of Encounter: 09:43 - Discharge Diagnosis (1) Acute congestive heart failure Priority: Primary Status: Acute Comments: Patient with known history of atrial fibrillation and prior congestive heart failure was admitted via the emergency room with acute congestive heart failure. Apparently he had been a day or 2 without his Lasix dose was not delivered for the mail order pharmacy properly. He was in acute congestive heart failure. No signs of acute AK noted. Echocardiogram showed ejection fraction of 65%. He was treated with IV Lasix and his symptoms improved dramatically in the first 24 hours. He remained on IV Lasix for the next several days until he was adequately diuresed. He was then switched to Lasix 40 mg daily. And later increased to Lasix 40 mg twice a day. His weight went down at least 3 or 4 pounds, he had no cardiac type chest pain, he got to the point where he is able to ambulate in the hallway without having dyspnea or significant hypoxia. Discharge weight is 184 pounds for the past 2 days. He chronically uses oxygen likely due to COPD. He has now regained ADL sufficiently to be discharged to home with close follow- up with home health and house calls. A friend of a relative will be staying with him as well. Qualifiers: Heart failure type: diastolic Qualified Code(s): I50.31 - Acute diastolic (congestive) heart failure (2) Hypoxia Priority: Secondary Status: Acute Comments: Patient chronically has hypoxia likely from COPD. He was also hypoxic during hospital stay and needed additional oxygen. He is now tapered down to approximately 2-3 L per nasal cannula and able to ambulate in the hallway. He will continue with oxygen at discharge. (3) Atrial fibrillation Priority: Secondary Status: Chronic Comments: Patient has had persistent atrial fibrillation for the past few months. He is not a great candidate for full anticoagulation because of history of anemia likely from GI source. He has not been stable enough long enough to undergo upper lower endoscopies. He does continue with Plavix that was recommended by [facility] when patient had a recurrent CVA a few years ago. No angina noted. He cleared of the CHF as above. His rate is commonly in the 40s and 50s at rest/sleep, and is adequately elevated enough to undergo his ADLs walking. Qualifiers: Atrial fibrillation type: persistent Qualified Code(s): I48.1 - Persistent atrial fibrillation (4) Chronic kidney disease (CKD), stage III (moderate) Priority: Secondary Status: Chronic Comments: Patient has history of chronic kidney disease and acute kidney injury on admission. His creatinine went up to 1.4 during his diuresis. Currently his renal function is now normal. (5) Diabetes mellitus Priority: Secondary Status: Chronic Comments: Patient chronically has diabetes mellitus. His sugars were under fairly good control during this hospital stay. Glycohemoglobin was 7.2% on 12/08/18. 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 His current medications were continued. Qualifiers: Hypertension type: essential hypertension Qualified Code(s): I10 - Essential (primary) hypertension (7) Iron deficiency anemia Priority: Secondary Status: Chronic Comments: Long-standing history of iron deficiency anemia. It is presumed from GI source without acute hemorrhage. He is not been stable long enough to undergo upper and lower endoscopies. No melena or hematochezia noted. Qualifiers: Iron deficiency anemia type: unspecified iron deficiency Qualified Code(s): D50.9 - Iron deficiency anemia, unspecified (8) Respiratory distress Priority: Secondary Status: Resolved (9) History of ischemic cerebrovascular accident (CVA) with residual deficit Priority: Secondary Status: Acute Hospital course: Mr. Christensen is a 83 year old male known history of atrial fibrillation and previous congestive heart failure was admitted to the hospital via the ER with a history of acute congestive heart failure having missed a couple days of Lasix. With gentle diuresis his congestive heart failure cleared and by time of discharge he was ambulatory in the hallway with oxygen. His EF was 65% on echocardiogram. He did not have an acute AK. He is rate controlled with his atrial fibrillation and not fully anticoagulated because of anemia dn fall risks. See the diagnoses above. Home health to be arranged and house call pending. Discharge discussed with: patient - Time Spent with Patient Total time spent providing and/or coordinating discharge services: Time spent: Less than 30 minutes - Discharge Medications Prescriptions: New Furosemide [Lasix] 40 mg PO BIDDIURETIC #60 tablet Potassium Chloride 20 meq PO DAILY #30 tab.er.prt GuaiFENesin/Dextromethorphan [Robitussin/Dm] 5 ml PO Q6HR PRN udc PRN Reason: Cough Continue Omeprazole 20 mg PO DAILY Clopidogrel [Plavix] 75 mg PO DAILY amLODIPine [Norvasc] 5 mg PO DAILY Atorvastatin Calcium [Lipitor] 80 mg PO HS #30 tab Ferrous Sulfate 325 mg PO DAILY@0800 #30 tablet Labetalol [Trandate] 100 mg PO BID #60 tablet Levothyroxine Sodium 100 mcg PO 0600 Acetaminophen [Tylenol] 500 mg PO Q4HR PRN tablet PRN Reason: pain/fever Ipratropium/Albuterol Neb [Duoneb] 3 ml IH [id number] PRN #120 inhsol PRN Reason: Wheezing Benzonatate [Tessalon] 200 mg PO TID PRN capsule PRN Reason: Cough Multivit/Ca/Min/Fe/FA [Thera M Plus] 1 tab PO DAILY tablet metFORMIN [Glucophage] 1,000 mg PO HS Lisinopril-HCTZ 20-12.5 [Prinzide 20-12.5] 1 each PO DAILY Discontinued Furosemide [Lasix] 20 mg PO BIDDIURETIC Potassium Chloride 10 meq PO DAILY Home Medications: Clopidogrel [Plavix] 75 mg PO DAILY 02/19/18 [History] Omeprazole 20 mg PO DAILY 02/19/18 [History] amLODIPine [Norvasc] 5 mg PO DAILY 02/19/18 [History] Atorvastatin Calcium [Lipitor] 80 mg PO HS #30 tab 10/14/18 [Rx] Ferrous Sulfate 325 mg PO DAILY@0800 #30 tablet 10/14/18 [Rx] Labetalol [Trandate] 100 mg PO BID #60 tablet 10/14/18 [Rx] Levothyroxine Sodium 100 mcg PO 0600 11/12/18 [History] Acetaminophen [Tylenol] 500 mg PO Q4HR PRN tablet 12/09/18 [Rx] Benzonatate [Tessalon] 200 mg PO TID PRN capsule 12/09/18 [Rx] Ipratropium/Albuterol Neb [Duoneb] 3 ml IH [id number] PRN #120 inhsol 12/09/18 [Rx] Multivit/Ca/Min/Fe/FA [Thera M Plus] 1 tab PO DAILY tablet 12/09/18 [Rx] Lisinopril-HCTZ 20-12.5 [Prinzide 20-12.5] 1 each PO DAILY 01/12/19 [History] metFORMIN [Glucophage] 1,000 mg PO HS 01/12/19 [History] Furosemide [Lasix] 40 mg PO BIDDIURETIC #60 tablet 01/18/19 [Rx] GuaiFENesin/Dextromethorphan [Robitussin/Dm] 5 ml PO Q6HR PRN udc 01/18/19 [Rx] Potassium Chloride 20 meq PO DAILY #30 tab.er.prt 01/18/19 [Rx] Allergies/Adverse Reactions: Allergy/AdvReac Type Severity Reaction Status Date / Time Sulfa (Sulfonamide Allergy See Verified 09/30/18 05:30 Antibiotics) Comments Date of admission: 01/13/19 01:55 Primary care physician: Mario Early MD Discharging clinician: Mario Early Anticipated date of discharge: 01/19/19 - Constitutional Vitals: Temp Pulse Resp BP Pulse Ox 97.7 F 81 18 149/66 97 01/18/19 19:00 01/18/19 19:00 01/18/19 20:10 01/18/19 19:00 01/18/19 20:54 General appearance: Present: A&O X 3, no acute distress, answers questions appropriately - Respiratory Additional comments: Posteriorly his lungs show diminished breath sounds but clear in all [place]. Anteriorly a few localizing crackles in the right upper lobe area. Left is clear. - Cardiovascular Cardiovascular exam: Present: irregular rhythm, +S1, +S2 Additional comments: Monitor shows occasional bigeminy pattern. No runs of V. tach. The bradycardia resolved. Pulses in the 60s to 80s. - Extremities Exam Additional comments: He does have edema in both dorsal feet. No particular edema in his anterior shins but he does have indentation at the sock line. - Patient Status Disposition: Home Health Service Condition: Good Functional capacity at discharge: uses cane/walker Overall status at discharge: patient is progressing back to baseline - Discharge Instructions Follow Up With: Mario Early MD [Primary Care Provider] - (We will make a house call in a few days.) - Diet and Activity Activity: ambulate only with your walker, wear oxygen at all times Diet: diabetic diet, low salt diet - VTE Reasons for not Prescribing Prophylaxis: Treatment not Indicated - Low risk for VTE
[2019-01-19] MEDS: *HR* Enoxaparin 40 MG/0.4 ML SYRINGE SQ SCH (04:40)
[2019-01-19] MEDS: Ipratropium/Albuterol Neb 3 ML IH SCH ×2 (04:40→10:35)
[2019-01-19 05:46] LABS: Basophils % 0.5 %; Eosinophils # 0.8 K/mcL (0.0-0.6); Eosinophils % 10.9 %; Hematocrit 27.4 % (37.5-50.1); Hemoglobin 8.8 g/dL (12.9-16.9); Immature Granulocytes % 0.3 % (0-4); Lymphocytes # 1.3 K/mcL (0.6-4.6); Lymphocytes % 16.4 %; Mean Corpuscular HGB Conc 32.1 g/dL (31.6-35.5); Mean Corpuscular Volume 87.3 fL (83.0-100.0); Mean Platelet Volume 9.6 fL (9.4-12.4); Monocytes # 0.7 K/mcL (0.0-1.3); Monocytes % 9.6 %; Neutrophils # 4.7 K/mcL (1.6-8.9); Platelet Count 295 K/mcL (140-400); Red Blood Count 3.14 M/mcL (4.19-5.50); Red Cell Distribution Width 15.5 % (11.5-14.5); Segmented Neutrophils % 62.3 %
[2019-01-19 05:55] LABS: BUN/Creatinine Ratio 24 (6-26); Blood Urea Nitrogen 29 mg/dL (8-23); Calcium 8.4 mg/dL (8.6-10.3); Carbon Dioxide 33 mEq/L (23-29); Chloride 100 mEq/L (98-107); Glucose 145 mg/dL (70-105); Osmolality,Calculated 298 (280-300); Potassium 3.6 mEq/L (3.5-5.1); Sodium 140 mEq/L (136-145); eGFR For Non-African Americans 56 (> 60)
[2019-01-19] MEDS: Furosemide 40 MG TABLET PO SCH (08:14)
[2019-01-19] MEDS: Lisinopril-HCTZ 20-12.5mg TABLET PO SCH (08:15)
[2019-01-19] MEDS: Benzonatate 100 MG CAPSULE PO PRN (08:15)
[2019-01-19] MEDS: Multivit/Ca/Min/Fe/FA 1 TAB TABLET PO SCH (08:15)
[2019-01-19] MEDS: amLODIPine 5 MG TABLET PO SCH (08:15)
--- NOTE | 2019-01-19 10:01 | Physician Discharge Referral ---
Home Health/Hosp Referral Info Provider in Charge Post Discharge: PCP (Dr. Early) - Diagnosis (1) Acute congestive heart failure Priority: Primary Status: Acute (2) Hypoxia Priority: Secondary Status: Acute (3) Atrial fibrillation Priority: Secondary Status: Chronic (4) Chronic kidney disease (CKD), stage III (moderate) Priority: Secondary Status: Chronic (5) Diabetes mellitus Priority: Secondary Status: Chronic (6) Hypertension Priority: Secondary Status: Chronic (7) Iron deficiency anemia Priority: Secondary Status: Chronic (8) Respiratory distress Priority: Secondary Status: Resolved (9) History of ischemic cerebrovascular accident (CVA) with residual deficit Priority: Secondary Status: Acute - Respiratory Orders Oxygen / L per min (2-3 L per nasal cannula) Smoking Cessation: Smoking cessation has been advised. For more information, call the [employer] Tobacco Quit Line at 5-700-CSEJ-NOW. - Diet/Nutrition Diet/Nutrition Orders: No Added Salt (DAVON), No Concentrated Sweets - Activity Activity Orders: Walker - Services Needed Following services are medically necessary services: Nursing, Home Health Aide, Physical Therapy - Transfer Medications Prescriptions: Furosemide [Lasix] 40 mg PO BIDDIURETIC #60 tablet Potassium Chloride 20 meq PO DAILY #30 tab.er.prt Home Medications: Clopidogrel [Plavix] 75 mg PO DAILY 02/19/18 [History] Omeprazole 20 mg PO DAILY 02/19/18 [History] amLODIPine [Norvasc] 5 mg PO DAILY 02/19/18 [History] Atorvastatin Calcium [Lipitor] 80 mg PO HS #30 tab 10/14/18 [Rx] Ferrous Sulfate 325 mg PO DAILY@0800 #30 tablet 10/14/18 [Rx] Labetalol [Trandate] 100 mg PO BID #60 tablet 10/14/18 [Rx] Levothyroxine Sodium 100 mcg PO 0600 11/12/18 [History] Acetaminophen [Tylenol] 500 mg PO Q4HR PRN tablet 12/09/18 [Rx] Benzonatate [Tessalon] 200 mg PO TID PRN capsule 12/09/18 [Rx] Ipratropium/Albuterol Neb [Duoneb] 3 ml IH [id number] PRN #120 inhsol 12/09/18 [Rx] Multivit/Ca/Min/Fe/FA [Thera M Plus] 1 tab PO DAILY tablet 12/09/18 [Rx] Lisinopril-HCTZ 20-12.5 [Prinzide 20-12.5] 1 each PO DAILY 01/12/19 [History] metFORMIN [Glucophage] 1,000 mg PO HS 01/12/19 [History] Furosemide [Lasix] 40 mg PO BIDDIURETIC #60 tablet 01/18/19 [Rx] GuaiFENesin/Dextromethorphan [Robitussin/Dm] 5 ml PO Q6HR PRN udc 01/18/19 [Rx] Potassium Chloride 20 meq PO DAILY #30 tab.er.prt 01/18/19 [Rx] Allergies/Adverse Reactions: Allergy/AdvReac Type Severity Reaction Status Date / Time Sulfa (Sulfonamide Allergy See Verified 09/30/18 05:30 Antibiotics) Comments Certification: Further, I certify that my clinical findings support that this patient is homebound (i.e. absences from home require considerable and taxing effort and are for medical reasons or confucianism services or infrequently or short duration when for other reasons) because: Homebound Reason: Patient requires assistance of a person or device to safely leave home, Leaving home requires considerable and taxing effort due to condition, Severity of cardiac or pulmonary status limits activity tolerance Attestation: My signature below is to certify that this patient is under my care and that I, or nurse practitioner, or a physician's insurance sales assistant working with me, has a [id number]-[id number] encounter with this patient.
[2019-01-19 11:03] VITALS: BP 119/68
== END 2019-01-19 12:04 | disposition home health service (06) | DRG 291 ==
LOC: EMEROOGRE 10:27 → INPGRE 10:27
PROVIDERS: ADMIT Family Medicine; ATTEND Family Medicine

== ENCOUNTER 2019-03-18 14:56 | Inpatient (IN) ==
--- NOTE | 2019-03-18 15:10 | Emergency Department Note ---
Disposition Clinical Impression: Congestive heart failure Qualifiers: Heart failure type: unspecified Heart failure chronicity: acute on chronic Qualified Code(s): I50.9 - Heart failure, unspecified Disposition: Admitted As Inpatient Condition: Good Referrals: Mario Early MD [Primary Care Provider] - Forms: ED Satisfaction Letter, Work/School Release Time of Disposition: 17:39 General Adult HPI - General Chief complaint: ED General Medical Stated complaint: sick Time Seen by Provider: 03/18/19 15:10 Source: patient, family Mode of arrival: private vehicle Limitations: no limitations Nursing Notes Reviewed: Yes Vital Signs Reviewed: Yes - History of Present Illness HPI Narrative: 83-year-old white male presents emergency department via private vehicle complaining of shortness of breath. He says that he feels short of breath when he walks across her room and when he lays down flat. He says he has a history of congestive heart failure in the past as well as COPD for which she wears home oxygen. He says that his symptoms have been getting worse all week. He says his been coughing up yellow phlegm as well. He says that he came and saw his primary care physician 3 days ago and was observed in the hospital. He was discharged home yesterday, but does not think that he was well enough to go home. He says that he was up all night coughing and feeling short of breath. He says he just lay on 2 pillows at home. He denies any fever or chills. He does not appear to be uncomfortable presently. He also has a history of atrial fibrillation. Pain Scale: 0 - Related Data Home Medications Medication Instructions Recorded Confirmed Clopidogrel [Plavix] 75 mg PO DAILY 02/19/18 03/18/19 Omeprazole 20 mg PO DAILY 02/19/18 03/18/19 amLODIPine [Norvasc] 5 mg PO DAILY 02/19/18 03/18/19 Levothyroxine Sodium 100 mcg PO 0600 11/12/18 03/18/19 metFORMIN [Glucophage] 1,000 mg PO HS 01/12/19 03/18/19 Previous Rx's Medication Instructions Recorded Atorvastatin Calcium [Lipitor] 80 mg PO HS #30 tab 10/14/18 Ferrous Sulfate 325 mg PO DAILY@0800 #30 tablet 10/14/18 Labetalol [Trandate] 100 mg PO BID #60 tablet 10/14/18 Acetaminophen [Tylenol] 500 mg PO Q4HR PRN tablet 12/09/18 Benzonatate [Tessalon] 200 mg PO TID PRN capsule 12/09/18 Ipratropium/Albuterol Neb [Duoneb] 3 ml IH [id number] PRN #120 inhsol 12/09/18 Multivit/Ca/Min/Fe/FA [Thera M 1 tab PO DAILY tablet 12/09/18 Plus] Furosemide [Lasix] 40 mg PO BIDDIURETIC #60 tablet 01/18/19 GuaiFENesin/Dextromethorphan 5 ml PO Q6HR PRN udc 01/18/19 [Robitussin/Dm] Potassium Chloride 20 meq PO DAILY #30 tab.er.prt 01/18/19 Losartan [Cozaar] 50 mg PO DAILY #30 tablet 03/17/19 Allergies Allergy/AdvReac Type Severity Reaction Status Date / Time Sulfa (Sulfonamide Allergy See Verified 03/15/19 20:20 Antibiotics) Comments All systems ED: reviewed and negative except as stated. Constitutional: Reports: as per HPI. Denies: fever, chills, weakness, weight change Eyes: Denies: eye pain, eye discharge, vision change ENT ED: Denies: ear pain, throat pain, dental pain, hearing loss, epistaxis, congestion, dysphagia Cardiovascular: Reports: as per HPI, dyspnea on exertion, orthopnea. Denies: chest pain, palpitations, edema, syncope Respiratory: Reports: as per HPI, cough, dyspnea, sputum production Gastrointestinal: Denies: abdominal pain, nausea, vomiting, diarrhea, constipation, hematemesis, melena, hematochezia Genitourinary: Denies: urgency, dysuria, frequency, hematuria Musculoskeletal: Denies: back pain, neck pain, arthralgia, myalgia Integumentary: Denies: rash, abrasion, lesions Neurological: Reports: as per HPI Endocrine: Denies: fatigue Hematological/Lymphatic: Denies: easy bleeding, easy bruising Allergic/Immunologic: Denies: facial swelling, urticaria Past Medical History - Past Medical History Medical history: Reports: atrial fibrillation, CHF, CVA, diabetes, GERD, hyperl ipidemia, hypertension, renal disease, thyroid disease Psychiatric history: Reports: no psych history - Social History Smoking Status: Former smoker Smokeless Tobacco Status: No Alcohol use: Reports: none Drug use: Reports: none Physical Exam - General Limitations: no limitations General appearance: alert, in no apparent distress - Head Head exam: atraumatic, normocephalic, normal inspection - Eye Eye exam: Present: normal appearance, PERRL, EOMI - ENT ENT exam: normal exam, normal oropharynx, mucous membranes moist - Neck Neck exam: Present: normal inspection, full ROM, trachea midline - Chest Chest inspection: Present: normal inspection, symmetric chest wall rise - Respiratory Respiratory exam: Present: other (Breath sounds are decreased bilaterally, but equal. There are scattered rhonchi throughout and Rales appreciated at the right base.) - Cardiovascular Cardiovascular exam: Present: regular rate, normal rhythm, normal heart sounds - Abdominal Exam Abdominal exam: Present: soft, Non-Tender. Absent: tenderness, distention, guarding, rebound, rigidity - Extremities Exam Extremities exam: Present: normal inspection, full ROM. Absent: tenderness, pedal edema - Back Exam Back exam: Present: normal inspection, full ROM. Absent: tenderness, CVA tenderness (R), CVA tenderness (L) - Neurological Exam Neurological exam: Present: alert, oriented X3, CN II-XII intact. Absent: motor sensory deficit - Psychiatric Psychiatric exam: Present: normal affect, normal mood - Skin Skin exam: Present: warm, dry, intact, normal color Course Course Narrative: Spoke with Dr. Jessica at 1738, he is hand button splitter for Dr. Early in Dr. Hernandez. He will observe the patient here in [place]. The patient remained stable throughout his emergency department stay and following his Lasix started to have a good urine output. Vital Signs Temperature 98.4 F 03/18/19 15:06 Pulse Rate 65 03/18/19 15:06 Respiratory Rate 18 03/18/19 15:06 Blood Pressure 96/50 03/18/19 15:06 O2 Sat by Pulse Oximetry 97 03/18/19 15:06 Temperature 98.4 F 03/18/19 15:06 Pulse Rate 65 03/18/19 15:06 Respiratory Rate 18 03/18/19 15:06 Blood Pressure 96/50 03/18/19 15:06 O2 Sat by Pulse Oximetry 99 03/18/19 15:12 Oxygen Delivery Oxygen Delivery Nasal Cannula Medical Decision Making - Lab Data Lab results reviewed: Yes I reviewed the patient's lab results. Result diagrams: 03/18/19 15:40 03/18/19 15:40 Lab Results 03/18/19 03/18/19 03/18/19 Range/Units 15:40 15:40 15:40 WBC 8.8 (4.3-11.1) K/mcL RBC 3.56 L (4.19-5.50) M/mcL Hgb 9.9 L (12.9-16.9) g/dL Hct 30.3 L (37.5-50.1) % MCV 85.1 (83.0-100.0) fL MCH 27.8 L (28.0-33.3) pg MCHC 32.7 (31.6-35.5) g/dL RDW 16.0 H (11.5-14.5) % Plt Count 341 (140-400) K/mcL MPV 9.9 (9.4-12.4) fL Immature Gran % 0.2 (0-4) % Seg Neutrophils % 73.2 % Lymphocytes % 13.1 % Monocytes % 7.3 % Eosinophils % 5.6 % Basophils % 0.6 % Neutrophils # 6.4 (1.6-8.9) K/mcL Lymphocytes # 1.2 (0.6-4.6) K/mcL Monocytes # 0.6 (0.0-1.3) K/mcL Eosinophils # 0.5 (0.0-0.6) K/mcL Basophils # 0.1 (0.0-0.2) K/mcL PT 13.3 H (9.4-12.1) Seconds INR 1.2 Sodium 134 L (136-145) mEq/L Potassium 4.1 (3.5-5.1) mEq/L Chloride 99 (98-107) mEq/L Carbon Dioxide 27 (23-29) mEq/L BUN 29 H (8-23) mg/dL Creatinine 1.64 H (0.70-1.30) mg/dL Est GFR ( Amer) 49 L (> 60) Est GFR (Non-Af Amer) 40 L (> 60) BUN/Creatinine Ratio 18 (6-26) Glucose 217 H (70-105) mg/dL Calculated Osmolality 290 (280-300) Lactic Acid (0.5-2.2) mmol/L Calcium 8.4 L (8.6-10.3) mg/dL Total Bilirubin 0.5 (0.3-1.0) mg/dL AST 13 (13-39) Units/L ALT 14 (7-52) Units/L Alkaline Phosphatase 53 (34-104) Units/L Troponin I < 0.03 (< 0.04) ng/mL B-Natriuretic Peptide (Less than 100) pg/mL Serum Total Protein 5.4 L (6.4-8.9) g/dL Albumin 3.4 L (3.5-5.7) g/dL Globulin 2.0 L (2.4-3.5) g/dL Albumin/Globulin Ratio 1.7 (1.1-2.2) Urine Color (Yellow) Urine Clarity (Clear) Urine pH (5.0-8.0) pH Units Ur Specific [place] (1.010-1.025) Urine Protein (Neg-Trace) mg/dL Urine Glucose (UA) (Normal) mg/dL Urine Ketones (Negative) mg/dL Urine Blood (Negative) Urine Nitrite (Negative) Urine Bilirubin (Negative) Urine Urobilinogen (Normal) mg/dL Ur Leukocyte Esterase (Negative) Urine Microscopic WBC (0-3) per hpf Ur Squamous Epith Cells (None-Few) per lpf Urine Bacteria (None-Few) per hpf Ur Culture Indicated? (NO) 03/18/19 03/18/19 03/18/19 Range/Units 15:40 15:40 16:18 WBC (4.3-11.1) K/mcL RBC (4.19-5.50) M/mcL Hgb (12.9-16.9) g/dL Hct (37.5-50.1) % MCV (83.0-100.0) fL MCH (28.0-33.3) pg MCHC (31.6-35.5) g/dL RDW (11.5-14.5) % Plt Count (140-400) K/mcL MPV (9.4-12.4) fL Immature Gran % (0-4) % Seg Neutrophils % % Lymphocytes % % Monocytes % % Eosinophils % % Basophils % % Neutrophils # (1.6-8.9) K/mcL Lymphocytes # (0.6-4.6) K/mcL Monocytes # (0.0-1.3) K/mcL Eosinophils # (0.0-0.6) K/mcL Basophils # (0.0-0.2) K/mcL PT (9.4-12.1) Seconds INR Sodium (136-145) mEq/L Potassium (3.5-5.1) mEq/L Chloride (98-107) mEq/L Carbon Dioxide (23-29) mEq/L BUN (8-23) mg/dL Creatinine (0.70-1.30) mg/dL Est GFR ( Amer) (> 60) Est GFR (Non-Af Amer) (> 60) BUN/Creatinine Ratio (6-26) Glucose (70-105) mg/dL Calculated Osmolality (280-300) Lactic Acid 2.2 (0.5-2.2) mmol/L Calcium (8.6-10.3) mg/dL Total Bilirubin (0.3-1.0) mg/dL AST (13-39) Units/L ALT (7-52) Units/L Alkaline Phosphatase (34-104) Units/L Troponin I (< 0.04) ng/mL B-Natriuretic Peptide 275 H (Less than 100) pg/mL Serum Total Protein (6.4-8.9) g/dL Albumin (3.5-5.7) g/dL Globulin (2.4-3.5) g/dL Albumin/Globulin Ratio (1.1-2.2) Urine Color Yellow (Yellow) Urine Clarity Clear (Clear) Urine pH 7.5 (5.0-8.0) pH Units Ur Specific [place] 1.015 (1.010-1.025) Urine Protein Negative (Neg-Trace) mg/dL Urine Glucose (UA) Normal (Normal) mg/dL Urine Ketones Negative (Negative) mg/dL Urine Blood Negative (Negative) Urine Nitrite Negative (Negative) Urine Bilirubin Negative (Negative) Urine Urobilinogen Normal (Normal) mg/dL Ur Leukocyte Esterase Trace H (Negative) Urine Microscopic WBC 0-3 (0-3) per hpf Ur Squamous Epith Cells Few (None-Few) per lpf Urine Bacteria Few (None-Few) per hpf Ur Culture Indicated? YES A (NO) - Radiology Data Radiology results reviewed: Yes I reviewed the patient's radiology results. XR chest 1V IMPRESSION: Diffuse airspace disease bilaterally with effusions. Findings suggest pulmonary edema D/ / Sammy Lewis / Sammy Lewis - EKG Data EKG #1 EKG attestation: Yes I reviewed and interpreted this EKG. EKG results narrative: Twelve-lead EKG shows atrial fibrillation with a ventricular rate of 69, normal axis, no acute ST elevation or depression appreciated.
[2019-03-18] MEDS ORDERED: Furosemide 80 MG in 0.9 % Sodium Chloride 50 ML IVPB ONE (15:19)
[2019-03-18] MEDS ORDERED: Furosemide 40 MG/4 ML VIAL IVP ONE (15:33)
[2019-03-18 15:48] LABS: Basophils # 0.1 K/mcL (0.0-0.2); Basophils % 0.6 %; Eosinophils # 0.5 K/mcL (0.0-0.6); Eosinophils % 5.6 %; Hematocrit 30.3 % (37.5-50.1); Hemoglobin 9.9 g/dL (12.9-16.9); Immature Granulocytes % 0.2 % (0-4); Lymphocytes # 1.2 K/mcL (0.6-4.6); Lymphocytes % 13.1 %; Mean Corpuscular HGB Conc 32.7 g/dL (31.6-35.5); Mean Corpuscular Hemoglobin 27.8 pg (28.0-33.3); Mean Corpuscular Volume 85.1 fL (83.0-100.0); Mean Platelet Volume 9.9 fL (9.4-12.4); Monocytes # 0.6 K/mcL (0.0-1.3); Monocytes % 7.3 %; Neutrophils # 6.4 K/mcL (1.6-8.9); Platelet Count 341 K/mcL (140-400); Red Blood Count 3.56 M/mcL (4.19-5.50); Segmented Neutrophils % 73.2 %; White Blood Count 8.8 K/mcL (4.3-11.1)
[2019-03-18 15:53] LABS: INR 1.2; Prothrombin Time 13.3 Seconds (9.4-12.1)
[2019-03-18 16:02] LABS: Alanine Aminotransferase 14 Units/L (7-52); Albumin 3.4 g/dL (3.5-5.7); Albumin/Globulin Ratio 1.7 (1.1-2.2); Alkaline Phosphatase 53 Units/L (34-104); Aspartate Amino Transferase 13 Units/L (13-39); BUN/Creatinine Ratio 18 (6-26); Bilirubin,Total 0.5 mg/dL (0.3-1.0); Blood Urea Nitrogen 29 mg/dL (8-23); Calcium 8.4 mg/dL (8.6-10.3); Carbon Dioxide 27 mEq/L (23-29); Chloride 99 mEq/L (98-107); Glucose 217 mg/dL (70-105); Osmolality,Calculated 290 (280-300); Potassium 4.1 mEq/L (3.5-5.1); Sodium 134 mEq/L (136-145); Total Protein 5.4 g/dL (6.4-8.9); eGFR For African Americans 49 (> 60); eGFR For Non-African Americans 40 (> 60)
[2019-03-18 16:04] LABS: Troponin I < 0.03 ng/mL (< 0.04)
[2019-03-18 16:26] LABS: Bilirubin,Urine Negative (Negative); Blood,Urine Negative (Negative); Clarity,Urine Clear (Clear); Color,Urine Yellow (Yellow); Glucose,Urine (UA) Normal (Normal); Ketones,Urine Negative (Negative); Leukocyte Esterase,Urine Trace (Negative); Nitrite,Urine Negative (Negative); PH,Urine 7.5 pH Units (5.0-8.0); Protein,Urine Negative (Neg-Trace); Specific Gravity,Urine 1.015 (1.010-1.025); Urobilinogen,Urine Normal (Normal)
[2019-03-18 16:37] LABS: Bacteria,Urine Few per hpf (None-Few); Squamous Epithelial Cell,Urine Few per lpf (None-Few); WBC,Urine 0-3 per hpf (0-3)
[2019-03-18] MEDS ORDERED: Ondansetron ODT 4 MG TAB.RAPDIS SL PRN (18:33)
[2019-03-18] MEDS ORDERED: Naloxone 0.4 MG/ML INJ IVP PRN (18:33)
[2019-03-18] MEDS ORDERED: Ipratropium/Albuterol Neb 3 ML IH PRN (18:46)
[2019-03-18] MEDS: *HR* Metformin 500 MG TABLET PO SCH (20:21)
[2019-03-19] MEDS ORDERED: *HR* Enoxaparin 40 MG/0.4 ML SYRINGE SQ SCH (06:00)
[2019-03-19] MEDS: amLODIPine 5 MG TABLET PO SCH (08:39)
[2019-03-19] MEDS: Multivit/Ca/Min/Fe/FA 1 TAB TABLET PO SCH (08:39)
[2019-03-19] MEDS: Furosemide 40 MG TABLET PO SCH ×2 (08:40→16:38)
[2019-03-19] MEDS: Benzonatate 100 MG CAPSULE PO PRN (08:40)
[2019-03-19] MEDS ORDERED: *HR* Dextrose 50 % in Water (Syg) 50 ML SYRINGE IVP PRN (09:54)
[2019-03-19] MEDS ORDERED: Dextrose Gel 15 GM/37.5 ML TUBE PO PRN ×2 (09:54)
[2019-03-19] MEDS ORDERED: D5% in Water 1,000 ML IVC PRN (09:54)
[2019-03-19] MEDS: Insulin LISPRO 300 UNITS/3 ML VIAL SQ SCH ×3 (11:47→21:30)
--- NOTE | 2019-03-19 12:17 | Internal Med History&Physical ---
Date of Encounter: 03/19/19 Time of Encounter: 08:50 Assessment and Plan (1) Congestive heart failure Current visit: Yes Status: Acute Apparently, patient worsens his symptoms he went home. Will continue diuresis and follow. We will make sure his hypothyroidism is not out of control. Qualifiers: Heart failure type: unspecified Heart failure chronicity: acute on chronic Qualified Code(s): I50.9 - Heart failure, unspecified (2) Atrial fibrillation Current visit: No Status: Chronic Patient is in atrial fibrillation, with good rate control, but is not anticoagulated chronically. Apparently, this is because of fall risk. Qualifiers: Atrial fibrillation type: persistent Qualified Code(s): I48.1 - Persistent atrial fibrillation (3) Hypertension Current visit: No Status: Chronic We will follow on current regimen. Qualifiers: Hypertension type: essential hypertension Qualified Code(s): I10 - Essential (primary) hypertension (4) Hypothyroidism Current visit: Yes Status: Acute And mild elevation of TSH in September but I cannot find one more recently. He is on levothyroxine and I am not sure when he started this. We will check TSH. Qualifiers: Qualified Code(s): E03.9 - Hypothyroidism, unspecified (5) DVT prophylaxis Current visit: No Status: Acute We will use enoxaparin subcutaneously. (6) Depression Current visit: No Status: Acute We will continue current regimen. 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 (8) Chronic kidney disease (CKD), stage III (moderate) Current visit: No Status: Chronic Clinically stable but on diuretic doses so will follow. (9) Diabetes mellitus Current visit: No Status: Chronic We will continue current regimen and sliding-scale insulin added. Qualifiers: Diabetes mellitus type: type 2 Diabetes mellitus half-way insulin use: without half-way use Diabetes mellitus complication status: with hyperglycemia Qualified Code(s): E11.65 - Type 2 diabetes mellitus with hyperglycemia Internal Medicine - H&P: HPI Admitted From: Home Plans for Post Hospital Care: Home History of present illness: Mr. Christensen is a 83 year old male who was admitted to observation status and then discharged 2 days ago. It was felt that he had an exacerbation of CHF because of a problem with proper Lasix dose, at home. He improved with IV diuretics and wanted to leave the hospital because of concerns about his dog who was not doing well. He was home for one evening and could not lie in his bed, had progressively worse shortness of breath and returned to the emergency room. He was found to have congestive heart failure and was given IV Lasix. He improved overnight, here in the hospital. He denies chest pain, fevers chills or sweats, etc. Of note, he has a cough which is persistent since pneumonia in September 2018. He is taking Tessalon pearls but this does not help his cough, adequately. He may have some benefit from his breathing treatments which he receives 4 times a day. He uses oxygen at home, at 4 L by nasal cannula. There has been no recent change in his breathing, except as he has orthopnea as noted above. I am covering for Dr. Early for the weekend. Past Med Surg Social Fam HX - Past Medical History Medical history: atrial fibrillation, CHF, COPD, CVA, diabetes, GERD, hyperlip idemia, hypertension, renal disease, thyroid disease Psychiatric history: no psych history - Past Surgical History Surgical History: other Additional surgical history: left shoulder replacement,left ankle fracture/orif, status post TUNA/prostate - Social History Smoking Status: Former smoker Smokeless Tobacco Status: No Alcohol use: none Drug use: none - Family History Mother Living Status: Father Living Status: Internal Medicine - H&P: Meds Clopidogrel [Plavix] 75 mg PO DAILY 02/19/18 [History] Omeprazole 20 mg PO DAILY 02/19/18 [History] amLODIPine [Norvasc] 5 mg PO DAILY 02/19/18 [History] Atorvastatin Calcium [Lipitor] 80 mg PO HS #30 tab 10/14/18 [Rx] Ferrous Sulfate 325 mg PO DAILY@0800 #30 tablet 10/14/18 [Rx] Labetalol [Trandate] 100 mg PO BID #60 tablet 10/14/18 [Rx] Levothyroxine Sodium 100 mcg PO 0600 11/12/18 [History] Acetaminophen [Tylenol] 500 mg PO Q4HR PRN tablet 12/09/18 [Rx] Benzonatate [Tessalon] 200 mg PO TID PRN capsule 12/09/18 [Rx] Ipratropium/Albuterol Neb [Duoneb] 3 ml IH [id number] PRN #120 inhsol 12/09/18 [Rx] Multivit/Ca/Min/Fe/FA [Thera M Plus] 1 tab PO DAILY tablet 12/09/18 [Rx] metFORMIN [Glucophage] 1,000 mg PO HS 01/12/19 [History] Furosemide [Lasix] 40 mg PO BIDDIURETIC #60 tablet 01/18/19 [Rx] GuaiFENesin/Dextromethorphan [Robitussin/Dm] 5 ml PO Q6HR PRN udc 01/18/19 [Rx] Potassium Chloride 20 meq PO DAILY #30 tab.er.prt 01/18/19 [Rx] Losartan [Cozaar] 50 mg PO DAILY #30 tablet 03/17/19 [Rx] Allergy/AdvReac Type Severity Reaction Status Date / Time Sulfa (Sulfonamide Allergy See Verified 03/15/19 20:20 Antibiotics) Comments All Systems PM: Patient has no complaint of chest discomfort, dyspnea, orthopnea, breathing pro blems, palpitations, nausea or vomiting, constipation or diarrhea, other changes in bowel habits, heartburn, difficulty with urination, kidney problems or kidney stones, fevers chills or sweats, rash or itching, seizures, headache or lightheadedness, heat or cold intolerance, blood problems or anemia, or other new complaints, except as mentioned above. Review of systems is otherwise negative. - Constitutional Vitals: Temp Pulse Resp BP Pulse Ox 97.4 F L 63 14 126/58 97 03/19/19 07:00 03/19/19 07:00 03/19/19 07:00 03/19/19 07:00 03/19/19 07:00 Exam: Examination: (Except as mentioned above): General: In no apparent distress, alert and oriented 3. He is on oxygen by nasal cannula. Head: Atraumatic and normocephalic. Eyes: Extraocular muscles are intact, pupils equal round and reactive to light and accommodation. Sclerae anicteric. Ears: External ears are normal to inspection and hearing is grossly normal. Nose: Patent without lesion noted. Mouth: No intraoral lesions seen. He is edentulous. Neck: Supple with trachea midline. There is no thyromegaly or adenopathy and carotids are 2+ without bruit heard. Respiratory: No use of accessory muscles. Both bases have mild sibilant rhonchi . Normal airflow. Cardiovascular: Irregularly irregular consistent with atrial fibrillation, rate controlled, without murmur appreciated. Abdomen: Bowel sounds are normal. No hepatosplenomegaly masses or tenderness. Obese and therefore difficult to palpate deeply. Extremities: No cyanosis clubbing or edema. There is no cord or calf tenderness. Neurological: A and O 3. Cranial nerves II through XII are intact. No focal deficits and no abnormal movements or postures. Skin: Warm and non-diaphoretic with no lesions noted. Breasts, pelvic and rectal: Not examined. Internal Med - H&P Results - Labs CBC & Chem 7: 03/18/19 15:40 03/18/19 15:40 Labs: Short CBC 03/18/19 Range/Units 15:40 WBC 8.8 (4.3-11.1) K/mcL Hgb 9.9 L (12.9-16.9) g/dL Hct 30.3 L (37.5-50.1) % Plt Count 341 (140-400) K/mcL Neutrophils # 6.4 (1.6-8.9) K/mcL BMP 03/18/19 15:40 Sodium 134 L Potassium 4.1 Chloride 99 Carbon Dioxide 27 BUN 29 H Creatinine 1.64 H Glucose 217 H Calcium 8.4 L Cardiac Enzymes 03/18/19 Range/Units 15:40 Troponin I < 0.03 (< 0.04) ng/mL Liver Function 03/18/19 Range/Units 15:40 Total Bilirubin 0.5 (0.3-1.0) mg/dL AST 13 (13-39) Units/L ALT 14 (7-52) Units/L Alkaline Phosphatase 53 (34-104) Units/L Albumin 3.4 L (3.5-5.7) g/dL Urine 03/18/19 Range/Units 16:18 Urine Color Yellow (Yellow) Urine Clarity Clear (Clear) Urine pH 7.5 (5.0-8.0) pH Units Ur Specific [place] 1.015 (1.010-1.025) Urine Protein Negative (Neg-Trace) mg/dL Urine Glucose (UA) Normal (Normal) mg/dL - Impressions ITS Impressions Chest X-Ray 03/18/19 15:19 IMPRESSION: Diffuse airspace disease bilaterally with effusions. Findings suggest pulmonary edema D/ / Sammy Lewis / Sammy Lewis Interpreting Provider: Sammy Lewis - VTE Documentation of Mechanical Device: Graduated compression elastic hosiery
[2019-03-19] MEDS: *HR* Metformin 500 MG TABLET PO SCH (21:30)
[2019-03-20] MEDS: *HR* Enoxaparin 30 MG/0.3 ML SYRINGE SQ SCH (04:19)
[2019-03-20 05:30] LABS: Basophils % 0.5 %; Eosinophils # 0.6 K/mcL (0.0-0.6); Hematocrit 28.9 % (37.5-50.1); Hemoglobin 9.4 g/dL (12.9-16.9); Immature Granulocytes % 0.3 % (0-4); Lymphocytes # 1.7 K/mcL (0.6-4.6); Lymphocytes % 21.5 %; Mean Corpuscular HGB Conc 32.5 g/dL (31.6-35.5); Mean Corpuscular Hemoglobin 28.1 pg (28.0-33.3); Mean Corpuscular Volume 86.3 fL (83.0-100.0); Mean Platelet Volume 10.1 fL (9.4-12.4); Monocytes # 0.6 K/mcL (0.0-1.3); Monocytes % 7.7 %; Neutrophils # 4.8 K/mcL (1.6-8.9); Platelet Count 287 K/mcL (140-400); Red Blood Count 3.35 M/mcL (4.19-5.50); White Blood Count 7.8 K/mcL (4.3-11.1)
[2019-03-20 05:48] LABS: Calcium 8.5 mg/dL (8.6-10.3); Magnesium 1.6 mg/dL (1.6-2.6); Potassium 3.7 mEq/L (3.5-5.1)
[2019-03-20 05:59] LABS: Thyroid Stimulating Hormone 6.871 mcIU/mL (0.340-5.600)
[2019-03-20] MEDS: Insulin LISPRO 300 UNITS/3 ML VIAL SQ SCH ×4 (07:59→20:59)
[2019-03-20] MEDS: Furosemide 40 MG TABLET PO SCH ×2 (07:59→16:00)
[2019-03-20] MEDS: amLODIPine 5 MG TABLET PO SCH (08:00)
[2019-03-20] MEDS: Multivit/Ca/Min/Fe/FA 1 TAB TABLET PO SCH (08:00)
--- NOTE | 2019-03-20 15:10 | Internal Med Progress Note ---
Date of Encounter: 03/20/19 Time of Encounter: 15:10 - Assessment and plan (1) Congestive heart failure Current Visit: Yes Status: Acute Assessment and plan: This is stable to improved. We will continue to follow. Qualifiers: Heart failure type: unspecified Heart failure chronicity: acute on chronic Qualified Code(s): I50.9 - Heart failure, unspecified (2) Atrial fibrillation Current Visit: No Status: Chronic Assessment and plan: This is been controlled rate freeman and otherwise with no problems except occasional ectopy that his ventricular, by telemetry. For this reason, telemetry is discontinued. Qualifiers: Atrial fibrillation type: persistent Qualified Code(s): I48.1 - Persistent atrial fibrillation (3) Hypertension Current Visit: No Status: Chronic Assessment and plan: Clinically stable. Qualifiers: Hypertension type: essential hypertension Qualified Code(s): I10 - Essential (primary) hypertension (4) Hypothyroidism Current Visit: Yes Status: Acute Assessment and plan: Clinically euthyroid. We know his mild elevation of TSH. This will be changed to levothyroxine 125 g daily Qualifiers: Qualified Code(s): E03.9 - Hypothyroidism, unspecified (5) DVT prophylaxis Current Visit: No Status: Acute (6) Depression Current Visit: No Status: Acute Assessment and plan: No significant change. 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 (8) Chronic kidney disease (CKD), stage III (moderate) Current Visit: No Status: Chronic Assessment and plan: Study wounds will be reassessed. (9) Diabetes mellitus Current Visit: No Status: Chronic Assessment and plan: Stable and will continue current regimen. Qualifiers: Diabetes mellitus type: type 2 Diabetes mellitus buttermaker insulin use: without buttermaker use Diabetes mellitus complication status: with hyperglycemia Qualified Code(s): E11.65 - Type 2 diabetes mellitus with hyperglycemia - Subjective Interval history: Patient states that he has been nauseated today. He had difficulties with abdominal cramping until he had 3 loose bowel movements, in a row, this morning. He has had none since. He feels somewhat better now than this morning. Patient has no complaint of chest discomfort, dyspnea, orthopnea, palpitations, nausea or vomiting, constipation or diarrhea, other changes in bowel habits, difficulty with urination, rash or itching, or other new complaints, except as mentioned above. Review of systems is otherwise negative. I discussed management of patient's care with nursing staff. - Constitutional Vitals: Temp Pulse Resp BP Pulse Ox 97.7 F 60 14 121/66 96 03/20/19 07:00 03/20/19 07:00 03/20/19 07:00 03/20/19 07:00 03/20/19 07:00 Exam: Examination: (Except as mentioned above): General: In no apparent distress. Alert and oriented 3. Nondiaphoretic. Head: Atraumatic and normocephalic. Respiratory: No use of accessory muscles. Lungs are clear throughout, with the exception of low basilar wheezing, bilaterally. Normal airflow. Cardiovascular: Irregularly irregular consistent with atrial fibrillation, rate controlled, without murmur appreciated. Abdomen: Bowel sounds are normal. No hepatosplenomegaly mass or tenderness appreciated. Obese and therefore difficult to palpate deeply. Patient is examined upright in chair and this also limits exam. Extremities: No cyanosis clubbing or edema. Skin: Warm and non-diaphoretic with no new lesions noted. Internal Medicine: Result - Labs CBC & Chem 7: 03/20/19 05:05 03/20/19 05:05 Labs: Short CBC 03/20/19 Range/Units 05:05 WBC 7.8 (4.3-11.1) K/mcL Hgb 9.4 L (12.9-16.9) g/dL Hct 28.9 L (37.5-50.1) % Plt Count 287 (140-400) K/mcL Neutrophils # 4.8 (1.6-8.9) K/mcL BMP 03/20/19 05:05 Sodium 140 Potassium 3.7 Chloride 102 Carbon Dioxide 31 H BUN 27 H Creatinine 1.44 H Glucose 129 H Calcium 8.5 L - ABG Interpretation ABG results: PT/INR, D-dimer PT 13.3 Seconds (9.4-12.1) H 03/18/19 15:40 - VTE Documentation of Mechanical Device: Graduated compression elastic hosiery Consult Discharge Plan - Plan Referrals: Mario Early MD [Primary Care Provider] -
[2019-03-20] MEDS: Ipratropium/Albuterol Neb 3 ML IH SCH ×2 (16:05→18:38)
[2019-03-20] MEDS: *HR* Metformin 500 MG TABLET PO SCH (20:59)
[2019-03-21] MEDS: *HR* Enoxaparin 30 MG/0.3 ML SYRINGE SQ SCH (04:45)
[2019-03-21 06:21] LABS: Basophils % 0.5 %; Eosinophils # 0.5 K/mcL (0.0-0.6); Eosinophils % 5.7 %; Hematocrit 28.2 % (37.5-50.1); Hemoglobin 9.1 g/dL (12.9-16.9); Immature Granulocytes % 0.4 % (0-4); Lymphocytes # 1.7 K/mcL (0.6-4.6); Lymphocytes % 20.5 %; Mean Corpuscular HGB Conc 32.3 g/dL (31.6-35.5); Mean Corpuscular Hemoglobin 27.9 pg (28.0-33.3); Mean Corpuscular Volume 86.5 fL (83.0-100.0); Monocytes # 0.6 K/mcL (0.0-1.3); Monocytes % 7.2 %; Neutrophils # 5.6 K/mcL (1.6-8.9); Platelet Count 287 K/mcL (140-400); Red Blood Count 3.26 M/mcL (4.19-5.50); Red Cell Distribution Width 16.1 % (11.5-14.5); Segmented Neutrophils % 65.7 %; White Blood Count 8.5 K/mcL (4.3-11.1)
[2019-03-21 06:36] LABS: Calcium 8.3 mg/dL (8.6-10.3); Potassium 3.8 mEq/L (3.5-5.1)
[2019-03-21] MEDS: Ipratropium/Albuterol Neb 3 ML IH SCH ×4 (07:29→20:30)
[2019-03-21] MEDS: Multivit/Ca/Min/Fe/FA 1 TAB TABLET PO SCH (08:14)
[2019-03-21] MEDS: amLODIPine 5 MG TABLET PO SCH (08:15)
[2019-03-21] MEDS: Furosemide 40 MG TABLET PO SCH ×2 (08:15→17:23)
[2019-03-21] MEDS: Insulin LISPRO 300 UNITS/3 ML VIAL SQ SCH ×4 (08:18→22:08)
--- NOTE | 2019-03-21 13:02 | Internal Med Progress Note ---
Date of Encounter: 03/21/19 Time of Encounter: 13:00 - Assessment and plan (1) Congestive heart failure Current Visit: Yes Status: Acute Assessment and plan: He is continuing to improve. Hopefully, we will be able to discharge tomorrow. Nursing is concerned about his care at home and thinks he needs halfway placement. Qualifiers: Heart failure type: unspecified Heart failure chronicity: acute on chronic Qualified Code(s): I50.9 - Heart failure, unspecified (2) Atrial fibrillation Current Visit: No Status: Chronic Assessment and plan: Stable with rate controlled. Qualifiers: Atrial fibrillation type: persistent Qualified Code(s): I48.1 - Persistent atrial fibrillation (3) Hypertension Current Visit: No Status: Chronic Assessment and plan: Controlled and will thus continue current regimen. Qualifiers: Hypertension type: essential hypertension Qualified Code(s): I10 - Essential (primary) hypertension (4) Hypothyroidism Current Visit: Yes Status: Acute Assessment and plan: Increased levothyroxine dose as noted Qualifiers: Qualified Code(s): E03.9 - Hypothyroidism, unspecified (5) DVT prophylaxis Current Visit: No Status: Acute Assessment and plan: Stable on Lovenox. (6) Depression Current Visit: No Status: Acute Assessment and plan: Worsened by her recently of family dog. 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 (8) Chronic kidney disease (CKD), stage III (moderate) Current Visit: No Status: Chronic Assessment and plan: Stable by repeat labs. (9) Diabetes mellitus Current Visit: No Status: Chronic Assessment and plan: Controlled and will continue current regimen. Qualifiers: Diabetes mellitus type: type 2 Diabetes mellitus fdc insulin use: without fdc use Diabetes mellitus complication status: with hyperglycemia Qualified Code(s): E11.65 - Type 2 diabetes mellitus with hyperglycemia - Subjective Interval history: Patient continues to have cough but no shortness of breath beyond baseline. Bowels and bladder are working fine. No other complaints. Patient has no complaint of chest discomfort, dyspnea, orthopnea, palpitations, nausea or vomiting, constipation or diarrhea, other changes in bowel habits, difficulty with urination, rash or itching, or other new complaints, except as mentioned above. Review of systems is otherwise negative. I discussed management of patient's care with nursing staff. - Constitutional Vitals: Temp Pulse Resp BP Pulse Ox 98.0 F 61 19 114/59 96 03/21/19 07:06 03/21/19 07:06 03/21/19 11:40 03/21/19 07:06 03/21/19 11:40 Exam: Examination: (Except as mentioned above): General: In no apparent distress. Alert and oriented 3. Nondiaphoretic. Head: Atraumatic and normocephalic. Respiratory: No use of accessory muscles. Lungs are clear throughout. Normal airflow. Cardiovascular: Regular rate and rhythm without murmur appreciated. Abdomen: Bowel sounds are normal. No hepatosplenomegaly mass or tenderness appreciated. Obese and therefore difficult to palpate deeply. Patient is examined upright in chair and this also limits exam. Extremities: No cyanosis clubbing or edema. Skin: Warm and non-diaphoretic with no new lesions noted. Internal Medicine: Result - Labs CBC & Chem 7: 03/21/19 05:45 03/21/19 05:45 Labs: Short CBC 03/21/19 Range/Units 05:45 WBC 8.5 (4.3-11.1) K/mcL Hgb 9.1 L (12.9-16.9) g/dL Hct 28.2 L (37.5-50.1) % Plt Count 287 (140-400) K/mcL Neutrophils # 5.6 (1.6-8.9) K/mcL BMP 03/21/19 05:45 Sodium 139 Potassium 3.8 Chloride 103 Carbon Dioxide 30 H BUN 26 H Creatinine 1.41 H Glucose 143 H Calcium 8.3 L - ABG Interpretation ABG results: PT/INR, D-dimer PT 13.3 Seconds (9.4-12.1) H 03/18/19 15:40 - VTE Documentation of Mechanical Device: Graduated compression elastic hosiery Consult Discharge Plan - Plan Referrals: Mario Early MD [Primary Care Provider] -
[2019-03-21] MEDS: Benzonatate 100 MG CAPSULE PO PRN (17:23)
[2019-03-21] MEDS: *HR* Metformin 500 MG TABLET PO SCH (20:40)
[2019-03-22] MEDS: *HR* Enoxaparin 40 MG/0.4 ML SYRINGE SQ SCH (05:35)
[2019-03-22] MEDS: Ipratropium/Albuterol Neb 3 ML IH SCH ×4 (07:19→20:09)
[2019-03-22] MEDS: Furosemide 40 MG TABLET PO SCH ×2 (07:55→17:55)
[2019-03-22] MEDS: amLODIPine 5 MG TABLET PO SCH (07:56)
[2019-03-22] MEDS: Multivit/Ca/Min/Fe/FA 1 TAB TABLET PO SCH (07:56)
[2019-03-22] MEDS: Insulin LISPRO 300 UNITS/3 ML VIAL SQ SCH ×4 (07:56→20:51)
[2019-03-22] MEDS: Benzonatate 100 MG CAPSULE PO PRN (07:58)
--- NOTE | 2019-03-22 10:56 | Internal Med Progress Note ---
Date of Encounter: 03/22/19 Time of Encounter: 10:55 - Assessment and plan (1) Acute on chronic congestive heart failure Current Visit: No Status: Acute Assessment and plan: he is clinically improving. his bnp was only mildly elevated. discussed that is not doing well taking care of himself at home. he has been readmitted di scussed ecf placement. discussed with grandlior hurt about placement he will talk to him tonight. wants somewhere local but carl is not really interested in going somewhere else but home. 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 will continue his iron Qualifiers: Iron deficiency anemia type: unspecified iron deficiency Qualified Code(s): D50.9 - Iron deficiency anemia, unspecified (4) Atrial fibrillation Current Visit: No Status: Chronic Assessment and plan: rate controlled on beta honorio on asa and plavix for anticoag Qualifiers: Atrial fibrillation type: persistent Qualified Code(s): I48.1 - Persistent atrial fibrillation (5) Hypothyroidism Current Visit: Yes Status: Acute Assessment and plan: on home medication Qualifiers: Hypothyroidism type: acquired Qualified Code(s): E03.9 - Hypothyroidism, unspecified (6) Diabetes mellitus Current Visit: No Status: Chronic Assessment and plan: ssi, accucheck Qualifiers: Diabetes mellitus type: type 2 Diabetes mellitus alf insulin use: without termite control technician use Diabetes mellitus complication status: with hyperglycemia Qualified Code(s): E11.65 - Type 2 diabetes mellitus with hyperglycemia (7) DVT prophylaxis Current Visit: No Status: Acute Assessment and plan: lovenox - Subjective Interval history: he is breathing ok but occ cough, no n.v, no cp, no palp, no dizzy, bowels and bladder ok. he does not want to go home. - Constitutional Vitals: Temp Pulse Resp BP Pulse Ox 98.2 F 67 18 111/45 96 03/22/19 06:53 03/22/19 06:53 03/22/19 07:20 03/22/19 06:53 03/22/19 07:20 General appearance: Present: A&O X 3, pleasant, no acute distress, answers questions appropriately - Head Head exam: Present: atraumatic, normocephalic - Neck Neck exam general surgery: Present: supple, trachea midline - Respiratory Respiratory exam: Present: CTAB - Cardiovascular Cardiovascular exam: Present: irregular rhythm - GI/Abdominal GI/Abdominal exam: Present: normal bowel sounds, soft, no peritoneal signs. Absent: distended, guarding, rebound, tenderness - Extremities Exam Extremities exam: Present: normal capillary refill, warm. Absent: pedal edema - Skin Skin exam: Present: dry, warm. Absent: rash Internal Medicine: Result - Labs CBC & Chem 7: 03/21/19 05:45 03/21/19 05:45 - ABG Interpretation ABG results: PT/INR, D-dimer PT 13.3 Seconds (9.4-12.1) H 03/18/19 15:40 - VTE Documentation of Mechanical Device: Graduated compression elastic hosiery Consult Discharge Plan - Plan Referrals: Mario Early MD [Primary Care Provider] -
[2019-03-22] MEDS ORDERED: MethylPREDNISolone 40 MG/ML VIAL IVP ONE (11:10)
--- NOTE | 2019-03-22 15:57 | Electrocardiograph Report ---
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
[2019-03-22] MEDS: *HR* Metformin 500 MG TABLET PO SCH (20:51)
[2019-03-23] MEDS: *HR* Enoxaparin 40 MG/0.4 ML SYRINGE SQ SCH (05:09)
[2019-03-23] MEDS: Ipratropium/Albuterol Neb 3 ML IH SCH ×4 (07:32→20:20)
[2019-03-23] MEDS: Furosemide 40 MG TABLET PO SCH ×2 (08:05→17:58)
[2019-03-23] MEDS: Benzonatate 100 MG CAPSULE PO PRN (08:05)
[2019-03-23] MEDS: Multivit/Ca/Min/Fe/FA 1 TAB TABLET PO SCH (08:05)
[2019-03-23] MEDS: amLODIPine 5 MG TABLET PO SCH (08:05)
[2019-03-23] MEDS: Insulin LISPRO 300 UNITS/3 ML VIAL SQ SCH ×3 (08:06→17:59)
--- NOTE | 2019-03-23 14:29 | Discharge Summary ---
Date of Encounter: 03/23/19 Time of Encounter: 14:23 - Discharge Diagnosis (1) Acute on chronic congestive heart failure Priority: Primary Status: Acute Comments: He has been admitted twice in a week with CHF. Assess of Lasix has been adjusted he has a higher dose Lasix in the morning he is on a beta honorio he is on an arb. He has improved he is back to baseline he has been on oral medication for several days now. He did get IV Lasix in the hospital Qualifiers: Heart failure type: diastolic Qualified Code(s): I50.33 - Acute on chronic diastolic (congestive) heart failure (2) Depression Priority: Secondary Status: Acute Comments: This has been exacerbated by the of his dog. He is tearful at times. 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 (3) Iron deficiency anemia Priority: Secondary Status: Chronic Comments: Continue his home iron he has been stable Qualifiers: Iron deficiency anemia type: unspecified iron deficiency Qualified Code(s): D50.9 - Iron deficiency anemia, unspecified (4) Atrial fibrillation Priority: Secondary Status: Chronic Comments: He is rate controlled with a beta honorio he is not on anticoagulation due to fall risk Qualifiers: Atrial fibrillation type: persistent Qualified Code(s): I48.1 - Persistent atrial fibrillation (5) Hypothyroidism Priority: Secondary Status: Acute Comments: We will continue home medication Qualifiers: Hypothyroidism type: acquired Qualified Code(s): E03.9 - Hypothyroidism, unspecified (6) Diabetes mellitus Priority: Secondary Status: Chronic Comments: He was on a diabetic diet he had Accu-Cheks occasional sliding scale insulin he did receive his home medication Qualifiers: Diabetes mellitus type: type 2 Diabetes mellitus detention insulin use: without detention use Diabetes mellitus complication status: with hyperglycemia Qualified Code(s): E11.65 - Type 2 diabetes mellitus with hyperglycemia (7) DVT prophylaxis Priority: Secondary Status: Acute Comments: He was on Lovenox (8) COPD exacerbation Priority: Secondary Status: Acute Comments: Will continue his duo nebs. He did have 1 dose of Solu-Medrol which she noticed great improvement in his respiratory status as an outpatient Hospital course: Mr. Christensen is a 83 year old male Who was a readmission for CHF exacerbation he was home for less than a day his dog he felt more short of breath he came back to the emergency room he received IV Lasix. He did have improvement of his shortness of breath. He has been on oral Lasix now for several days. He does not feel able to go home. He has been sad because his dog . He is worried about getting short of breath he is worried about not being able to breathe once he gets home. Discussed with his grandson Gianni and with him ECF placement. Initially he was hesitant to go but now he is agreeable to going. I think this is a freeman idea as he is not safe at home he has frequent admissions for CHF exacerbation shortness of breath. He has anemia that has been stable on oral iron. His diabetes has been okay his blood pressure has been okay. He was discharged in stable condition to [facility] - Time Spent with Patient Total time spent providing and/or coordinating discharge services: - Discharge Medications Prescriptions: New PredniSONE [Deltasone] 60 mg PO DAILY #15 tablet Ipratropium/Albuterol Neb [Duoneb] 3 ml IH Q4HWA inhsol Furosemide [Lasix] 40 mg PO 1700 tablet Furosemide [Lasix] 80 mg PO 0800 tablet Montelukast [Singulair] 10 mg PO DAILY tablet Ondansetron ODT [Zofran ODT] 4 mg SL Q8HR PRN tab.rapdis PRN Reason: Nausea And Vomiting Continued Omeprazole 20 mg PO DAILY Clopidogrel [Plavix] 75 mg PO DAILY amLODIPine [Norvasc] 5 mg PO DAILY Atorvastatin Calcium [Lipitor] 80 mg PO HS #30 tab Ferrous Sulfate 325 mg PO DAILY@0800 #30 tablet Labetalol [Trandate] 100 mg PO BID #60 tablet Levothyroxine Sodium 100 mcg PO 0600 Acetaminophen [Tylenol] 500 mg PO Q4HR PRN tablet PRN Reason: pain/fever Ipratropium/Albuterol Neb [Duoneb] 3 ml IH [id number] PRN #120 inhsol PRN Reason: Wheezing Benzonatate [Tessalon] 200 mg PO TID PRN capsule PRN Reason: Cough Multivit/Ca/Min/Fe/FA [Thera M Plus] 1 tab PO DAILY tablet metFORMIN [Glucophage] 1,000 mg PO HS Potassium Chloride 20 meq PO DAILY #30 tab.er.prt GuaiFENesin/Dextromethorphan [Robitussin/Dm] 5 ml PO Q6HR PRN udc PRN Reason: Cough Losartan [Cozaar] 50 mg PO DAILY #30 tablet Discontinued Furosemide [Lasix] 40 mg PO BIDDIURETIC #60 tablet Home Medications: Clopidogrel [Plavix] 75 mg PO DAILY 02/19/18 [History] Omeprazole 20 mg PO DAILY 02/19/18 [History] amLODIPine [Norvasc] 5 mg PO DAILY 02/19/18 [History] Atorvastatin Calcium [Lipitor] 80 mg PO HS #30 tab 10/14/18 [Rx] Ferrous Sulfate 325 mg PO DAILY@0800 #30 tablet 10/14/18 [Rx] Labetalol [Trandate] 100 mg PO BID #60 tablet 10/14/18 [Rx] Levothyroxine Sodium 100 mcg PO 0600 11/12/18 [History] Acetaminophen [Tylenol] 500 mg PO Q4HR PRN tablet 12/09/18 [Rx] Benzonatate [Tessalon] 200 mg PO TID PRN capsule 12/09/18 [Rx] Ipratropium/Albuterol Neb [Duoneb] 3 ml IH [id number] PRN #120 inhsol 12/09/18 [Rx] Multivit/Ca/Min/Fe/FA [Thera M Plus] 1 tab PO DAILY tablet 12/09/18 [Rx] metFORMIN [Glucophage] 1,000 mg PO HS 01/12/19 [History] GuaiFENesin/Dextromethorphan [Robitussin/Dm] 5 ml PO Q6HR PRN udc 01/18/19 [Rx] Potassium Chloride 20 meq PO DAILY #30 tab.er.prt 01/18/19 [Rx] Losartan [Cozaar] 50 mg PO DAILY #30 tablet 03/17/19 [Rx] Furosemide [Lasix] 40 mg PO 1700 tablet 03/23/19 [Rx] Furosemide [Lasix] 80 mg PO 0800 tablet 03/23/19 [Rx] Ipratropium/Albuterol Neb [Duoneb] 3 ml IH Q4HWA inhsol 05/29/19 [Rx] Montelukast [Singulair] 10 mg PO DAILY tablet 03/23/19 [Rx] Ondansetron ODT [Zofran ODT] 4 mg SL Q8HR PRN tab.rapdis 03/23/19 [Rx] PredniSONE [Deltasone] 60 mg PO DAILY #15 tablet 03/23/19 [Rx] Allergies/Adverse Reactions: Allergy/AdvReac Type Severity Reaction Status Date / Time Sulfa (Sulfonamide Allergy See Verified 03/15/19 20:20 Antibiotics) Comments Date of admission: 03/18/19 18:54 Primary care physician: Mario Early MD Consults: 03/22/19 11:09 OT [Consult to Occupational Therapy] [CONS] Routine Comment: Evaluate, develop and implement POC Reason for Consult: evaluate for ecf placement Does patient have active BEDREST order?: No Is patient medically & hemodynamically stable?: Yes Patient assessed for mobility or mobilized this visit?: No PT [Consult to Physical Therapy] [CONS] Routine Comment: Evaluate, develop and implement POC Reason for Consult: eval for ecf placement Does patient have active BEDREST order?: No Is patient medically & hemodynamically stable?: Yes Patient assessed for mobility or mobilized this visit?: Yes - Constitutional Vitals: Temp Pulse Resp BP Pulse Ox 97.7 F 64 18 113/54 100 03/23/19 11:44 03/23/19 11:44 03/23/19 11:44 03/23/19 11:44 03/23/19 11:44 General appearance: Present: A&O X 3, pleasant, no acute distress, answers questions appropriately - Head Head exam: Present: atraumatic, normocephalic - Neck Neck exam general surgery: Present: supple, trachea midline - Respiratory Respiratory exam: Present: CTAB - Cardiovascular Cardiovascular exam: Present: irregular rhythm - GI/Abdominal GI/Abdominal exam: Present: normal bowel sounds, soft, no peritoneal signs. Absent: distended, guarding, tenderness - Extremities Exam Extremities exam: Present: pedal edema (trace) - Skin Skin exam: Present: dry, warm. Absent: rash - Patient Status Disposition: Transfer SNF Condition: Good Overall status at discharge: patient is progressing back to baseline - Discharge Instructions Follow Up With: Mario Early MD [Primary Care Provider] - - Diet and Activity Activity: as per physical therapy, increase activity as tolerated Diet: diabetic diet, low salt diet - VTE Documentation of Mechanical Device: Graduated compression elastic hosiery
[2019-03-23] MEDS: *HR* Metformin 500 MG TABLET PO SCH (20:17)
[2019-03-24] MEDS: Insulin LISPRO 300 UNITS/3 ML VIAL SQ SCH ×3 (02:25→14:09)
[2019-03-24] MEDS: *HR* Enoxaparin 40 MG/0.4 ML SYRINGE SQ SCH (04:52)
[2019-03-24] MEDS: Ipratropium/Albuterol Neb 3 ML IH SCH ×3 (07:19→15:00)
[2019-03-24] MEDS: Multivit/Ca/Min/Fe/FA 1 TAB TABLET PO SCH (10:13)
[2019-03-24] MEDS: amLODIPine 5 MG TABLET PO SCH (10:13)
[2019-03-24] MEDS: Furosemide 40 MG TABLET PO SCH ×2 (10:13→14:59)
--- NOTE | 2019-03-24 14:35 | Internal Med Progress Note ---
Date of Encounter: 03/25/19 Time of Encounter: 12:40 - Assessment and plan (1) Acute on chronic congestive heart failure Status: Acute Assessment and plan: on po meds now waiting on bed from [facility]. 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 will continue his iron Qualifiers: Iron deficiency anemia type: unspecified iron deficiency Qualified Code(s): D50.9 - Iron deficiency anemia, unspecified (4) Atrial fibrillation Status: Chronic Assessment and plan: rate controlled on beta honorio on asa and plavix for anticoag, he has anemia so not fully anticoagulated Qualifiers: Atrial fibrillation type: persistent Qualified Code(s): I48.1 - Persistent atrial fibrillation (5) Hypothyroidism Status: Acute Assessment and plan: on home medication Qualifiers: Hypothyroidism type: acquired Qualified Code(s): E03.9 - Hypothyroidism, unspecified (6) Diabetes mellitus Status: Chronic Assessment and plan: ssi, accucheck Qualifiers: Diabetes mellitus type: type 2 Diabetes mellitus shelter insulin use: without shelter use Diabetes mellitus complication status: with hyperglycemia Qualified Code(s): E11.65 - Type 2 diabetes mellitus with hyperglycemia (7) DVT prophylaxis Status: Acute Assessment and plan: lovenox (8) COPD exacerbation Status: Acute Assessment and plan: will send on po prednisone the one dose of solumedrol worked wonders for him he says - Subjective Interval history: he is breathing ok but occ cough, no n.v, no cp, no palp, no dizzy, bowels and bladder ok. he does not want to go home. waiting on [facility] bed they are supposed to have a bed today - Constitutional Vitals: Temp Pulse Resp BP Pulse Ox 97.9 F 65 16 118/65 97 03/24/19 11:55 03/24/19 11:55 03/24/19 11:55 03/24/19 11:55 03/24/19 11:55 General appearance: Present: A&O X 3, pleasant, no acute distress, answers quest ions appropriately - Head Head exam: Present: atraumatic - Neck Neck exam general surgery: Present: supple, trachea midline - Respiratory Respiratory exam: Present: CTAB - Cardiovascular Cardiovascular exam: Present: irregular rhythm - GI/Abdominal GI/Abdominal exam: Present: mass, soft, no peritoneal signs. Absent: distended, guarding, tenderness - Extremities Exam Extremities exam: Present: pedal edema - Skin Skin exam: Present: dry, warm. Absent: rash Internal Medicine: Result - Labs CBC & Chem 7: 03/21/19 05:45 03/21/19 05:45 - ABG Interpretation ABG results: PT/INR, D-dimer PT 13.3 Seconds (9.4-12.1) H 03/18/19 15:40 - VTE Documentation of Mechanical Device: Graduated compression elastic hosiery Consult Discharge Plan - Plan Referrals: Mario Early MD [Primary Care Provider] - Prescriptions: PredniSONE [Deltasone] 60 mg PO DAILY #15 tablet
[2019-03-24] MEDS: Benzonatate 100 MG CAPSULE PO PRN (14:58)
[2019-03-24 16:11] VITALS: BP 127/64
--- NOTE | 2019-03-24 16:22 | Physician Discharge Referral ---
ExtendedCare Referral Info Transfer To: [place] Provider in Charge: jey Institutional Level of Care: Skilled - Diagnosis (1) Acute on chronic congestive heart failure Priority: Primary Status: Acute (2) Depression Priority: Secondary Status: Acute (3) Iron deficiency anemia Priority: Secondary Status: Chronic (4) Atrial fibrillation Priority: Secondary Status: Chronic (5) Hypothyroidism Priority: Secondary Status: Acute (6) Diabetes mellitus Priority: Secondary Status: Chronic (7) DVT prophylaxis Priority: Secondary Status: Acute (8) COPD exacerbation Priority: Secondary Status: Acute Prognosis: Good Aware of Diagnosis: Patient Aware of Prognosis: Patient - Transfer Medications Prescriptions: PredniSONE [Deltasone] 60 mg PO DAILY #15 tablet Home Medications: Clopidogrel [Plavix] 75 mg PO DAILY 02/19/18 [History] Omeprazole 20 mg PO DAILY 02/19/18 [History] amLODIPine [Norvasc] 5 mg PO DAILY 02/19/18 [History] Atorvastatin Calcium [Lipitor] 80 mg PO HS #30 tab 10/14/18 [Rx] Ferrous Sulfate 325 mg PO DAILY@0800 #30 tablet 10/14/18 [Rx] Labetalol [Trandate] 100 mg PO BID #60 tablet 10/14/18 [Rx] Levothyroxine Sodium 100 mcg PO 0600 11/12/18 [History] Acetaminophen [Tylenol] 500 mg PO Q4HR PRN tablet 12/09/18 [Rx] Benzonatate [Tessalon] 200 mg PO TID PRN capsule 12/09/18 [Rx] Ipratropium/Albuterol Neb [Duoneb] 3 ml IH [id number] PRN #120 inhsol 12/09/18 [Rx] Multivit/Ca/Min/Fe/FA [Thera M Plus] 1 tab PO DAILY tablet 12/09/18 [Rx] metFORMIN [Glucophage] 1,000 mg PO HS 01/12/19 [History] GuaiFENesin/Dextromethorphan [Robitussin/Dm] 5 ml PO Q6HR PRN udc 01/18/19 [Rx] Potassium Chloride 20 meq PO DAILY #30 tab.er.prt 01/18/19 [Rx] Losartan [Cozaar] 50 mg PO DAILY #30 tablet 03/17/19 [Rx] Furosemide [Lasix] 40 mg PO 1700 tablet 03/23/19 [Rx] Furosemide [Lasix] 80 mg PO 0800 tablet 03/23/19 [Rx] Ipratropium/Albuterol Neb [Duoneb] 3 ml IH Q4HWA inhsol 03/23/19 [Rx] Montelukast [Singulair] 10 mg PO DAILY tablet 03/23/19 [Rx] Ondansetron ODT [Zofran ODT] 4 mg SL Q8HR PRN tab.rapdis 03/23/19 [Rx] PredniSONE [Deltasone] 60 mg PO DAILY #15 tablet 03/23/19 [Rx] Allergies/Adverse Reactions: Allergy/AdvReac Type Severity Reaction Status Date / Time Sulfa (Sulfonamide Allergy See Verified 03/15/19 20:20 Antibiotics) Comments - Respiratory Orders Smoking Cessation: Smoking cessation has been advised. For more information, call the [place] Tobacco Quit Line at 3-685-PRWM-NOW. - Lab Orders Lab Orders: 2 Step Mantoux Test per State regulation - Ancillary Orders May use pressure relief devices daily prn, May go on ROSANNE w/family/respon alliance party w/meds at nurse discretion PRN, May consult with Dentist, Safe Deposit Box Rental Clerk, Service Operator PRN - Advance Directives Code Status: Full Code - Mobility Orders Ambulate - Rehabiliation Orders Rehab Potential: Good Rehab Orders: ROM Exercises, Evaluation for Physical Therapy, Evaluation for Occupational Therapy - Treatments Skin tear care topically daily PRN per policy, May check for fecal impaction rectally daily PRN, Fleet enema rectally every other day PRN cleansing purposes - Diet Orders No Concentrated Sweets, Cardiac CERTIFICATION: I certify that the transfer of the above named patient to an Extended Care Facility is necessary for the continuing treatment of the diagnosis listed. The above information is true and accurate reflection of patient's current condition. Confidential - Redisclosure prohibited without a patient's written consent.
== END 2019-03-24 16:45 | DRG 291 ==
LOC: INPGRE 14:56 → EMEROOGRE 14:56 → INPGRE 18:46
PROVIDERS: ATTEND Family Medicine

== ENCOUNTER 2019-04-20 12:17 | Inpatient (IN) ==
--- NOTE | 2019-04-20 12:35 | Emergency Department Note ---
Disposition Clinical Impression: Congestive heart failure Qualifiers: Heart failure type: unspecified Heart failure chronicity: acute on chronic Qualified Code(s): I50.9 - Heart failure, unspecified Disposition: Admitted As Inpatient Condition: Good Referrals: Mario Early MD [Primary Care Provider] - Forms: ED Satisfaction Letter Time of Disposition: 14:26 SOB HPI - General Chief Complaint: ED Shortness of Breath/Dyspnea Stated Complaint: short of breath Time Seen by Provider: 04/20/19 12:35 Source: patient, family Mode of arrival: private vehicle Limitations: no limitations Nursing Notes Reviewed: Yes Vital Signs Reviewed: Yes - History of Present Illness 83-year-old white female presents emergency department via private vehicle complaining of shortness of breath. He says his shortness of breath has gotten worse over the last 3 or 4 days. He describes a problem with his home oxygen but apparently causes him to get wet during the night because of the patient notifying device has soaked up to it. This does not seem to be related to his shortness of breath recently. He does admit that he was out of his Lasix for several days before restarting it 3 days ago. He says that he really has not been able to improve from being short of breath 3 or 4 days ago. He says that his breathing gets worse with minimal activity and with laying down flat. He d enies any fever or chills. He has not been wheezing that he knows of. - Related Data Home Medications Medication Instructions Recorded Confirmed Clopidogrel [Plavix] 75 mg PO DAILY 02/19/18 04/20/19 Omeprazole 20 mg PO DAILY 02/19/18 04/20/19 amLODIPine [Norvasc] 5 mg PO DAILY 02/19/18 04/20/19 Levothyroxine Sodium 100 mcg PO 0600 11/12/18 04/20/19 metFORMIN [Glucophage] 1,000 mg PO HS 01/12/19 04/20/19 Previous Rx's Medication Instructions Recorded Atorvastatin Calcium [Lipitor] 80 mg PO HS #30 tab 10/14/18 Ferrous Sulfate 325 mg PO DAILY@0800 #30 tablet 10/14/18 Labetalol [Trandate] 100 mg PO BID #60 tablet 10/14/18 Acetaminophen [Tylenol] 500 mg PO Q4HR PRN tablet 12/09/18 Benzonatate [Tessalon] 200 mg PO TID PRN capsule 12/09/18 Ipratropium/Albuterol Neb [Duoneb] 3 ml IH [id number] PRN #120 inhsol 12/09/18 Multivit/Ca/Min/Fe/FA [Thera M 1 tab PO DAILY tablet 12/09/18 Plus] GuaiFENesin/Dextromethorphan 5 ml PO Q6HR PRN udc 01/18/19 [Robitussin/Dm] Potassium Chloride 20 meq PO DAILY #30 tab.er.prt 01/18/19 Losartan [Cozaar] 50 mg PO DAILY #30 tablet 03/17/19 Furosemide [Lasix] 40 mg PO 1700 tablet 03/23/19 Furosemide [Lasix] 80 mg PO 0800 tablet 03/23/19 Ipratropium/Albuterol Neb [Duoneb] 3 ml IH Q4HWA inhsol 03/23/19 Montelukast [Singulair] 10 mg PO DAILY tablet 03/23/19 Allergies Allergy/AdvReac Type Severity Reaction Status Date / Time Sulfa (Sulfonamide Allergy See Verified 03/15/19 20:20 Antibiotics) Comments All systems ED: reviewed and negative except as stated. Constitutional: Denies: fever, chills, weakness, weight change Eyes: Denies: eye pain, eye discharge, vision change ENT ED: Denies: ear pain, throat pain, dental pain, hearing loss, epistaxis, congestion, dysphagia Cardiovascular: Denies: chest pain, palpitations, dyspnea on exertion, edema, syncope Respiratory: Reports: as per HPI, dyspnea Gastrointestinal: Denies: abdominal pain, nausea, vomiting, diarrhea, constipation, hematemesis, melena, hematochezia Genitourinary: Denies: urgency, dysuria, frequency, hematuria Musculoskeletal: Denies: back pain, neck pain, arthralgia, myalgia Neurological: Denies: headache, weakness, numbness, paresthesias, confusion, abnormal gait, vertigo Psychiatric: Denies: anxiety, depression, suicidal thoughts, homicidal thoughts, auditory hallucinations, visual hallucinations Endocrine: Denies: fatigue Hematological/Lymphatic: Denies: easy bleeding, easy bruising Allergic/Immunologic: Denies: facial swelling, urticaria Past Medical History - Past Medical History Medical history: Reports: atrial fibrillation, CHF, COPD, CVA, diabetes, GERD, hyperlipidemia, hypertension, renal disease, thyroid disease Surgical history: Reports: other Psychiatric history: Reports: no psych history - Social History Smoking Status: Former smoker Smokeless Tobacco Status: No Alcohol use: Reports: none Drug use: Reports: none Physical Exam - General Limitations: no limitations General appearance: alert - Head Head exam: atraumatic, normocephalic, normal inspection - Eye Eye exam: Present: normal appearance, PERRL, EOMI - ENT ENT exam: normal exam, normal oropharynx, mucous membranes moist - Neck Neck exam: Present: normal inspection, full ROM, trachea midline - Chest Chest inspection: Present: normal inspection, symmetric chest wall rise. Absent: tenderness - Respiratory Respiratory exam: Present: other (Rest sounds are decreased bilaterally, but equal. He has rales are audible, these are more prominent on the right but they are generally diffuse. No wheezing.). Absent: accessory muscle use - Cardiovascular Cardiovascular exam: Present: regular rate, normal rhythm, normal heart sounds - Abdominal Exam Abdominal exam: Present: soft, Non-Tender. Absent: tenderness, distention, guarding, rebound, rigidity, organomegaly, pulsatile mass - Extremities Exam Extremities exam: Present: normal inspection, full ROM, pedal edema, other (One plus bilateral pitting tibial edema ). Absent: tenderness - Back Exam Back exam: Present: normal inspection, full ROM. Absent: tenderness - Neurological Exam Neurological exam: Present: alert, oriented X3, CN II-XII intact. Absent: motor sensory deficit - Psychiatric Psychiatric exam: Present: normal affect, normal mood - Skin Skin exam: Present: warm, dry, intact, normal color Course Course Narrative: Spoke with Dr. Early at 1421 and the patient will be admitted to the hospital here in [place]. Vital Signs Temperature 99.7 F H 04/20/19 12:24 Pulse Rate 65 04/20/19 12:24 Respiratory Rate 18 04/20/19 12:24 Blood Pressure 138/92 04/20/19 12:24 O2 Sat by Pulse Oximetry 96 04/20/19 12:24 Temperature 99.7 F H 04/20/19 12:24 Pulse Rate 65 04/20/19 13:58 Respiratory Rate 17 04/20/19 13:58 Blood Pressure 143/76 04/20/19 13:58 O2 Sat by Pulse Oximetry 98 04/20/19 13:58 Oxygen Delivery Oxygen Delivery Nasal Cannula Shortness of Breath/Dyspnea - Lab Data Lab results reviewed: Yes I reviewed the patient's lab results. Result diagrams: 04/20/19 13:05 04/20/19 13:05 Lab Results 04/20/19 04/20/19 04/20/19 Range/Units 13:05 13:05 13:05 WBC 8.1 (4.3-11.1) K/mcL RBC 3.49 L (4.19-5.50) M/mcL Hgb 9.9 L (12.9-16.9) g/dL Hct 30.5 L (37.5-50.1) % MCV 87.4 (83.0-100.0) fL MCH 28.4 (28.0-33.3) pg MCHC 32.5 (31.6-35.5) g/dL RDW 16.8 H (11.5-14.5) % Plt Count 365 (140-400) K/mcL MPV 9.8 (9.4-12.4) fL Immature Gran % 0.4 (0-4) % Seg Neutrophils % 70.5 % Lymphocytes % 13.8 % Monocytes % 8.3 % Eosinophils % 6.5 % Basophils % 0.5 % Neutrophils # 5.7 (1.6-8.9) K/mcL Lymphocytes # 1.1 (0.6-4.6) K/mcL Monocytes # 0.7 (0.0-1.3) K/mcL Eosinophils # 0.5 (0.0-0.6) K/mcL Basophils # 0.0 (0.0-0.2) K/mcL PT 13.2 H (9.4-12.1) Seconds INR 1.2 Sodium 137 (136-145) mEq/L Potassium 3.3 L (3.5-5.1) mEq/L Chloride 99 (98-107) mEq/L Carbon Dioxide 31 H (23-29) mEq/L BUN 19 (8-23) mg/dL Creatinine 1.36 H (0.70-1.30) mg/dL Est GFR ( Amer) > 60 (> 60) Est GFR (Non-Af Amer) 50 L (> 60) BUN/Creatinine Ratio 14 (6-26) Glucose 184 H (70-105) mg/dL Calculated Osmolality 291 (280-300) Lactic Acid (0.5-2.2) mmol/L Calcium 9.0 (8.6-10.3) mg/dL Total Bilirubin 0.6 (0.3-1.0) mg/dL AST 30 (13-39) Units/L ALT 72 H (7-52) Units/L Alkaline Phosphatase 90 (34-104) Units/L Troponin I < 0.03 (< 0.04) ng/mL B-Natriuretic Peptide (Less than 100) pg/mL Serum Total Protein 5.5 L (6.4-8.9) g/dL Albumin 3.5 (3.5-5.7) g/dL Globulin 2.0 L (2.4-3.5) g/dL Albumin/Globulin Ratio 1.8 (1.1-2.2) 04/20/19 04/20/19 Range/Units 13:05 13:05 WBC (4.3-11.1) K/mcL RBC (4.19-5.50) M/mcL Hgb (12.9-16.9) g/dL Hct (37.5-50.1) % MCV (83.0-100.0) fL MCH (28.0-33.3) pg MCHC (31.6-35.5) g/dL RDW (11.5-14.5) % Plt Count (140-400) K/mcL MPV (9.4-12.4) fL Immature Gran % (0-4) % Seg Neutrophils % % Lymphocytes % % Monocytes % % Eosinophils % % Basophils % % Neutrophils # (1.6-8.9) K/mcL Lymphocytes # (0.6-4.6) K/mcL Monocytes # (0.0-1.3) K/mcL Eosinophils # (0.0-0.6) K/mcL Basophils # (0.0-0.2) K/mcL PT (9.4-12.1) Seconds INR Sodium (136-145) mEq/L Potassium (3.5-5.1) mEq/L Chloride (98-107) mEq/L Carbon Dioxide (23-29) mEq/L BUN (8-23) mg/dL Creatinine (0.70-1.30) mg/dL Est GFR ( Amer) (> 60) Est GFR (Non-Af Amer) (> 60) BUN/Creatinine Ratio (6-26) Glucose (70-105) mg/dL Calculated Osmolality (280-300) Lactic Acid 1.4 (0.5-2.2) mmol/L Calcium (8.6-10.3) mg/dL Total Bilirubin (0.3-1.0) mg/dL AST (13-39) Units/L ALT (7-52) Units/L Alkaline Phosphatase (34-104) Units/L Troponin I (< 0.04) ng/mL B-Natriuretic Peptide 538 H (Less than 100) pg/mL Serum Total Protein (6.4-8.9) g/dL Albumin (3.5-5.7) g/dL Globulin (2.4-3.5) g/dL Albumin/Globulin Ratio (1.1-2.2) - Radiology Data Radiology results reviewed: Yes I reviewed the patient's radiology results. XR chest 1V IMPRESSION: Findings suggestive of congestive heart failure, worse since 03/18/2019. Bilateral pleural effusions. Bibasilar pulmonary opacities are favored to represent combination of atelectasis, edema, and/or pleural effusions. Possibility of underlying consolidation or aspiration is not excluded. Consider short interval follow-up examination. D/ / 04/20/2019 12:58:01 Charbel Edwards MD / anibal - EKG Data EKG attestation: Yes I reviewed and interpreted this EKG. EKG results narrative: Twelve-lead EKG showed atrial fibrillation with a ventricular rate of 59-82, no acute ST elevation or depression appreciated, normal axis
[2019-04-20] MEDS ORDERED: Furosemide 40 MG/4 ML VIAL IVP ONE ×3 (12:43→20:00)
[2019-04-20 13:14] LABS: Basophils % 0.5 %; Eosinophils # 0.5 K/mcL (0.0-0.6); Eosinophils % 6.5 %; Hematocrit 30.5 % (37.5-50.1); Hemoglobin 9.9 g/dL (12.9-16.9); Immature Granulocytes % 0.4 % (0-4); Lymphocytes # 1.1 K/mcL (0.6-4.6); Lymphocytes % 13.8 %; Mean Corpuscular HGB Conc 32.5 g/dL (31.6-35.5); Mean Corpuscular Hemoglobin 28.4 pg (28.0-33.3); Mean Corpuscular Volume 87.4 fL (83.0-100.0); Mean Platelet Volume 9.8 fL (9.4-12.4); Monocytes # 0.7 K/mcL (0.0-1.3); Monocytes % 8.3 %; Neutrophils # 5.7 K/mcL (1.6-8.9); Platelet Count 365 K/mcL (140-400); Red Blood Count 3.49 M/mcL (4.19-5.50); Red Cell Distribution Width 16.8 % (11.5-14.5); Segmented Neutrophils % 70.5 %; White Blood Count 8.1 K/mcL (4.3-11.1)
[2019-04-20 13:20] LABS: INR 1.2; Prothrombin Time 13.2 Seconds (9.4-12.1)
[2019-04-20 13:28] LABS: Alanine Aminotransferase 72 Units/L (7-52); Albumin 3.5 g/dL (3.5-5.7); Albumin/Globulin Ratio 1.8 (1.1-2.2); Alkaline Phosphatase 90 Units/L (34-104); Aspartate Amino Transferase 30 Units/L (13-39); BUN/Creatinine Ratio 14 (6-26); Bilirubin,Total 0.6 mg/dL (0.3-1.0); Blood Urea Nitrogen 19 mg/dL (8-23); Carbon Dioxide 31 mEq/L (23-29); Chloride 99 mEq/L (98-107); Glucose 184 mg/dL (70-105); Osmolality,Calculated 291 (280-300); Potassium 3.3 mEq/L (3.5-5.1); Sodium 137 mEq/L (136-145); Total Protein 5.5 g/dL (6.4-8.9); eGFR For African Americans > 60 (> 60); eGFR For Non-African Americans 50 (> 60)
[2019-04-20 13:33] LABS: Troponin I < 0.03 ng/mL (< 0.04)
[2019-04-20] MEDS ORDERED: Naloxone 0.4 MG/ML INJ IVP PRN (15:39)
[2019-04-20] MEDS ORDERED: Ondansetron ODT 4 MG TAB.RAPDIS SL PRN (15:39)
[2019-04-20] MEDS ORDERED: Ipratropium/Albuterol Neb 3 ML IH PRN (15:39)
[2019-04-20] MEDS: Ipratropium/Albuterol Neb 3 ML IH SCH ×2 (16:56→21:22)
[2019-04-20] MEDS ORDERED: Furosemide 40 MG TABLET PO SCH (17:00)
--- NOTE | 2019-04-20 17:29 | Electrocardiograph Report ---
[address] [address] Test Date: 2019-04-20 Pat Name: Xavier Christensen Department: [facility] Room: 118 Gender: M [employer]: : 1935 Requested By: Pk Baltazar Order Number: [id number] Reading MD: Nimo Matos Measurements Intervals Lucile Rate: 68 P: MS: QRS: 71 QRSD: 93 T: 38 QT: 434 QTc: 462 Interpretive Statements Atrial fibrillation Ventricular premature complex Electronically Signed On 04-20-2019 17:27:58 EDT by Nimo Matos
[2019-04-20] MEDS: Furosemide 40 MG/4 ML VIAL IVP SCH ×2 (21:14→23:42)
[2019-04-20] MEDS: *HR* Metformin 500 MG TABLET PO SCH (21:21)
--- NOTE | 2019-04-20 22:14 | Internal Med History&Physical ---
Date of Encounter: 04/21/19 Time of Encounter: 22:12 Assessment and Plan (1) Acute on chronic congestive heart failure Current visit: Yes Status: Acute Acute congestive heart failure in a patient who has had chronic/recurring congestive heart failure. Latest echocardiogram showed ejection fraction of 60%. Good LV function. Likely diastolic dysfunction related congestive heart failure. If he misses a few doses of Lasix he becomes extremely dyspneic, hypoxic, congestive heart failure findings. It appears he may have missed a few doses or a few days of Lasix when he ran out and the caregiver did not bring it to his attention. He is feeling better with having started IV Lasix in the emergency room. Troponin is negative. I do not feel that he has had an acute CA. No angina. Showing improvement with IV Lasix. With his saturation of 78% this morning, his acute congestive heart failure on chronic heart failure, I suspect he is going to be here at least 2 nights. He has failed outpatient treatment with home health and office visit last week. We will place him in full inpatient status. Qualifiers: Heart failure type: diastolic Qualified Code(s): I50.33 - Acute on chronic diastolic (congestive) heart failure (2) Atrial fibrillation Current visit: Yes Status: Chronic Patient has chronic atrial fibrillation, rate controlled. No angina. He is not anticoagulated because of chronic anemia and risk of falling. He has not been a candidate for upper and lower endoscopy for the source of his iron deficiency anemia. Continue with his current medication regimen. Qualifiers: Atrial fibrillation type: persistent Qualified Code(s): I48.1 - Persistent atrial fibrillation (3) COPD exacerbation Current visit: Yes Status: Acute He may have some exacerbation of COPD with slight wheeze. He is getting nebulizer treatments as well as his inhalers. He is oxygen dependent. He is c urrently on 3 L per nasal cannula and saturating in the mid 90s. (4) Hypertension Current visit: Yes Status: Chronic Long-standing history of hypertension. Current blood pressure is well controlled. Medications have been reviewed. Qualifiers: Hypertension type: essential hypertension Qualified Code(s): I10 - Essential (primary) hypertension (5) Diabetes mellitus Current visit: Yes Status: Chronic His blood sugar was elevated tonight in the 250s. He states at home typically 122 to 200 range. His last glycohemoglobin was 8.9%. He has not been on a strict diabetic diet at home. We will continue current medication and follow Accu-Cheks. Qualifiers: Diabetes mellitus type: type 2 Diabetes mellitus retirement insulin use: without intermediate accountant use Diabetes mellitus complication status: with hyperglycemia Qualified Code(s): E11.65 - Type 2 diabetes mellitus with hyperglycemia (6) Chronic kidney disease (CKD), stage III (moderate) Current visit: Yes Status: Chronic History of of chronic kidney disease. His current creatinine is stable. We will continue to monitor. We are avoiding NSAIDs. (7) Hypoxia Current visit: Yes Status: Acute Patient chronically wears oxygen use it 2-3 L. Saturations up to wrist there were 92-93%. This morning he had 78% saturation at home with oxygen in place. Now they are staying in the mid 90s with 3 L per nasal cannula. 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 [facility] put him on Plavix at that time. He has had no recurrences. (9) DVT prophylaxis Current visit: Yes Status: Acute He will be placed on Lovenox subcutaneously Internal Medicine - H&P: HPI Chief complaint: This morning I could not breathe Admitted From: Emergency Dept Plans for Post Hospital Care: Home History of present illness: Mr. Christensen is a 83 year old male with known history of chronic atrial fibrillation, chronic/recurring congestive heart failure, diabetes, oxygen dependent COPD is fairly recent in our hospital and then in ECF before returning to home having been treated for pneumonia and CHF. When I saw him in the office last week he looked great, ambulating well, saturations were good, weight are stable and no edema. However, on Thursday night he was awakened when water squirted through his nasal cannula and into his nose from the water bottle humidifier on his oxygen concentrator. It occurred a second time he states with water squirting out of his nose about 2 or 3 feet. On Thursday he felt worse. He is not sure whether he took his Lasix on the weekend or not. Thursday, 2 days ago, he found out that the caregiver had thrown away the empty bottle of Lasix and none had been ordered from [facility]. He resumed his Lasix Thursday night. He felt better yesterday. However, last night he felt much worse, could not lie down in bed, sat up in a chair all night because of wheezing and shortness of breath. He states that through this his saturations have been 92- 93% until this morning when it was 78%. His weights had been in the 179 range and now jumped up to 183 this morning. He has noticed some edema in his feet and ankles. With severe shortness of breath, hypoxia and cough he came to the emergency room for evaluation. He denies any cardiac type chest pain or palpitations. Denies any nausea, vomiting, diaphoresis. His sputum is "yellow phlegm" and not very much in quantity. He has had no recent travel. No fevers or chills. He states this feels different than when he had pneumonia. Having had IV Lasix in the ER and on the floor he states he is feeling much better. Past Med Surg Social Fam HX - Past Medical History Medical history: atrial fibrillation, CHF, COPD, CVA, diabetes, GERD, hyperlipidemia, hypertension, renal disease, thyroid disease Psychiatric history: no psych history - Past Surgical History Surgical History: other Additional surgical history: left shoulder replacement,left ankle fracture/orif, status post TUNA/prostate - Social History Smoking Status: Former smoker Smokeless Tobacco Status: No Alcohol use: none Drug use: none Occupational status: retired Current living situation: Home Activity Level: Uses cane/walker Recent Out of Country Travel Within the Last 8 Weeks: No Exposure or Possible Exposure to Illness During Travel: No - Family History Mother History Unknown: Yes Living Status: Father History Unknown: Yes Living Status: Internal Medicine - H&P: Meds Clopidogrel [Plavix] 75 mg PO DAILY 02/19/18 [History] Omeprazole 20 mg PO DAILY 02/19/18 [History] amLODIPine [Norvasc] 5 mg PO DAILY 02/19/18 [History] Atorvastatin Calcium [Lipitor] 80 mg PO HS #30 tab 10/14/18 [Rx] Ferrous Sulfate 325 mg PO DAILY@0800 #30 tablet 10/14/18 [Rx] Labetalol [Trandate] 100 mg PO BID #60 tablet 10/14/18 [Rx] Levothyroxine Sodium 100 mcg PO 0600 11/12/18 [History] Acetaminophen [Tylenol] 500 mg PO Q4HR PRN tablet 12/09/18 [Rx] Benzonatate [Tessalon] 200 mg PO TID PRN capsule 12/09/18 [Rx] Ipratropium/Albuterol Neb [Duoneb] 3 ml IH [id number] PRN #120 inhsol 12/09/18 [Rx] Multivit/Ca/Min/Fe/FA [Thera M Plus] 1 tab PO DAILY tablet 12/09/18 [Rx] metFORMIN [Glucophage] 1,000 mg PO HS 01/12/19 [History] GuaiFENesin/Dextromethorphan [Robitussin/Dm] 5 ml PO Q6HR PRN udc 01/18/19 [Rx] Potassium Chloride 20 meq PO DAILY #30 tab.er.prt 01/18/19 [Rx] Losartan [Cozaar] 50 mg PO DAILY #30 tablet 03/17/19 [Rx] Furosemide [Lasix] 40 mg PO 1700 tablet 03/23/19 [Rx] Furosemide [Lasix] 80 mg PO 0800 tablet 03/23/19 [Rx] Ipratropium/Albuterol Neb [Duoneb] 3 ml IH Q4HWA inhsol 03/23/19 [Rx] Montelukast [Singulair] 10 mg PO DAILY tablet 03/23/19 [Rx] 3 Allergy/AdvReac Type Severity Reaction Status Date / Time Sulfa (Sulfonamide Allergy See Verified 03/15/19 20:20 Antibiotics) Comments - Constitutional Constitutional: weakness, no chills, no fever(s), no falls - EENT Eyes: no change in vision Ears: no decreased hearing, no ear discharge, no ear pain Nose, mouth and throat: no dry mouth, no sinus pressure, no sore throat - Cardiovascular Cardiovascular ROS IM: dyspnea, dyspnea on exertion, edema, orthopnea, no chest pain, no irregular heart rhythm, no lightheadedness, no palpitations, no syncope - Respiratory Respiratory: dyspnea, dyspnea on exertion, wheezing, excessive phlegm production, change in phlegm color, no hemoptysis - Gastrointestinal Gastrointestinal: no coffee ground emesis, no constipation, no diarrhea, no hematochezia, no loose stools - Genitourinary Genitourinary ROS male: no dysuria - Musculoskeletal Musculoskeletal ROS IM: no joint swelling, no muscle weakness - Integumentary Integumentary IM: no pruritus, no rash - Neurological Neurological ROS: no confusion, no dizziness, no focal weakness - Constitutional Vitals: Temp Pulse Resp BP Pulse Ox 97.3 F L 74 16 105/51 94 04/20/19 20:00 04/20/19 20:00 04/20/19 20:00 04/20/19 20:00 04/20/19 20:00 General appearance: Present: A&O X 3, no acute distress, answers questions appropriately - Head Head exam: Present: atraumatic - ENT ENT exam: Present: mucous membranes moist, normal oropharynx, TM's normal bilaterally - Neck Neck exam general surgery: Absent: lymphadenopathy, tenderness, nuchal rigidity - Respiratory Additional comments: Scattered crackles particularly in the lower lobes, left worse than the right. Slight wheeze in left upper lobe. No respiratory distress currently. Able to tolerate lying at 45 degree angle. - Cardiovascular Cardiovascular exam: Present: irregular rhythm, +S1, +S2. Absent: systolic murmur - GI/Abdominal GI/Abdominal exam: Present: soft. Absent: guarding, hepatomegaly, mass, tendern ess - Extremities Exam Additional comments: Very mild pitting edema, left is worse than the right and extending three quarters up to the knee. There is no skin breakdown on his feet. Mild dystrophic thickened nails. Has good cells. His pulses bilaterally. Extremities are warm and dry - Neurological Exam Neurological exam: Present: alert, altered, CN II-XII intact, no focal deficits Internal Med - H&P Results - Labs CBC & Chem 7: 04/21/19 05:20 04/21/19 05:20 Labs: Short CBC 04/20/19 Range/Units 13:05 WBC 8.1 (4.3-11.1) K/mcL Hgb 9.9 L (12.9-16.9) g/dL Hct 30.5 L (37.5-50.1) % Plt Count 365 (140-400) K/mcL Neutrophils # 5.7 (1.6-8.9) K/mcL BMP 04/20/19 13:05 Sodium 137 Potassium 3.3 L Chloride 99 Carbon Dioxide 31 H BUN 19 Creatinine 1.36 H Glucose 184 H Calcium 9.0 Cardiac Enzymes 04/20/19 Range/Units 13:05 Troponin I < 0.03 (< 0.04) ng/mL Liver Function 04/20/19 Range/Units 13:05 Total Bilirubin 0.6 (0.3-1.0) mg/dL AST 30 (13-39) Units/L ALT 72 H (7-52) Units/L Alkaline Phosphatase 90 (34-104) Units/L Albumin 3.5 (3.5-5.7) g/dL Labs have been reviewed. Chronic kidney disease creatinine is stable. P otassium mildly diminished. He is on a supplement. BNP mildly elevated in the 500s which is slightly worse than his usual. - EKG Data EKG comments: 04/20/19 22:28 EKG shows atrial fibrillation with irregularly irregular rhythm. Poor R-wave progression. No obvious acute ischemic changes. - Impressions ITS Impressions Chest X-Ray 04/20/19 12:43 IMPRESSION: Findings suggestive of congestive heart failure, worse since 03/18/2019. Bilateral pleural effusions. Bibasilar pulmonary opacities are favored to represent combination of atelectasis, edema, and/or pleural effusions. Possibility of underlying consolidation or aspiration is not excluded. Consider short interval follow-up examination. D/ / 04/20/2019 12:58:01 Charbel Edwards MD / [facility] Interpreting Provider: Charbel Edwards MD - Diagnostic Studies Chest x-ray Status: image reviewed by me Additional comments: Chest x-ray shows increased pulmonary vascular congestion and cephalization. Small pleural effusion particularly on the left side. Slightly worse overall compared to latest film
[2019-04-20] MEDS: Melatonin 3 MG TABLET PO PRN (23:41)
[2019-04-20] MEDS ORDERED: Mag Hydrox/Al Hydrox/Simeth 30 ML UDC PO PRN (23:48)
[2019-04-21] MEDS: Furosemide 40 MG/4 ML VIAL IVP SCH ×2 (05:16→18:22)
[2019-04-21] MEDS: *HR* Enoxaparin 40 MG/0.4 ML SYRINGE SQ SCH (05:16)
[2019-04-21 05:27] LABS: Basophils # 0.1 K/mcL (0.0-0.2); Basophils % 0.6 %; Eosinophils # 0.7 K/mcL (0.0-0.6); Eosinophils % 7.9 %; Hematocrit 27.8 % (37.5-50.1); Hemoglobin 9.1 g/dL (12.9-16.9); Immature Granulocytes % 0.4 % (0-4); Lymphocytes # 1.6 K/mcL (0.6-4.6); Lymphocytes % 18.5 %; Mean Corpuscular HGB Conc 32.7 g/dL (31.6-35.5); Mean Corpuscular Hemoglobin 28.6 pg (28.0-33.3); Mean Corpuscular Volume 87.4 fL (83.0-100.0); Mean Platelet Volume 9.2 fL (9.4-12.4); Monocytes # 0.7 K/mcL (0.0-1.3); Monocytes % 8.7 %; Neutrophils # 5.4 K/mcL (1.6-8.9); Platelet Count 334 K/mcL (140-400); Red Blood Count 3.18 M/mcL (4.19-5.50); Red Cell Distribution Width 16.8 % (11.5-14.5); Segmented Neutrophils % 63.9 %; White Blood Count 8.5 K/mcL (4.3-11.1)
[2019-04-21 05:41] LABS: Calcium 8.6 mg/dL (8.6-10.3); Potassium 3.3 mEq/L (3.5-5.1)
[2019-04-21] MEDS: Ipratropium/Albuterol Neb 3 ML IH SCH ×4 (07:14→18:52)
[2019-04-21] MEDS ORDERED: Furosemide 40 MG TABLET PO SCH (08:00)
[2019-04-21] MEDS: Multivit/Ca/Min/Fe/FA 1 TAB TABLET PO SCH (09:42)
[2019-04-21] MEDS: amLODIPine 5 MG TABLET PO SCH (09:42)
[2019-04-21] MEDS: Benzonatate 100 MG CAPSULE PO PRN (09:51)
--- NOTE | 2019-04-21 11:05 | Internal Med Progress Note ---
Date of Encounter: 04/21/19 Time of Encounter: 11:03 - Assessment and plan (1) Congestive heart failure Current Visit: Yes Status: Chronic Assessment and plan: Patient was admitted to emergency department history with exacerbation of CHF. Patient continues to diurese and had shown an approximate 2 kg weight loss overnight. Patient continues to experience dyspnea with minimal exertion and continues to have fine scattered rales throughout lung bradford. No hypoxia with supplemental oxygen. We will continue with current Lasix dosing and continue to follow patient closely. We will repeat patient's labs in the morning Qualifiers: Heart failure type: unspecified Heart failure chronicity: acute on chronic Qualified Code(s): I50.9 - Heart failure, unspecified (2) Atrial fibrillation Current Visit: Yes Status: Chronic Assessment and plan: No acute issues. Patient continues with atrial fibrillation on monitoring tech with no ventricular ectopy noted. Patient's ventricular rate is controlled at less than 100. We will continue patient on current medications. Qualifiers: Atrial fibrillation type: persistent Qualified Code(s): I48.1 - Persistent atrial fibrillation (3) Hypertension Current Visit: Yes Status: Chronic Assessment and plan: Vital signs have remained stable during his stay. We will continue on current medications. We will continue with frequent vital signs Qualifiers: Hypertension type: essential hypertension Qualified Code(s): I10 - Essential (primary) hypertension (4) Diabetes mellitus Current Visit: Yes Status: Chronic Assessment and plan: No acute issues. Patient's glucose has been fairly well-controlled most readings less than 200. We will continue with sliding scale coverage and oral medications Qualifiers: Diabetes mellitus type: type 2 Diabetes mellitus nursing home insulin use: without marine oil terminal superintendent use Diabetes mellitus complication status: with hyperglycemia Qualified Code(s): E11.65 - Type 2 diabetes mellitus with hyperglycemia (5) Chronic kidney disease (CKD), stage III (moderate) Current Visit: Yes Status: Chronic Assessment and plan: No acute issues. Patient's most recent creatinine is 1.36. We will continue to monitor with serial labs. - Time Spent With Patient less than 15 minutes - Subjective Interval history: Patient appears relaxed and states that he feels his breathing has improved overnight. Patient denies any discomforts or palpitations. Patient was admitted through the emergency department for exacerbation of CHF and dyspnea. Patient continues to be diuresed overnight and has shown a weight loss. Patient noted to become short of breath with effort of conversation and was winded during repositioning in bed during exam. - Constitutional Vitals: Temp Pulse Resp BP Pulse Ox 98.6 F 59 18 131/64 97 04/21/19 07:00 04/21/19 07:00 04/21/19 07:15 04/21/19 07:00 04/21/19 07:15 General appearance: Present: A&O X 3, no acute distress, answers questions appropriately - Head Head exam: Present: atraumatic, normocephalic - Eye Eye exam: Present: PERRL, conjuntiva pink, sclera anicteric Pupils: Present: PERRL - Neck Neck exam general surgery: Present: supple, trachea midline. Absent: lymphadenopathy - Respiratory Respiratory exam: Present: CTAB, rales. Absent: accessory muscle use, rhonchi, wheezes Additional comments: Patient with scattered fine rales throughout lung bradford. Respiratory effort appears relaxed oral rest but with minimal exertional conversation repositioning patient becomes dyspneic. Frequently productive cough. - Cardiovascular Cardiovascular exam: Present: irregular rhythm, RRR, +S1, +S2. Absent: diastolic murmur, gallop, rubs, systolic murmur Additional comments: Patient continues on monitoring tech with atrial fibrillation and no ventricular ectopy noted. Particular rate is controlled less than 100 - GI/Abdominal GI/Abdominal exam: Present: normal bowel sounds, soft, no peritoneal signs. Absent: distended, tenderness - Extremities Exam Extremities exam: Present: pedal edema, warm, radial pulses palpable and symmetrical. Absent: calf tenderness, cyanotic Additional comments: Slight lower leg and pedal edema +1 - Neurological Exam Neurological exam: Present: CN II-XII intact, oriented X3, no focal deficits. Absent: pronater drift, facial droop, speech deficit - Skin Skin exam: Present: dry, intact Internal Medicine: Result - Labs CBC & Chem 7: 04/21/19 05:20 04/21/19 05:20 Labs: Short CBC 04/20/19 04/21/19 Range/Units 13:05 05:20 WBC 8.1 8.5 (4.3-11.1) K/mcL Hgb 9.9 L 9.1 L (12.9-16.9) g/dL Hct 30.5 L 27.8 L (37.5-50.1) % Plt Count 365 334 (140-400) K/mcL Neutrophils # 5.7 5.4 (1.6-8.9) K/mcL BMP 04/20/19 04/21/19 13:05 05:20 Sodium 137 137 Potassium 3.3 L 3.3 L Chloride 99 101 Carbon Dioxide 31 H 30 H BUN 19 21 Creatinine 1.36 H 1.38 H Glucose 184 H 151 H Calcium 9.0 8.6 Cardiac Enzymes 04/20/19 Range/Units 13:05 Troponin I < 0.03 (< 0.04) ng/mL Liver Function 04/20/19 Range/Units 13:05 Total Bilirubin 0.6 (0.3-1.0) mg/dL AST 30 (13-39) Units/L ALT 72 H (7-52) Units/L Alkaline Phosphatase 90 (34-104) Units/L Albumin 3.5 (3.5-5.7) g/dL - ABG Interpretation ABG results: PT/INR, D-dimer PT 13.2 Seconds (9.4-12.1) H 04/20/19 13:05 - Impressions Impressions Chest X-Ray 04/20/19 12:43 IMPRESSION: 1. Findings suggestive of congestive heart failure, worse since 03/18/2019. 2. Bilateral pleural effusions. 3. Bibasilar pulmonary opacities are favored to represent combination of atelectasis, edema, and/or pleural effusions. Possibility of underlying consolidation or aspiration is not excluded. RECOMMENDATION: Recommend short interval follow-up, and radiographic follow-up to complete resolution. D/ / 04/20/2019 12:58:01 Charbel Edwards MD / [email or web address] Interpreting Provider: Charbel Edwards MD Consult Discharge Plan - Plan Referrals: Mario Early MD [Primary Care Provider] -
[2019-04-21] MEDS: *HR* Metformin 500 MG TABLET PO SCH (21:55)
[2019-04-21] MEDS: Melatonin 3 MG TABLET PO PRN (21:56)
[2019-04-22] MEDS ORDERED: Dextrose Gel 15 GM/37.5 ML TUBE PO PRN ×2 (04:05)
[2019-04-22] MEDS ORDERED: *HR* Dextrose 50 % in Water (Syg) 50 ML SYRINGE IVP PRN (04:05)
[2019-04-22] MEDS ORDERED: D5% in Water 1,000 ML IVC PRN (04:05)
[2019-04-22] MEDS: *HR* Enoxaparin 40 MG/0.4 ML SYRINGE SQ SCH (04:37)
[2019-04-22] MEDS: Benzonatate 100 MG CAPSULE PO PRN (04:37)
[2019-04-22 04:53] LABS: Hematocrit 27.5 % (37.5-50.1); Hemoglobin 8.9 g/dL (12.9-16.9); Mean Corpuscular HGB Conc 32.4 g/dL (31.6-35.5); Mean Corpuscular Hemoglobin 28.4 pg (28.0-33.3); Mean Corpuscular Volume 87.9 fL (83.0-100.0); Mean Platelet Volume 9.5 fL (9.4-12.4); Platelet Count 339 K/mcL (140-400); Red Blood Count 3.13 M/mcL (4.19-5.50); Red Cell Distribution Width 16.9 % (11.5-14.5); White Blood Count 7.4 K/mcL (4.3-11.1)
[2019-04-22 05:10] LABS: Calcium 8.6 mg/dL (8.6-10.3); Potassium 3.8 mEq/L (3.5-5.1)
[2019-04-22] MEDS: Ipratropium/Albuterol Neb 3 ML IH SCH ×3 (07:02→13:57)
[2019-04-22] MEDS: amLODIPine 5 MG TABLET PO SCH (09:57)
[2019-04-22] MEDS: Multivit/Ca/Min/Fe/FA 1 TAB TABLET PO SCH (09:57)
[2019-04-22] MEDS: Furosemide 40 MG/4 ML VIAL IVP SCH (09:58)
[2019-04-22] MEDS: Insulin LISPRO 300 UNITS/3 ML VIAL SQ SCH ×2 (10:05→12:37)
[2019-04-22 11:40] VITALS: BP 107/62
--- NOTE | 2019-04-22 14:17 | Discharge Summary ---
Date of Encounter: 04/22/19 Time of Encounter: 14:15 - Discharge Diagnosis (1) Congestive heart failure Priority: Primary Status: Chronic Comments: Patient was admitted to the emergency department for exacerbation of CHF. Per m edical records patient had ran out of Lasix for several days prior to his admission. Chest x-ray on admission showed mild pulmonary vascular congestion with bilateral small pleural effusions. Patient was diuresed over the past 48 hours and had shown a 3 kg weight loss. Patient continues to have fine rales to his lower [place]. Patient appears relaxed this morning with his respiratory rate but continues to experience dyspnea on exertion. Patient is to continue follow-up with Dr. Early after discharge. He will have home health nursing to evaluate and follow him at home Qualifiers: Heart failure type: unspecified Heart failure chronicity: acute on chronic Qualified Code(s): I50.9 - Heart failure, unspecified (2) Atrial fibrillation Priority: Secondary Status: Chronic Comments: Continues with irregular heart rate with controlled ventricular rate less than 100. We will continue on his current medications after discharge and follow-up with his PCP Qualifiers: Atrial fibrillation type: persistent Qualified Code(s): I48.1 - Persistent atrial fibrillation (3) Hypertension Priority: Secondary Status: Chronic Comments: I will signs remained stable during his stay at this facility. We will continue on current medications and follow-up with PCP after discharge Qualifiers: Hypertension type: essential hypertension Qualified Code(s): I10 - Essential (primary) hypertension (4) Diabetes mellitus Priority: Secondary Status: Chronic Comments: Acute issues. Patient has had a slightly elevated glucose but has been covered with his home medications and sliding scale. 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 Patient is continue with home medications and follow-up with PCP. Hospital course: Mr. Christensen is a 83 year old male, who presented to emergency department with complaints of shortness of breath. Patient reportedly had ran out of his Lasix for 2 days prior to his presentation and experienced progressive shortness of breath. Patient had been seen by Dr. Early earlier in the week and was documented to be doing well. Patient was admitted to the medical floor and was diuresed over the past 48 hours, resulting in a 2-3 kg weight loss. Patient had scattered rales throughout on presentation and today his lungs are fairly clear with fine rales heard posteriorly to the lower basilar bradford. She continues to have dyspnea on exertion when ambulating in room which has been baseline. Patient continues with a dry nonproductive cough. Patient has remained on equipment monitor phototypesetting until today which showed atrial fibrillation with occasional PVCs and a controlled rate less than 100. His vital signs remained stable. Afebrile. Patient is to continue on his current medications and follow-up with ECP within one week. Patient will be referred to home health for further follow-up. Patient has the option of returning to a care home facility which he signed out from on 04/07/19 Discharge discussed with: patient Time spent discussing smoking cessation with patient: 3 to 10 minutes - Time Spent with Patient Total time spent providing and/or coordinating discharge services: Time spent: Less than 30 minutes - Discharge Medications Prescriptions: No Action Omeprazole 20 mg PO DAILY Clopidogrel [Plavix] 75 mg PO DAILY amLODIPine [Norvasc] 5 mg PO DAILY Atorvastatin Calcium [Lipitor] 80 mg PO HS #30 tab Ferrous Sulfate 325 mg PO DAILY@0800 #30 tablet Labetalol [Trandate] 100 mg PO BID #60 tablet Levothyroxine Sodium 100 mcg PO 0600 Acetaminophen [Tylenol] 500 mg PO Q4HR PRN tablet PRN Reason: pain/fever Ipratropium/Albuterol Neb [Duoneb] 3 ml IH [id number] PRN #120 inhsol PRN Reason: Wheezing Benzonatate [Tessalon] 200 mg PO TID PRN capsule PRN Reason: Cough Multivit/Ca/Min/Fe/FA [Thera M Plus] 1 tab PO DAILY tablet metFORMIN [Glucophage] 1,000 mg PO HS Potassium Chloride 20 meq PO DAILY #30 tab.er.prt GuaiFENesin/Dextromethorphan [Robitussin/Dm] 5 ml PO Q6HR PRN udc PRN Reason: Cough Losartan [Cozaar] 50 mg PO DAILY #30 tablet Ipratropium/Albuterol Neb [Duoneb] 3 ml IH Q4HWA inhsol Furosemide [Lasix] 40 mg PO 1700 tablet Furosemide [Lasix] 80 mg PO 0800 tablet Montelukast [Singulair] 10 mg PO DAILY tablet Home Medications: Clopidogrel [Plavix] 75 mg PO DAILY 02/19/18 [History] Omeprazole 20 mg PO DAILY 02/19/18 [History] amLODIPine [Norvasc] 5 mg PO DAILY 02/19/18 [History] Atorvastatin Calcium [Lipitor] 80 mg PO HS #30 tab 10/14/18 [Rx] Ferrous Sulfate 325 mg PO DAILY@0800 #30 tablet 10/14/18 [Rx] Labetalol [Trandate] 100 mg PO BID #60 tablet 10/14/18 [Rx] Levothyroxine Sodium 100 mcg PO 0600 11/12/18 [History] Acetaminophen [Tylenol] 500 mg PO Q4HR PRN tablet 12/09/18 [Rx] Benzonatate [Tessalon] 200 mg PO TID PRN capsule 12/09/18 [Rx] Ipratropium/Albuterol Neb [Duoneb] 3 ml IH [id number] PRN #120 inhsol 12/09/18 [Rx] Multivit/Ca/Min/Fe/FA [Thera M Plus] 1 tab PO DAILY tablet 12/09/18 [Rx] metFORMIN [Glucophage] 1,000 mg PO HS 01/12/19 [History] GuaiFENesin/Dextromethorphan [Robitussin/Dm] 5 ml PO Q6HR PRN udc 01/18/19 [Rx] Potassium Chloride 20 meq PO DAILY #30 tab.er.prt 01/18/19 [Rx] Losartan [Cozaar] 50 mg PO DAILY #30 tablet 03/17/19 [Rx] Furosemide [Lasix] 40 mg PO 1700 tablet 03/23/19 [Rx] Furosemide [Lasix] 80 mg PO 0800 tablet 03/23/19 [Rx] Ipratropium/Albuterol Neb [Duoneb] 3 ml IH Q4HWA inhsol 03/23/19 [Rx] Montelukast [Singulair] 10 mg PO DAILY tablet 03/23/19 [Rx] Allergies/Adverse Reactions: Allergy/AdvReac Type Severity Reaction Status Date / Time Sulfa (Sulfonamide Allergy See Verified 03/15/19 20:20 Antibiotics) Comments Date of admission: 04/20/19 22:33 Primary care physician: Mario Early MD Discharging clinician: Mario Abraham - Constitutional Vitals: Temp Pulse Resp BP Pulse Ox 97.8 F 60 18 107/62 94 04/22/19 11:39 04/22/19 11:39 04/22/19 13:58 04/22/19 11:39 04/22/19 13:58 General appearance: Present: A&O X 3, no acute distress, answers questions appropriately - Head Head exam: Present: atraumatic, normocephalic - Eye Eye exam: Present: PERRL, conjuntiva pink, sclera anicteric Pupils: Present: PERRL - Neck Neck exam general surgery: Present: supple, trachea midline. Absent: lymphadenopathy - Respiratory Respiratory exam: Present: decreased breath sounds, CTAB, rales. Absent: accessory muscle use, rhonchi, wheezes Additional comments: Patient continues with fine rales heard to the posterior bases. Respiratory effort appears relaxed while at rest noted become winded during ambulation in room. Productive cough noted. Oxygen saturations have remained greater than 90 - Cardiovascular Cardiovascular exam: Present: RRR, +S1, +S2. Absent: diastolic murmur, gallop, rubs, systolic murmur - GI/Abdominal GI/Abdominal exam: Present: normal bowel sounds, soft, no peritoneal signs. Absent: distended, tenderness - Extremities Exam Extremities exam: Present: warm, radial pulses palpable and symmetrical. Absent: calf tenderness, cyanotic, pedal edema - Neurological Exam Neurological exam: Present: CN II-XII intact, oriented X3, no focal deficits. Absent: pronater drift, facial droop, speech deficit - Skin Skin exam: Present: dry, intact - Patient Status Disposition: Home Health Service Condition: Good Functional capacity at discharge: uses cane/walker Overall status at discharge: patient is progressing back to baseline - Discharge Instructions Follow Up With: Mario Early MD [Primary Care Provider] - - Diet and Activity Activity: ambulate only with your walker, increase activity as tolerated Diet: diabetic diet, low fat, low cholesterol, low salt diet
--- NOTE | 2019-04-22 14:37 | Physician Discharge Referral ---
Home Health/Hosp Referral Info Transfer to: Home Health Provider in Charge Post Discharge: PCP - Diagnosis (1) Congestive heart failure Priority: Primary Status: Chronic (2) Atrial fibrillation Priority: Secondary Status: Chronic (3) Hypertension Priority: Secondary Status: Chronic (4) Diabetes mellitus Priority: Secondary Status: Chronic (5) Chronic kidney disease (CKD), stage III (moderate) Priority: Secondary Status: Chronic - Respiratory Orders Oxygen / L per min (2 lpm NC) Smoking Cessation: Smoking cessation has been advised. For more information, call the [place] Tobacco Quit Line at 1-769-STJX-NOW. - Diet/Nutrition Diet/Nutrition Orders: No Added Salt (DAVON) - Activity Activity Orders: Up ad miladis, Walker - Services Needed Following services are medically necessary services: Nursing, Home Health Aide, Physical Therapy, Occupational Therapy - Transfer Medications Home Medications: Clopidogrel [Plavix] 75 mg PO DAILY 02/19/18 [History] Omeprazole 20 mg PO DAILY 02/19/18 [History] amLODIPine [Norvasc] 5 mg PO DAILY 02/19/18 [History] Atorvastatin Calcium [Lipitor] 80 mg PO HS #30 tab 10/14/18 [Rx] Ferrous Sulfate 325 mg PO DAILY@0800 #30 tablet 10/14/18 [Rx] Labetalol [Trandate] 100 mg PO BID #60 tablet 10/14/18 [Rx] Levothyroxine Sodium 100 mcg PO 0600 11/12/18 [History] Acetaminophen [Tylenol] 500 mg PO Q4HR PRN tablet 12/09/18 [Rx] Benzonatate [Tessalon] 200 mg PO TID PRN capsule 12/09/18 [Rx] Ipratropium/Albuterol Neb [Duoneb] 3 ml IH [id number] PRN #120 inhsol 12/09/18 [Rx] Multivit/Ca/Min/Fe/FA [Thera M Plus] 1 tab PO DAILY tablet 12/09/18 [Rx] metFORMIN [Glucophage] 1,000 mg PO HS 01/12/19 [History] GuaiFENesin/Dextromethorphan [Robitussin/Dm] 5 ml PO Q6HR PRN udc 01/18/19 [Rx] Potassium Chloride 20 meq PO DAILY #30 tab.er.prt 01/18/19 [Rx] Losartan [Cozaar] 50 mg PO DAILY #30 tablet 03/17/19 [Rx] Furosemide [Lasix] 40 mg PO 1700 tablet 03/23/19 [Rx] Furosemide [Lasix] 80 mg PO 0800 tablet 03/23/19 [Rx] Ipratropium/Albuterol Neb [Duoneb] 3 ml IH Q4HWA inhsol 03/23/19 [Rx] Montelukast [Singulair] 10 mg PO DAILY tablet 03/23/19 [Rx] Allergies/Adverse Reactions: Allergy/AdvReac Type Severity Reaction Status Date / Time Sulfa (Sulfonamide Allergy See Verified 03/15/19 20:20 Antibiotics) Comments Certification: Further, I certify that my clinical findings support that this patient is homebound (i.e. absences from home require considerable and taxing effort and are for medical reasons or mandaeism services or infrequently or short duration when for other reasons) because: Homebound Reason: Leaving home requires considerable and taxing effort due to condition Attestation: My signature below is to certify that this patient is under my care and that I, or nurse practitioner, or a physician's employment assistant working with me, has a [id number] encounter with this patient.
[2019-04-22] MEDS ORDERED: Insulin LISPRO 300 UNITS/3 ML VIAL SQ SCH (21:00)
== END 2019-04-22 15:30 | disposition home health service (06) | DRG 291 ==
LOC: EMEROOGRE 12:17 → INPGRE 12:17 → EMEROOGRE 12:17 → INPGRE 14:44
PROVIDERS: ADMIT Family Medicine; ATTEND Family Medicine

== ENCOUNTER 2019-11-17 15:51 | Observation (INO) ==
[2019-11-17 16:17] LABS: Basophils % 0.5 %; Eosinophils # 0.3 K/mcL (0.0-0.6); Eosinophils % 4.2 %; Hematocrit 35.2 % (37.5-50.1); Hemoglobin 11.3 g/dL (12.9-16.9); Immature Granulocytes % 0.4 % (0-4); Lymphocytes % 12.5 %; Mean Corpuscular HGB Conc 32.1 g/dL (31.6-35.5); Mean Corpuscular Hemoglobin 28.6 pg (28.0-33.3); Mean Corpuscular Volume 89.1 fL (83.0-100.0); Mean Platelet Volume 10.1 fL (9.4-12.4); Monocytes # 0.6 K/mcL (0.0-1.3); Monocytes % 8.1 %; Neutrophils # 5.8 K/mcL (1.6-8.9); Platelet Count 309 K/mcL (140-400); Red Blood Count 3.95 M/mcL (4.19-5.50); Red Cell Distribution Width 15.4 % (11.5-14.5); Segmented Neutrophils % 74.3 %; White Blood Count 7.8 K/mcL (4.3-11.1)
[2019-11-17 16:34] LABS: Alanine Aminotransferase 20 Units/L (7-52); Albumin 3.7 g/dL (3.5-5.7); Albumin/Globulin Ratio 1.4 (1.1-2.2); Alkaline Phosphatase 67 Units/L (34-104); Aspartate Amino Transferase 16 Units/L (13-39); BUN/Creatinine Ratio 17 (6-26); Bilirubin,Direct 0.1 mg/dL (0.0-0.2); Bilirubin,Indirect 0.3 mg/dL (0.0-1.0); Bilirubin,Total 0.4 mg/dL (0.3-1.0); Blood Urea Nitrogen 29 mg/dL (8-23); Calcium 8.7 mg/dL (8.6-10.3); Carbon Dioxide 28 mEq/L (23-29); Chloride 98 mEq/L (98-107); Globulin 2.7 g/dL (2.4-3.5); Glucose 298 mg/dL (70-105); Osmolality,Calculated 293 (280-300); Potassium 3.9 mEq/L (3.5-5.1); Sodium 133 mEq/L (136-145); Total Protein 6.4 g/dL (6.4-8.9); eGFR For African Americans 48 (> 60); eGFR For Non-African Americans 39 (> 60)
[2019-11-17 16:36] LABS: Troponin I < 0.03 ng/mL (< 0.04)
[2019-11-17] MEDS ORDERED: Naloxone 0.4 MG/ML INJ IVP PRN (17:42)
[2019-11-17] MEDS ORDERED: amLODIPine 5 MG TABLET PO SCH (17:45)
[2019-11-17] MEDS ORDERED: Semaglutide [Ozempic] 0.25 MG SQ SCH (17:45)
[2019-11-17] MEDS ORDERED: Furosemide 40 MG/4 ML VIAL IVP ONE (18:46)
[2019-11-17] MEDS ORDERED: Dextrose Gel 15 GM/37.5 ML TUBE PO PRN ×2 (19:18)
[2019-11-17] MEDS ORDERED: D5% in Water 1,000 ML IVC PRN (19:18)
[2019-11-17] MEDS ORDERED: *HR* Dextrose 50 % in Water (Syg) 50 ML SYRINGE IVP PRN (19:18)
[2019-11-17] MEDS ORDERED: Furosemide 20 MG/2 ML VIAL IVP ONE (19:30)
[2019-11-17] MEDS ORDERED: Insulin LISPRO 300 UNITS/3 ML VIAL SQ SCH (21:00)
[2019-11-17] MEDS: *HR* Heparin 5,000 UNIT/ML VIAL SQ SCH (21:15)
[2019-11-18 06:17] LABS: Calcium 8.5 mg/dL (8.6-10.3); Potassium 3.5 mEq/L (3.5-5.1)
[2019-11-18] MEDS: *HR* Heparin 5,000 UNIT/ML VIAL SQ SCH (06:51)
[2019-11-18] MEDS ORDERED: Furosemide 40 MG/4 ML VIAL IVP ONE (08:00)
[2019-11-18] MEDS ORDERED: Multivit/Ca/Min/Fe/FA 1 TAB TABLET PO SCH (09:00)
[2019-11-18] MEDS ORDERED: Empagliflozin [Jardiance] 25 MG PO SCH (09:00)
[2019-11-18] MEDS ORDERED: Furosemide 40 MG/4 ML VIAL IVP SCH (09:00)
[2019-11-18] MEDS ORDERED: amLODIPine 5 MG TABLET PO SCH (09:00)
[2019-11-18] MEDS: Insulin LISPRO 300 UNITS/3 ML VIAL SQ SCH ×2 (10:10→13:27)
[2019-11-18 11:35] VITALS: BP 146/56
[2019-11-18] MEDS ORDERED: Furosemide 40 MG TABLET PO SCH (17:00)
== END 2019-11-18 14:25 | disposition home health service (06) ==
LOC: EMEROOGRE 15:51 → INPGRE 15:51
PROVIDERS: ADMIT Family Medicine; ATTEND Family Medicine

== ENCOUNTER 2020-02-20 21:58 | Inpatient (IN) ==
[2020-02-20 22:30] LABS: Basophils # 0.1 K/mcL (0.0-0.2); Basophils % 0.5 %; Eosinophils # 0.4 K/mcL (0.0-0.6); Eosinophils % 3.5 %; Hematocrit 32.3 % (37.5-50.1); Hemoglobin 10.6 g/dL (12.9-16.9); Immature Granulocytes % 0.3 % (0-4); Lymphocytes # 1.2 K/mcL (0.6-4.6); Lymphocytes % 11.8 %; Mean Corpuscular HGB Conc 32.8 g/dL (31.6-35.5); Mean Corpuscular Hemoglobin 28.9 pg (28.0-33.3); Mean Platelet Volume 9.9 fL (9.4-12.4); Monocytes # 0.8 K/mcL (0.0-1.3); Neutrophils # 7.8 K/mcL (1.6-8.9); Platelet Count 314 K/mcL (140-400); Red Blood Count 3.67 M/mcL (4.19-5.50); Red Cell Distribution Width 14.8 % (11.5-14.5); Segmented Neutrophils % 75.9 %; White Blood Count 10.2 K/mcL (4.3-11.1)
[2020-02-20 22:35] LABS: INR 1.2; Prothrombin Time 13.2 Seconds (9.4-12.1)
[2020-02-20 22:41] LABS: ABG Base Excess 2 mEq/L (-2 to 3); ABG HCO3 26 mEq/L (21-27); ABG Oxygen Saturation 95 % (95-98); ABG PCO2 37 mmHg (35-45); ABG PH 7.45 pH Units (7.32-7.45); ABG PO2 74 mmHg (85-104); ABG TCO2 27 mEq/L (20-26)
[2020-02-20 22:46] LABS: Troponin I < 0.03 ng/mL (< 0.04)
[2020-02-20 22:47] LABS: Alanine Aminotransferase 17 Units/L (7-52); Albumin 3.9 g/dL (3.5-5.7); Albumin/Globulin Ratio 1.5 (1.1-2.2); Alkaline Phosphatase 62 Units/L (34-104); Aspartate Amino Transferase 15 Units/L (13-39); BUN/Creatinine Ratio 22 (6-26); Bilirubin,Total 0.4 mg/dL (0.3-1.0); Blood Urea Nitrogen 36 mg/dL (8-23); Calcium 8.9 mg/dL (8.6-10.3); Carbon Dioxide 30 mEq/L (23-29); Chloride 100 mEq/L (98-107); Globulin 2.6 g/dL (2.4-3.5); Glucose 194 mg/dL (70-105); Magnesium 2.2 mg/dL (1.6-2.6); Osmolality,Calculated 300 (280-300); Potassium 3.9 mEq/L (3.5-5.1); Sodium 138 mEq/L (136-145); Total Protein 6.5 g/dL (6.4-8.9); eGFR For African Americans 49 (> 60); eGFR For Non-African Americans 41 (> 60)
[2020-02-20 23:22] LABS: Bilirubin,Urine Negative (Negative); Blood,Urine Negative (Negative); Clarity,Urine Slightly Cloudy (Clear); Glucose,Urine (UA) >=1000 mg/dL (Normal); Ketones,Urine Negative (Negative); Leukocyte Esterase,Urine Trace (Negative); Nitrite,Urine Negative (Negative); Protein,Urine Negative (Neg-Trace); Specific Gravity,Urine 1.015 (1.010-1.025); Urobilinogen,Urine Normal (Normal)
[2020-02-20 23:24] LABS: Color,Urine Yellow (Yellow)
[2020-02-20 23:30] LABS: Bacteria,Urine Few per hpf (None-Few); WBC,Urine 0-3 per hpf (0-3)
[2020-02-20] MEDS ORDERED: Isovue-370 500 ML BOTTLE IVP ONE (23:51)
[2020-02-21] MEDS ORDERED: Azithromycin 500 MG in 0.9 % Sodium Chloride 250 ML IVPB ONE (00:55)
[2020-02-21] MEDS ORDERED: 0.9 % Sodium Chloride 1,000 ML IV ONE (00:55)
[2020-02-21] MEDS ORDERED: cefTRIAXone 1,000 MG in 0.9 % Sodium Chloride Mini Bag 100 ML IVPB ONE (00:55)
[2020-02-21] MEDS ORDERED: methylPREDNISolone 125 MG/2 ML VIAL IVP ONE (00:55)
[2020-02-21] MEDS: Ipratropium 1 PUFF INHALER IH SCH ×4 (03:12→22:25)
[2020-02-21] MEDS ORDERED: Naloxone 0.4 MG/ML INJ IVP PRN (03:14)
[2020-02-21] MEDS ORDERED: 0.9 % Sodium Chloride 1,000 ML IVC SCH (03:14)
[2020-02-21] MEDS ORDERED: D5% in Water 1,000 ML IVC PRN (03:43)
[2020-02-21] MEDS ORDERED: *HR* Dextrose 50 % in Water (Syg) 50 ML SYRINGE IVP PRN (03:43)
[2020-02-21] MEDS ORDERED: Dextrose Gel 15 GM/37.5 ML TUBE PO PRN ×2 (03:43)
[2020-02-21] MEDS ORDERED: Ipratropium 1 PUFF INHALER IH SCH (04:00)
[2020-02-21] MEDS: Ipratropium/Albuterol Neb 3 ML IH SCH ×3 (04:16→16:46)
[2020-02-21] MEDS: Insulin LISPRO 300 UNITS/3 ML VIAL SQ SCH ×4 (08:12→21:36)
[2020-02-21] MEDS: amLODIPine 5 MG TABLET PO SCH (08:16)
[2020-02-21] MEDS: Multivit/Ca/Min/Fe/FA 1 TAB TABLET PO SCH (08:16)
[2020-02-21] MEDS: Furosemide 40 MG TABLET PO SCH ×2 (08:16→17:13)
[2020-02-21] MEDS: (Empagliflozin [Jardiance] 25 MG) PO SCH (08:16)
[2020-02-21] MEDS: Budesonide Neb 0.5 MG/2 ML IH SCH (10:30)
[2020-02-21] MEDS: methylPREDNISolone 125 MG/2 ML VIAL IVP SCH (10:47)
[2020-02-21] MEDS ORDERED: Furosemide 40 MG TABLET PO SCH (17:00)
[2020-02-21] MEDS: cefTRIAXone 1,000 MG in 0.9 % Sodium Chloride Mini Bag 100 ML IVPB SCH (17:13)
[2020-02-22] MEDS ORDERED: Azithromycin 500 MG in 0.9 % Sodium Chloride 250 ML IVPB SCH (03:00)
[2020-02-22] MEDS: Ipratropium 1 PUFF INHALER IH SCH ×3 (04:40→16:31)
[2020-02-22] MEDS: Ipratropium/Albuterol Neb 3 ML IH SCH ×3 (04:41→09:20)
[2020-02-22] MEDS: *HR* Enoxaparin 30 MG/0.3 ML SYRINGE SQ SCH (05:37)
[2020-02-22 05:40] LABS: Basophils % 0.1 %; Hematocrit 30.2 % (37.5-50.1); Hemoglobin 9.9 g/dL (12.9-16.9); Immature Granulocytes % 0.3 % (0-4); Lymphocytes # 0.9 K/mcL (0.6-4.6); Lymphocytes % 6.1 %; Mean Corpuscular HGB Conc 32.8 g/dL (31.6-35.5); Mean Corpuscular Hemoglobin 28.9 pg (28.0-33.3); Mean Corpuscular Volume 88.3 fL (83.0-100.0); Mean Platelet Volume 9.6 fL (9.4-12.4); Monocytes # 1.3 K/mcL (0.0-1.3); Monocytes % 8.3 %; Platelet Count 268 K/mcL (140-400); Red Blood Count 3.42 M/mcL (4.19-5.50); Red Cell Distribution Width 15.4 % (11.5-14.5); Segmented Neutrophils % 85.2 %; White Blood Count 15.3 K/mcL (4.3-11.1)
[2020-02-22 05:57] LABS: Calcium 8.5 mg/dL (8.6-10.3); Potassium 4.3 mEq/L (3.5-5.1)
[2020-02-22] MEDS ORDERED: (Semaglutide [Ozempic] 0.5 MG) SQ SCH (09:00)
[2020-02-22] MEDS: Budesonide Neb 0.5 MG/2 ML IH SCH ×2 (09:09→09:20)
[2020-02-22] MEDS: Insulin LISPRO 300 UNITS/3 ML VIAL SQ SCH ×4 (11:16→20:59)
[2020-02-22] MEDS: Furosemide 40 MG TABLET PO SCH ×2 (11:16→17:46)
[2020-02-22] MEDS: (Empagliflozin [Jardiance] 25 MG) PO SCH (11:17)
[2020-02-22] MEDS: methylPREDNISolone 125 MG/2 ML VIAL IVP SCH (11:17)
[2020-02-22] MEDS: Multivit/Ca/Min/Fe/FA 1 TAB TABLET PO SCH (11:17)
[2020-02-22] MEDS: amLODIPine 5 MG TABLET PO SCH (11:17)
[2020-02-22] MEDS: cefTRIAXone 1,000 MG in 0.9 % Sodium Chloride Mini Bag 100 ML IVPB SCH (17:42)
[2020-02-23] MEDS: *HR* Enoxaparin 30 MG/0.3 ML SYRINGE SQ SCH (05:09)
[2020-02-23] MEDS: Azithromycin 500 MG in 0.9 % Sodium Chloride 250 ML IVPB SCH (05:10)
[2020-02-23] MEDS: methylPREDNISolone 125 MG/2 ML VIAL IVP SCH (08:26)
[2020-02-23] MEDS: Insulin LISPRO 300 UNITS/3 ML VIAL SQ SCH ×4 (08:26→20:25)
[2020-02-23] MEDS: Multivit/Ca/Min/Fe/FA 1 TAB TABLET PO SCH (08:29)
[2020-02-23] MEDS: amLODIPine 5 MG TABLET PO SCH (08:30)
[2020-02-23] MEDS: (Empagliflozin [Jardiance] 25 MG) PO SCH (08:30)
[2020-02-23] MEDS: Furosemide 40 MG TABLET PO SCH ×2 (08:30→16:48)
[2020-02-23 12:22] LABS: Basophils % 0.1 %; Hematocrit 31.7 % (37.5-50.1); Hemoglobin 10.5 g/dL (12.9-16.9); Immature Granulocytes % 0.5 % (0-4); Lymphocytes # 0.4 K/mcL (0.6-4.6); Mean Corpuscular HGB Conc 33.1 g/dL (31.6-35.5); Mean Corpuscular Hemoglobin 29.4 pg (28.0-33.3); Mean Corpuscular Volume 88.8 fL (83.0-100.0); Monocytes # 0.3 K/mcL (0.0-1.3); Monocytes % 1.9 %; Neutrophils # 13.6 K/mcL (1.6-8.9); Platelet Count 290 K/mcL (140-400); Red Blood Count 3.57 M/mcL (4.19-5.50); Red Cell Distribution Width 15.4 % (11.5-14.5); Segmented Neutrophils % 94.5 %; White Blood Count 14.4 K/mcL (4.3-11.1)
[2020-02-23 12:35] LABS: Calcium 8.5 mg/dL (8.6-10.3)
[2020-02-23] MEDS: cefTRIAXone 1,000 MG in 0.9 % Sodium Chloride Mini Bag 100 ML IVPB SCH (18:34)
[2020-02-24] MEDS: *HR* Enoxaparin 30 MG/0.3 ML SYRINGE SQ SCH (05:02)
[2020-02-24] MEDS: Azithromycin 500 MG in 0.9 % Sodium Chloride 250 ML IVPB SCH (05:04)
[2020-02-24 05:51] LABS: Basophils % 0.1 %; Hematocrit 30.6 % (37.5-50.1); Immature Granulocytes % 0.4 % (0-4); Lymphocytes # 1.1 K/mcL (0.6-4.6); Lymphocytes % 8.4 %; Mean Corpuscular HGB Conc 32.7 g/dL (31.6-35.5); Mean Corpuscular Hemoglobin 28.7 pg (28.0-33.3); Mean Corpuscular Volume 87.9 fL (83.0-100.0); Mean Platelet Volume 10.1 fL (9.4-12.4); Monocytes # 1.1 K/mcL (0.0-1.3); Monocytes % 8.5 %; Platelet Count 281 K/mcL (140-400); Red Blood Count 3.48 M/mcL (4.19-5.50); Red Cell Distribution Width 15.3 % (11.5-14.5); Segmented Neutrophils % 82.6 %
[2020-02-24 05:55] LABS: Neutrophils # 10.7 K/mcL (1.6-8.9)
[2020-02-24 06:07] LABS: Calcium 8.3 mg/dL (8.6-10.3); Potassium 3.6 mEq/L (3.5-5.1)
[2020-02-24 06:25] LABS: ABG Base Excess 6 mEq/L (-2 to 3); ABG HCO3 30 mEq/L (21-27); ABG Oxygen Saturation 85 % (95-98); ABG PCO2 43 mmHg (35-45); ABG PH 7.45 pH Units (7.32-7.45); ABG PO2 48 mmHg (85-104); ABG TCO2 32 mEq/L (20-26)
[2020-02-24 08:28] LABS: Estimated Average Glucose 189 mg/dl
[2020-02-24] MEDS: Insulin LISPRO 300 UNITS/3 ML VIAL SQ SCH ×2 (08:33→12:12)
[2020-02-24] MEDS: Multivit/Ca/Min/Fe/FA 1 TAB TABLET PO SCH (08:34)
[2020-02-24] MEDS: methylPREDNISolone 125 MG/2 ML VIAL IVP SCH (08:34)
[2020-02-24] MEDS: (Empagliflozin [Jardiance] 25 MG) PO SCH (08:34)
[2020-02-24] MEDS: Furosemide 40 MG TABLET PO SCH (08:34)
[2020-02-24] MEDS: amLODIPine 5 MG TABLET PO SCH (08:34)
[2020-02-25 12:03] VITALS: BP 161/53
== END 2020-02-24 16:15 | disposition other institution (70) | DRG 190 ==
LOC: EMEROOGRE 21:58 → INPGRE 21:58
PROVIDERS: ADMIT Family Medicine; ATTEND Family Medicine

== ENCOUNTER 2020-02-24 13:16 | Inpatient (IN) ==
[2020-02-24] MEDS ORDERED: D5% in Water 1,000 ML IVC PRN (16:43)
[2020-02-24] MEDS ORDERED: *HR* Dextrose 50 % in Water (Syg) 50 ML SYRINGE IVP PRN (16:43)
[2020-02-24] MEDS ORDERED: Insulin LISPRO 300 UNITS/3 ML VIAL SQ SCH ×2 (16:43→21:00)
[2020-02-24] MEDS ORDERED: Dextrose Gel 15 GM/37.5 ML TUBE PO PRN ×2 (16:43)
[2020-02-24] MEDS ORDERED: Naloxone 0.4 MG/ML INJ IVP PRN (16:46)
[2020-02-24] MEDS: Furosemide 40 MG TABLET PO SCH (17:31)
[2020-02-24] MEDS ORDERED: Insulin LISPRO 300 UNITS/3 ML VIAL SQ ONE (17:50)
[2020-02-24] MEDS: cefTRIAXone 1,000 MG in Water for inj. (sterile) 10 ML IVP SCH (17:52)
[2020-02-24] MEDS ORDERED: cefTRIAXone 1,000 MG in 0.9 % Sodium Chloride Mini Bag 100 ML IVPB SCH (18:00)
[2020-02-24] MEDS: Insulin LISPRO 300 UNITS/3 ML VIAL SQ SCH (20:35)
[2020-02-25] MEDS: *HR* Enoxaparin 30 MG/0.3 ML SYRINGE SQ SCH (05:02)
[2020-02-25] MEDS: Azithromycin 500 MG in 0.9 % Sodium Chloride 250 ML IVPB SCH (05:03)
[2020-02-25 06:31] LABS: Basophils % 0.1 %; Eosinophils % 0.2 %; Hemoglobin 9.8 g/dL (12.9-16.9); Immature Granulocytes % 0.3 % (0-4); Lymphocytes # 1.1 K/mcL (0.6-4.6); Lymphocytes % 11.3 %; Mean Corpuscular HGB Conc 32.7 g/dL (31.6-35.5); Mean Corpuscular Hemoglobin 28.7 pg (28.0-33.3); Monocytes # 0.9 K/mcL (0.0-1.3); Monocytes % 9.6 %; Neutrophils # 7.7 K/mcL (1.6-8.9); Platelet Count 290 K/mcL (140-400); Red Blood Count 3.41 M/mcL (4.19-5.50); Red Cell Distribution Width 15.3 % (11.5-14.5); Segmented Neutrophils % 78.5 %; White Blood Count 9.8 K/mcL (4.3-11.1)
[2020-02-25 07:19] LABS: Calcium 8.2 mg/dL (8.6-10.3); Potassium 3.5 mEq/L (3.5-5.1)
[2020-02-25] MEDS: Insulin LISPRO 300 UNITS/3 ML VIAL SQ SCH ×4 (07:54→20:33)
[2020-02-25] MEDS: Multivit/Ca/Min/Fe/FA 1 TAB TABLET PO SCH (09:20)
[2020-02-25] MEDS: amLODIPine 5 MG TABLET PO SCH (09:20)
[2020-02-25] MEDS: methylPREDNISolone 125 MG/2 ML VIAL IVP SCH (09:21)
[2020-02-25] MEDS: Furosemide 40 MG TABLET PO SCH ×2 (09:22→17:09)
[2020-02-25] MEDS: (Empagliflozin [Jardiance] 25 MG) PO SCH (09:31)
[2020-02-25] MEDS: cefTRIAXone 1,000 MG in Water for inj. (sterile) 10 ML IVP SCH (17:36)
[2020-02-25] MEDS: polyethylene glycoL 3350 17 GM POWD.PACK PO PRN (20:36)
[2020-02-26] MEDS: *HR* Enoxaparin 30 MG/0.3 ML SYRINGE SQ SCH (05:25)
[2020-02-26] MEDS: Azithromycin 500 MG in 0.9 % Sodium Chloride 250 ML IVPB SCH (05:26)
[2020-02-26 05:42] LABS: Basophils % 0.1 %; Eosinophils % 0.1 %; Hematocrit 29.7 % (37.5-50.1); Hemoglobin 9.6 g/dL (12.9-16.9); Immature Granulocytes % 0.3 % (0-4); Lymphocytes # 1.1 K/mcL (0.6-4.6); Lymphocytes % 12.5 %; Mean Corpuscular HGB Conc 32.3 g/dL (31.6-35.5); Mean Corpuscular Hemoglobin 28.5 pg (28.0-33.3); Mean Corpuscular Volume 88.1 fL (83.0-100.0); Mean Platelet Volume 10.3 fL (9.4-12.4); Monocytes # 0.9 K/mcL (0.0-1.3); Monocytes % 9.4 %; Neutrophils # 7.1 K/mcL (1.6-8.9); Platelet Count 304 K/mcL (140-400); Red Blood Count 3.37 M/mcL (4.19-5.50); Red Cell Distribution Width 15.2 % (11.5-14.5); Segmented Neutrophils % 77.6 %; White Blood Count 9.1 K/mcL (4.3-11.1)
[2020-02-26 05:56] LABS: Potassium 3.5 mEq/L (3.5-5.1)
[2020-02-26] MEDS: Insulin LISPRO 300 UNITS/3 ML VIAL SQ SCH ×4 (07:59→21:35)
[2020-02-26] MEDS: amLODIPine 5 MG TABLET PO SCH (08:00)
[2020-02-26] MEDS: methylPREDNISolone 125 MG/2 ML VIAL IVP SCH (08:00)
[2020-02-26] MEDS: Multivit/Ca/Min/Fe/FA 1 TAB TABLET PO SCH (08:00)
[2020-02-26] MEDS: Furosemide 40 MG TABLET PO SCH ×2 (08:00→16:56)
[2020-02-26] MEDS: (Empagliflozin [Jardiance] 25 MG) PO SCH (08:01)
[2020-02-26] MEDS: cefTRIAXone 1,000 MG in Water for inj. (sterile) 10 ML IVP SCH (16:55)
[2020-02-26] MEDS: polyethylene glycoL 3350 17 GM POWD.PACK PO PRN (20:36)
[2020-02-27] MEDS: Azithromycin 500 MG in 0.9 % Sodium Chloride 250 ML IVPB SCH (05:31)
[2020-02-27] MEDS: *HR* Enoxaparin 30 MG/0.3 ML SYRINGE SQ SCH (05:31)
[2020-02-27 05:34] LABS: Basophils % 0.1 %; Eosinophils # 0.1 K/mcL (0.0-0.6); Eosinophils % 0.8 %; Hematocrit 30.3 % (37.5-50.1); Hemoglobin 9.9 g/dL (12.9-16.9); Immature Granulocytes % 0.4 % (0-4); Lymphocytes # 1.5 K/mcL (0.6-4.6); Lymphocytes % 12.6 %; Mean Corpuscular HGB Conc 32.7 g/dL (31.6-35.5); Mean Corpuscular Hemoglobin 28.6 pg (28.0-33.3); Mean Corpuscular Volume 87.6 fL (83.0-100.0); Mean Platelet Volume 9.5 fL (9.4-12.4); Monocytes % 8.4 %; Neutrophils # 9.3 K/mcL (1.6-8.9); Platelet Count 300 K/mcL (140-400); Red Blood Count 3.46 M/mcL (4.19-5.50); Red Cell Distribution Width 15.3 % (11.5-14.5); Segmented Neutrophils % 77.7 %
[2020-02-27 05:51] LABS: Calcium 8.2 mg/dL (8.6-10.3); Potassium 3.7 mEq/L (3.5-5.1)
[2020-02-27] MEDS: (Empagliflozin [Jardiance] 25 MG) PO SCH (07:51)
[2020-02-27] MEDS: Insulin LISPRO 300 UNITS/3 ML VIAL SQ SCH ×4 (07:52→21:31)
[2020-02-27] MEDS: Multivit/Ca/Min/Fe/FA 1 TAB TABLET PO SCH (07:53)
[2020-02-27] MEDS: amLODIPine 5 MG TABLET PO SCH (07:53)
[2020-02-27] MEDS: Furosemide 40 MG TABLET PO SCH ×2 (07:54→17:16)
[2020-02-27] MEDS: MethylPREDNISolone 40 MG/ML VIAL IVP SCH (07:54)
[2020-02-27] MEDS: polyethylene glycoL 3350 17 GM POWD.PACK PO PRN (07:54)
[2020-02-27] MEDS: cefTRIAXone 1,000 MG in Water for inj. (sterile) 10 ML IVP SCH (17:15)
[2020-02-28] MEDS: Azithromycin 500 MG in 0.9 % Sodium Chloride 250 ML IVPB SCH (05:37)
[2020-02-28] MEDS: *HR* Enoxaparin 30 MG/0.3 ML SYRINGE SQ SCH (05:37)
[2020-02-28] MEDS: MethylPREDNISolone 40 MG/ML VIAL IVP SCH (08:16)
[2020-02-28] MEDS: Multivit/Ca/Min/Fe/FA 1 TAB TABLET PO SCH (08:17)
[2020-02-28] MEDS: amLODIPine 5 MG TABLET PO SCH (08:17)
[2020-02-28] MEDS: Furosemide 40 MG TABLET PO SCH ×2 (08:18→16:58)
[2020-02-28] MEDS: (Empagliflozin [Jardiance] 25 MG) PO SCH (08:42)
[2020-02-28] MEDS: Insulin LISPRO 300 UNITS/3 ML VIAL SQ SCH ×4 (08:46→20:11)
[2020-02-28] MEDS: cefTRIAXone 1,000 MG in Water for inj. (sterile) 10 ML IVP SCH (16:58)
[2020-02-29] MEDS: *HR* Enoxaparin 30 MG/0.3 ML SYRINGE SQ SCH (04:57)
[2020-02-29] MEDS: Furosemide 40 MG TABLET PO SCH ×2 (08:19→17:00)
[2020-02-29] MEDS: Multivit/Ca/Min/Fe/FA 1 TAB TABLET PO SCH (08:19)
[2020-02-29] MEDS: amLODIPine 5 MG TABLET PO SCH (08:20)
[2020-02-29] MEDS: MethylPREDNISolone 40 MG/ML VIAL IVP SCH (08:20)
[2020-02-29] MEDS: (Empagliflozin [Jardiance] 25 MG) PO SCH (08:25)
[2020-02-29] MEDS: Insulin LISPRO 300 UNITS/3 ML VIAL SQ SCH ×4 (08:26→20:34)
[2020-02-29] MEDS ORDERED: (Semaglutide [Ozempic] 0.5 MG) SQ SCH ×2 (09:00→13:15)
[2020-03-01] MEDS: *HR* Enoxaparin 30 MG/0.3 ML SYRINGE SQ SCH (04:31)
[2020-03-01 06:00] LABS: Basophils % 0.2 %; Eosinophils # 0.6 K/mcL (0.0-0.6); Eosinophils % 5.2 %; Hematocrit 32.2 % (37.5-50.1); Hemoglobin 10.4 g/dL (12.9-16.9); Immature Granulocytes % 0.5 % (0-4); Lymphocytes # 1.8 K/mcL (0.6-4.6); Lymphocytes % 15.9 %; Mean Corpuscular HGB Conc 32.3 g/dL (31.6-35.5); Mean Corpuscular Hemoglobin 28.7 pg (28.0-33.3); Mean Platelet Volume 9.8 fL (9.4-12.4); Monocytes # 0.9 K/mcL (0.0-1.3); Platelet Count 323 K/mcL (140-400); Red Blood Count 3.62 M/mcL (4.19-5.50); Red Cell Distribution Width 15.7 % (11.5-14.5); Segmented Neutrophils % 70.2 %; White Blood Count 11.3 K/mcL (4.3-11.1)
[2020-03-01 06:09] LABS: Neutrophils # 7.9 K/mcL (1.6-8.9)
[2020-03-01 06:15] LABS: Calcium 8.2 mg/dL (8.6-10.3); Potassium 3.6 mEq/L (3.5-5.1)
[2020-03-01] MEDS: amLODIPine 5 MG TABLET PO SCH (08:20)
[2020-03-01] MEDS: Multivit/Ca/Min/Fe/FA 1 TAB TABLET PO SCH (08:20)
[2020-03-01] MEDS: Furosemide 40 MG TABLET PO SCH ×2 (08:21→17:52)
[2020-03-01] MEDS: MethylPREDNISolone 40 MG/ML VIAL IVP SCH (08:23)
[2020-03-01] MEDS: (Empagliflozin [Jardiance] 25 MG) PO SCH (08:24)
[2020-03-01] MEDS: Insulin LISPRO 300 UNITS/3 ML VIAL SQ SCH ×4 (08:24→20:50)
[2020-03-02] MEDS: *HR* Enoxaparin 30 MG/0.3 ML SYRINGE SQ SCH (04:05)
[2020-03-02] MEDS: Multivit/Ca/Min/Fe/FA 1 TAB TABLET PO SCH (08:34)
[2020-03-02] MEDS: Insulin LISPRO 300 UNITS/3 ML VIAL SQ SCH ×4 (08:34→21:53)
[2020-03-02] MEDS: (Empagliflozin [Jardiance] 25 MG) PO SCH (08:34)
[2020-03-02] MEDS: amLODIPine 5 MG TABLET PO SCH (08:35)
[2020-03-02] MEDS: Furosemide 40 MG TABLET PO SCH ×2 (08:35→16:17)
[2020-03-02] MEDS: MethylPREDNISolone 40 MG/ML VIAL IVP SCH (08:36)
[2020-03-03] MEDS: *HR* Enoxaparin 30 MG/0.3 ML SYRINGE SQ SCH (04:09)
[2020-03-03] MEDS: Insulin LISPRO 300 UNITS/3 ML VIAL SQ SCH ×4 (08:41→22:30)
[2020-03-03] MEDS: MethylPREDNISolone 40 MG/ML VIAL IVP SCH (08:41)
[2020-03-03] MEDS: Multivit/Ca/Min/Fe/FA 1 TAB TABLET PO SCH (08:42)
[2020-03-03] MEDS: amLODIPine 5 MG TABLET PO SCH (08:42)
[2020-03-03] MEDS: Furosemide 40 MG TABLET PO SCH ×2 (08:43→16:52)
[2020-03-03] MEDS: (Empagliflozin [Jardiance] 25 MG) PO SCH (08:44)
[2020-03-03] MEDS ORDERED: (Semaglutide [Ozempic] 0.5 MG) SQ SCH (18:41)
[2020-03-04] MEDS: *HR* Enoxaparin 30 MG/0.3 ML SYRINGE SQ SCH (04:55)
[2020-03-04 05:09] LABS: Basophils % 0.3 %; Eosinophils # 0.2 K/mcL (0.0-0.6); Hematocrit 32.9 % (37.5-50.1); Hemoglobin 10.7 g/dL (12.9-16.9); Immature Granulocytes % 0.4 % (0-4); Lymphocytes # 1.6 K/mcL (0.6-4.6); Mean Corpuscular HGB Conc 32.5 g/dL (31.6-35.5); Mean Corpuscular Hemoglobin 28.6 pg (28.0-33.3); Mean Platelet Volume 9.8 fL (9.4-12.4); Monocytes # 0.8 K/mcL (0.0-1.3); Monocytes % 7.4 %; Platelet Count 292 K/mcL (140-400); Red Blood Count 3.74 M/mcL (4.19-5.50); Red Cell Distribution Width 15.9 % (11.5-14.5); Segmented Neutrophils % 74.9 %; White Blood Count 10.7 K/mcL (4.3-11.1)
[2020-03-04 05:25] LABS: Calcium 8.4 mg/dL (8.6-10.3); Potassium 3.3 mEq/L (3.5-5.1)
[2020-03-04 05:38] LABS: Albumin 3.4 g/dL (3.5-5.7); Chol/HDL Ratio 2.4 (0-4.9)
[2020-03-04] MEDS: Insulin LISPRO 300 UNITS/3 ML VIAL SQ SCH ×4 (08:21→20:59)
[2020-03-04] MEDS: MethylPREDNISolone 40 MG/ML VIAL IVP SCH (08:53)
[2020-03-04] MEDS: Multivit/Ca/Min/Fe/FA 1 TAB TABLET PO SCH (08:54)
[2020-03-04] MEDS: Furosemide 40 MG TABLET PO SCH ×2 (08:55→17:30)
[2020-03-04] MEDS: amLODIPine 5 MG TABLET PO SCH (08:55)
[2020-03-04] MEDS: (Empagliflozin [Jardiance] 25 MG) PO SCH (14:38)
[2020-03-05] MEDS: *HR* Enoxaparin 30 MG/0.3 ML SYRINGE SQ SCH (05:45)
[2020-03-05] MEDS ORDERED: (Semaglutide [Ozempic] 0.5 MG) SQ SCH (09:00)
[2020-03-05] MEDS: MethylPREDNISolone 40 MG/ML VIAL IVP SCH (09:42)
[2020-03-05] MEDS: Multivit/Ca/Min/Fe/FA 1 TAB TABLET PO SCH (09:42)
[2020-03-05] MEDS: Furosemide 40 MG TABLET PO SCH ×2 (09:42→17:23)
[2020-03-05] MEDS: amLODIPine 5 MG TABLET PO SCH (09:42)
[2020-03-05] MEDS: Insulin LISPRO 300 UNITS/3 ML VIAL SQ SCH ×4 (09:44→20:20)
[2020-03-05] MEDS: (Empagliflozin [Jardiance] 25 MG) PO SCH (09:47)
[2020-03-06] MEDS: *HR* Enoxaparin 30 MG/0.3 ML SYRINGE SQ SCH (04:22)
[2020-03-06 05:37] LABS: Potassium 3.8 mEq/L (3.5-5.1)
[2020-03-06] MEDS: Multivit/Ca/Min/Fe/FA 1 TAB TABLET PO SCH (08:17)
[2020-03-06] MEDS: amLODIPine 5 MG TABLET PO SCH (08:18)
[2020-03-06] MEDS: MethylPREDNISolone 40 MG/ML VIAL IVP SCH (08:18)
[2020-03-06] MEDS: Furosemide 40 MG TABLET PO SCH (08:18)
[2020-03-06] MEDS: Insulin LISPRO 300 UNITS/3 ML VIAL SQ SCH (08:21)
[2020-03-06] MEDS: (Empagliflozin [Jardiance] 25 MG) PO SCH (08:26)
[2020-03-06 11:25] VITALS: BP 108/58
== END 2020-03-06 13:39 | disposition home health service (06) | DRG 945 ==
LOC: INPGRE 16:04
PROVIDERS: ADMIT Family Medicine; ATTEND Family Medicine

== ENCOUNTER 2020-03-28 11:53 | Inpatient (IN) ==
[2020-03-28 12:52] LABS: Basophils % 0.3 %; Eosinophils # 0.2 K/mcL (0.0-0.6); Eosinophils % 1.4 %; Hematocrit 34.6 % (37.5-50.1); Hemoglobin 11.4 g/dL (12.9-16.9); Immature Granulocytes % 0.7 % (0-4); Lymphocytes # 0.7 K/mcL (0.6-4.6); Lymphocytes % 5.4 %; Mean Corpuscular HGB Conc 32.9 g/dL (31.6-35.5); Mean Corpuscular Hemoglobin 28.9 pg (28.0-33.3); Mean Corpuscular Volume 87.6 fL (83.0-100.0); Monocytes # 0.8 K/mcL (0.0-1.3); Monocytes % 5.9 %; Platelet Count 265 K/mcL (140-400); Red Blood Count 3.95 M/mcL (4.19-5.50); Red Cell Distribution Width 15.1 % (11.5-14.5); Segmented Neutrophils % 86.3 %; White Blood Count 13.6 K/mcL (4.3-11.1)
[2020-03-28 12:59] LABS: Neutrophils # 11.7 K/mcL (1.6-8.9)
[2020-03-28 13:01] LABS: ABG Base Excess 4 mEq/L (-2 to 3); ABG HCO3 29 mEq/L (21-27); ABG Oxygen Saturation 96 % (95-98); ABG PCO2 45 mmHg (35-45); ABG PH 7.42 pH Units (7.32-7.45); ABG PO2 81 mmHg (85-104); ABG TCO2 31 mEq/L (20-26)
[2020-03-28 13:11] LABS: BUN/Creatinine Ratio 21 (6-26); Blood Urea Nitrogen 35 mg/dL (8-23); Calcium 8.4 mg/dL (8.6-10.3); Carbon Dioxide 31 mEq/L (23-29); Chloride 93 mEq/L (98-107); Glucose 460 mg/dL (70-105); Osmolality,Calculated 300 (280-300); Potassium 4.4 mEq/L (3.5-5.1); Sodium 131 mEq/L (136-145); Troponin I < 0.03 ng/mL (< 0.04); eGFR For African Americans 47 (> 60); eGFR For Non-African Americans 39 (> 60)
[2020-03-28] MEDS ORDERED: Azithromycin 500 MG in 0.9 % Sodium Chloride 250 ML IVPB ONE (13:32)
[2020-03-28] MEDS ORDERED: cefTRIAXone 1,000 MG in Water for inj. (sterile) 10 ML IVP ONE (14:06)
[2020-03-28] MEDS ORDERED: Dextrose Gel 15 GM/37.5 ML TUBE PO PRN ×4 (15:19→16:53)
[2020-03-28] MEDS ORDERED: D5% in Water 1,000 ML IVC PRN ×2 (15:19→16:53)
[2020-03-28] MEDS ORDERED: *HR* Dextrose 50 % in Water (Syg) 50 ML SYRINGE IVP PRN ×2 (15:19→16:53)
[2020-03-28] MEDS ORDERED: (Semaglutide [Ozempic] 0.5 MG) SQ SCH (15:30)
[2020-03-28] MEDS ORDERED: amLODIPine 5 MG TABLET PO SCH (15:30)
[2020-03-28] MEDS ORDERED: Ipratropium/Albuterol Neb 3 ML IH SCH (15:30)
[2020-03-28] MEDS ORDERED: Insulin LISPRO 300 UNITS/3 ML VIAL SQ SCH ×2 (16:30→21:00)
[2020-03-28] MEDS ORDERED: 0.9 % Sodium Chloride 250 ML IVC ONE ×2 (16:50→16:53)
[2020-03-28] MEDS ORDERED: 0.9 % Sodium Chloride 1,000 ML IVC SCH (17:00)
[2020-03-28] MEDS ORDERED: Nystatin SUSP 5 ML UD.LIQ PO SCH (17:00)
[2020-03-28] MEDS ORDERED: Furosemide 40 MG TABLET PO SCH (17:00)
[2020-03-28] MEDS: (Semaglutide [Ozempic] 0.5 MG) SQ SCH (17:12)
[2020-03-28] MEDS: Nystatin SUSP 5 ML UD.LIQ PO SCH ×2 (18:10→20:30)
[2020-03-28] MEDS: Furosemide 40 MG TABLET PO SCH (18:10)
[2020-03-28] MEDS: 0.9 % Sodium Chloride 1,000 ML IVC SCH (18:10)
[2020-03-28] MEDS: Ipratropium/Albuterol Neb 3 ML IH SCH ×2 (18:13→21:48)
[2020-03-28] MEDS ORDERED: levoFLOXacin 500 MG/100 ML 500 MG/100 ML BAG IVPB SCH (19:00)
[2020-03-28] MEDS: levoFLOXacin 750 MG/150 ML 750 MG/150 ML BAG IVPB SCH (20:05)
[2020-03-28] MEDS: Insulin LISPRO 300 UNITS/3 ML VIAL SQ SCH (20:26)
[2020-03-28] MEDS: methylPREDNISolone 125 MG/2 ML VIAL IVP SCH (20:36)
[2020-03-29] MEDS: Piperacillin/Tazobactam 3.375 GM in 0.9 % Sodium Chloride Mini Bag 100 ML IVPB SCH ×5 (00:06→23:52)
[2020-03-29] MEDS: Ipratropium/Albuterol Neb 3 ML IH SCH ×4 (04:14→22:23)
[2020-03-29 05:58] LABS: Basophils % 0.1 %; Eosinophils % 0.1 %; Hematocrit 31.3 % (37.5-50.1); Hemoglobin 10.5 g/dL (12.9-16.9); Immature Granulocytes % 0.8 % (0-4); Lymphocytes # 0.3 K/mcL (0.6-4.6); Lymphocytes % 3.8 %; Mean Corpuscular HGB Conc 33.5 g/dL (31.6-35.5); Mean Corpuscular Hemoglobin 29.2 pg (28.0-33.3); Mean Corpuscular Volume 87.2 fL (83.0-100.0); Monocytes # 0.1 K/mcL (0.0-1.3); Monocytes % 0.8 %; Platelet Count 235 K/mcL (140-400); Red Blood Count 3.59 M/mcL (4.19-5.50); Red Cell Distribution Width 15.1 % (11.5-14.5); Segmented Neutrophils % 94.4 %; White Blood Count 8.5 K/mcL (4.3-11.1)
[2020-03-29] MEDS ORDERED: *HR* Enoxaparin 30 MG/0.3 ML SYRINGE SQ SCH (06:00)
[2020-03-29] MEDS: methylPREDNISolone 125 MG/2 ML VIAL IVP SCH ×2 (06:15→16:59)
[2020-03-29] MEDS: *HR* Enoxaparin 30 MG/0.3 ML SYRINGE SQ SCH (06:15)
[2020-03-29 06:18] LABS: Potassium 4.1 mEq/L (3.5-5.1)
[2020-03-29] MEDS: Insulin LISPRO 300 UNITS/3 ML VIAL SQ SCH ×4 (08:02→21:06)
[2020-03-29] MEDS: Furosemide 40 MG TABLET PO SCH ×2 (08:03→16:20)
[2020-03-29] MEDS: GlipiZIDE 5 MG TABLET PO SCH (08:03)
[2020-03-29] MEDS: Multivit/Ca/Min/Fe/FA 1 TAB TABLET PO SCH (08:03)
[2020-03-29] MEDS: amLODIPine 5 MG TABLET PO SCH (08:04)
[2020-03-29] MEDS: Nystatin SUSP 5 ML UD.LIQ PO SCH ×4 (08:04→21:04)
[2020-03-29] MEDS: (Empagliflozin [Jardiance] 25 MG) PO SCH ×2 (08:05→13:02)
[2020-03-29] MEDS ORDERED: Multivit/Ca/Min/Fe/FA 1 TAB TABLET PO SCH (09:00)
[2020-03-29] MEDS ORDERED: cefTRIAXone 1,000 MG in Water for inj. (sterile) 10 ML IVP SCH (09:00)
[2020-03-29] MEDS ORDERED: GlipiZIDE 5 MG TABLET PO SCH (09:00)
[2020-03-29] MEDS ORDERED: Furosemide 40 MG TABLET PO SCH ×2 (09:00)
[2020-03-29] MEDS ORDERED: (Empagliflozin [Jardiance] 25 MG) PO SCH (09:00)
[2020-03-29] MEDS: 0.9 % Sodium Chloride 1,000 ML IVC SCH ×3 (11:25→16:21)
[2020-03-29] MEDS: (Semaglutide [Ozempic] 0.5 MG) SQ SCH (13:03)
[2020-03-30] MEDS: *HR* Enoxaparin 30 MG/0.3 ML SYRINGE SQ SCH (04:08)
[2020-03-30] MEDS: Ipratropium/Albuterol Neb 3 ML IH SCH ×4 (04:09→22:26)
[2020-03-30] MEDS: methylPREDNISolone 125 MG/2 ML VIAL IVP SCH (04:09)
[2020-03-30 05:20] LABS: Basophils % 0.1 %; Hematocrit 29.3 % (37.5-50.1); Hemoglobin 9.9 g/dL (12.9-16.9); Immature Granulocytes % 0.6 % (0-4); Lymphocytes # 0.7 K/mcL (0.6-4.6); Lymphocytes % 4.9 %; Mean Corpuscular HGB Conc 33.8 g/dL (31.6-35.5); Mean Corpuscular Hemoglobin 29.3 pg (28.0-33.3); Mean Corpuscular Volume 86.7 fL (83.0-100.0); Mean Platelet Volume 10.4 fL (9.4-12.4); Monocytes # 0.6 K/mcL (0.0-1.3); Monocytes % 4.3 %; Platelet Count 267 K/mcL (140-400); Red Blood Count 3.38 M/mcL (4.19-5.50); Red Cell Distribution Width 15.1 % (11.5-14.5); Segmented Neutrophils % 90.1 %; White Blood Count 14.6 K/mcL (4.3-11.1)
[2020-03-30 05:27] LABS: Neutrophils # 13.2 K/mcL (1.6-8.9)
[2020-03-30 05:56] LABS: Calcium 8.1 mg/dL (8.6-10.3); Potassium 3.8 mEq/L (3.5-5.1)
[2020-03-30] MEDS: Insulin LISPRO 300 UNITS/3 ML VIAL SQ SCH ×4 (07:36→20:59)
[2020-03-30] MEDS: Piperacillin/Tazobactam 3.375 GM in 0.9 % Sodium Chloride Mini Bag 100 ML IVPB SCH ×3 (07:36→23:17)
[2020-03-30] MEDS: Nystatin SUSP 5 ML UD.LIQ PO SCH ×4 (07:39→20:04)
[2020-03-30] MEDS: amLODIPine 5 MG TABLET PO SCH (07:40)
[2020-03-30] MEDS: GlipiZIDE 5 MG TABLET PO SCH (07:40)
[2020-03-30] MEDS: (Empagliflozin [Jardiance] 25 MG) PO SCH (07:40)
[2020-03-30] MEDS: Multivit/Ca/Min/Fe/FA 1 TAB TABLET PO SCH (07:40)
[2020-03-30] MEDS: Furosemide 40 MG TABLET PO SCH (07:42)
[2020-03-30] MEDS: 0.9 % Sodium Chloride 1,000 ML IVC SCH ×3 (10:30→19:57)
[2020-03-30] MEDS: levoFLOXacin 750 MG/150 ML 750 MG/150 ML BAG IVPB SCH (19:58)
[2020-03-31] MEDS: Ipratropium/Albuterol Neb 3 ML IH SCH ×4 (03:08→20:47)
[2020-03-31 05:22] LABS: Basophils % 0.2 %; Eosinophils % 0.2 %; Hematocrit 28.9 % (37.5-50.1); Hemoglobin 9.6 g/dL (12.9-16.9); Immature Granulocytes % 0.6 % (0-4); Lymphocytes # 1.2 K/mcL (0.6-4.6); Lymphocytes % 9.1 %; Mean Corpuscular HGB Conc 33.2 g/dL (31.6-35.5); Mean Corpuscular Volume 87.3 fL (83.0-100.0); Mean Platelet Volume 9.7 fL (9.4-12.4); Monocytes # 0.9 K/mcL (0.0-1.3); Monocytes % 6.9 %; Neutrophils # 10.5 K/mcL (1.6-8.9); Platelet Count 268 K/mcL (140-400); Red Blood Count 3.31 M/mcL (4.19-5.50); Red Cell Distribution Width 15.4 % (11.5-14.5); White Blood Count 12.7 K/mcL (4.3-11.1)
[2020-03-31] MEDS: *HR* Enoxaparin 30 MG/0.3 ML SYRINGE SQ SCH (05:22)
[2020-03-31 05:43] LABS: Potassium 3.5 mEq/L (3.5-5.1)
[2020-03-31 05:51] LABS: Calcium 7.7 mg/dL (8.6-10.3)
[2020-03-31] MEDS ORDERED: methylPREDNISolone 125 MG/2 ML VIAL IVP SCH (09:00)
[2020-03-31] MEDS: MethylPREDNISolone 40 MG/ML VIAL IVP SCH (09:29)
[2020-03-31] MEDS: Nystatin SUSP 5 ML UD.LIQ PO SCH ×4 (09:29→20:47)
[2020-03-31] MEDS: Piperacillin/Tazobactam 3.375 GM in 0.9 % Sodium Chloride Mini Bag 100 ML IVPB SCH ×3 (09:29→23:17)
[2020-03-31] MEDS: GlipiZIDE 5 MG TABLET PO SCH (09:30)
[2020-03-31] MEDS: Multivit/Ca/Min/Fe/FA 1 TAB TABLET PO SCH (09:30)
[2020-03-31] MEDS: Furosemide 40 MG TABLET PO SCH (09:31)
[2020-03-31] MEDS: amLODIPine 5 MG TABLET PO SCH (09:31)
[2020-03-31] MEDS: (Empagliflozin [Jardiance] 25 MG) PO SCH (09:35)
[2020-03-31] MEDS: Insulin LISPRO 300 UNITS/3 ML VIAL SQ SCH ×4 (09:35→20:44)
[2020-04-01] MEDS: Ipratropium/Albuterol Neb 3 ML IH SCH ×4 (04:09→22:23)
[2020-04-01 05:25] LABS: Basophils % 0.1 %; Eosinophils # 0.1 K/mcL (0.0-0.6); Eosinophils % 0.5 %; Hematocrit 29.5 % (37.5-50.1); Hemoglobin 9.8 g/dL (12.9-16.9); Immature Granulocytes % 1.2 % (0-4); Lymphocytes # 1.3 K/mcL (0.6-4.6); Lymphocytes % 12.8 %; Mean Corpuscular HGB Conc 33.2 g/dL (31.6-35.5); Mean Corpuscular Hemoglobin 28.8 pg (28.0-33.3); Mean Corpuscular Volume 86.8 fL (83.0-100.0); Mean Platelet Volume 9.5 fL (9.4-12.4); Monocytes # 0.8 K/mcL (0.0-1.3); Monocytes % 7.9 %; Platelet Count 265 K/mcL (140-400); Red Cell Distribution Width 15.7 % (11.5-14.5); Segmented Neutrophils % 77.5 %; White Blood Count 10.3 K/mcL (4.3-11.1)
[2020-04-01 05:42] LABS: Calcium 7.7 mg/dL (8.6-10.3); Potassium 3.4 mEq/L (3.5-5.1)
[2020-04-01] MEDS: *HR* Enoxaparin 30 MG/0.3 ML SYRINGE SQ SCH (06:16)
[2020-04-01] MEDS: Piperacillin/Tazobactam 3.375 GM in 0.9 % Sodium Chloride Mini Bag 100 ML IVPB SCH ×3 (09:25→23:41)
[2020-04-01] MEDS: Multivit/Ca/Min/Fe/FA 1 TAB TABLET PO SCH (09:26)
[2020-04-01] MEDS: Nystatin SUSP 5 ML UD.LIQ PO SCH ×4 (09:26→21:09)
[2020-04-01] MEDS: Furosemide 40 MG TABLET PO SCH (09:26)
[2020-04-01] MEDS: MethylPREDNISolone 40 MG/ML VIAL IVP SCH (09:26)
[2020-04-01] MEDS: GlipiZIDE 5 MG TABLET PO SCH (09:26)
[2020-04-01] MEDS: amLODIPine 5 MG TABLET PO SCH (09:27)
[2020-04-01] MEDS: Insulin LISPRO 300 UNITS/3 ML VIAL SQ SCH ×4 (09:30→21:09)
[2020-04-01] MEDS: (Empagliflozin [Jardiance] 25 MG) PO SCH (09:30)
[2020-04-01] MEDS: levoFLOXacin 750 MG/150 ML 750 MG/150 ML BAG IVPB SCH (19:46)
[2020-04-01] MEDS: Nystatin Cream 15 GM TUBE TP SCH (21:10)
[2020-04-02] MEDS: Ipratropium/Albuterol Neb 3 ML IH SCH ×2 (04:06→09:25)
[2020-04-02] MEDS: *HR* Enoxaparin 30 MG/0.3 ML SYRINGE SQ SCH (04:15)
[2020-04-02 05:42] LABS: Basophils % 0.3 %; Eosinophils # 0.1 K/mcL (0.0-0.6); Eosinophils % 1.1 %; Hematocrit 32.3 % (37.5-50.1); Hemoglobin 10.5 g/dL (12.9-16.9); Immature Granulocytes % 2.2 % (0-4); Lymphocytes # 1.2 K/mcL (0.6-4.6); Mean Corpuscular HGB Conc 32.5 g/dL (31.6-35.5); Mean Corpuscular Hemoglobin 28.8 pg (28.0-33.3); Mean Corpuscular Volume 88.7 fL (83.0-100.0); Mean Platelet Volume 9.8 fL (9.4-12.4); Monocytes # 0.7 K/mcL (0.0-1.3); Monocytes % 7.3 %; Neutrophils # 7.2 K/mcL (1.6-8.9); Platelet Count 267 K/mcL (140-400); Red Blood Count 3.64 M/mcL (4.19-5.50); Red Cell Distribution Width 15.7 % (11.5-14.5); Segmented Neutrophils % 76.1 %; White Blood Count 9.4 K/mcL (4.3-11.1)
[2020-04-02 05:55] LABS: Calcium 8.4 mg/dL (8.6-10.3); Potassium 3.8 mEq/L (3.5-5.1)
[2020-04-02 07:30] VITALS: BP 166/70
[2020-04-02] MEDS: MethylPREDNISolone 40 MG/ML VIAL IVP SCH (07:57)
[2020-04-02] MEDS: Furosemide 40 MG TABLET PO SCH (07:57)
[2020-04-02] MEDS: Nystatin Cream 15 GM TUBE TP SCH (07:57)
[2020-04-02] MEDS: Nystatin SUSP 5 ML UD.LIQ PO SCH ×2 (07:57→11:37)
[2020-04-02] MEDS: Piperacillin/Tazobactam 3.375 GM in 0.9 % Sodium Chloride Mini Bag 100 ML IVPB SCH (07:57)
[2020-04-02] MEDS: (Empagliflozin [Jardiance] 25 MG) PO SCH (07:58)
[2020-04-02] MEDS: Insulin LISPRO 300 UNITS/3 ML VIAL SQ SCH ×2 (07:58→11:37)
[2020-04-02] MEDS: Multivit/Ca/Min/Fe/FA 1 TAB TABLET PO SCH (07:58)
[2020-04-02] MEDS: amLODIPine 5 MG TABLET PO SCH (07:58)
[2020-04-02] MEDS: GlipiZIDE 5 MG TABLET PO SCH (07:58)
== END 2020-04-02 13:49 | disposition other institution (70) | DRG 194 ==
LOC: INPGRE 11:53 → EMEROOGRE 11:53 → INPGRE 15:45
PROVIDERS: ADMIT Family Medicine; ATTEND Family Medicine

== ENCOUNTER 2020-04-02 10:33 | Inpatient (IN) ==
[2020-04-02] MEDS ORDERED: *HR* Dextrose 50 % in Water (Syg) 50 ML SYRINGE IVP PRN (14:48)
[2020-04-02] MEDS ORDERED: D5% in Water 1,000 ML IVC PRN (14:48)
[2020-04-02] MEDS ORDERED: Dextrose Gel 15 GM/37.5 ML TUBE PO PRN ×2 (14:48)
[2020-04-02] MEDS ORDERED: Ipratropium/Albuterol Neb 3 ML ONE (15:22)
[2020-04-02] MEDS: Ipratropium/Albuterol Neb 3 ML IH SCH ×2 (15:32→21:40)
[2020-04-02] MEDS: Piperacillin/Tazobactam 3.375 GM in 0.9 % Sodium Chloride Mini Bag 100 ML IVPB SCH (16:12)
[2020-04-02] MEDS: Nystatin SUSP 5 ML UD.LIQ PO SCH ×2 (16:12→20:48)
[2020-04-02] MEDS: Insulin LISPRO 300 UNITS/3 ML VIAL SQ SCH ×2 (16:19→20:47)
[2020-04-02] MEDS: Nystatin Cream 15 GM TUBE TP SCH (20:48)
[2020-04-03] MEDS: Piperacillin/Tazobactam 3.375 GM in 0.9 % Sodium Chloride Mini Bag 100 ML IVPB SCH ×4 (00:09→23:15)
[2020-04-03] MEDS: Ipratropium/Albuterol Neb 3 ML IH SCH ×4 (03:53→21:32)
[2020-04-03] MEDS: *HR* Enoxaparin 30 MG/0.3 ML SYRINGE SQ SCH (05:51)
[2020-04-03] MEDS: MethylPREDNISolone 40 MG/ML VIAL IVP SCH (08:20)
[2020-04-03] MEDS: Nystatin SUSP 5 ML UD.LIQ PO SCH ×4 (08:20→20:00)
[2020-04-03] MEDS: *HR* GlipiZIDE XL (24 HR) 10 MG TABLET PO SCH (08:20)
[2020-04-03] MEDS: amLODIPine 5 MG TABLET PO SCH (08:21)
[2020-04-03] MEDS: Multivit/Ca/Min/Fe/FA 1 TAB TABLET PO SCH (08:21)
[2020-04-03] MEDS: Nystatin Cream 15 GM TUBE TP SCH ×2 (08:21→20:01)
[2020-04-03] MEDS: Furosemide 40 MG TABLET PO SCH (08:21)
[2020-04-03] MEDS: Insulin LISPRO 300 UNITS/3 ML VIAL SQ SCH ×4 (08:22→19:59)
[2020-04-03] MEDS: Empagliflozin [Jardiance] 25 MG PO SCH (08:22)
[2020-04-03] MEDS ORDERED: levoFLOXacin 750 MG/150 ML 750 MG/150 ML BAG IVPB SCH (19:00)
[2020-04-04] MEDS: Ipratropium/Albuterol Neb 3 ML IH SCH ×4 (04:05→22:10)
[2020-04-04] MEDS: *HR* Enoxaparin 30 MG/0.3 ML SYRINGE SQ SCH (04:30)
[2020-04-04] MEDS: Piperacillin/Tazobactam 3.375 GM in 0.9 % Sodium Chloride Mini Bag 100 ML IVPB SCH ×2 (07:37→16:59)
[2020-04-04] MEDS: MethylPREDNISolone 40 MG/ML VIAL IVP SCH (07:37)
[2020-04-04] MEDS: Furosemide 40 MG TABLET PO SCH (07:37)
[2020-04-04] MEDS: *HR* GlipiZIDE XL (24 HR) 10 MG TABLET PO SCH (07:37)
[2020-04-04] MEDS: Multivit/Ca/Min/Fe/FA 1 TAB TABLET PO SCH (07:37)
[2020-04-04] MEDS: Nystatin SUSP 5 ML UD.LIQ PO SCH ×4 (07:37→20:09)
[2020-04-04] MEDS: amLODIPine 5 MG TABLET PO SCH (07:37)
[2020-04-04] MEDS: Insulin LISPRO 300 UNITS/3 ML VIAL SQ SCH ×4 (07:39→20:26)
[2020-04-04] MEDS: Nystatin Cream 15 GM TUBE TP SCH ×2 (07:42→20:09)
[2020-04-04] MEDS: Empagliflozin [Jardiance] 25 MG PO SCH (07:43)
[2020-04-04] MEDS ORDERED: Semaglutide [Ozempic] 0.5 MG SQ SCH (09:00)
[2020-04-04] MEDS: Mag Hydrox/Al Hydrox/Simeth 30 ML UDC PO PRN (11:19)
[2020-04-05] MEDS: Piperacillin/Tazobactam 3.375 GM in 0.9 % Sodium Chloride Mini Bag 100 ML IVPB SCH ×3 (00:09→16:45)
[2020-04-05] MEDS: Ipratropium/Albuterol Neb 3 ML IH SCH ×4 (04:11→21:49)
[2020-04-05] MEDS: *HR* Enoxaparin 30 MG/0.3 ML SYRINGE SQ SCH (05:26)
[2020-04-05 06:14] LABS: Basophils % 0.4 %; Eosinophils # 0.2 K/mcL (0.0-0.6); Eosinophils % 2.2 %; Hematocrit 31.5 % (37.5-50.1); Hemoglobin 10.3 g/dL (12.9-16.9); Immature Granulocytes % 1.4 % (0-4); Lymphocytes # 1.4 K/mcL (0.6-4.6); Lymphocytes % 12.2 %; Mean Corpuscular HGB Conc 32.7 g/dL (31.6-35.5); Mean Corpuscular Hemoglobin 29.1 pg (28.0-33.3); Mean Platelet Volume 9.3 fL (9.4-12.4); Monocytes # 0.7 K/mcL (0.0-1.3); Monocytes % 6.1 %; Neutrophils # 8.6 K/mcL (1.6-8.9); Platelet Count 290 K/mcL (140-400); Red Blood Count 3.54 M/mcL (4.19-5.50); Red Cell Distribution Width 16.3 % (11.5-14.5); Segmented Neutrophils % 77.7 %; White Blood Count 11.1 K/mcL (4.3-11.1)
[2020-04-05 06:31] LABS: Potassium 3.2 mEq/L (3.5-5.1)
[2020-04-05 06:38] LABS: Calcium 7.9 mg/dL (8.6-10.3)
[2020-04-05] MEDS: MethylPREDNISolone 40 MG/ML VIAL IVP SCH (08:08)
[2020-04-05] MEDS: Nystatin SUSP 5 ML UD.LIQ PO SCH ×4 (08:09→21:23)
[2020-04-05] MEDS: amLODIPine 5 MG TABLET PO SCH (08:09)
[2020-04-05] MEDS: Multivit/Ca/Min/Fe/FA 1 TAB TABLET PO SCH (08:09)
[2020-04-05] MEDS: Insulin LISPRO 300 UNITS/3 ML VIAL SQ SCH ×4 (08:09→21:22)
[2020-04-05] MEDS: Furosemide 40 MG TABLET PO SCH (08:09)
[2020-04-05] MEDS: Nystatin Cream 15 GM TUBE TP SCH ×2 (08:10→21:23)
[2020-04-05] MEDS: *HR* GlipiZIDE XL (24 HR) 10 MG TABLET PO SCH (08:10)
[2020-04-05] MEDS: Empagliflozin [Jardiance] 25 MG PO SCH (08:10)
[2020-04-05] MEDS: Mag Hydrox/Al Hydrox/Simeth 30 ML UDC PO PRN ×2 (08:23→16:44)
[2020-04-05] MEDS ORDERED: levoFLOXacin 750 MG/150 ML 750 MG/150 ML BAG IVPB SCH (21:00)
[2020-04-06] MEDS: Piperacillin/Tazobactam 3.375 GM in 0.9 % Sodium Chloride Mini Bag 100 ML IVPB SCH ×3 (00:36→16:31)
[2020-04-06] MEDS: Ipratropium/Albuterol Neb 3 ML IH SCH ×4 (04:35→22:19)
[2020-04-06] MEDS: *HR* Enoxaparin 30 MG/0.3 ML SYRINGE SQ SCH (06:54)
[2020-04-06] MEDS: Insulin LISPRO 300 UNITS/3 ML VIAL SQ SCH ×4 (08:02→20:36)
[2020-04-06] MEDS: amLODIPine 5 MG TABLET PO SCH (08:09)
[2020-04-06] MEDS: *HR* GlipiZIDE XL (24 HR) 10 MG TABLET PO SCH (08:09)
[2020-04-06] MEDS: predniSONE 20 MG TABLET PO SCH (08:09)
[2020-04-06] MEDS: Multivit/Ca/Min/Fe/FA 1 TAB TABLET PO SCH (08:09)
[2020-04-06] MEDS: Furosemide 40 MG TABLET PO SCH (08:09)
[2020-04-06] MEDS: Nystatin SUSP 5 ML UD.LIQ PO SCH ×4 (08:10→20:37)
[2020-04-06] MEDS: Nystatin Cream 15 GM TUBE TP SCH ×2 (08:10→20:38)
[2020-04-06] MEDS: Empagliflozin [Jardiance] 25 MG PO SCH (08:11)
[2020-04-07] MEDS: Piperacillin/Tazobactam 3.375 GM in 0.9 % Sodium Chloride Mini Bag 100 ML IVPB SCH (05:51)
[2020-04-07] MEDS: Ipratropium/Albuterol Neb 3 ML IH SCH ×4 (06:02→21:25)
[2020-04-07] MEDS: *HR* Enoxaparin 30 MG/0.3 ML SYRINGE SQ SCH (06:02)
[2020-04-07] MEDS: Nystatin SUSP 5 ML UD.LIQ PO SCH ×4 (08:22→21:24)
[2020-04-07] MEDS: Multivit/Ca/Min/Fe/FA 1 TAB TABLET PO SCH (08:22)
[2020-04-07] MEDS: Nystatin Cream 15 GM TUBE TP SCH ×2 (08:22→21:25)
[2020-04-07] MEDS: Empagliflozin [Jardiance] 25 MG PO SCH (08:23)
[2020-04-07] MEDS: *HR* GlipiZIDE XL (24 HR) 10 MG TABLET PO SCH (08:23)
[2020-04-07] MEDS: amLODIPine 5 MG TABLET PO SCH (08:23)
[2020-04-07] MEDS: predniSONE 20 MG TABLET PO SCH (08:23)
[2020-04-07] MEDS: Furosemide 40 MG TABLET PO SCH (08:23)
[2020-04-07] MEDS: Insulin LISPRO 300 UNITS/3 ML VIAL SQ SCH ×4 (08:27→21:25)
[2020-04-08] MEDS: Ipratropium/Albuterol Neb 3 ML IH SCH ×4 (05:00→20:55)
[2020-04-08] MEDS: *HR* Enoxaparin 30 MG/0.3 ML SYRINGE SQ SCH (06:54)
[2020-04-08] MEDS: Empagliflozin [Jardiance] 25 MG PO SCH (08:09)
[2020-04-08] MEDS: Nystatin SUSP 5 ML UD.LIQ PO SCH ×4 (08:09→21:22)
[2020-04-08] MEDS: amLODIPine 5 MG TABLET PO SCH (08:10)
[2020-04-08] MEDS: Multivit/Ca/Min/Fe/FA 1 TAB TABLET PO SCH (08:10)
[2020-04-08] MEDS: predniSONE 20 MG TABLET PO SCH (08:10)
[2020-04-08] MEDS: *HR* GlipiZIDE XL (24 HR) 10 MG TABLET PO SCH (08:10)
[2020-04-08] MEDS: Furosemide 40 MG TABLET PO SCH (08:10)
[2020-04-08] MEDS: Nystatin Cream 15 GM TUBE TP SCH ×2 (08:13→21:22)
[2020-04-08] MEDS: Insulin LISPRO 300 UNITS/3 ML VIAL SQ SCH ×4 (08:15→21:23)
[2020-04-09 05:25] LABS: Basophils % 0.1 %; Eosinophils % 0.1 %; Hematocrit 30.4 % (37.5-50.1); Hemoglobin 9.9 g/dL (12.9-16.9); Lymphocytes # 1.4 K/mcL (0.6-4.6); Lymphocytes % 10.2 %; Mean Corpuscular HGB Conc 32.6 g/dL (31.6-35.5); Mean Corpuscular Hemoglobin 29.4 pg (28.0-33.3); Mean Corpuscular Volume 90.2 fL (83.0-100.0); Mean Platelet Volume 9.4 fL (9.4-12.4); Monocytes # 0.8 K/mcL (0.0-1.3); Monocytes % 5.8 %; Neutrophils # 11.1 K/mcL (1.6-8.9); Platelet Count 280 K/mcL (140-400); Red Blood Count 3.37 M/mcL (4.19-5.50); Red Cell Distribution Width 16.9 % (11.5-14.5); Segmented Neutrophils % 82.8 %; White Blood Count 13.4 K/mcL (4.3-11.1)
[2020-04-09] MEDS: Ipratropium/Albuterol Neb 3 ML IH SCH ×2 (05:28→07:31)
[2020-04-09 05:39] LABS: Calcium 8.4 mg/dL (8.6-10.3); Potassium 4.8 mEq/L (3.5-5.1)
[2020-04-09] MEDS: *HR* Enoxaparin 30 MG/0.3 ML SYRINGE SQ SCH (06:44)
[2020-04-09] MEDS: amLODIPine 5 MG TABLET PO SCH (08:22)
[2020-04-09] MEDS: *HR* GlipiZIDE XL (24 HR) 10 MG TABLET PO SCH (08:22)
[2020-04-09] MEDS: Nystatin SUSP 5 ML UD.LIQ PO SCH ×2 (08:22→12:00)
[2020-04-09] MEDS: Multivit/Ca/Min/Fe/FA 1 TAB TABLET PO SCH (08:22)
[2020-04-09] MEDS: Insulin LISPRO 300 UNITS/3 ML VIAL SQ SCH ×2 (08:23→11:26)
[2020-04-09] MEDS: Furosemide 40 MG TABLET PO SCH (08:23)
[2020-04-09] MEDS: Nystatin Cream 15 GM TUBE TP SCH (08:24)
[2020-04-09] MEDS: Empagliflozin [Jardiance] 25 MG PO SCH (08:24)
[2020-04-09] MEDS ORDERED: predniSONE 20 MG TABLET PO SCH (09:00)
[2020-04-09 09:58] VITALS: BP 123/65
== END 2020-04-09 15:10 | disposition home health service (06) | DRG 194 ==
LOC: INPGRE 13:51
PROVIDERS: ADMIT Family Medicine; ATTEND Family Medicine

== ENCOUNTER 2020-12-13 12:01 | Inpatient (IN) ==
[2020-12-13 12:39] LABS: Basophils # 0.1 K/mcL (0.0-0.2); Basophils % 0.6 %; Eosinophils # 0.6 K/mcL (0.0-0.6); Eosinophils % 6.7 %; Hemoglobin 11.6 g/dL (12.9-16.9); Immature Granulocytes % 0.2 % (0-4); Lymphocytes # 0.9 K/mcL (0.6-4.6); Lymphocytes % 9.7 %; Mean Corpuscular HGB Conc 32.2 g/dL (31.6-35.5); Mean Corpuscular Hemoglobin 29.8 pg (28.0-33.3); Mean Corpuscular Volume 92.5 fL (83.0-100.0); Mean Platelet Volume 9.1 fL (9.4-12.4); Monocytes # 0.7 K/mcL (0.0-1.3); Monocytes % 7.8 %; Platelet Count 354 K/mcL (140-400); Red Blood Count 3.89 M/mcL (4.19-5.50); Red Cell Distribution Width 15.4 % (11.5-14.5); White Blood Count 9.3 K/mcL (4.3-11.1)
[2020-12-13 12:47] LABS: VBG HCO3 33 mEq/L (21-27); VBG PCO2 55 mmHg (41-51); VBG PH 7.38 pH Units (7.32-7.42); VBG PO2 32 mmHg (25-50)
[2020-12-13 12:53] LABS: Alanine Aminotransferase 18 Units/L (7-52); Albumin 3.4 g/dL (3.5-5.7); Albumin/Globulin Ratio 1.1 (1.1-2.2); Alkaline Phosphatase 53 Units/L (34-104); Aspartate Amino Transferase 18 Units/L (13-39); BUN/Creatinine Ratio 13 (6-26); Bilirubin,Direct 0.1 mg/dL (0.0-0.2); Bilirubin,Indirect 0.3 mg/dL (0.0-1.0); Bilirubin,Total 0.4 mg/dL (0.3-1.0); Blood Urea Nitrogen 19 mg/dL (8-23); Calcium 8.9 mg/dL (8.6-10.3); Carbon Dioxide 33 mEq/L (23-29); Chloride 98 mEq/L (98-107); Glucose 169 mg/dL (70-105); Osmolality,Calculated 294 (280-300); Potassium 4.2 mEq/L (3.5-5.1); Sodium 139 mEq/L (136-145); Total Protein 6.4 g/dL (6.4-8.9); eGFR For African Americans 54 (> 60); eGFR For Non-African Americans 44 (> 60)
[2020-12-13 12:56] LABS: Troponin I < 0.03 ng/mL (< 0.04)
[2020-12-13] MEDS ORDERED: Naloxone 0.4 MG/ML INJ IVP PRN (14:59)
[2020-12-13] MEDS ORDERED: (Diclofenac Sodium 1 APPLIC) TP PRN (14:59)
[2020-12-13] MEDS ORDERED: D5% in Water 1,000 ML IVC PRN (14:59)
[2020-12-13] MEDS ORDERED: Dextrose Gel 15 GM/37.5 ML TUBE PO PRN ×2 (14:59)
[2020-12-13] MEDS ORDERED: *HR* Dextrose 50 % in Water (Vial) 50 ML VIAL IVP PRN (14:59)
[2020-12-13] MEDS ORDERED: (Semaglutide [Ozempic] 0.5 MG) SQ SCH (15:00)
[2020-12-13] MEDS ORDERED: metOLazone 2.5 MG TABLET PO SCH (15:00)
[2020-12-13] MEDS ORDERED: Albuterol 2.5 MG/3 ML NEBULIZER IH PRN (16:00)
[2020-12-13] MEDS: Benzonatate 100 MG CAPSULE PO SCH ×2 (17:05→21:27)
[2020-12-13] MEDS: Furosemide 40 MG/4 ML VIAL IVP SCH (17:06)
[2020-12-13] MEDS: methylPREDNISolone 125 MG/2 ML VIAL IVP SCH (17:11)
[2020-12-13] MEDS: Nystatin SUSP 5 ML UD.LIQ PO SCH ×2 (17:11→21:27)
[2020-12-13] MEDS: Azithromycin 500 MG in D5% in Water 250 ML IVPB SCH (17:50)
[2020-12-13] MEDS ORDERED: Insulin LISPRO 300 UNITS/3 ML VIAL SUBQ SCH (18:00)
[2020-12-13] MEDS ORDERED: *HR* Enoxaparin 30 MG/0.3 ML SYRINGE SQ SCH (18:00)
[2020-12-13] MEDS ORDERED: BETAMETHASONE DIPROPIONATE TP SCH (21:00)
[2020-12-13] MEDS: Ipratropium/Albuterol Neb 3 ML IH PRN (21:28)
[2020-12-13] MEDS: Insulin LISPRO 300 UNITS/3 ML VIAL SUBQ SCH (21:29)
[2020-12-14] MEDS: methylPREDNISolone 125 MG/2 ML VIAL IVP SCH ×4 (00:26→22:04)
[2020-12-14] MEDS: Furosemide 40 MG/4 ML VIAL IVP SCH ×4 (00:27→22:04)
[2020-12-14] MEDS: *HR* Enoxaparin 40 MG/0.4 ML SYRINGE SQ SCH (06:05)
[2020-12-14 06:17] LABS: Basophils % 0.1 %; Eosinophils % 0.1 %; Hematocrit 34.2 % (37.5-50.1); Hemoglobin 11.1 g/dL (12.9-16.9); Immature Granulocytes % 0.3 % (0-4); Lymphocytes # 0.5 K/mcL (0.6-4.6); Lymphocytes % 7.4 %; Mean Corpuscular HGB Conc 32.5 g/dL (31.6-35.5); Mean Corpuscular Hemoglobin 29.6 pg (28.0-33.3); Mean Corpuscular Volume 91.2 fL (83.0-100.0); Mean Platelet Volume 9.7 fL (9.4-12.4); Monocytes % 0.4 %; Neutrophils # 6.3 K/mcL (1.6-8.9); Platelet Count 341 K/mcL (140-400); Red Blood Count 3.75 M/mcL (4.19-5.50); Red Cell Distribution Width 15.1 % (11.5-14.5); Segmented Neutrophils % 91.7 %; White Blood Count 6.9 K/mcL (4.3-11.1)
[2020-12-14 06:28] LABS: Nucleated Red Blood Cells 0.3 /100 WBC (0)
[2020-12-14 06:47] LABS: Calcium 8.4 mg/dL (8.6-10.3); Potassium 3.9 mEq/L (3.5-5.1)
[2020-12-14] MEDS ORDERED: Cholecalciferol (D-3) 1,000 UNIT (25MCG) TABLET PO SCH (09:00)
[2020-12-14] MEDS: (Empagliflozin [Jardiance] 25 MG) PO SCH (09:52)
[2020-12-14] MEDS: Cholecalciferol (D-3) 1,000 UNIT (25MCG) TABLET PO SCH (09:55)
[2020-12-14] MEDS: Benzonatate 100 MG CAPSULE PO SCH ×3 (09:55→22:05)
[2020-12-14] MEDS: Nystatin SUSP 5 ML UD.LIQ PO SCH ×4 (09:57→22:05)
[2020-12-14] MEDS: GlipiZIDE 5 MG TABLET PO SCH (09:57)
[2020-12-14] MEDS: Finasteride 5 MG TABLET PO SCH (09:57)
[2020-12-14] MEDS: Multivit/Ca/Min/Fe/FA 1 TAB TABLET PO SCH (09:58)
[2020-12-14] MEDS: Insulin LISPRO 300 UNITS/3 ML VIAL SUBQ SCH ×4 (09:58→22:07)
[2020-12-14] MEDS: calcitrioL 0.25 MCG CAPSULE PO SCH ×2 (16:28→22:05)
[2020-12-14] MEDS: Azithromycin 500 MG in D5% in Water 250 ML IVPB SCH (17:14)
[2020-12-15 06:20] LABS: Basophils % 0.1 %; Hematocrit 32.1 % (37.5-50.1); Hemoglobin 10.4 g/dL (12.9-16.9); Immature Granulocytes % 0.5 % (0-4); Lymphocytes # 0.7 K/mcL (0.6-4.6); Lymphocytes % 5.2 %; Mean Corpuscular HGB Conc 32.4 g/dL (31.6-35.5); Mean Corpuscular Hemoglobin 29.3 pg (28.0-33.3); Mean Corpuscular Volume 90.4 fL (83.0-100.0); Mean Platelet Volume 9.4 fL (9.4-12.4); Monocytes # 0.3 K/mcL (0.0-1.3); Monocytes % 2.3 %; Platelet Count 369 K/mcL (140-400); Red Blood Count 3.55 M/mcL (4.19-5.50); Red Cell Distribution Width 15.2 % (11.5-14.5); Segmented Neutrophils % 91.9 %; White Blood Count 13.8 K/mcL (4.3-11.1)
[2020-12-15 06:26] LABS: Neutrophils # 12.7 K/mcL (1.6-8.9)
[2020-12-15] MEDS: *HR* Enoxaparin 40 MG/0.4 ML SYRINGE SQ SCH (06:32)
[2020-12-15] MEDS: methylPREDNISolone 125 MG/2 ML VIAL IVP SCH ×3 (06:32→23:57)
[2020-12-15] MEDS: Furosemide 40 MG/4 ML VIAL IVP SCH ×3 (06:33→23:58)
[2020-12-15 06:43] LABS: Calcium 8.3 mg/dL (8.6-10.3); Potassium 3.6 mEq/L (3.5-5.1)
[2020-12-15] MEDS: Nystatin SUSP 5 ML UD.LIQ PO SCH ×4 (09:24→20:13)
[2020-12-15] MEDS: Cholecalciferol (D-3) 1,000 UNIT (25MCG) TABLET PO SCH (09:24)
[2020-12-15] MEDS: Benzonatate 100 MG CAPSULE PO SCH ×3 (09:25→20:13)
[2020-12-15] MEDS: Insulin LISPRO 300 UNITS/3 ML VIAL SUBQ SCH ×4 (09:25→20:15)
[2020-12-15] MEDS: GlipiZIDE 5 MG TABLET PO SCH (09:25)
[2020-12-15] MEDS: Finasteride 5 MG TABLET PO SCH (09:25)
[2020-12-15] MEDS: Multivit/Ca/Min/Fe/FA 1 TAB TABLET PO SCH (09:25)
[2020-12-15] MEDS: (Empagliflozin [Jardiance] 25 MG) PO SCH (09:32)
[2020-12-15] MEDS: Azithromycin 500 MG in D5% in Water 250 ML IVPB SCH (15:15)
[2020-12-16 05:46] LABS: Hematocrit 33.2 % (37.5-50.1); Hemoglobin 10.6 g/dL (12.9-16.9); Immature Granulocytes % 0.4 % (0-4); Lymphocytes # 0.5 K/mcL (0.6-4.6); Lymphocytes % 3.6 %; Mean Corpuscular HGB Conc 31.9 g/dL (31.6-35.5); Mean Corpuscular Hemoglobin 29.5 pg (28.0-33.3); Mean Corpuscular Volume 92.5 fL (83.0-100.0); Mean Platelet Volume 9.7 fL (9.4-12.4); Monocytes # 0.2 K/mcL (0.0-1.3); Monocytes % 1.5 %; Platelet Count 367 K/mcL (140-400); Red Blood Count 3.59 M/mcL (4.19-5.50); Red Cell Distribution Width 15.4 % (11.5-14.5); Segmented Neutrophils % 94.5 %; White Blood Count 13.7 K/mcL (4.3-11.1)
[2020-12-16 05:53] LABS: Calcium 8.1 mg/dL (8.6-10.3); Potassium 3.8 mEq/L (3.5-5.1)
[2020-12-16] MEDS: *HR* Enoxaparin 40 MG/0.4 ML SYRINGE SQ SCH (05:55)
[2020-12-16] MEDS: Furosemide 40 MG/4 ML VIAL IVP SCH (05:56)
[2020-12-16] MEDS: methylPREDNISolone 125 MG/2 ML VIAL IVP SCH ×3 (05:56→23:48)
[2020-12-16] MEDS: Benzonatate 100 MG CAPSULE PO SCH ×3 (09:10→19:59)
[2020-12-16] MEDS: Multivit/Ca/Min/Fe/FA 1 TAB TABLET PO SCH (09:10)
[2020-12-16] MEDS: GlipiZIDE 5 MG TABLET PO SCH (09:10)
[2020-12-16] MEDS: Nystatin SUSP 5 ML UD.LIQ PO SCH ×4 (09:10→19:59)
[2020-12-16] MEDS: Cholecalciferol (D-3) 1,000 UNIT (25MCG) TABLET PO SCH (09:10)
[2020-12-16] MEDS: Insulin LISPRO 300 UNITS/3 ML VIAL SUBQ SCH ×4 (09:10→20:00)
[2020-12-16] MEDS: Finasteride 5 MG TABLET PO SCH (09:10)
[2020-12-16] MEDS: (Empagliflozin [Jardiance] 25 MG) PO SCH (12:33)
[2020-12-16] MEDS: Ipratropium/Albuterol Neb 3 ML IH PRN (16:17)
[2020-12-16] MEDS: Azithromycin 500 MG in D5% in Water 250 ML IVPB SCH (16:20)
[2020-12-16] MEDS: Furosemide 40 MG TABLET PO SCH (17:28)
[2020-12-17 05:35] LABS: Hematocrit 32.5 % (37.5-50.1); Hemoglobin 10.4 g/dL (12.9-16.9); Immature Granulocytes % 0.9 % (0-4); Lymphocytes # 0.4 K/mcL (0.6-4.6); Lymphocytes % 4.2 %; Mean Corpuscular Hemoglobin 29.3 pg (28.0-33.3); Mean Corpuscular Volume 91.5 fL (83.0-100.0); Mean Platelet Volume 9.6 fL (9.4-12.4); Monocytes # 0.2 K/mcL (0.0-1.3); Monocytes % 2.1 %; Neutrophils # 9.5 K/mcL (1.6-8.9); Platelet Count 343 K/mcL (140-400); Red Blood Count 3.55 M/mcL (4.19-5.50); Red Cell Distribution Width 15.4 % (11.5-14.5); Segmented Neutrophils % 92.8 %; White Blood Count 10.2 K/mcL (4.3-11.1)
[2020-12-17 05:56] LABS: Calcium 8.3 mg/dL (8.6-10.3); Potassium 4.8 mEq/L (3.5-5.1)
[2020-12-17] MEDS: *HR* Enoxaparin 40 MG/0.4 ML SYRINGE SQ SCH (06:01)
[2020-12-17] MEDS: methylPREDNISolone 125 MG/2 ML VIAL IVP SCH ×3 (06:02→23:23)
[2020-12-17] MEDS: (Empagliflozin [Jardiance] 25 MG) PO SCH (08:33)
[2020-12-17] MEDS: GlipiZIDE 5 MG TABLET PO SCH (08:50)
[2020-12-17] MEDS: Nystatin SUSP 5 ML UD.LIQ PO SCH ×4 (08:50→20:21)
[2020-12-17] MEDS: Multivit/Ca/Min/Fe/FA 1 TAB TABLET PO SCH (08:50)
[2020-12-17] MEDS: Furosemide 40 MG TABLET PO SCH ×2 (08:50→16:47)
[2020-12-17] MEDS: Finasteride 5 MG TABLET PO SCH (08:50)
[2020-12-17] MEDS: Benzonatate 100 MG CAPSULE PO SCH ×3 (08:51→20:20)
[2020-12-17] MEDS: Cholecalciferol (D-3) 1,000 UNIT (25MCG) TABLET PO SCH (08:51)
[2020-12-17] MEDS: Insulin LISPRO 300 UNITS/3 ML VIAL SUBQ SCH ×4 (08:51→20:21)
[2020-12-17] MEDS: calcitrioL 0.25 MCG CAPSULE PO SCH (15:39)
[2020-12-17] MEDS: Azithromycin 500 MG in D5% in Water 250 ML IVPB SCH (15:40)
[2020-12-18] MEDS: methylPREDNISolone 125 MG/2 ML VIAL IVP SCH ×2 (06:22→14:25)
[2020-12-18] MEDS: *HR* Enoxaparin 40 MG/0.4 ML SYRINGE SQ SCH (06:23)
[2020-12-18] MEDS: Nystatin SUSP 5 ML UD.LIQ PO SCH ×3 (08:07→16:08)
[2020-12-18] MEDS: Furosemide 40 MG TABLET PO SCH ×2 (08:08→16:10)
[2020-12-18] MEDS: GlipiZIDE 5 MG TABLET PO SCH (08:08)
[2020-12-18] MEDS: Benzonatate 100 MG CAPSULE PO SCH ×2 (08:08→14:25)
[2020-12-18] MEDS: Multivit/Ca/Min/Fe/FA 1 TAB TABLET PO SCH (08:08)
[2020-12-18] MEDS: Cholecalciferol (D-3) 1,000 UNIT (25MCG) TABLET PO SCH (08:08)
[2020-12-18] MEDS: Finasteride 5 MG TABLET PO SCH (08:09)
[2020-12-18] MEDS: Insulin LISPRO 300 UNITS/3 ML VIAL SUBQ SCH ×3 (08:09→16:11)
[2020-12-18] MEDS: (Empagliflozin [Jardiance] 25 MG) PO SCH (08:09)
[2020-12-18] MEDS ORDERED: CefTRIAXone 1,000 MG VIAL IM ONE (15:27)
[2020-12-18] MEDS: Azithromycin 500 MG in D5% in Water 250 ML IVPB SCH (15:29)
[2020-12-18] MEDS ORDERED: Azithromycin 250 MG TABLET PO ONE (15:32)
[2020-12-18 17:23] VITALS: BP 157/69
[2020-12-19] MEDS ORDERED: Azithromycin 250 MG TABLET PO ONE (15:26)
== END 2020-12-18 16:45 | disposition home health service (06) | DRG 291 ==
LOC: EMEROOGRE 12:01 → INPGRE 12:01
PROVIDERS: ADMIT Family Medicine; ATTEND Family Medicine

== ENCOUNTER 2021-01-30 18:32 | Inpatient (IN) ==
[2021-01-30] MEDS ORDERED: Dextrose Gel 15 GM/37.5 ML TUBE PO PRN ×2 (20:09)
[2021-01-30] MEDS ORDERED: D5% in Water 1,000 ML IVC PRN (20:09)
[2021-01-30] MEDS ORDERED: *HR* Dextrose 50 % in Water (Vial) 50 ML VIAL IVP PRN (20:09)
[2021-01-30] MEDS ORDERED: polyethylene glycoL 3350 17 GM POWD.PACK PO PRN (20:10)
[2021-01-30] MEDS ORDERED: *HR* OxyCODONE Immed Rel 5 MG TABLET PO PRN (20:11)
[2021-01-30] MEDS ORDERED: Ipratropium/Albuterol Neb 3 ML IH PRN (20:26)
[2021-01-30] MEDS: calcitrioL 0.25 MCG CAPSULE PO SCH (20:58)
[2021-01-30] MEDS: Insulin LISPRO 300 UNITS/3 ML VIAL SUBQ SCH (21:00)
[2021-01-31] MEDS: Multivit/Ca/Min/Fe/FA 1 TAB TABLET PO SCH (08:27)
[2021-01-31] MEDS: Finasteride 5 MG TABLET PO SCH (08:28)
[2021-01-31] MEDS: predniSONE 20 MG TABLET PO SCH (08:28)
[2021-01-31] MEDS: Furosemide 40 MG TABLET PO SCH ×2 (08:28→18:17)
[2021-01-31] MEDS: GlipiZIDE 5 MG TABLET PO SCH (08:28)
[2021-01-31] MEDS: Insulin LISPRO 300 UNITS/3 ML VIAL SUBQ SCH ×4 (08:32→21:44)
[2021-02-01] MEDS: Multivit/Ca/Min/Fe/FA 1 TAB TABLET PO SCH (08:50)
[2021-02-01] MEDS: predniSONE 20 MG TABLET PO SCH (08:50)
[2021-02-01] MEDS: Finasteride 5 MG TABLET PO SCH (08:50)
[2021-02-01] MEDS: GlipiZIDE 5 MG TABLET PO SCH (08:51)
[2021-02-01] MEDS: Furosemide 40 MG TABLET PO SCH ×2 (08:51→16:42)
[2021-02-01] MEDS: Insulin LISPRO 300 UNITS/3 ML VIAL SUBQ SCH ×4 (08:56→20:14)
[2021-02-01] MEDS: calcitrioL 0.25 MCG CAPSULE PO SCH (20:11)
[2021-02-02] MEDS: Ibuprofen 800 MG TABLET PO PRN ×2 (04:35→16:07)
[2021-02-02] MEDS: Finasteride 5 MG TABLET PO SCH (09:05)
[2021-02-02] MEDS: Furosemide 40 MG TABLET PO SCH ×2 (09:05→16:56)
[2021-02-02] MEDS: predniSONE 20 MG TABLET PO SCH (09:05)
[2021-02-02] MEDS: Multivit/Ca/Min/Fe/FA 1 TAB TABLET PO SCH (09:06)
[2021-02-02] MEDS: GlipiZIDE 5 MG TABLET PO SCH (09:06)
[2021-02-02] MEDS: Insulin LISPRO 300 UNITS/3 ML VIAL SUBQ SCH ×4 (09:09→22:06)
[2021-02-03] MEDS: GlipiZIDE 5 MG TABLET PO SCH (08:46)
[2021-02-03] MEDS: Multivit/Ca/Min/Fe/FA 1 TAB TABLET PO SCH (08:46)
[2021-02-03] MEDS: predniSONE 20 MG TABLET PO SCH (08:46)
[2021-02-03] MEDS: Insulin LISPRO 300 UNITS/3 ML VIAL SUBQ SCH ×4 (08:46→22:05)
[2021-02-03] MEDS: Finasteride 5 MG TABLET PO SCH (08:47)
[2021-02-03] MEDS: Furosemide 40 MG TABLET PO SCH ×2 (08:47→17:03)
[2021-02-03] MEDS: Ibuprofen 800 MG TABLET PO PRN (13:42)
[2021-02-04 06:48] VITALS: BP 148/70
[2021-02-04] MEDS: Multivit/Ca/Min/Fe/FA 1 TAB TABLET PO SCH (09:01)
[2021-02-04] MEDS: Insulin LISPRO 300 UNITS/3 ML VIAL SUBQ SCH ×3 (09:01→16:44)
[2021-02-04] MEDS: Furosemide 40 MG TABLET PO SCH ×2 (09:01→16:43)
[2021-02-04] MEDS: Finasteride 5 MG TABLET PO SCH (09:02)
[2021-02-04] MEDS: GlipiZIDE 5 MG TABLET PO SCH (09:02)
[2021-02-04] MEDS: predniSONE 20 MG TABLET PO SCH (09:03)
== END 2021-02-04 19:15 | disposition hospice, home (50) | DRG 293 ==
LOC: INPGRE 18:34
PROVIDERS: ADMIT Family Medicine; ATTEND Family Medicine

== ENCOUNTER 2021-03-05 07:25 | Inpatient (IN) ==
[2021-03-05] MEDS ORDERED: 0.9 % Sodium Chloride 500 ML IVC ONE (07:51)
[2021-03-05 08:04] LABS: INR 1.1; Prothrombin Time 12.8 Seconds (9.4-12.1)
[2021-03-05 08:10] LABS: VBG HCO3 37 mEq/L (21-27); VBG PCO2 68 mmHg (41-51); VBG PH 7.34 pH Units (7.32-7.42); VBG PO2 20 mmHg (25-50)
[2021-03-05 08:11] LABS: Basophils % 0.4 %; Eosinophils # 0.5 K/mcL (0.0-0.6); Eosinophils % 4.2 %; Hematocrit 37.8 % (37.5-50.1); Hemoglobin 11.8 g/dL (12.9-16.9); Immature Granulocytes % 0.4 % (0-4); Mean Corpuscular HGB Conc 31.2 g/dL (31.6-35.5); Mean Corpuscular Hemoglobin 29.4 pg (28.0-33.3); Mean Platelet Volume 10.2 fL (9.4-12.4); Monocytes # 0.7 K/mcL (0.0-1.3); Monocytes % 6.8 %; Neutrophils # 8.5 K/mcL (1.6-8.9); Platelet Count 342 K/mcL (140-400); Red Blood Count 4.02 M/mcL (4.19-5.50); Red Cell Distribution Width 14.6 % (11.5-14.5); Segmented Neutrophils % 79.2 %; White Blood Count 10.7 K/mcL (4.3-11.1)
[2021-03-05 08:12] LABS: Alanine Aminotransferase 18 Units/L (7-52); Albumin 3.6 g/dL (3.5-5.7); Albumin/Globulin Ratio 1.2 (1.1-2.2); Alkaline Phosphatase 61 Units/L (34-104); Aspartate Amino Transferase 17 Units/L (13-39); BUN/Creatinine Ratio 14 (6-26); Bilirubin,Total 0.5 mg/dL (0.3-1.0); Blood Urea Nitrogen 17 mg/dL (8-23); Carbon Dioxide 36 mEq/L (23-29); Chloride 96 mEq/L (98-107); Glucose 160 mg/dL (70-105); Magnesium 1.8 mg/dL (1.6-2.6); Osmolality,Calculated 293 (280-300); Potassium 4.1 mEq/L (3.5-5.1); Sodium 139 mEq/L (136-145); Total Protein 6.6 g/dL (6.4-8.9); eGFR For African Americans > 60 (> 60); eGFR For Non-African Americans 58 (> 60)
[2021-03-05 08:15] LABS: Troponin I < 0.03 ng/mL (< 0.04)
[2021-03-05] MEDS ORDERED: levoFLOXacin 750 MG/150 ML 750 MG/150 ML BAG IVPB ONE (08:16)
[2021-03-05] MEDS ORDERED: methylPREDNISolone 125 MG/2 ML VIAL IVP ONE (08:19)
[2021-03-05] MEDS ORDERED: Ipratropium/Albuterol Neb 3 ML IH ONE (08:19)
[2021-03-05] MEDS ORDERED: Acetaminophen 325 MG TABLET PO ONE (08:23)
[2021-03-05] MEDS ORDERED: Furosemide 40 MG in 0.9 % Sodium Chloride 50 ML IV SCH (09:00)
[2021-03-05] MEDS ORDERED: DICLOFENAC SODIUM 1% DT PRN (09:27)
[2021-03-05] MEDS ORDERED: Naloxone 0.4 MG/ML INJ IVP PRN (09:27)
[2021-03-05] MEDS ORDERED: [UNRECOGNIZED DRUG - REMARK] SQ SCH (09:30)
[2021-03-05] MEDS: Finasteride 5 MG TABLET PO SCH (10:20)
[2021-03-05] MEDS: Multivit/Ca/Min/Fe/FA 1 TAB TABLET PO SCH (10:21)
[2021-03-05] MEDS ORDERED: Dextrose Gel 15 GM/37.5 ML TUBE PO PRN ×2 (10:25)
[2021-03-05] MEDS ORDERED: *HR* Dextrose 50 % in Water (Vial) 50 ML VIAL IVP PRN (10:25)
[2021-03-05] MEDS ORDERED: D5% in Water 1,000 ML IVC PRN (10:25)
[2021-03-05] MEDS ORDERED: Trolamine Salicylate/Aloe Vera 85 APPL/85 GM TUBE TP PRN (10:39)
[2021-03-05] MEDS ORDERED: Furosemide 40 MG/4 ML VIAL IVP SCH (10:49)
[2021-03-05] MEDS ORDERED: Dexamethasone Sodium Phos/PF 10 MG/ML VIAL ONE (11:34)
[2021-03-05] MEDS: Ipratropium/Albuterol Neb 3 ML IH SCH ×4 (11:58→23:43)
[2021-03-05] MEDS: Insulin LISPRO 300 UNITS/3 ML VIAL SUBQ SCH ×2 (12:02→17:05)
[2021-03-05] MEDS: Benzonatate 100 MG CAPSULE PO PRN ×2 (15:28→22:47)
[2021-03-05] MEDS ORDERED: polyethylene glycoL 3350 17 GM POWD.PACK PO PRN (15:53)
[2021-03-05] MEDS ORDERED: Ondansetron ODT 4 MG TAB.RAPDIS SL PRN (15:53)
[2021-03-05] MEDS: Morphine Sulfate Oral CONC 10 MG/0.5 ML ORAL.SYG PO PRN ×3 (17:41→23:54)
[2021-03-05] MEDS: Furosemide 40 MG/4 ML VIAL IVP SCH (17:59)
[2021-03-05] MEDS: Albuterol 2.5 MG/3 ML NEBULIZER IH PRN (18:01)
[2021-03-05] MEDS: *HR* LORazepam Oral Conc 2 MG/ML PO PRN (18:15)
[2021-03-05] MEDS: FluocinoNIDE 0.05% CRM 15 GM TUBE TP SCH (20:13)
[2021-03-05] MEDS: Hyoscyamine SL 0.125 MG TAB.SUBL SL PRN (20:19)
[2021-03-05] MEDS ORDERED: Insulin DETEMIR 100 UNIT/ML X5UNITS SUBQ SCH (21:00)
[2021-03-05] MEDS: Atropine 1% Opth Drops 100 DROP/5 ML BOTTLE SL PRN ×2 (22:07→23:54)
[2021-03-06] MEDS: Atropine 1% Opth Drops 100 DROP/5 ML BOTTLE SL PRN ×10 (01:19→18:59)
[2021-03-06] MEDS: *HR* LORazepam Oral Conc 2 MG/ML PO PRN ×13 (02:02→23:06)
[2021-03-06] MEDS: Albuterol 2.5 MG/3 ML NEBULIZER IH PRN (02:14)
[2021-03-06] MEDS: Morphine Sulfate Oral CONC 10 MG/0.5 ML ORAL.SYG PO PRN ×16 (03:50→23:06)
[2021-03-06] MEDS: Ipratropium/Albuterol Neb 3 ML IH SCH ×5 (04:15→21:16)
[2021-03-06] MEDS: FluocinoNIDE 0.05% CRM 15 GM TUBE TP SCH (08:59)
[2021-03-06] MEDS: Insulin LISPRO 300 UNITS/3 ML VIAL SUBQ SCH ×2 (08:59→11:24)
[2021-03-06] MEDS ORDERED: GlipiZIDE 5 MG TABLET PO SCH (09:00)
[2021-03-06] MEDS ORDERED: levoFLOXacin 750 MG/150 ML 750 MG/150 ML BAG IVPB SCH (09:00)
[2021-03-06] MEDS: Multivit/Ca/Min/Fe/FA 1 TAB TABLET PO SCH (09:00)
[2021-03-06] MEDS ORDERED: Cholecalciferol (D-3) 1,000 UNIT (25MCG) TABLET PO SCH (09:00)
[2021-03-06] MEDS ORDERED: calcitrioL 0.25 MCG CAPSULE PO SCH (09:00)
[2021-03-06] MEDS: Finasteride 5 MG TABLET PO SCH (09:00)
[2021-03-06] MEDS ORDERED: Morphine Sulfate Oral CONC 10 MG/0.5 ML ORAL.SYG SL ONE (09:19)
[2021-03-06] MEDS: Furosemide 40 MG/4 ML VIAL IVP SCH (09:51)
[2021-03-06] MEDS ORDERED: Scopolamine Patch 1.5 MG PATCH.TD72 TD SCH (14:15)
[2021-03-06] MEDS: Hyoscyamine SL 0.125 MG TAB.SUBL SL PRN (14:27)
[2021-03-07] MEDS: Ipratropium/Albuterol Neb 3 ML IH SCH ×3 (00:46→08:46)
[2021-03-07] MEDS: *HR* LORazepam Oral Conc 2 MG/ML PO PRN ×5 (01:01→10:13)
[2021-03-07] MEDS: Atropine 1% Opth Drops 100 DROP/5 ML BOTTLE SL PRN ×4 (01:01→08:13)
[2021-03-07] MEDS: Morphine Sulfate Oral CONC 10 MG/0.5 ML ORAL.SYG PO PRN ×7 (01:02→10:12)
[2021-03-07 07:58] VITALS: BP 102/58
== END 2021-03-07 12:15 | disposition expired | DRG 951 ==
LOC: EMEROOGRE 07:25 → INPGRE 09:27
PROVIDERS: ADMIT Family Medicine; ATTEND Family Medicine